=== PATIENT | female | born 1955 | race Caucasian/White ===

== ENCOUNTER 2024-11-01 09:03 | Inpatient (IN) | payer MEDICARE, MEDICAID, SELFPAY ==
[2024-11-01] VITALS (21 sets, daily range): BP systolic 133–179; BP diastolic 82–116; PULSE 144–155; RESP 18–25; TEMP 36.8–37.7; O2SAT 89–97; BMI 27.4
--- NOTE | 2024-11-01 10:01 | EKG_ITS ---
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[id number] Requested By: ED Temporary Provider Order Number: [id number] Reading MD: ED Temporary Provider Measurements Intervals [place] Rate: 144 P: VT: QRS: 38 QRSD: 86 T: 259 QT: 205 QTc: 317 Interpretive Statements ATRIAL FLUTTER/TACHYCARDIA WITH RAPID VENTRICULAR RESPONSE POSSIBLE RIGHT VENTRICULAR CONDUCTION DELAY [RSR (QR) IN V1/V2] ST DEVIATION AND MODERATE T-WAVE ABNORMALITY, CONSIDER INFERIOR ISCHEMIA [-0.1+ mV T-WAVE IN II/aVF] Compared to ECG 11/17/2023 23:34:28 T-wave abnormality now present Possible ischemia now present Myocardial infarct finding no longer present /store/S0/[id number]/ecg/[id number].pdf
--- NOTE | 2024-11-01 10:08 | EDNOTE_ITS ---
ED SOB =RME/HPI General Chief Complaint: Shortness of Breath/Dyspnea Stated Complaint: SOB, DIFF, BREATHING X2 WK Time Seen by Provider: 11/01/24 10:05 Arrival date/time: 11/01/24 09:03 RME / HPI RME / HPI Narrative: 69 year old female with history of CAD s/p CABG, COPD on 2L home oxygen PRN, hypertension, hyperlipidemia, active tobacco smoker presents to the ED for evaluation of shortness of breath and cough today. Accompanied by feeling feverish and chills. Patient states at baseline she is short of breath accompanied by a cough. In the last week states her shortness of breath is progressively worsening. At baseline can go 3-4 days without using her rescue inhaler or giving herself nebulizer treatments. However, in the last week is using her inhaler and nebulizer every day. Additionally states she has had to increase her oxygen from 2L to 4L via nasal cannula. Denies current use of steroids. No sick contacts. Per RN, on arrival to the ED the patient was saturating 78% on room air. Related Data Home Medications ?Medication ?Instructions ?Recorded ?Confirmed omeprazole 20 mg tablet,delayed 20 mg PO QDAY 05/31/21 11/01/24 release ropinirole 0.5 mg tablet 0.25 mg PO 11/14/23 Held on 11/01/24. Instructions: Order Change aspirin 81 mg tablet,delayed 81 mg PO QDAY 11/01/24 release (Adult Aspirin Regimen) atorvastatin 40 mg tablet mg 11/01/24 loratadine 10 mg tablet mg 11/01/24 Previous Rx's ?Medication ?Instructions ?Recorded apixaban 5 mg tablet (Eliquis) 5 mg PO BID #60 tabs digoxin 125 mcg (0.125 mg) tablet 0.125 mg PO QDAY #30 tabs 11/19/23 diltiazem HCl 360 mg 360 mg PO QAM #30 caps 11/19 capsule,extended release 24 hr magnesium oxide 400 mg (241.3 mg 400 mg PO QDAY #30 ta bs 11/19/23 magnesium) tablet albuterol sulfate 90 mcg/actuation 2 puff inhalation Q 6H PRN 11/20/23 aerosol inhaler shortness of breath or wheez ing #8.5 grams Allergies Allergy/AdvReac Type Severity Reaction Status Date / Time No Known Allergies Allergy Verified 11/01/24 09:08 Review of Systems Review of Systems Narrative Review of Systems: Gen: No fever, no chills, no weight loss EYES: No discharge, no visual changes, no pain HEENT: No ear pain, no congestion, no sore throat PULM: + shortness of breath, +productive cough CV: No chest pain, no dyspnea on exertion, no palpitations, no chest tightness GI: No nausea, no vomiting, no diarrhea, no pain, no constipation : No frequency, no urgency,? no dysuria Musc/skel: No joint pain, no back pain Skin: No rash, no ecchymosis, no lesions Neuro: No weakness, no headache Past Medical History Past Medical History CARDIAC: Positive Cardiac Disorders, Myocardial Infarction and Hypertension RESPIRATORY: Positive Respiratory Disorders, Chronic Obstructive Pulmonary Disease (COPD) and Asthma ENT: Positive Blind Family History FAMILY HISTORY: Positive Family Cardiac Disorders Surgical History SURGICAL: Positive Cardiac Surgery, Coronary Artery Bypass Graft (X3 1991) and Tonsillectomy Social History SMOKING STATUS: Current every day smoker SECOND HAND EXPOSURE: Yes ED Exam Narrative Physical exam: GENERAL APPEARANCE: AxOx4, COPD blue bloater HEENT: NC, AT. MMM. EOMI, clear conjunctiva, oropharynx clear. NECK: Supple without lymphadenopathy. No stiffness or restricted ROM. HEART: Normal rate and regular rhythm, normal S1/S1, no m/r/g LUNGS: Dahl expiratory wheezing, coarse rhonchi, COPD. ABDOMEN: Soft, nontender, nondistended with good bowel sounds heard. BACK: No midline C/T/L spine pain or deformity, No CVAT, no obvious deformity. EXTREMITIES: Without cyanosis, clubbing or edema. MUSCULOSKELETAL: FROM of all major joints, no chest tenderness NEUROLOGICAL: Grossly nonfocal. Alert and oriented, moving all 4 extremities. CN not formally tested but appear grossly intact. Skin: Warm and dry without any rash. Course Quality Measures none Orders Category Date Time Status Admit to Inpatient Status Routine Admission 11/01/24 17:43 Active Patient Condition Routine Admission 11/01/24 17:42 Ordered COVID-19 Screening Questionnaire NOW Care 11/01/24 17:32 Active Continuous Pulse Oximetry NOW Care 11/01/24 17:42 Active Decision to Admit X1 Care 11/01/24 17:32 Active EKG (ED ONLY) *Do not use* NOW Care 11/01/24 10:01 Completed Flu & Pneumonia Vaccine Screen ONCE Care 11/01/24 17:42 Active Notify provider NEEDED Care 11/01/24 17:42 Active Consult to Cardiology Stat Cons 11/01/24 17:49 Ordered CA echo doppler complete Routine Exams 11/01/24 17:46 Ordered EKG (ED Only) Stat Exams 11/01/24 10:01 Draft EKG (ED Only) Urgent Exams 11/01/24 10:01 Ordered CBC AM DRAW Lab 11/02/24 05:00 Ordered CBC AM DRAW Lab 11/03/24 05:00 Ordered CBC AM DRAW Lab 11/04/24 05:00 Ordered CBC Stat Lab 11/01/24 10:00 Completed CMP [Comprehensive Metabolic Panel] Stat Lab 11/01/24 10:00 Completed Lipid Panel AM DRAW Lab 11/02/24 05:00 Ordered Magnesium AM DRAW Lab 11/02/24 05:00 Ordered Magnesium AM DRAW Lab 11/03/24 05:00 Ordered Magnesium AM DRAW Lab 11/04/24 05:00 Ordered Magnesium Stat Lab 11/01/24 10:00 Completed PTT [Partial Thromboplastin Time] Stat Lab 11/01/24 10:00 Completed Prothrombin Time with INR AM DRAW Lab 11/02/24 05:00 Ordered Renal Function Panel AM DRAW Lab 11/02/24 05:00 Ordered Renal Function Panel AM DRAW Lab 11/03/24 05:00 Ordered Renal Function Panel AM DRAW Lab 11/04/24 05:00 Ordered Renal Function Panel AM DRAW Lab 11/05/24 05:00 Ordered Thyroid Stimulating Hormone AM DRAW Lab 11/02/24 05:00 Ordered ALBUTEROL RT 0.5ml [Proventil Rt 0.5ml] Med 11/01/24 10:06 Discontinued 10 mg INH X1 ONE ALBUTEROL RT 3ml [Proventil Rt 3ml] Med 11/01/24 11:41 Discontinued 2.5 mg INH X1 ONE Acetaminophen Tab [Tylenol Tab] Med 11/01/24 17:42 Active 1,000 mg PO Q6H PRN Adenosine 6mg Inj [Adenocard Inj] Med 11/01/24 17:05 Discontinued 12 mg IVP X1 ONE Apixaban [Eliquis] Med 11/01/24 21:00 Active 5 mg PO BID Dextrose 5%-Water [D5w] 100 ml Med 11/01/24 13:45 Active Diltiazem Inj [Cardizem Inj] 125 mg IV 10 mls/hr Diltiazem Inj [Cardizem Inj] Med 11/01/24 11:41 Discontinued 25 mg IV X1 ONE Ipratropium Loring Rt Nayla [Atrovent Rt Nayla] Med 11/01/24 17:49 Active 0.5 mg INH Q6HR PRN Ipratropium Loring Rt Nayla [Atrovent Rt Nayla] Med 11/01/24 10:06 Discontinued 1 mg INH X1 ONE Levalbuterol Rt [Xopenex Rt Nayla] Med 11/01/24 17:49 Active 0.63 mg INH Q6HR PRN Magnesium Sulfate 2 GM Ivpb [Magnesium Sulfate Ivpb] Med 11/01/24 17:49 Active 2 gm in 50 ml IV X1 Morphine Inj Med 11/01/24 17:42 Active 2 mg IVP Q2H PRN Ondansetron Inj [Zofran Inj] Med 11/01/24 17:42 Active 4 mg IV Q6H PRN Sodium Chloride 0.9% [Ns] 100 ml Med 11/01/24 13:45 Discontinued Diltiazem Inj [Cardizem Inj] 125 mg IV 10 mls/hr Sodium Chloride Rt Nayla 0.9% [NS Rt Nayla 0.9%] Med 11/01/24 10:06 Active 3 ml INH PRN PRN cefTRIAXone/D5w 1gm IV premix [Rocephin/D5w 1gm IV Med 11/01/24 17:26 Discontinued premix] 50 ml IV X1 predniSONE Med 11/01/24 10:06 Discontinued 60 mg PO X1 ONE rOPINIRole HCL [Requip] Med 11/01/24 14:00 Discontinued 0.25 mg PO X1 ONE Code Status Routine Oth 11/01/24 17:42 Ordered Oxygen Delivery DAILY RT 11/01/24 17:43 Active Reevaluation(s) Reevaluation #1: We reviewed all the results, analysis, and treatment plans. Patient is amenable to admission. Time: 15:45 Vital Signs Vital signs: Vital Signs Temperature 98.8 F 11/01/24 09:41 Pulse Rate 146 H 11/01/24 09:41 Respiratory Rate 19 11/01/24 09:41 Blood Pressure 163/110 H 11/01/24 09:41 Pulse Oximetry (%) 92 L 11/01/24 09:41 Oxygen Delivery Method Nasal Cannula 11/01/24 09:41 Oxygen Flow Rate 4 11/01/24 09:41 Pulse ox is 92% on 4L nasal cannula which is adequate for the patient. Shortness of Breath / Dyspnea MDM Narrative MDM Narrative:: Windy Sheth am scribing for and in the presence of Dr. Mckeon. Patient data External records reviewed:: [facility] previous records (I reviewed admission from 11/11/2023 through 11/19/2023) Clinical information provided by:: patient Social determinants that could affect healthcare access:: other (specify) (Active tobacco smoker ) Patient has the following chronic illnesses:: CAD s/p CABG, COPD on 2L home oxygen PRN, hypertension, hyperlipidemia, active tobacco smoker How is presenting disease/condition affected by chronic disease/condition?: exacerbated by Evaluation data The following diagnostics were reviewed and interpreted by me:: lab results, radiology exam(s) and EKG tracing(s) (Sinus tachycardia, rate 144, no STEMI. ) Lab and/or radiology exams considered but not ordered:: None Interpretation Summary: As noted above Medications / Prescriptions Medications or Prescriptions considered but not ordered:: None Medication administrations:: Medication Administration History Acetaminophen (Acetaminophen 325 Mg Tablet) 1,000 mg PO Q6H PRN PRN Reason: Fever >100 Stop: 12/01/24 17:41 Apixaban (Apixaban 2.5 Mg Tablet) 5 mg PO BID COUNTS INCLUDE 234 BEDS AT THE [facility] Stop: 12/01/24 20:59 Diltiazem HCl 125 mg/ Dextrose 125 mls @ 10 mls/hr IV .[id number] COUNTS INCLUDE 234 BEDS AT THE [facility] Stop: 12/01/24 13:44 Last Infusion: 11/01/24 17:27 Dose: 10 mls/hr Documented By: Infusion: 11/01/24 14:25 Dose: 0 mls/hr Documented By: Admin: 11/01/24 13:57 Dose: 10 mls/hr Documented By: NUNO Magnesium Sulfate (Magnesium Sulfate Ivpb) 2 gm in 50 mls @ 25 mls/hr IV X1 ONE Stop: 11/01/24 19:48 Ipratropium [place] (Ipratropium Rt 0.5 Mg/ 2.5 Ml Nebu) 0.5 mg INH Q6HR PRN PRN Reason: wheezing Stop: 12/01/24 17:48 Last Admin: 11/01/24 18:01 Dose: 0.5 mg Documented By: NICK Levalbuterol HCl (Levalbuterol Rt 0.63 Mg/3 Ml Nebu) 0.63 mg INH Q6HR PRN PRN Reason: wheezing Stop: 12/01/24 17:48 Last Admin: 11/01/24 18:01 Dose: 0.63 mg Documented By: NICK Morphine Sulfate (Morphine Sulf Inj 10 Mg/Ml Vial) 2 mg IVP Q2H PRN PRN Reason: Pain Scale 4-10 (Severe Stop: 11/06/24 17:41 Ondansetron HCl (Ondansetron Inj 2 Mg/Ml Inj 2 Ml) 4 mg IV Q6H PRN; Protocol PRN Reason: NAUSEA OR VOMITING Stop: 12/01/24 17:41 Sodium Chloride (Sodium Chloride Rt Nayla 0.9% 3 Ml Nebu) 3 ml INH PRN PRN PRN Reason: SOLN Stop: 12/01/24 10:05 Last Admin: 11/01/24 14:22 Dose: 3 ml Documented By: Admin: 11/01/24 14:20 Dose: 3 ml Documented By: MONIE Discontinued Medications Adenosine (Adenosine Inj 3 Mg/Ml Vial) 12 mg IVP X1 ONE Stop: 11/01/24 17:06 Last Admin: 11/01/24 17:23 Dose: 12 mg Documented By: NUNO Albuterol (Albuterol Rt 2.5 Mg/0.5 Ml Nebu) 10 mg INH X1 ONE Stop: 11/01/24 10:07 Last Admin: 11/01/24 10:39 Dose: 10 mg Documented By: MONIE Albuterol (Albuterol Rt 2.5 Mg/3 Ml Nebu) 2.5 mg INH X1 ONE Stop: 11/01/24 11:42 Last Admin: 11/01/24 14:19 Dose: 2.5 mg Documented By: MONIE Diltiazem HCl (Diltiazem Inj 5 Mg/Ml Vial 5 Ml) 25 mg IV X1 ONE Stop: 11/01/24 11:42 Last Admin: 11/01/24 13:20 Dose: 25 mg Documented By: NUNO Diltiazem HCl 125 mg/ Sodium (Chloride) 125 mls @ 10 mls/hr IV .[id number] ESPERANZA Stop: 12/01/24 13:29 Ceftriaxone Sodium/Dextrose (Rocephin/D5w 1gm Iv Premix) 50 mls @ 100 mls/hr IV X1 ONE Stop: 11/01/24 17:55 Ipratropium [place] (Ipratropium Rt 0.5 Mg/ 2.5 Ml Nebu) 1 mg INH X1 ONE Stop: 11/01/24 10:07 Last Admin: 11/01/24 10:39 Dose: 1 mg Documented By: MONIE Prednisone (Prednisone 20 Mg Tablet) 60 mg PO X1 ONE Stop: 11/01/24 10:07 Last Admin: 11/01/24 10:33 Dose: 60 mg Documented By: NUNO Ropinirole HCl (Ropinirole Hcl 0.25 Mg Tablet) 0.25 mg PO X1 ONE Stop: 11/01/24 14:01 Last Admin: 11/01/24 14:17 Dose: 0.25 mg Documented By: NUNO See above Consultations Consultation(s) initiated? (list below): Yes Consultation #1 (Physician, Specialty, Details): I spoke with hospitalist team regarding admission. Discussed patients PMHx, HPI, ED course, exam findings, labs, and radiology results. The hospitalist agree to accept the patient for admission. Diagnosis Shortness of Breath Differential Diagnosis: acute exacerbation of chronic obstructive airways disease, congestive heart failure, community acquired pneumonia and asthma with exacerbation Most likely diagnosis given after review of the tests above:: COPD exacerbation Bilateral pneumonia atrial flutter with RVR Admission Indicated Admission indicated?: indicated Admission Request Was there a request for admission?: Yes Admission Attestation Admission request attestation: Discussed case with [] from Hospitalist service regarding admission. Discussed patients ED course, exam findings, labs, and radiology results. The Hospitalist [agrees,declines] to accept the patient for admission. Disposition Plan Disposition Plan: Admit Critical Care Time Critical Care Time Critical Care Time: Yes Total Critical Care Time (min.): 45 Attestation: The high probability of sudden, clinically significant deterioration in the patient's condition required the highest level of my preparedness to intervene urgently. The services I provided to this patient were to treat and/or prevent clinically significant deterioration. Services included the following: chart data review, reviewing nursing notes and/or old charts, documentation time, business continuity consultant collaboration regarding findings and treatment options, medication orders and management, direct patient care, vital sign assessments and ordering, interpreting and reviewing diagnostic studies and lab tests. Aggregate critical care time includes only time during which I was engaged in work directly related to the patient's care, as described above, whether at bedside or elsewhere in the Emergency Department. It did not include time spent performing other reported procedures or the services of residents, students, nurses or physician assistants. Discharge Plan Plan Patient Disposition: Admit Acute Care w/in Hospital Prescriptions/Referrals Prescriptions/Med Rec: No Action omeprazole 20 mg Tablet,Delayed Release (Dr/Ec) 20 mg PO QDAY ropinirole 0.5 mg tablet 0.25 mg PO Patient Comments: TAKE ONE TABLET BY MOUTH 1-3 HOURS AT BEDTIME digoxin 125 mcg (0.125 mg) Tablet 0.125 mg PO QDAY Qty: 30 0RF diltiazem HCl 360 mg capsule,extended release 24hr 360 mg PO QAM Qty: 30 0RF magnesium oxide 400 mg (241.3 mg magnesium) Tablet 400 mg PO QDAY Qty: 30 0RF Eliquis 5 mg tablet 5 mg PO BID Qty: 60 0RF albuterol sulfate 90 mcg/actuation HFA aerosol inhaler 2 puff inhalation Q6H PRN (Reason: shortness of breath or wheezing) Qty: 8.5 0RF atorvastatin 40 mg tablet Patient Comments: TAKE ONE TABLET BY MOUTH EVERY EVENING FOR CHOLESTEROL loratadine 10 mg tablet Patient Comments: TAKE ONE TABLET BY MOUTH EVERY DAY NEEDED FOR ALLERGY aspirin [Adult Aspirin Regimen] 81 mg tablet,delayed release (DR/EC) 81 mg PO QDAY Referrals: Scout Morris PA-C [Primary Care Provider] - In 1 week Problem List Clinical Impression: COPD exacerbation, Atrial flutter with rapid ventricular response, Bilateral pneumonia Patient/Caregiver Discharge Instructions Print Language: Persian Stand Alone Forms: Ibeth Award Info., Patient Portal Info Letter
[2024-11-01] MEDS: predniSONE 20 MG TABLET 60 MG PO (10:33)
[2024-11-01] MEDS: ALBUTEROL RT 2.5 MG/0.5 ML NEBU 10 MG INH (10:39)
[2024-11-01] MEDS: IPRATROPIUM RT 0.5 MG/ 2.5 ML NEBU 1 MG INH (10:39)
[2024-11-01 11:56] LABS: Basophils # (Auto) 0.1 Thou/mm3 (0.0-0.2); Basophils % (Auto) 1 % (0-2.5); Eosinophils % (Auto) 0 % (0-10); Hematocrit 37.3 % (36.0-46.0); Hemoglobin 11.3 g/dL (12.0-16.0); Immature Granulocytes % (Auto) 2 % (0-0); Immature Granulocytes Auto 0.28 Thou/mm3 (0.00-0.00); Lymphocytes # (Auto) 1.2 Thou/mm3 (1.0-4.8); Lymphocytes % (Auto) 9 % (10-50); Mean Corpuscular HGB Conc 30.3 g/dl (31.0-37.0); Mean Corpuscular Hemoglobin 25.3 pg (25.0-35.0); Mean Corpuscular Volume 84 fL (80-100); Monocytes # (Auto) 0.7 Thou/mm3 (0.0-0.8); Monocytes % (Auto) 5 % (0-12); Neutrophils # (Auto) 11.1 Thou/mm3 (1.8-7.7); Neutrophils % (Auto) 84 % (37-80); Nucleated Red Blood Cell # 0.14 Thou/mm3 (0.00-0.00); Nucleated Red Blood Cell % 1 /100 WBC (0); Platelet Count 304 Thou/mm3 (140-440); RDW Standard Deviation 56.3 fL (36.4-46.3); Red Blood Count 4.46 Miln/mm3 (4.00-5.20); White Blood Count 13.3 Thou/mm3 (3.6-11.0)
[2024-11-01 12:05] LABS: Alanine Aminotransferase 24 U/L (10-49); Albumin/Globulin Ratio 1.3 (1.2-2.2); Alkaline Phosphatase 200 U/L (46-116); Anion Gap 6 (7-16); Aspartate Amino Transferase 65 U/L (0-34); BUN/Creatinine Ratio 15 Ratio (12-20); Bilirubin,Total 0.4 mg/dL (0.3-1.2); Blood Urea Nitrogen 12 mg/dL (9-23); Calcium 8.5 mg/dL (8.3-10.6); Calcium (Corrected) 8.5 mg/dL (8.5-10.1); Carbon Dioxide 31.8 mMol/L (20.0-31.0); Chloride 92 mMol/L (98-107); Creatinine (Component) 0.8 mg/dL (0.6-1.3); Estimated Creatinine Clearance 60.9 mL/min (>60); Globulin 3.1 gm/dL (2.3-3.5); Glucose 112 mg/dL (74-106); Magnesium 1.8 mg/dL (1.6-2.6); Osmolality,Calculated 261 (275-295); Potassium 4.5 mMol/L (3.4-5.1); Sodium 130 mMol/L (136-145); Total Protein 7.1 gm/dL (5.7-8.2); eGFR > 60 See Note
[2024-11-01] MEDS: DILTIAZEM INJ 5 MG/ML VIAL 5 ML 25 MG IV (13:20)
[2024-11-01] MEDS: DILTIAZEM INJ 125 MG in DEXTROSE 5%-WATER 100 ML 10 MG IV (13:57)
[2024-11-01] MEDS: rOPINIRole HCL 0.25 MG TABLET PO (14:17)
[2024-11-01] MEDS: ALBUTEROL RT 2.5 MG/3 ML NEBU INH (14:19)
[2024-11-01] MEDS: SODIUM CHLORIDE RT SOL 0.9% 3 ML NEBU INH ×2 (14:20→14:22)
[2024-11-01] MEDS: ADENOSINE INJ 3 MG/ML VIAL 12 MG IVP (17:23)
--- NOTE | 2024-11-01 17:46 | ECHO_ITS ---
Transthoracic Echo Report Ht (in): 62 Wt (lb): 150 Exam Location: Echo Lab Status: Emergency Almond Sorter: Елена Soriano Indications: Procedure Performed: BP: 132 / 92 HR: 98 Technical Quality: Technically difficult study MEASUREMENTS (Male / Female) Normal Values 2D ECHO LV Diastolic Diameter PLAX 5.0 cm 4.2 - 5.9 / 3.9 - 5.3 cm LV Systolic Diameter PLAX 3.5 cm IVS Diastolic Thickness 1.0 cm 0.6 - 1.0 / 0.6 - 0.9 cm LVPW Diastolic Thickness 1.0 cm 0.6 - 1.0 / 0.6 - 0.9 cm LV Relative Wall Thickness 0.4 LVOT Diameter 2.0 cm LV Ejection Fraction MOD BP 36.5 % >= 55 % LV Cardiac Index MOD BP 1685.5 cm?/min?m? LV Ejection Fraction MOD 4C 37.7 % LV Cardiac Index MOD 4C 1747.3 cm?/min?m? LV Ejection Fraction 4C AL 38.4 % LV Cardiac Index 4C AL 1847.7 cm?/min?m? LV Ejection Fraction MOD 2C 33.4 % LV Cardiac Index MOD 2C 1455.2 cm?/min?m? LV Ejection Fraction 2C AL 35.4 % LV Cardiac Index 2C AL 1600.7 cm?/min?m? LA Volume Index 34.0 cm?/m? 16 - 28 cm?/m? M-MODE Aortic Root Diameter MM 2.0 cm LA Systolic Diameter MM 4.6 cm LA Ao Ratio MM 2.3 AV Cusp Separation MM 1.9 cm DOPPLER AV Peak Velocity 155.0 cm/s AV Peak Gradient 9.6 mmHg AV Mean Gradient 5.0 mmHg AV Velocity Time Integral 27.0 cm LVOT Peak Velocity 107.0 cm/s LVOT Peak Gradient 4.6 mmHg LVOT Velocity Time Integral 18.9 cm LVOT Cardiac Index 3336.0 cm?/min?m? AV Area Cont Eq vti 2.2 cm? AV Area Cont Eq pk 2.2 cm? MV Area PHT 7.1 cm? Mitral E Point Velocity 77.6 cm/s TR Peak Velocity 291.0 cm/s TR Peak Gradient 33.9 mmHg PV Peak Velocity 102.0 cm/s PV Peak Gradient 4.2 mmHg FINDINGS Left Ventricle Normal left ventricular size, wall thickness, systolic function with no obvious regional wall motion abnormalities. Normal left ventricular diastolic filling pattern for age. The ejection fraction is visually estimated at 55-60%. Right Ventricle The right ventricle is normal in size.the right ventricular systolic function is moderately decreased. The estimated right ventricular systolic pressure, 55 mmHg. RAP 15. Left Atrium The left atrium is normal by two-dimensional, color flow and Doppler imaging with no structural abnormalities, no thrombus formation present. Right Atrium The right atrium is normal by two-dimensional imaging, color flow and Doppler imaging with no structural abnormalities, no thrombus formation present. Atrial Septum The interatrial septum appears normal with no evidence of a shunt. Aorta The aorta is normal by two-dimensional, color flow and Doppler interrogation. Mitral Valve The mitral valve is normal by two-dimensional, color flow and Doppler interrogation. There trace mitral valve regurgitation, stenosis or prolapse. Aortic Valve The aortic valve is trileaflet and normal by two-dimensional, color flow and Doppler interrogation. There is no significant aortic valve regurgitation. Tricuspid Valve The tricuspid valve is normal by two-dimensional, color flow and Doppler interrogation. There is moderate tricuspid valve regurgitation. Pulmonic Valve The pulmonic valve is not well visualized. There is no significant pulmonic valve regurgitation. Vessels Dilated inferior vena cava. Pericardium The pericardium is normal by two-dimensional imaging. There is no significant pericardial effusion. CONCLUSIONS Indication: Atrial Flutter Normal LV size and wall thickness .Low normal LV funvtion. Estimated EF 45-50 %. Diastoolic dysfunction present but cannot gartde due to Afib/flutter with RVR. RV is normal in size. RV systolic function is mildlly decreased. Estimated RVSP, 55 mmHg. RAP 15.At;east modertae PAH Trace to mild MR. Moderate TR. MIld biatrial dialation. Dilated IVC. Rex Gaines (Electronically Signed) Final Date: 04 November 2024 07:34
[2024-11-01 18:01] LABS: Partial Thromboplastin Time 32.9 Seconds (22.0-36.0)
[2024-11-01] MEDS: LEVALBUTEROL RT 0.63 MG/3 ML NEBU INH (18:01)
[2024-11-01] MEDS: IPRATROPIUM RT 0.5 MG/ 2.5 ML NEBU INH (18:01)
--- NOTE | 2024-11-01 18:03 | ESHP_ITS ---
<Statement entered by Gurdeep Price MD - 11/09/24 11:49> I reviewed above note and agree with findings and plans. I have also personally examined the patient with medicine team and went over assessment and plan with medical team including restaurant management internship and resident physician. Documentation for date of: 11/01/24 HPI History of Present Illness Chief complaint: SOB History of present illness: Patient is 69 years old female with past medical history of COPD not on oxygen, CAD s/p CABG more than 20 years ago, hypertension, hyperlipidemia, hepatocellular disease, restless legs syndrome, history of polysubstance abuse (alcohol, marijuana, tobacco use, methamphetamine use) presented to the ED complaining of worsening shortness of breath and cough. Patient stated she developed shortness of breath Friday which was worsening, yesterday her condition significantly worsen she started coughing and also experienced flushing which prompted her to come to the ED. She denies any fever, chills, chest pain or phlegm production. Patient was previously admitted for COPD exacerbation at [facility]. On admission blood pressure 164/103, pulse 150, respirations 21, temperature 99.9 ?F, oxygen saturation 97% on 4 L oxy mask. Labs showed mild leukocytosis, mild anemia, mild hypoosmolar hyponatremia. EKG showed atrial flutter. In the ED patient was given breathing treatment with ipratropium, albuterol, prednisone, adenosine, started on diltiazem drip. Patient was admitted for COPD treatment and heart rate management. PMH: COPD, CAD, hypertension, hyperlipidemia, hepatocellular disease, restless legs syndrome, history of polysubstance abuse. PSH: CABG. SH: alcohol quit 1 year ago, remote Hx of marijuana, tobacco use, methamphetamine use. FH: none. Allergies: NKA. Medications: albuterol, apixaban, aspirin, diltiazem, omeprazole. Review of Systems Review of Systems Narrative Review of Systems: General: Denies weight loss, fever and chills. HEENT: Denies changes in vision and hearing. Resp: + SOB, cough and wheezing. CVS: Denies palpitations and CP. GI: Denies abdominal pain, nausea, vomiting and diarrhea. : Denies dysuria and urinary frequency. MSK: Denies myalgia and joint pain. Denies rash and pruritus. Neuro: Denies headache and syncope. Psych: Denies recent changes in mood. Denies anxiety and depression. Exam Vital Signs Temp Pulse Resp BP Pulse Ox O2 Del Method O2 Flow Rate 99.9 F 150 H 21 H 164/103 H 97 Oxy Mask 6 11/01/24 17:16 11/01/24 17:23 11/01/24 17:16 11/01/24 17:23 11/01/24 17:16 11/01/24 17:16 11/01/24 17:16 Narrative Exam Gen: Well-developed and well-nourished on oxymask. HEENT: NCAT, PERRLA, EOMI, MMM, anicteric conjunctivae. CVS: normal S1 and S2. Regular tachycardia. No M/R/G. Resp: expiratory wheezing B/L. No rhonchi, rales, crackles. Abd: soft, non-tender, non-distended. BS+ in all 4 quadrants. MSK: Good ROM in BUE & BLE. No edema or rash. Neuro: CN II-XII grossly intact. Strength 5/5 in BUE & BLE. Alert and oriented x3. Psych: appropriate mood and affect. Results: Labs 11/01/24 10:00 11/01/24 10:00 Labs: Short CBC 11/01/24 Range/Units 10:00 WBC 13.3 H (3.6-11.0) Thou/mm3 Hgb 11.3 L (12.0-16.0) g/dL Hct 37.3 (36.0-46.0) % Plt Count 304 (140-440) Thou/mm3 BMP 11/01/24 10:00 Sodium 130 L Potassium 4.5 Chloride 92 L Carbon Dioxide 31.8 H BUN 12 Creatinine 0.8 Glucose 112 H Calcium 8.5 Liver Function 11/01/24 Range/Units 10:00 Total Bilirubin 0.4 (0.3-1.2) mg/dL AST 65 H (0-34) U/L ALT 24 (10-49) U/L Alkaline Phosphatase 200 H (46-116) U/L Albumin 4.0 (3.4-4.8) gm/dL Quality Measures Quality Measures VTE prophylaxis Advance care planning discussed with:: patient and child Medications Home Medications and Allergies Home Medications ?Medication ?Instructions ?Recorded ?Confirmed ?Type omeprazole 20 mg tablet,delayed 20 mg PO QDAY 05/31/21 11/01/24 History release ropinirole 0.5 mg tablet 0.25 mg PO 11/14/23 History Held on 11/01/24. Instructions: Order Change aspirin 81 mg tablet,delayed 81 mg PO QDAY 11/01/24 History release (Adult Aspirin Regimen) atorvastatin 40 mg tablet mg 11/01/24 History loratadine 10 mg tablet mg 11/01/24 History Allergies Allergy/AdvReac Type Severity Reaction Status Date / Time No Known Allergies Allergy Verified 11/01/24 09:08 Visit Medications Acetaminophen (Acetaminophen 325 Mg Tablet) 1,000 mg PO Q6H PRN PRN Reason: Fever >100 Stop: 12/01/24 17:41 Apixaban (Apixaban 2.5 Mg Tablet) 5 mg PO BID ESPERANZA Stop: 12/01/24 20:59 Diltiazem HCl 125 mg/ Dextrose 125 mls @ 10 mls/hr IV .[id number] ESPERANZA Stop: 12/01/24 13:44 Last Infusion: 11/01/24 17:27 Dose: 10 mls/hr Magnesium Sulfate (Magnesium Sulfate Ivpb) 2 gm in 50 mls @ 25 mls/hr IV X1 ONE Stop: 11/01/24 19:48 Ipratropium [place] (Ipratropium Rt 0.5 Mg/ 2.5 Ml Nebu) 0.5 mg INH Q6HR PRN PRN Reason: wheezing Stop: 12/01/24 17:48 Levalbuterol HCl (Levalbuterol Rt 0.63 Mg/3 Ml Nebu) 0.63 mg INH Q6HR PRN PRN Reason: wheezing Stop: 12/01/24 17:48 Morphine Sulfate (Morphine Sulf Inj 10 Mg/Ml Vial) 2 mg IVP Q2H PRN PRN Reason: Pain Scale 4-10 (Severe Stop: 11/06/24 17:41 Ondansetron HCl (Ondansetron Inj 2 Mg/Ml Inj 2 Ml) 4 mg IV Q6H PRN; Protocol PRN Reason: NAUSEA OR VOMITING Stop: 12/01/24 17:41 Sodium Chloride (Sodium Chloride Rt Nayla 0.9% 3 Ml Nebu) 3 ml INH PRN PRN PRN Reason: SOLN Stop: 12/01/24 10:05 Last Admin: 11/01/24 14:22 Dose: 3 ml Discontinued Medications Adenosine (Adenosine Inj 3 Mg/Ml Vial) 12 mg IVP X1 ONE Stop: 11/01/24 17:06 Last Admin: 11/01/24 17:23 Dose: 12 mg Albuterol (Albuterol Rt 2.5 Mg/0.5 Ml Nebu) 10 mg INH X1 ONE Stop: 11/01/24 10:07 Last Admin: 11/01/24 10:39 Dose: 10 mg Albuterol (Albuterol Rt 2.5 Mg/3 Ml Nebu) 2.5 mg INH X1 ONE Stop: 11/01/24 11:42 Last Admin: 11/01/24 14:19 Dose: 2.5 mg Diltiazem HCl (Diltiazem Inj 5 Mg/Ml Vial 5 Ml) 25 mg IV X1 ONE Stop: 11/01/24 11:42 Last Admin: 11/01/24 13:20 Dose: 25 mg Diltiazem HCl 125 mg/ Sodium (Chloride) 125 mls @ 10 mls/hr IV .[id number] ESPERANZA Stop: 12/01/24 13:29 Ceftriaxone Sodium/Dextrose (Rocephin/D5w 1gm Iv Premix) 50 mls @ 100 mls/hr IV X1 ONE Stop: 11/01/24 17:55 Ipratropium [place] (Ipratropium Rt 0.5 Mg/ 2.5 Ml Nebu) 1 mg INH X1 ONE Stop: 11/01/24 10:07 Last Admin: 11/01/24 10:39 Dose: 1 mg Prednisone (Prednisone 20 Mg Tablet) 60 mg PO X1 ONE Stop: 11/01/24 10:07 Last Admin: 11/01/24 10:33 Dose: 60 mg Ropinirole HCl (Ropinirole Hcl 0.25 Mg Tablet) 0.25 mg PO X1 ONE Stop: 11/01/24 14:01 Last Admin: 11/01/24 14:17 Dose: 0.25 mg Assessment & Plan Plan Patient is 69 years old female with past medical history of CAD s/p CABG more than 20 years ago, hypertension, hyperlipidemia, hepatocellular disease, restless legs syndrome, history of polysubstance abuse (alcohol, marijuana, tobacco use, methamphetamine use) presented to the ED complaining of worsening shortness of breath and cough and was admitted for COPD treatment and heart rate management. #Acute hypoxic respiratory failure secondary to #COPD exacerbation. #Bibasilar pneumonia. #Hx of COPD, not on home oxygen. Hx of COPD, prior admissions. Wheezing on physical exam. Was prescribed home O2 but does not use it. CXR showed bibasilar pneumonia. Plan: -CXR ordered. -started on levalbuterol and ipratropium. -started on dexamethasone. -started on azithromycin and ceftriaxone. -started on mucinex. -VBG ordered. #A-flutter. #Hx of A-fib. Likely 2/2 acute hypoxic respiratory failure and COPD exacerbation. Plan: -diltiazem drip. -eliquis resumed. -Monitor and replete magnesium and potassium. -cardiology consulted, recs appreciated. #Hx of CAD s/p CABG (more then 20 years ago). #Hx of hyperlipidemia. Plan: -echo ordered. -resume home aspirin and atrovastatin. #Hx of hypertension. BP 164/103 on admission. Plan: -takes only diltiazem at home, will hold in setting of diltiazem drip. #Hypoosmolar hyponatremia. -Na 130, osm 261, glucose 112. Plan: -monitor with daily labs. #Hx of restless legs syndrome. -resumed home ropinirole. #Hx of hepatocellular disease. -Follow-up outpatient. #Hx of polysubstance abuse. -remote hx of Marijuana, alcohol, methamphetamine, tobacco use. FEN: Cardiac diet. DVT prophylaxis: Eliquis. Dispo: Telemetry for acute hypoxic respiratory failure 2/2 COPD exacerbation. Code status: FULL CODE. Plan of care discussed with attending Dr. Price. Len Marks MD, PGY 2. Disclaimer: This note was dictated by speech recognition. Minor errors in ball mill operator may be present due to voice recognition software.
--- NOTE | 2024-11-01 18:17 | XR_ITS ---
Examination: AP chest single view TECHNIQUE: AP sitting portable chest single view Exam daytime: November 01, 2024 1821 hours Comparison November 19, 2023 INDICATIONS: Shortness of breath today. FINDINGS: Bibasilar pneumonia Mild prominence of left ventricle CABG Moderate vascular congestion Prominent osteopenia IMPRESSION: Bibasilar pneumonia
[2024-11-01 19:16] LABS: Base Excess, Venous 8 (-3-3); O2 Saturation, Venous 96 % (96-97); PCO2, Venous 54 mmHg (36-56); PO2, Venous 77 mmHg (15-58); pH, Venous 7.41 (7.33-7.66)
[2024-11-01] MEDS: cefTRIAXone/D5w 1gm IV premix 50 ML IV (19:21)
[2024-11-01] MEDS: DIGOXIN 0.125 MG TABLET PO (19:32)
[2024-11-01] MEDS: MORPHINE SULF INJ 10 MG/ML VIAL 2 MG IVP ×2 (19:33→23:02)
--- NOTE | 2024-11-01 19:42 | PC.NURSE ---
Assumed care of pt. Pt awake, alert, no signs of distress noted. Pt on 6L oxymask, tolerating well at this time. Pt c/o restless leg pain, PRN morphine provided. Called pharmacy to request mucinex as well as Cardizem (due to rate change). Bed locked in lowest position, call light within reach.
[2024-11-01] MEDS: Magnesium Sulfate 2 GM Ivpb 2 GM/50 ML BAG IV (19:51)
[2024-11-01] MEDS: DILTIAZEM INJ 125 MG in DEXTROSE 5%-WATER 100 ML 15 MG IV (19:57)
[2024-11-01] MEDS: AZITHROMYCIN INJ 500 MG in SODIUM CHLORIDE 0.9% 250 ML 250 ML 250 MG IV (19:59)
[2024-11-01] MEDS: guaiFENesin/P-EPHED TABLET 1 TAB PO (20:55)
[2024-11-01] MEDS: APIXABAN 2.5 MG TABLET 5 MG PO (20:55)
--- NOTE | 2024-11-01 23:45 | PD.IMCONS ---
HPI Data of Consult Patient: known to practice within the last 3 years Consult date: 11/01/24 Requesting Physician: Gurdeep Price MD Primary Care Provider: Scout Morris PA-C Consult Narrative Reason for consult: A-fib with RVR History of present illness: A 69-year-old female with a past medical of CAD s/p CABG more than 20 years ago with unknown grafts is operative report unavailable, paroxysmal atrial fibrillation/flutter anticoagulation, rate controlled, history of moderate to severe COPD, active smoker still more than half a pack a day, increased 30 pack years smoking history, essential hypertension, hyperlipidemia, morbid obesity, history of alcohol, marijuana and tobacco abuse along with history of methamphetamine abuse previously many years ago, questionable liver disease secondary to alcohol and drug abuse, nephrolithiasis presented to the emergency department for further evaluation of shortness of breath and cough. Patient well-known to me from previous admission in October 2023 as well as she follows up with me in the clinic. Patient was initially diagnosed with paroxysmal atrial flutter/fibrillation with RVR in 2023 when she had COPD exacerbation along with an active COVID infection. Patient was followed up as outpatient and was placed on diltiazem ER to 60 mg once daily as well as digoxin 125 mcg once daily and Eliquis for anticoagulation. Heart rate was well-controlled but continued to be in normal sinus rhythm at that point of time. Patient continues to be smoking and she has at least moderate to severe COPD based on her previous presentations. In the emergency department today the initial blood pressure was 164/90 mmHg heart rate was 150 bpm, respirations of 21/min temperature 99.8 F saturations of 97% on 4 L Ventimask. Labs showed WBC 13.3 with left shift, hemoglobin of 11.3, platelets of 304, BUN of 12 creatinine of 0.8 potassium 4.5, sodium of 130, bicarb of 32, chloride of 92, alk phos 200, AST 65 but rest of the LFT appears normal. Chest x-ray is bibasilar pneumonia with moderate vascular congestion along with prominent osteopenia. EKG showed possible atrial flutter with RVR with 2 is to 1 block and less likely SVT. In the emergency department patient received 25 mg of diltiazem IV along with the diltiazem drip. Cardiology was further consulted for further management of the possible atrial flutter/fibrillation with RVR Past medical history and past surgical history: As noted above Social history: Lives alone and able to do ADL but needs help with IADLs which the daughter helps also lives here in [place]. Patient has a history of alcohol abuse but quit 1 year ago. Remote history of marijuana and methamphetamine use. Active smoker with more than 30 mg smoking history and still smokes more than half pack a day up to 15 cigarettes. Allergies: NKDA Family history is: Significant for history of hypertension as well as heart disease the patient does not know exactly the heart disease Travel history: None recently cc:: cc: Gurdeep Price MD Review of Systems Review of Systems Systems Reviewed: All systems reviewed, normal except as documented Past Medical History Past Medical History CARDIAC: Positive Cardiac Disorders, Myocardial Infarction and Hypertension RESPIRATORY: Positive Respiratory Disorders, Chronic Obstructive Pulmonary Disease (COPD) and Asthma ENT: Positive Blind Family History FAMILY HISTORY: Positive Family Cardiac Disorders Surgical History SURGICAL: Positive Cardiac Surgery, Coronary Artery Bypass Graft (X3 1991) and Tonsillectomy Social History SMOKING STATUS: Current every day smoker SECOND HAND EXPOSURE: Yes Past Medical History Comments PMH COMMENT: As noted in HPI Meds Home Medications and Allergies Home Medications ?Medication ?Instructions ?Recorded ?Confirmed ?Type omeprazole 20 mg tablet,delayed 20 mg PO QDAY 05/31/21 11/01/24 History release ropinirole 0.5 mg tablet 0.25 mg PO 11/14/23 History Held on 11/01/24. Instructions: Order Change aspirin 81 mg tablet,delayed 81 mg PO QDAY 11/01/24 11/01/24 History release (Adult Aspirin Regimen) atorvastatin 40 mg tablet mg 11/01/24 History loratadine 10 mg tablet mg 11/01/24 History Allergies Allergy/AdvReac Type Severity Reaction Status Date / Time No Known Allergies Allergy Verified 11/01/24 09:08 Exam Vital Signs Temp Pulse Resp BP Pulse Ox O2 Del Method O2 Flow Rate 98.3 F 155 H 19 140/94 H 94 L Oxy Mask 6 11/01/24 22:50 11/01/24 22:50 11/01/24 22:50 11/01/24 22:50 11/01/24 22:50 11/01/24 22:50 11/01/24 22:50 Narrative Exam General: Alert and oriented x3. In minimal respiratory distress 4 L oxygen by nasal cannula Eyes: Pupils are equal and reactive to light bilaterally. HEENT: Atraumatic, normocephalic. No JVD noted. Mucosa moist. Cardiovascular: S1 and S2 present, tachycardic but appears regular, 2/ 6 systolic murmur heard in apex, trace peripheral pitting edema noted. Respiratory: Mild respiratory distress. Significant bilateral expiratory wheezing noted and occasional crackles and breath sounds decreased at the bases. Abdomen: Soft, nontender, nondistended. Skin: No rash. Warm to touch. Musculoskeletal: No gross injuries. Able to move all 4 extremities. Neuro: Alert and oriented x3. No focal neuro deficits. Psych: Normal affect and mood Results Labs 11/01/24 10:00 11/01/24 10:00 Labs: Short CBC 11/01/24 Range/Units 10:00 WBC 13.3 H (3.6-11.0) Thou/mm3 Hgb 11.3 L (12.0-16.0) g/dL Hct 37.3 (36.0-46.0) % Plt Count 304 (140-440) Thou/mm3 BMP 11/01/24 10:00 Sodium 130 L Potassium 4.5 Chloride 92 L Carbon Dioxide 31.8 H BUN 12 Creatinine 0.8 Glucose 112 H Calcium 8.5 Liver Function 11/01/24 Range/Units 10:00 Total Bilirubin 0.4 (0.3-1.2) mg/dL AST 65 H (0-34) U/L ALT 24 (10-49) U/L Alkaline Phosphatase 200 H (46-116) U/L Albumin 4.0 (3.4-4.8) gm/dL ABG Interpretation ABG results: 11/01/24 19:07 VBG pH 7.41 VBG pCO2 54 VBG pO2 77 H VBG Base Excess 8 H Assessment and Plan Additional Assessment & Plan Additional Plan: A 69-year-old female with a past medical of CAD s/p CABG more than 20 years ago with unknown grafts is operative report unavailable, paroxysmal atrial fibrillation/flutter anticoagulation, rate controlled, history of moderate to severe COPD, active smoker still more than half a pack a day, increased 30 pack years smoking history, essential hypertension, hyperlipidemia, morbid obesity, history of alcohol, marijuana and tobacco abuse along with history of methamphetamine abuse previously many years ago, questionable liver disease secondary to alcohol and drug abuse, nephrolithiasis presented to the emergency department for further evaluation of shortness of breath and cough. Patient well-known to me from previous admission in October 2023 as well as she follows up with me in the clinic. Patient was initially diagnosed with paroxysmal atrial flutter/fibrillation with RVR in 10/2023 when she had COPD exacerbation along with an active COVID infection. Patient was followed up as outpatient and was placed on diltiazem ER to 60 mg once daily as well as digoxin 125 mcg once daily and Eliquis for anticoagulation. Heart rate was well-controlled but continued to be in normal sinus rhythm at that point of time. Patient continues to be smoking and she has at least moderate to severe COPD based on her previous presentations. Cardiology was consulted today for further management of the possible atrial flutter/fibrillation with RVR 1. Paroxysmal atrial flutter with RVR with 2:1 block and less likely SVT 2. Acute on chronic severe COPD exacerbation with unclear trigger - possible pneumonia 3. CAD s/p CABG more than 20 years ago with unknown grafts as operative report is unavailable 4. Acute on chronic hypoxic respiratory failure and rule out pneumonia 5. HFpEF or diastolic CHF 6. Essential hypertension 7. Hyperlipidemia 8. Morbid obesity 9. History of remote alcohol, marijuana and methamphetamine 10. Active smoker with more than [id number] smoking history 11. Questionable liver disease with given her history of alcohol abuse 12. Mild anemia Patient presented with severe COPD exacerbation unclear trigger and could be possible pneumonia and patient started on IV antibiotics per the primary team which we recommend to continue and do further workup for the sepsis. Patient should also receive Solu-Medrol 125 mg IV x 1 and aggressive treatment of the COPD exacerbation with the nebulizations but avoid albuterol and give patient levalbuterol along with Atrovent nebulizations. Patient will need long-term steroid inhaler along with other COPD regimen. Primary team is following the patient. Regarding tachycardia patient appears to be in paroxysmal atrial flutter with RVR at least 1 block and less likely SVT. Patient apparently did receive adenosine 12 mg IV x 1 in the ED but did not convert also patient received Cardizem 25 mg IV x 1 and Cardizem drip at 10 mg/h. Unfortunately we are unable to obtain the ECG rhythm when the patient did receive diagnosing and it would help with the diagnosis. At home doses of medication was Cardizem CD 360 mg once daily and digoxin 125 mcg once daily with which her heart rate was well-controlled and also was not Eliquis for anticoagulation. -Patient in the atrial flutter with RVR mostly secondary to the COPD exacerbation but as noted above unclear etiology for the COPD exacerbation possible pneumonia. -Recommend to continue Eliquis for anticoagulation -Patient apparently takes her medications as prescribed daily including the digoxin as well as the diltiazem CD and the last dose was yesterday. -Increase Cardizem drip to 15 mg/h for now and if patient rate is controlled in the morning patient should be changed to oral diltiazem 360 mg daily -Repeat EKG along with an BNP -Potassium 4.5 and magnesium is 1.8. Recommend aggressive replacement of magnesium sulfate at least 4 g IV x 1 and recheck levels in the morning. Keep potassium between 4 and 5. -If patient does not convert to normal sinus rhythm tomorrow and if the heart rate still is around 150 bpm and we will plan for ZEE cardioversion and at times atrial flutter with RVR is difficult to control with medications. History of CAD s/p CABG with unknown grafts-please try to obtain the report from her previous hospitalization where the CABG was performed Continue aspirin and statin and no beta-maverick given the severe COPD exacerbation. Recommend aggressive control of CAD with aspirin, high intensity statin. No blockers for rate control because of the severe COPD. Patient does have diastolic dysfunction on the previous echo and chest x-ray shows moderate vascular congestion as per the report. Does not appear to be in overt heart failure but appears to be mildly fluid overloaded. She is not on any kind of Lasix previously at home. Recommend to check BMP tomorrow morning. Okay to give 1 dose of Lasix 40 mg IV x 1. Strict input output, daily weights and 2 g sodium diet. Management of rest of the medical conditions as per primary team and other consultants. Thank you for the consult and allowing me to participate in the care of the patient. Cardiology will continue to follow. There is a high probability of sudden, clinically significant or life threatening deterioration in the patient condition which required the highest level of physician preparedness to intervene urgently. I have personally spent 65 minutes of critical care time, exclusive of time spent on any procedures, in evaluation and management of this critically ill patient. Rex Gaines M.D. Interventional Cardiology
[2024-11-02] VITALS (14 sets, daily range): BP systolic 138–156; BP diastolic 73–106; PULSE 72–150; RESP 17–20; TEMP 36.1–36.2; O2SAT 90–97; BMI 31.2
[2024-11-02] MEDS: MORPHINE SULF INJ 10 MG/ML VIAL 2 MG IVP ×4 (03:48→23:41)
--- NOTE | 2024-11-02 05:00 | EKG_ITS ---
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
[2024-11-02] MEDS: DILTIAZEM INJ 125 MG in DEXTROSE 5%-WATER 100 ML 15 MG IV (05:10)
[2024-11-02 06:31] LABS: Basophils % (Auto) 0 % (0-2.5); Eosinophils % (Auto) 0 % (0-10); Hematocrit 37.8 % (36.0-46.0); Hemoglobin 11.3 g/dL (12.0-16.0); Immature Granulocytes % (Auto) 2 % (0-0); Lymphocytes # (Auto) 0.4 Thou/mm3 (1.0-4.8); Lymphocytes % (Auto) 3 % (10-50); Mean Corpuscular HGB Conc 29.9 g/dl (31.0-37.0); Mean Corpuscular Hemoglobin 25.5 pg (25.0-35.0); Mean Corpuscular Volume 85 fL (80-100); Monocytes # (Auto) 0.2 Thou/mm3 (0.0-0.8); Monocytes % (Auto) 2 % (0-12); Neutrophils # (Auto) 10.3 Thou/mm3 (1.8-7.7); Neutrophils % (Auto) 93 % (37-80); Nucleated Red Blood Cell # 0.12 Thou/mm3 (0.00-0.00); Nucleated Red Blood Cell % 1 /100 WBC (0); Platelet Count 273 Thou/mm3 (140-440); RDW Standard Deviation 56.9 fL (36.4-46.3); Red Blood Count 4.43 Miln/mm3 (4.00-5.20); White Blood Count 11.1 Thou/mm3 (3.6-11.0)
[2024-11-02 06:39] LABS: INR 1.2 (0.9-1.3)
[2024-11-02 07:06] LABS: Albumin, Serum 4.1 gm/dL (3.4-4.8); Anion Gap 5 (7-16); BUN/Creatinine Ratio 15 Ratio (12-20); Blood Urea Nitrogen 12 mg/dL (9-23); Calcium 8.7 mg/dL (8.3-10.6); Calcium (Corrected) 8.7 mg/dL (8.5-10.1); Carbon Dioxide 33.7 mMol/L (20.0-31.0); Chloride 90 mMol/L (98-107); Creatinine (Component) 0.8 mg/dL (0.6-1.3); Estimated Creatinine Clearance 64.9 mL/min (>60); Glucose 153 mg/dL (74-106); Magnesium 2.1 mg/dL (1.6-2.6); Osmolality,Calculated 261 (275-295); Phosphorous 2.7 mg/dL (2.4-5.1); Potassium 5.1 mMol/L (3.4-5.1); Sodium 129 mMol/L (136-145); Thyroid Stimulating Hormone 2.77 uIU/mL (0.55-4.78); eGFR > 60 See Note
[2024-11-02 07:22] LABS: Cardiac Risk Estimate 2.7 RATIO (3.7-5.6); Cholesterol 92 mg/dL (132-200); HDL Cholesterol 34 mg/dL (40-60); LDL Cholesterol,Calculated 39 mg/dL (0-130); Triglycerides 96 mg/dL (30-150)
[2024-11-02] MEDS: ATORVASTATIN CALCIUM 20 MG TABLET 40 MG PO (08:52)
[2024-11-02] MEDS: guaiFENesin/P-EPHED TABLET 1 TAB PO ×2 (08:52→21:06)
[2024-11-02] MEDS: APIXABAN 2.5 MG TABLET 5 MG PO ×2 (08:53→21:05)
[2024-11-02] MEDS: DIGOXIN 0.125 MG TABLET PO (08:53)
[2024-11-02] MEDS: rOPINIRole HCL 0.25 MG TABLET PO (08:54)
--- NOTE | 2024-11-02 09:38 | PC.SS ---
POLST form completed with patient. Patient confirmed Full Code status. POLST form copy placed in patient's chart. Dr. Blount facilitated discussion with the patient. INSERT MOLDING OPERATOR witnessed discussion.
--- NOTE | 2024-11-02 10:00 | ESPR_ITS ---
Documentation for date of: 11/02/24 Subjective Subjective Interval history: 11/02: no acute overnight events reported. Pt is seen in telemetry this morning. Pt is saturating 94% on 7L O2 via oxymask. Pt denies any diziness, palpations or chest pain. PT telemtry is reiewed, no arthymias noted however patient is showing to be in new a flutter for the last 12 hours. Max HR 77 and Min HR is 76 in the last 12 hours. Loading dose of diltiazem 360 Mg times ordered followed by 2 hours later diltiazem drip to be turned off. In the morning patient was in COPD exacerbation with extensive wheezing bilaterally but when patient was seen later in the afternoon patient had received a breathing treatment and the wheezing significantly improved. Patient continues to smoke 4 to 5 cigarettes daily. plan is for the patient to undergo cardioversion around 4 to 5 PM tomorrow. Maintain potassium above 4 and magnesium above 2 at all times . Patient has no other complaints. Exam Vital Signs Temp Pulse Resp BP Pulse Ox O2 Del Method O2 Flow Rate 97.0 F 75 18 145/78 H 93 L Oxy Mask 7 11/02/24 08:00 11/02/24 08:53 11/02/24 08:00 11/02/24 08:53 11/02/24 08:00 11/02/24 08:00 11/02/24 08:00 Narrative Exam GENERAL: A&Ox3 . Awake, Not in acute distress, saturating 94% on 7L of O2 via oxymask NEURO: no focal neurological deficits HEENT: Atraumatic, Normocephalic. mucous membranes moist. Eyes open, symmetrical, & clear HEART: Normal Heart Sounds LUNGS: Wheezing in upper lung ruiz bilaterally. ABDOMEN: soft, non-distended, non-tender, bowel sounds heard, no guarding or rebound tenderness SKIN: No Rash or ecchymoses EXTREMITIES: No edema, tenderness, able to move all 4 extremities, pedal pulses palpated Objective Labs 11/02/24 04:49 11/02/24 04:49 Labs: Laboratory Results - last 24 hr 11/01/24 11/01/24 11/02/24 10:00 19:07 04:49 WBC 13.3 H 11.1 H RBC 4.46 4.43 Hgb 11.3 L 11.3 L Hct 37.3 37.8 MCV 84 85 MCH 25.3 25.5 MCHC 30.3 L 29.9 L RDW Std Deviation 56.3 H 56.9 H Plt Count 304 273 D Neut % (Auto) 84 H 93 H Lymph % (Auto) 9 L 3 L [place] % (Auto) 5 2 Eos % (Auto) 0 0 Baso % (Auto) 1 0 Neut # (Auto) 11.1 H 10.3 H Lymph # (Auto) 1.2 0.4 L [place] # (Auto) 0.7 0.2 Eos # (Auto) 0.0 0.0 Baso # (Auto) 0.1 0.0 Immature Gran # (Auto) 0.28 H 0.20 H Absolute Nucleated RBC 0.14 H 0.12 H Immature Gran % 2 H 2 H Nucleated RBC % 1 H 1 H PT 13.0 H INR 1.2 APTT 32.9 VBG pH 7.41 VBG pCO2 54 VBG pO2 77 H VBG O2 Sat (Mike) 96 VBG Base Excess 8 H Sodium 130 L 129 L Potassium 4.5 5.1 D Chloride 92 L 90 L Carbon Dioxide 31.8 H 33.7 H Anion Gap 6 L 5 L BUN 12 12 Creatinine 0.8 0.8 Estim Creat Clear Calc 60.9 L 64.9 eGFR > 60 > 60 BUN/Creatinine Ratio 15 15 Glucose 112 H 153 H Calculated Osmolality 261 L 261 L Calcium 8.5 8.7 Corrected Calcium 8.5 8.7 Phosphorus 2.7 Magnesium 1.8 2.1 Total Bilirubin 0.4 AST 65 H ALT 24 Alkaline Phosphatase 200 H Total Protein 7.1 Albumin 4.0 4.1 Globulin 3.1 Albumin/Globulin Ratio 1.3 Triglycerides 96 Cholesterol 92 L LDL Cholesterol, Calc 39 HDL Cholesterol 34 L Cholesterol/HDL Ratio 2.7 L TSH 2.77 ABG Interpretation ABG results: 11/01/24 19:07 VBG pH 7.41 VBG pCO2 54 VBG pO2 77 H VBG Base Excess 8 H Quality Measures Quality Measures VTE prophylaxis Advance care planning discussed with:: patient Assessment & Plan Assessment Current Active Medications: Generic Name Dose Route Start Last Admin Trade Name Freq PRN Reason Stop Dose Admin Acetaminophen 1,000 mg 11/02/24 08:17 Acetaminophen 500 Mg Tablet PO 12/01/24 17:41 Q6H PRN Fever >100 Apixaban 5 mg 11/01/24 21:00 11/02/24 08:53 Apixaban 2.5 Mg Tablet PO 12/01/24 20:59 5 mg BID ESPERANZA Administration Atorvastatin Calcium 40 mg 11/02/24 09:00 11/02/24 08:52 Atorvastatin Calcium 20 Mg Tablet PO 12/02/24 08:59 40 mg QDAY ESPERANZA Administration Digoxin 0.125 mg 11/01/24 18:45 11/02/24 08:53 Digoxin 0.125 Mg Tablet PO 12/01/24 18:44 0.125 mg DAILY ESPERANZA Administration Guaifenesin 1 tab 11/01/24 21:00 11/02/24 08:52 Guaifenesin/P-Ephed Tablet PO 12/01/24 20:59 1 tab BID ESPERANZA Administration Azithromycin 500 mg/ Sodium 250 mls @ 250 mls/hr 11/02/24 21:00 Chloride IV 11/09/24 20:59 HS ESPERANZA Ceftriaxone Sodium/Dextrose 50 mls @ 100 mls/hr 11/02/24 14:00 Rocephin/D5w 1gm Iv Premix IV 11/09/24 13:59 QDAY@1400 ESPERANZA Diltiazem HCl 125 mg/ Dextrose 125 mls @ 15 mls/hr 11/02/24 08:50 /Sodium Chloride IV 12/02/24 08:49 .Q8H20M ESPERANZA Ipratropium [place] 0.5 mg 11/01/24 17:49 11/01/24 18:01 Ipratropium Rt 0.5 Mg/ 2.5 Ml Nebu INH 12/01/24 17:48 0.5 mg Q6HR PRN Administration wheezing Levalbuterol HCl 0.63 mg 11/01/24 17:49 11/01/24 18:01 Levalbuterol Rt 0.63 Mg/3 Ml Nebu INH 12/01/24 17:48 0.63 mg Q6HR PRN Administration wheezing Protocol Methylprednisolone Sodium Succinate 40 mg 11/02/24 00:00 11/02/24 05:10 Methylprednisolone Sod Succ 40 Mg Vial IVP 11/09/24 00:00 40 mg Q6HR ESPERANZA Administration Morphine Sulfate 2 mg 11/01/24 17:42 11/02/24 08:54 Morphine Sulf Inj 10 Mg/Ml Vial IVP 11/06/24 17:41 2 mg Q2H PRN Administration Pain Scale 4-10 (Severe Ondansetron HCl 4 mg 11/01/24 17:42 Ondansetron Inj 2 Mg/Ml Inj 2 Ml IV 12/01/24 17:41 Q6H PRN NAUSEA OR VOMITING Protocol Ropinirole HCl 0.25 mg 11/02/24 09:00 11/02/24 08:54 Ropinirole Hcl 0.25 Mg Tablet PO 12/02/24 08:59 0.25 mg QDAY ESPERANZA Administration Sodium Chloride 3 ml 11/01/24 10:06 11/01/24 14:22 Sodium Chloride Rt Nayla 0.9% 3 Ml Nebu INH 12/01/24 10:05 3 ml PRN PRN Administration SOLN Plan A 69-year-old female with a past medical of CAD s/p CABG more than 20 years ago with unknown grafts is operative report unavailable, paroxysmal atrial fibrillation/flutter anticoagulation, rate controlled, history of moderate to severe COPD, active smoker still more than half a pack a day, increased 30 pack years smoking history, essential hypertension, hyperlipidemia, morbid obesity, history of alcohol, marijuana and tobacco abuse along with history of methamphetamine abuse previously many years ago, questionable liver disease secondary to alcohol and drug abuse, nephrolithiasis presented to the emergency department for further evaluation of shortness of breath and cough. Patient well-known to me from previous admission in October 2023 as well as she follows up with me in the clinic. Patient was initially diagnosed with paroxysmal atrial flutter/fibrillation with RVR in 10/2023 when she had COPD exacerbation along with an active COVID infection. Patient was followed up as outpatient and was placed on diltiazem ER to 60 mg once daily as well as digoxin 125 mcg once daily and Eliquis for anticoagulation. Heart rate was well-controlled but continued to be in normal sinus rhythm at that point of time. Patient continues to be smoking and she has at least moderate to severe COPD based on her previous presentations. Cardiology was consulted today for further management of the possible atrial flutter/fibrillation with RVR 1. Paroxysmal atrial flutter with RVR with 2:1 block and less likely SVT 2. Acute on chronic severe COPD exacerbation with unclear trigger - possible pneumonia 3. CAD s/p CABG more than 20 years ago with unknown grafts as operative report is unavailable 4. Acute on chronic hypoxic respiratory failure and rule out pneumonia 5. HFpEF or diastolic CHF 6. Essential hypertension 7. Hyperlipidemia 8. Morbid obesity 9. History of remote alcohol, marijuana and methamphetamine 10. Active smoker with more than [id number] smoking history 11. Questionable liver disease with given her history of alcohol abuse 12. Mild anemia Patient presented with severe COPD exacerbation unclear trigger and could be possible pneumonia and patient started on IV antibiotics per the primary team which we recommend to continue and do further workup for the sepsis. Patient should also receive Solu-Medrol 125 mg IV x 1 and aggressive treatment of the COPD exacerbation with the nebulizations but avoid albuterol and give patient levalbuterol along with Atrovent nebulizations. Patient will need long-term steroid inhaler along with other COPD regimen. Primary team is following the patient. Regarding tachycardia patient appears to be in paroxysmal atrial flutter with RVR at least 1 block and less likely SVT. Patient apparently did receive adenosine 12 mg IV x 1 in the ED but did not convert also patient received Cardizem 25 mg IV x 1 and Cardizem drip at 10 mg/h. Unfortunately we are unable to obtain the ECG rhythm when the patient did receive diagnosing and it would help with the diagnosis. At home doses of medication was Cardizem CD 360 mg once daily and digoxin 125 mcg once daily with which her heart rate was well- controlled and also was not Eliquis for anticoagulation. -Patient in the atrial flutter with RVR mostly secondary to the COPD exacerbation but as noted above unclear etiology for the COPD exacerbation possible pneumonia. -Recommend to continue Eliquis for anticoagulation -Patient apparently takes her medications as prescribed daily including the digoxin as well as the diltiazem CD and the last dose was yesterday. -Increase Cardizem drip to 15 mg/h for now and if patient rate is controlled in the morning patient should be changed to oral diltiazem 360 mg daily -Repeat EKG along with an BNP -Potassium 4.5 and magnesium is 1.8. Recommend aggressive replacement of magnesium sulfate at least 4 g IV x 1 and recheck levels in the morning. Keep potassium between 4 and 5. -If patient does not convert to normal sinus rhythm tomorrow and if the heart rate still is around 150 bpm and we will plan for ZEE cardioversion and at times atrial flutter with RVR is difficult to control with medications. History of CAD s/p CABG with unknown grafts-please try to obtain the report from her previous hospitalization where the CABG was performed Continue aspirin and statin and no beta-maverick given the severe COPD exacerbation. Recommend aggressive control of CAD with aspirin, high intensity statin. No blockers for rate control because of the severe COPD. Patient does have diastolic dysfunction on the previous echo and chest x-ray shows moderate vascular congestion as per the report. Does not appear to be in overt heart failure but appears to be mildly fluid overloaded. She is not on any kind of Lasix previously at home. Recommend to check BMP tomorrow morning. Okay to give 1 dose of Lasix 40 mg IV x 1. Strict input output, daily weights and 2 g sodium diet. Management of rest of the medical conditions as per primary team and other consultants. Assessment and plan discussed with my attending physician Dr. Liana Collins (PGY-1)- Internal medicine resident Attending Provider Attestation/Addendum I have personally seen and examined the patient separately on the above date of service and discussed the plan of care with the resident. I reviewed the resident Dr. Torin Collins consultation progress note and agree with the resident findings and plan in the note above and have also edited the documentation to reflect my findings and plan. Patient still continues to be in atrial flutter but now is in 4:1 AV block of breath with a ventricular rate of 75 bpm. Patient is on diltiazem drip 15 mg/h at the present point of time recommend to transition to oral diltiazem CD3 60 mg once daily and stop the drip in 2 hours. Continue patient on digoxin 125 mcg once daily. Check digoxin levels in 7 days. Keep potassium greater than 4 and magnesium greater than 2.0 at all times. Continue Eliquis 5 mL twice daily for anticoagulation given her [id number] or is high Patient is being aggressively treated for COPD exacerbation primary team and at this point still continues to have some wheezing and still is on oxygen via Ventimask. Will hold off on any cardioversion at the present point of time until her respiratory status improves and her oxygen requirements are decreasing. Recommend to keep the patient n.p.o. after breakfast early lunch at 11 AM and a ZEE will be performed later tomorrow after 5 pm if patient respiratory status is stable. Echo is still pending. Rex Gaines M.D. Interventional Cardiology
[2024-11-02] MEDS: cefTRIAXone/D5w 1gm IV premix 50 ML IV (13:44)
[2024-11-02] MEDS: DILTIAZEM ER 90 MG ER CAPSULE 360 MG PO (13:47)
[2024-11-02] MEDS: PANTOPRAZOLE INJ 40 MG VIAL IV (13:57)
--- NOTE | 2024-11-02 14:26 | ESPR_ITS ---
<Statement entered by Gurdeep Price MD - 11/09/24 11:49> I reviewed above note and agree with findings and plans. I have also personally examined the patient with medicine team and went over assessment and plan with medical team including compensation intern and resident physician. Documentation for date of: 11/02/24 Subjective Subjective Interval history: Patient seen at bedside. No acute overnight events. She complains of a nonproductive cough, but overall improvements in shortness of breath. Examination findings-saturating 92% on 7 L of oxygen as well as some wheezing bilaterally. Methylprednisone dose increased to 60 mg every 6hrs. EKG done this morning shows a flutter with heart rate 75 beats per minutes. Patient is still on diltiazem drip, digoxin and Eliquis. Will follow-up on cardiology recommendations. CODE STATUS CHANGE: Had a conversation with patient about CODE STATUS. After assessing capacity, patient confirmed that she would like to be would like to be FULL CODE. New POLST form signed and saved in patient's chart. 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 Eyes open, symmetrical, & clear CARDIO: No chest pain on palpation. Heart RRR, no obvious murmurs PULM: Some non-productive coughing. Wheezing in upper lung ruiz bilaterally. Oxymask on, saturating 93% on 7L of O2. GI: Abdomen soft, nondistended, no pain on palpation. BSx4 URO/ADOPTION SPECIALIST:: No further abnormalities noted. SKIN/MSK/EXT: No wounds/rashes/edema/amputations, no pain on palpation. Pedal pulses present B/L Objective Labs 11/05/24 04:44 11/05/24 04:44 Labs: Laboratory Results - last 24 hr 11/01/24 11/01/24 11/02/24 10:00 19:07 04:49 WBC 11.1 H RBC 4.43 Hgb 11.3 L Hct 37.8 MCV 85 MCH 25.5 MCHC 29.9 L RDW Std Deviation 56.9 H Plt Count 273 D Neut % (Auto) 93 H Lymph % (Auto) 3 L [place] % (Auto) 2 Eos % (Auto) 0 Baso % (Auto) 0 Neut # (Auto) 10.3 H Lymph # (Auto) 0.4 L [place] # (Auto) 0.2 Eos # (Auto) 0.0 Baso # (Auto) 0.0 Immature Gran # (Auto) 0.20 H Absolute Nucleated RBC 0.12 H Immature Gran % 2 H Nucleated RBC % 1 H PT 13.0 H INR 1.2 APTT 32.9 VBG pH 7.41 VBG pCO2 54 VBG pO2 77 H VBG O2 Sat (Mike) 96 VBG Base Excess 8 H Sodium 129 L Potassium 5.1 D Chloride 90 L Carbon Dioxide 33.7 H Anion Gap 5 L BUN 12 Creatinine 0.8 Estim Creat Clear Calc 64.9 eGFR > 60 BUN/Creatinine Ratio 15 Glucose 153 H Calculated Osmolality 261 L Calcium 8.7 Corrected Calcium 8.7 Phosphorus 2.7 Magnesium 2.1 Albumin 4.1 Triglycerides 96 Cholesterol 92 L LDL Cholesterol, Calc 39 HDL Cholesterol 34 L Cholesterol/HDL Ratio 2.7 L TSH 2.77 ABG Interpretation ABG results: 11/01/24 19:07 VBG pH 7.41 VBG pCO2 54 VBG pO2 77 H VBG Base Excess 8 H Quality Measures Quality Measures VTE prophylaxis Advance care planning discussed with:: patient Assessment & Plan Assessment Current Active Medications: Generic Name Dose Route Start Last Admin Trade Name Freq PRN Reason Stop Dose Admin Acetaminophen 1,000 mg 11/02/24 08:17 Acetaminophen 500 Mg Tablet PO 12/01/24 17:41 Q6H PRN Fever >100 Apixaban 5 mg 11/01/24 21:00 11/02/24 08:53 Apixaban 2.5 Mg Tablet PO 12/01/24 20:59 5 mg BID ESPERANZA Administration Atorvastatin Calcium 40 mg 11/02/24 09:00 11/02/24 08:52 Atorvastatin Calcium 20 Mg Tablet PO 12/02/24 08:59 40 mg QDAY ESPERANZA Administration Digoxin 0.125 mg 11/01/24 18:45 11/02/24 08:53 Digoxin 0.125 Mg Tablet PO 12/01/24 18:44 0.125 mg DAILY ESPERANZA Administration Guaifenesin 1 tab 11/01/24 21:00 11/02/24 08:52 Guaifenesin/P-Ephed Tablet PO 12/01/24 20:59 1 tab BID ESPERANZA Administration Azithromycin 500 mg/ Sodium 250 mls @ 250 mls/hr 11/02/24 21:00 Chloride IV 11/09/24 20:59 HS ESPERANZA Ceftriaxone Sodium/Dextrose 50 mls @ 100 mls/hr 11/02/24 14:00 11/02/24 13:44 Rocephin/D5w 1gm Iv Premix IV 11/09/24 13:59 100 mls/hr QDAY@1400 ESPERANZA Administration Diltiazem HCl 125 mg/ Dextrose 125 mls @ 15 mls/hr 11/02/24 08:50 /Sodium Chloride IV 11/02/24 15:45 .Q8H20M ESPERANZA Ipratropium [place] 0.5 mg 11/01/24 17:49 11/01/24 18:01 Ipratropium Rt 0.5 Mg/ 2.5 Ml Nebu INH 12/01/24 17:48 0.5 mg Q6HR PRN Administration wheezing Levalbuterol HCl 0.63 mg 11/01/24 17:49 11/01/24 18:01 Levalbuterol Rt 0.63 Mg/3 Ml Nebu INH 12/01/24 17:48 0.63 mg Q6HR PRN Administration wheezing Protocol Methylprednisolone Sodium Succinate 60 mg 11/02/24 12:00 11/02/24 13:44 Methylprednisolone Sod Succ 40 Mg Vial IVP 11/09/24 11:59 60 mg Q6HR ESPERANZA Administration Morphine Sulfate 2 mg 11/01/24 17:42 11/02/24 08:54 Morphine Sulf Inj 10 Mg/Ml Vial IVP 11/06/24 17:41 2 mg Q2H PRN Administration Pain Scale 4-10 (Severe Nicotine 21 mg 11/02/24 14:00 Nicotine Patch 21 Mg/24 Hr Patch.Td24 TOP 12/02/24 13:59 QDAY ESPERANZA Ondansetron HCl 4 mg 11/01/24 17:42 Ondansetron Inj 2 Mg/Ml Inj 2 Ml IV 12/01/24 17:41 Q6H PRN NAUSEA OR VOMITING Protocol Pantoprazole Sodium 40 mg 11/02/24 13:45 11/02/24 13:57 Pantoprazole Inj 40 Mg Vial IV 12/02/24 13:44 40 mg QDAY ESPERANZA Administration Ropinirole HCl 0.25 mg 11/02/24 09:00 11/02/24 08:54 Ropinirole Hcl 0.25 Mg Tablet PO 12/02/24 08:59 0.25 mg QDAY ESPERANZA Administration Sodium Chloride 3 ml 11/01/24 10:06 11/01/24 14:22 Sodium Chloride Rt Nayla 0.9% 3 Ml Nebu INH 12/01/24 10:05 3 ml PRN PRN Administration SOLN Plan Summary: The patient is 69 years old female with past medical history of CAD s/p CABG more than 20 years ago, hypertension, hyperlipidemia, hepatocellular disease, restless legs syndrome, history of polysubstance abuse (alcohol, marijuana, tobacco use, methamphetamine use) presented to the ED complaining of worsening shortness of breath and cough and was admitted for COPD treatment and A-flutter management. #Acute hypoxic respiratory failure secondary to #COPD exacerbation. #Bibasilar pneumonia. #Hx of COPD, on 2L. The patient has a history of COPD and has prior admissions for the same. At home, she reports being on 2L of O2 which she only uses occasionally. She still smokes about a pack a year. Generalized wheezing on physical exam. CXR showed bibasilar pneumonia. Plan: -Continue levalbuterol and ipratropium -Continue methylprednisone at 60mg daily -Continue azithromycin and ceftriaxone. -Ensure O2 saturation goal of 88-92% #A-flutter. #Hx of A-fib. Likely 2/2 acute hypoxic respiratory failure and COPD exacerbation. At home, she is on diltiazem for 60 mg, digoxin 0.125 mg and Eliquis 5 mg twice daily. CHADVASC- 4 HASBLED- 1 On admission, she was in A-flutter with RVR, HR in the 140s to 150s. She was started on diltiazem drip yesterday as well as digoxin and Eliquis. EKG done this morning showed a flutter with a heart rate of 75 beats per minutes. Following up with cardiology for further recommendations/possible cardioversion. Plan: -Continue diltiazem drip, digoxin and eliquis -Monitor and replete magnesium and potassium. Keep between 2 and 5 accordingly. -Follow up cardioology recommendations. #Hx of CAD s/p CABG (more then 20 years ago). #Hx of hyperlipidemia. Plan: -Pending echocardiogram - On home aspirin and atorvastatin. #Hx of hypertension. BP 164/103 on admission. Plan: -takes only diltiazem at home, will hold in setting of diltiazem drip. Monitoring BP #Hypoosmolar hyponatremia. -Na 130, osm 261, glucose 112 on admission. Sodium today- 129. Will change Diltiazem in D5W to D5-NS and continue to monitor. Plan: -monitor with daily labs. #Hx of restless legs syndrome. -resumed home ropinirole. #Hx of hepatocellular disease. -Follow-up outpatient. #Hx of polysubstance abuse. -remote hx of Marijuana, alcohol, methamphetamine, tobacco use. FEN: Cardiac diet. DVT prophylaxis: Eliquis. Dispo: Telemetry for acute hypoxic respiratory failure 2/2 COPD exacerbation. Code status: FULL CODE. Case was discussed with Dr Espinoza PGY-2 and attending physician, Dr Albert Blount MD PGY-1 L Patient is 69 years old female with worsening shortness of breath and cough and was admitted for COPD excerbation and palpitations secondary to A-flutter. Patient has a history of A.Fib and CHADVASC is 4 and HASBLED score 1. She was previously seen by Cardiology Dr Gaines, who started her on diltiazem for 60 mg, digoxin 0.125 mg and Eliquis 5 mg twice daily. Patient endorses full compliance. She is also an active smoker, which is likely why she gets repeated exacerbations of her COPD. Cardiology is consulted for further evaluation, appreciate recommendations to start Dilt gtt Plan: Started on Duonebs, INH steroids, IV Methylprednisone and Mucinex for decongestion. Started on IV Azithro + Rocephin (2/3 - ) Continue Dilt gtt @ 15ml/h x 24 hours. Electrolytes repleted, will keep K >4 and Mg >2 Resumed home Digoxin 0.125mg qD. Repeat EKG ordered for 5am 2/4 Patient examined and case discussed with the team including attending physician. Note reviewed, I agree with the care plan as documented. - Issac Espinoza MD, PGY 2
[2024-11-02] MEDS: NICOTINE PATCH 21 MG/24 HR PATCH.TD24 TOP (14:29)
[2024-11-02 15:11] LABS: Glucose Estimated Average 126 mg/dL (80-131)
[2024-11-02] MEDS: AZITHROMYCIN INJ 500 MG in SODIUM CHLORIDE 0.9% 250 ML 250 ML 250 MG IV (21:06)
[2024-11-03] VITALS (15 sets, daily range): BP systolic 106–163; BP diastolic 73–95; PULSE 70–159; RESP 17–34; TEMP 35.8–36.3; O2SAT 90–100; BMI 31.2
[2024-11-03 06:15] LABS: Basophils % (Auto) 0 % (0-2.5); Eosinophils % (Auto) 0 % (0-10); Hematocrit 35.2 % (36.0-46.0); Hemoglobin 10.5 g/dL (12.0-16.0); Immature Granulocytes % (Auto) 1 % (0-0); Immature Granulocytes Auto 0.11 Thou/mm3 (0.00-0.00); Lymphocytes # (Auto) 0.3 Thou/mm3 (1.0-4.8); Lymphocytes % (Auto) 3 % (10-50); Mean Corpuscular HGB Conc 29.8 g/dl (31.0-37.0); Mean Corpuscular Hemoglobin 25.7 pg (25.0-35.0); Mean Corpuscular Volume 86 fL (80-100); Monocytes # (Auto) 0.1 Thou/mm3 (0.0-0.8); Monocytes % (Auto) 1 % (0-12); Neutrophils # (Auto) 11.1 Thou/mm3 (1.8-7.7); Neutrophils % (Auto) 95 % (37-80); Nucleated Red Blood Cell # 0.29 Thou/mm3 (0.00-0.00); Nucleated Red Blood Cell % 3 /100 WBC (0); Platelet Count 267 Thou/mm3 (140-440); Red Blood Count 4.08 Miln/mm3 (4.00-5.20); White Blood Count 11.6 Thou/mm3 (3.6-11.0)
--- NOTE | 2024-11-03 07:50 | EKG_ITS ---
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 : 1955 Requested By: Key Blount Order Number: [id number] Reading MD: Key Blount Measurements Intervals [place] Rate: 80 P: [place]: QRS: -1 QRSD: 82 T: 253 QT: 386 QTc: 448 Interpretive Statements ATRIAL FLUTTER/TACHYCARDIA LOW QRS VOLTAGE IN PRECORDIAL LEADS POSSIBLE RIGHT VENTRICULAR CONDUCTION DELAY SEPTAL MYOCARDIAL INFARCTION , PROBABLY OLD MODERATE T-WAVE ABNORMALITY, CONSIDER INFERIOR ISCHEMIA Compared to ECG 11/02/2024 05:00:21 Low QRS voltage now present Myocardial infarct finding now present Possible ischemia now present T-wave abnormality still present /store/S0/[id number]
[2024-11-03] MEDS: IPRATROPIUM RT 0.5 MG/ 2.5 ML NEBU INH (08:00)
[2024-11-03] MEDS: LEVALBUTEROL RT 0.63 MG/3 ML NEBU INH ×4 (08:00→19:26)
[2024-11-03] MEDS: MORPHINE SULF INJ 10 MG/ML VIAL 2 MG IVP (08:23)
[2024-11-03] MEDS: PANTOPRAZOLE INJ 40 MG VIAL IV (08:24)
[2024-11-03] MEDS: rOPINIRole HCL 0.25 MG TABLET PO (08:24)
[2024-11-03] MEDS: ATORVASTATIN CALCIUM 20 MG TABLET 40 MG PO (08:24)
[2024-11-03] MEDS: DIGOXIN 0.125 MG TABLET PO (08:24)
[2024-11-03] MEDS: ASPIRIN EC 81 MG TABEC PO (08:24)
[2024-11-03] MEDS: NICOTINE PATCH 21 MG/24 HR PATCH.TD24 TOP (08:25)
[2024-11-03] MEDS: DILTIAZEM CD 120 MG CAPCR 360 MG PO (08:36)
[2024-11-03] MEDS: APIXABAN 2.5 MG TABLET 5 MG PO ×2 (08:36→20:39)
[2024-11-03] MEDS: guaiFENesin/P-EPHED TABLET 1 TAB PO (08:36)
[2024-11-03 10:05] LABS: Albumin, Serum 4.1 gm/dL (3.4-4.8); Anion Gap 3 (7-16); BUN/Creatinine Ratio 26 Ratio (12-20); Blood Urea Nitrogen 26 mg/dL (9-23); Calcium 8.6 mg/dL (8.3-10.6); Calcium (Corrected) 8.6 mg/dL (8.5-10.1); Carbon Dioxide 32.3 mMol/L (20.0-31.0); Chloride 87 mMol/L (98-107); Estimated Creatinine Clearance 51.9 mL/min (>60); Glucose 205 mg/dL (74-106); Osmolality,Calculated 256 (275-295); Phosphorous 2.6 mg/dL (2.4-5.1); Sodium 122 mMol/L (136-145); eGFR > 60 See Note
[2024-11-03 10:10] LABS: Potassium 6.3 mMol/L (3.4-5.1)
--- NOTE | 2024-11-03 10:23 | PD.RESPRO ---
Documentation for date of: 11/03/24 Subjective Subjective Interval history: 11/03: no acute overnight events reported, pt remianed in a flutter and remained in COPD exacerbation with bilateral wheezing. Pt is saturating at 95% on 8L of O2 via oxymask. bedside nurse is informed to titrate O2 down to maintain saturation between 88-92%. Pt states she didn't sleep much last night because restless leg. She states although the breathing treatments alleviate some of her SOB and wheezing it works only temporarily. Pt is seen again in the afternoon adn HR was between 140-150 and pt continued to wheeze. Pt will not undergo cardioversion. Diltiazam IV 20mg x1 is given. Exam Vital Signs Temp Pulse Resp BP Pulse Ox O2 Del Method O2 Flow Rate 97.4 F 79 24 H 106/82 100 Oxy Mask 6 11/03/24 07:57 11/03/24 08:36 11/03/24 08:00 11/03/24 08:36 11/03/24 08:00 11/03/24 07:57 11/03/24 08:00 Narrative Exam GENERAL: A&Ox3 . Awake, Not in acute distress, saturating 94% on 7L of O2 via oxymask NEURO: no focal neurological deficits HEENT: Atraumatic, Normocephalic. mucous membranes moist. Eyes open, symmetrical, & clear HEART: Normal Heart Sounds LUNGS: Wheezing in upper lung ruiz bilaterally. ABDOMEN: soft, non-distended, non-tender, bowel sounds heard, no guarding or rebound tenderness SKIN: No Rash or ecchymoses EXTREMITIES: No edema, tenderness, able to move all 4 extremities, pedal pulses palpated Objective Labs 11/05/24 04:44 11/04/24 23:00 Labs: Laboratory Results - last 24 hr 11/02/24 11/03/24 11/03/24 04:49 04:45 08:30 WBC 11.6 H RBC 4.08 Hgb 10.5 L Hct 35.2 L MCV 86 MCH 25.7 MCHC 29.8 L RDW Std Deviation 58.0 H Plt Count 267 Neut % (Auto) 95 H Lymph % (Auto) 3 L M[place]ulloch % (Auto) 1 Eos % (Auto) 0 Baso % (Auto) 0 Neut # (Auto) 11.1 H Lymph # (Auto) 0.3 L [place]och # (Auto) 0.1 Eos # (Auto) 0.0 Baso # (Auto) 0.0 Immature Gran # (Auto) 0.11 H Absolute Nucleated RBC 0.29 H Immature Gran % 1 H Nucleated RBC % 3 H Sodium 122 L Potassium 6.3 H* D Chloride 87 L Carbon Dioxide 32.3 H Anion Gap 3 L BUN 26 H Creatinine 1.0 Estim Creat Clear Calc 51.9 L eGFR > 60 BUN/Creatinine Ratio 26 H Glucose [address] Glu mg/dL 126 Hemoglobin A1c 6.0 Calculated Osmolality 256 L Calcium 8.6 Corrected Calcium 8.6 Phosphorus 2.6 Magnesium 2.0 Albumin 4.1 ABG Interpretation ABG results: 11/01/24 19:07 VBG pH 7.41 VBG pCO2 54 VBG pO2 77 H VBG Base Excess 8 H Quality Measures Quality Measures VTE prophylaxis Advance care planning discussed with:: patient Assessment & Plan Assessment Current Active Medications: Generic Name Dose Route Start Last Admin Trade Name Freq PRN Reason Stop Dose Admin Acetaminophen 1,000 mg 11/02/24 08:17 Acetaminophen 500 Mg Tablet PO 12/01/24 17:41 Q6H PRN Fever >100 Apixaban 5 mg 11/01/24 21:00 11/03/24 08:36 Apixaban 2.5 Mg Tablet PO 12/01/24 20:59 5 mg BID ESPERANZA Administration Aspirin 81 mg 11/03/24 09:00 11/03/24 08:24 Aspirin Ec 81 Mg Tabec PO 12/03/24 08:59 81 mg QDAY ESPERANZA Administration Atorvastatin Calcium 40 mg 11/02/24 09:00 11/03/24 08:24 Atorvastatin Calcium 20 Mg Tablet PO 12/02/24 08:59 40 mg QDAY ESPERANZA Administration Digoxin 0.125 mg 11/01/24 18:45 11/03/24 08:24 Digoxin 0.125 Mg Tablet PO 12/01/24 18:44 0.125 mg DAILY ESPERANZA Administration Diltiazem HCl 360 mg 11/03/24 09:00 11/03/24 08:36 Diltiazem Cd 120 Mg Capcr PO 12/03/24 08:59 360 mg QDAY ESPERANZA Administration Folic Acid 1 mg 11/03/24 21:00 Folic Acid 1 Mg Tablet PO 11/08/24 20:59 BID ESPERANZA Guaifenesin 1 tab 11/01/24 21:00 11/03/24 08:36 Guaifenesin/P-Ephed Tablet PO 12/01/24 20:59 1 tab BID ESPERANZA Administration Azithromycin 500 mg/ Sodium 250 mls @ 250 mls/hr 11/02/24 21:00 11/02/24 21:06 Chloride IV 11/09/24 20:59 250 mls/hr HS ESPERANZA Administration Ceftriaxone Sodium/Dextrose 50 mls @ 100 mls/hr 11/02/24 14:00 11/02/24 14:15 Rocephin/D5w 1gm Iv Premix IV 11/09/24 13:59 Infused QDAY@1400 ESPERANZA Infusion Ipratropium [place] 0.5 mg 11/01/24 17:49 11/03/24 08:00 Ipratropium Rt 0.5 Mg/ 2.5 Ml Nebu INH 12/01/24 17:48 0.5 mg Q6HR PRN Administration wheezing Protocol Levalbuterol HCl 0.63 mg 11/03/24 09:49 Levalbuterol Rt 0.63 Mg/3 Ml Nebu INH 12/03/24 09:48 Q6HR PRN WHEEZING Levalbuterol HCl 0.63 mg 11/03/24 11:00 Levalbuterol Rt 0.63 Mg/3 Ml Nebu INH 12/03/24 10:59 Q4HRRT ESPERANZA Protocol Lorazepam 0.5 mg 11/03/24 09:56 Lorazepam 0.5 Mg Tablet PO 11/08/24 09:55 Q4HR PRN CIWA Score 2-6 Methylprednisolone Sodium Succinate 60 mg 11/02/24 12:00 11/03/24 06:23 Methylprednisolone Sod Succ 40 Mg Vial IVP 11/09/24 11:59 60 mg Q6HR ESPERANZA Administration Morphine Sulfate 2 mg 11/01/24 17:42 11/03/24 08:23 Morphine Sulf Inj 10 Mg/Ml Vial IVP 11/06/24 17:41 2 mg Q2H PRN Administration Pain Scale 4-10 (Severe Nicotine 21 mg 11/02/24 14:00 11/03/24 08:25 Nicotine Patch 21 Mg/24 Hr Patch.Td24 TOP 12/02/24 13:59 21 mg QDAY ESPERANZA Administration Ondansetron HCl 4 mg 11/01/24 17:42 Ondansetron Inj 2 Mg/Ml Inj 2 Ml IV 12/01/24 17:41 Q6H PRN NAUSEA OR VOMITING Protocol Pantoprazole Sodium 40 mg 11/02/24 13:45 11/03/24 08:24 Pantoprazole Inj 40 Mg Vial IV 12/02/24 13:44 40 mg QDAY ESPERANZA Administration Ropinirole HCl 0.25 mg 11/02/24 09:00 11/03/24 08:24 Ropinirole Hcl 0.25 Mg Tablet PO 12/02/24 08:59 0.25 mg QDAY ESPERANZA Administration Sodium Chloride 3 ml 11/01/24 10:06 11/01/24 14:22 Sodium Chloride Rt Nayla 0.9% 3 Ml Nebu INH 12/01/24 10:05 3 ml PRN PRN Administration SOLN Thiamine HCl 100 mg 11/03/24 10:00 Thiamine 100 Mg Tablet PO 11/08/24 09:59 BID ESPERANZA Plan Ms. Quinonez is a 69 years old female with past medical history of CAD s/p CABG more than 20 years ago, hypertension, hyperlipidemia, hepatocellular disease, restless legs syndrome, history of polysubstance abuse (alcohol, marijuana, tobacco use, methamphetamine use) presented to the ED complaining of worsening shortness of breath and cough and was admitted for COPD ecerbation as well insurance marketing rep is consulted for further management of A-flutter. #AHRF in the setting of #COPD exacerbation #Pneumonia -Patient has a history of COPD in the setting of chronic smoking history. Patient uses 2 L of oxygen at home which she states she is not always compliant with. Chest x-ray showed bibasilar pneumonia and patient has bilateral wheezing on auscultation. -Per primary hospitalist team patient is on scheduled breathing treatments as well as daily steroids. -IV antibiotics started with azithromycin and ceftriaxone # A flutter # History of A-fib -CHADVASC- 4 HASBLED- 1 -Since admission patient has been in a flutter with RVR initially was rate controlled patient was placed on diltiazem drip plus digoxin and transition to p.o. diltiazem 360 Mg daily however patient was unable to to be in rate control as today in the afternoon patient's heart rate was in the 140s to 150s again IV diltiazem 20 Mg x 1 was given once. For anticoagulation patient is on Eliquis -Keep potassium above 4 and magnesium above 2 at all times -Plans to cardiovert the patient was aborted again today as patient continues to be in COPD exacerbation, will continue to monitor for improvement # Hyperkalemia-today patient's potassium was 6.3 patient was started on IV insulin with D50, patient was also given Kayexalate plus Veltassa and repeat potassium was 4.7 # History of CAD status post CABG approximately 20 years ago as well as patient has history of hyperlipidemia patient is continued on aspirin as well as atorvastatin. # Primary hypertension-on admission patient blood pressure 163/110 however patient was placed on diltiazem drip therefore antihypertensive therapy was held. Today blood pressure is 141/95 We will continue to hold antihypertensive therapy as patient requires diltiazem. Will consider antihypertensive therapy when patient a flutter with RVR is under control # Patient has history of restless leg syndrome-patient complained of an inability to sleep due to the restless leg syndrome although home ropinirole is resumed by the primary team Assessment and plan discussed with my attending physician Dr. Liana Collins ([id number])- Internal medicine resident Attending Provider Attestation/Addendum I have personally seen and examined the patient separately on the above date of service and discussed the plan of care with the resident. I reviewed the resident Dr. Torin Collins consultation progress note and agree with the resident findings and plan in the note above and have also edited the documentation to reflect my findings and plan. Telemetry this morning showed patient was atrial flutter with 41 AV block at 75 bpm ventricular rate. Recommended to continue diltiazem at 60 mg once daily along with digoxin 125 mcg daily and Eliquis for anticoagulation. Patient also was noted to have sodium of 122 with potassium of 6.3 today with elevated BUN of 26 and creatinine of 1.0. Patient overall appeared to be in ISAMAR secondary to fluid depletion. Recommended IV fluids for the ISAMAR. Nephrology is also on board. Hyperkalemia treatment as per primary and the as well as nephrology was on board. Recommended to hold digoxin for now given the acute kidney injury as well as a hyperkalemia. In the afternoon patient did have an A-fib with RVR episodes and recommended to give 20 mg diltiazem's x 1 after which patient's heart rate was better controlled. Will continue to monitor the patient and if required will plan for amiodarone Rex Gaines M.D. Interventional Cardiology
[2024-11-03] MEDS: SODIUM CHLORIDE 0.9% 1000 ML 1,000 ML 50 ML IV (10:49)
[2024-11-03] MEDS: DEXTROSE 50%-WATER INJ 50 ML SYRINGE IV ×3 (10:49→14:53)
[2024-11-03] MEDS: SOD POLYSTYRENE SULFON SUSP 15 GM/60 ML BTL PO (10:54)
[2024-11-03] MEDS: LORazepam 0.5 MG TABLET PO ×3 (10:54→20:54)
[2024-11-03] MEDS: THIAMINE 100 MG TABLET PO ×2 (10:54→20:40)
[2024-11-03] MEDS: INSULIN HUM REGULAR 1 UNIT/0.01 ML (PER UNIT) 10 UNIT IV ×2 (10:54→14:47)
--- NOTE | 2024-11-03 11:30 | ESCONSULT_ITS ---
HPI Data of Consult Consult date: 11/03/24 Requesting Physician: Rodo Loya MD Admitting Provider: Gurdeep Price MD Attending Provider: Rodo Loya MD Primary Care Provider: Scout Morris PA-C Consult Narrative Reason for consult: Electrolyte imbalance History of present illness: Ms. Quinonez is a 69-year-old female with significant past medical history of COPD on home oxygen, CAD s/p CABG 20 years ago, tension, hyperlipidemia, hepatocellular disease, restless leg syndrome, history of polysubstance abuse including alcohol, marijuana, tobacco use and amphetamine use presented to ED with chief complaint of worsening of SOB. She denies any fever or chills, chest pain sore throat, phlegm production. She was admitted 1 year ago with similar symptoms and was found to have COPD exacerbation. During our evaluation, her vitals were significant for blood pressure 132/92, 130, RR 22, and saturating 90% on 3 L OxyMask. Labs are significant for white count 11.6, hemoglobin 10.5, with MCV 86. Chemistry panel was significant for sodium 122 worsening from 129 yesterday, potassium 6.3 worsened from 5.1 yesterday bicarb 32.3, creatinine 1.0 blood sugar 205. CXR revealing bibasilar pneumonia with EKG revealing atrial flutter. PMH: As mentioned above PSHx: CABG 20 years ago Social history: History of marijuana, tobacco and methamphetamine use, alcohol quitted 1 year ago Allergies: No known allergies Medications: Albuterol, apixaban, aspirin, diltiazem and omeprazole. Nephrology consultation was done for further management of moderate hyponatremia and severe hyperkalemia. cc:: cc: Rodo Loya MD Review of Systems Review of Systems Systems Reviewed: All systems reviewed, normal except as documented Past Medical History Past Medical History NEUROLOGIC: Negative Neurological Disorders CARDIAC: Positive Cardiac Disorders, Myocardial Infarction and Hypertension; Negative Congestive Heart Failure RESPIRATORY: Positive Respiratory Disorders, Chronic Obstructive Pulmonary Disease (COPD) and Asthma GASTROINTESTINAL: Negative Gastrointestinal Disorders GENITOURINARY: Negative Genitourinary Disorders or Renal Disease REPRODUCTIVE: Negative Endometriosis or Pelvic Inflammatory Disease MUSCULOSKELETAL: Negative Musculoskeletal Disorders ENT: Positive Blind ENDOCRINE: Negative Endocrine Disorders, Diabetes Mellitus Type 1 or Diabetes Mellitus Type 2 HEMATOLOGIC: Negative Blood Disorders or Sickle Cell Disease OTHER HISTORY: Negative Autoimmune Disease, Anesthesia Reactions, Organ Transplant, MRSA, Clostridium Difficile or Cancer Family History FAMILY HISTORY: Positive Family Cardiac Disorders; Negative Family Anesthesia Reaction Surgical History SURGICAL: Positive Cardiac Surgery, Coronary Artery Bypass Graft (X3 1991) and Tonsillectomy; Negative Endocrine Surgery, Ear Surgery, Abdominal Surgery, Nephrectomy, Neurologic Surgery, Mastectomy, Vasectomy or Organ Transplant Social History SMOKING STATUS: Current every day smoker SECOND HAND EXPOSURE: Yes Past Medical History Comments PMH COMMENT: As noted in HPI Exam Vital Signs Temp Pulse Resp BP Pulse Ox O2 Del Method O2 Flow Rate 97.4 F 115 H 22 H 106/82 99 Oxy Mask 4 11/03/24 07:57 11/03/24 11:00 11/03/24 11:00 11/03/24 08:36 11/03/24 11:00 11/03/24 07:57 11/03/24 11:00 Narrative Exam General: Elderly, mildly obese cooperative woman, no acute distress, Alert and Oriented x 3 HEENT: Mildly dry mucous membranes, oropharynx clear Neck: Supple, No masses, No JVD CVS: S1S2 Regular rate and rhythm, No murmurs, rubs or gallops Lungs: Severe wheezing throughout the lung ruiz, no crackles or rhonchi, on OxyMask Abd: Soft, NT/ND, +BS, no organomegaly Ext: No edema, warm and well perfused Skin: No rash Psych: Appropriate mood and affect Results Labs 11/04/24 05:00 11/04/24 19:30 Labs: Short CBC 11/03/24 Range/Units 04:45 WBC 11.6 H (3.6-11.0) Thou/mm3 Hgb 10.5 L (12.0-16.0) g/dL Hct 35.2 L (36.0-46.0) % Plt Count 267 (140-440) Thou/mm3 BMP 11/03/24 08:30 Sodium 122 L Potassium 6.3 H* D Chloride 87 L Carbon Dioxide 32.3 H BUN 26 H Creatinine 1.0 Glucose 205 H D Calcium 8.6 Liver Function 11/03/24 Range/Units 08:30 Albumin 4.1 (3.4-4.8) gm/dL ABG Interpretation ABG results: 11/01/24 19:07 VBG pH 7.41 VBG pCO2 54 VBG pO2 77 H VBG Base Excess 8 H Quality Measures Quality Measures VTE prophylaxis Advance care planning discussed with:: patient and child Medications Home Medications and Allergies Home Medications ?Medication ?Instructions ?Recorded ?Confirmed ?Type omeprazole 20 mg tablet,delayed 20 mg PO QDAY 05/31/21 11/01/24 History release ropinirole 0.5 mg tablet 0.25 mg PO 11/14/23 History Held on 11/01/24. Instructions: Order Change aspirin 81 mg tablet,delayed 81 mg PO QDAY 11/01/24 History release (Adult Aspirin Regimen) atorvastatin 40 mg tablet mg 11/01/24 History loratadine 10 mg tablet mg 11/01/24 History Allergies Allergy/AdvReac Type Severity Reaction Status Date / Time No Known Allergies Allergy Verified 11/01/24 09:08 Visit Medications Acetaminophen (Acetaminophen 500 Mg Tablet) 1,000 mg PO Q6H PRN PRN Reason: Fever >100 Stop: 12/01/24 17:41 Apixaban (Apixaban 2.5 Mg Tablet) 5 mg PO BID [facility] Stop: 12/01/24 20:59 Last Admin: 11/03/24 08:36 Dose: 5 mg Aspirin (Aspirin Ec 81 Mg Tabec) 81 mg PO QDAY [facility] Stop: 12/03/24 08:59 Last Admin: 11/03/24 08:24 Dose: 81 mg Atorvastatin Calcium (Atorvastatin Calcium 20 Mg Tablet) 40 mg PO QDAY [facility] Stop: 12/02/24 08:59 Last Admin: 11/03/24 08:24 Dose: 40 mg Digoxin (Digoxin 0.125 Mg Tablet) 0.125 mg PO DAILY [facility] Stop: 12/01/24 18:44 Last Admin: 11/03/24 08:24 Dose: 0.125 mg Diltiazem HCl (Diltiazem Cd 120 Mg Capcr) 360 mg PO QDAY [facility] Stop: 12/03/24 08:59 Last Admin: 11/03/24 08:36 Dose: 360 mg Folic Acid (Folic Acid 1 Mg Tablet) 1 mg PO BID [facility] Stop: 11/08/24 20:59 Guaifenesin (Guaifenesin/P-Ephed Tablet) 1 tab PO BID [facility] Stop: 12/01/24 20:59 Last Admin: 11/03/24 08:36 Dose: 1 tab Guaifenesin/Dextromethorphan (Guaifenesin/Dm Tablet) 1 each PO BID [facility] Stop: 12/03/24 10:44 Azithromycin 500 mg/ Sodium (Chloride) 250 mls @ 250 mls/hr IV HS ESPERANZA Stop: 11/09/24 20:59 Last Admin: 11/02/24 21:06 Dose: 250 mls/hr Ceftriaxone Sodium/Dextrose (Rocephin/D5w 1gm Iv Premix) 50 mls @ 100 mls/hr IV QDAY@1400 ESPERANZA Stop: 11/09/24 13:59 Last Infusion: 11/02/24 14:15 Dose: Infused Sodium Chloride (Ns) 1,000 mls @ 50 mls/hr IV .Q20H ONE Stop: 11/04/24 06:27 Last Admin: 11/03/24 10:49 Dose: 50 mls/hr Ipratropium Axson (Ipratropium Rt 0.5 Mg/ 2.5 Ml Nebu) 0.5 mg INH Q6HR PRN; Protocol PRN Reason: wheezing Stop: 12/01/24 17:48 Last Admin: 11/03/24 08:00 Dose: 0.5 mg Levalbuterol HCl (Levalbuterol Rt 0.63 Mg/3 Ml Nebu) 0.63 mg INH Q6HR PRN PRN Reason: WHEEZING Stop: 12/03/24 09:48 Levalbuterol HCl (Levalbuterol Rt 0.63 Mg/3 Ml Nebu) 0.63 mg INH Q4HRRT [facility]; Protocol Stop: 12/03/24 10:59 Last Admin: 11/03/24 11:01 Dose: 0.63 mg Lorazepam (Lorazepam 0.5 Mg Tablet) 0.5 mg PO Q4HR PRN PRN Reason: CIWA Score 2-6 Stop: 11/08/24 09:55 Last Admin: 11/03/24 10:54 Dose: 0.5 mg Methylprednisolone Sodium Succinate (Methylprednisolone Sod Succ 40 Mg Vial) 60 mg IVP Q6HR ESPERANZA Stop: 11/09/24 11:59 Last Admin: 11/03/24 06:23 Dose: 60 mg Morphine Sulfate (Morphine Sulf Inj 10 Mg/Ml Vial) 2 mg IVP Q2H PRN PRN Reason: Pain Scale 4-10 (Severe Stop: 11/06/24 17:41 Last Admin: 11/03/24 08:23 Dose: 2 mg Nicotine (Nicotine Patch 21 Mg/24 Hr Patch.Td24) 21 mg TOP QDAY [facility] Stop: 12/02/24 13:59 Last Admin: 11/03/24 08:25 Dose: 21 mg Ondansetron HCl (Ondansetron Inj 2 Mg/Ml Inj 2 Ml) 4 mg IV Q6H PRN; Protocol PRN Reason: NAUSEA OR VOMITING Stop: 12/01/24 17:41 Pantoprazole Sodium (Pantoprazole Inj 40 Mg Vial) 40 mg IV QDAY [facility] Stop: 12/02/24 13:44 Last Admin: 11/03/24 08:24 Dose: 40 mg Patiromer (Patiromer Calcium 8.4 Gm Packet (Non-Form)) 8.4 gm PO QDAY [facility] Stop: 12/03/24 11:29 Ropinirole HCl (Ropinirole Hcl 0.25 Mg Tablet) 0.25 mg PO QDAY [facility] Stop: 12/02/24 08:59 Last Admin: 11/03/24 08:24 Dose: 0.25 mg Sodium Chloride (Sodium Chloride Rt Nayla 0.9% 3 Ml Nebu) 3 ml INH PRN PRN PRN Reason: SOLN Stop: 12/01/24 10:05 Last Admin: 11/01/24 14:22 Dose: 3 ml Thiamine HCl (Thiamine 100 Mg Tablet) 100 mg PO BID [facility] Stop: 11/08/24 09:59 Last Admin: 11/03/24 10:54 Dose: 100 mg Discontinued Medications Acetaminophen (Acetaminophen 325 Mg Tablet) 1,000 mg PO Q6H PRN PRN Reason: Fever >100 Stop: 12/01/24 17:41 Adenosine (Adenosine Inj 3 Mg/Ml Vial) 12 mg IVP X1 ONE Stop: 11/01/24 17:06 Last Admin: 11/01/24 17:23 Dose: 12 mg Albuterol (Albuterol Rt 2.5 Mg/0.5 Ml Nebu) 10 mg INH X1 ONE Stop: 11/01/24 10:07 Last Admin: 11/01/24 10:39 Dose: 10 mg Albuterol (Albuterol Rt 2.5 Mg/3 Ml Nebu) 2.5 mg INH X1 ONE Stop: 11/01/24 11:42 Last Admin: 11/01/24 14:19 Dose: 2.5 mg Calcium Gluconate (Calcium Gluconate 10% Inj 1 Gm/10 Ml Vial) 1 gm IV X1 ONE Stop: 11/03/24 11:29 Dextrose (Dextrose 50%-Water Inj 50 Ml Syringe) 50 ml IV X1 ONE Stop: 11/03/24 10:25 Last Admin: 11/03/24 10:49 Dose: 50 ml Diltiazem HCl (Diltiazem Inj 5 Mg/Ml Vial 5 Ml) 25 mg IV X1 ONE Stop: 11/01/24 11:42 Last Admin: 11/01/24 13:20 Dose: 25 mg Diltiazem HCl (Diltiazem Er 90 Mg Er Capsule) 360 mg PO X1 ONE Stop: 11/02/24 11:50 Last Admin: 11/02/24 16:12 Dose: Not Given Diltiazem HCl (Diltiazem Er 90 Mg Er Capsule) 360 mg PO X1 ONE Stop: 11/02/24 12:31 Last Admin: 11/02/24 13:47 Dose: 360 mg Diltiazem HCl 125 mg/ Sodium (Chloride) 125 mls @ 10 mls/hr IV .[id number] [facility] Stop: 12/01/24 13:29 Diltiazem HCl 125 mg/ Dextrose 125 mls @ 10 mls/hr IV .[id number] [facility] Stop: 12/01/24 13:44 Last Infusion: 11/01/24 19:57 Dose: 0 mls/hr Ceftriaxone Sodium/Dextrose (Rocephin/D5w 1gm Iv Premix) 50 mls @ 100 mls/hr IV X1 ONE Stop: 11/01/24 17:55 Last Infusion: 11/01/24 19:52 Dose: Infused Magnesium Sulfate (Magnesium Sulfate Ivpb) 2 gm in 50 mls @ 25 mls/hr IV X1 ONE Stop: 11/01/24 19:48 Last Infusion: 11/01/24 21:52 Dose: Infused Azithromycin 500 mg/ Sodium (Chloride) 250 mls @ 250 mls/hr IV X1 ONE Stop: 11/01/24 19:29 Last Infusion: 11/01/24 20:55 Dose: Infused Diltiazem HCl 125 mg/ Dextrose 125 mls @ 15 mls/hr IV .[id number] [facility] Stop: 12/01/24 18:38 Last Admin: 11/02/24 05:10 Dose: 15 mls/hr Ceftriaxone Sodium/Dextrose (Rocephin/D5w 1gm Iv Premix) 50 mls @ 100 mls/hr IV QDAY@1400 [facility] Stop: 11/08/24 18:48 Last Admin: 11/01/24 19:20 Dose: Not Given Diltiazem HCl 125 mg/ Dextrose (/Sodium Chloride) 125 mls @ 15 mls/hr IV .Q8H20M [facility] Stop: 11/02/24 15:45 Last Admin: 11/02/24 16:13 Dose: Not Given Insulin Human Regular (Insulin Hum Regular 1 Unit/0.01 Ml (Per Unit)) 10 unit IV X1 ONE Stop: 11/03/24 10:25 Last Admin: 11/03/24 10:54 Dose: 10 unit Ipratropium Axson (Ipratropium Rt 0.5 Mg/ 2.5 Ml Nebu) 1 mg INH X1 ONE Stop: 11/01/24 10:07 Last Admin: 11/01/24 10:39 Dose: 1 mg Levalbuterol HCl (Levalbuterol Rt 0.63 Mg/3 Ml Nebu) 0.63 mg INH Q6HR PRN; Protocol PRN Reason: wheezing Stop: 12/01/24 17:48 Last Admin: 11/03/24 08:00 Dose: 0.63 mg Levalbuterol HCl (Levalbuterol Rt 0.63 Mg/3 Ml Nebu) 0.63 mg INH Q4HR ESPERANZA; Protocol Stop: 12/03/24 09:59 Methylprednisolone Sodium Succinate (Methylprednisolone Sod Succ 40 Mg Vial) 40 mg IVP Q6HR [facility] Stop: 11/09/24 00:00 Last Admin: 11/02/24 05:10 Dose: 40 mg Patiromer (Patiromer Calcium 8.4 Gm Packet (Non-Form)) 4.2 gm PO X1 ONE Stop: 11/03/24 10:31 Prednisone (Prednisone 20 Mg Tablet) 60 mg PO X1 ONE Stop: 11/01/24 10:07 Last Admin: 11/01/24 10:33 Dose: 60 mg Ropinirole HCl (Ropinirole Hcl 0.25 Mg Tablet) 0.25 mg PO X1 ONE Stop: 11/01/24 14:01 Last Admin: 11/01/24 14:17 Dose: 0.25 mg Sodium Polystyrene Sulfonate (Sod Polystyrene Sulfon Susp 15 Gm/60 Ml Btl) 15 gm PO X1 ONE Stop: 11/03/24 10:25 Last Admin: 11/03/24 10:54 Dose: 15 gm Assessment & Plan Plan The patient is a 69-year-old female with significant past medical history of COPD on home oxygen, CAD s/p CABG 20 years ago, tension, hyperlipidemia, hepatocellular disease, restless leg syndrome, history of polysubstance abuse including alcohol, marijuana, tobacco use and amphetamine use presented to ED with chief complaint of worsening of SOB. She denies any fever or chills, chest pain sore throat, phlegm production was found to be on AHRF 2/2 COPD exacerbation. Nephrology consultation was done for further management of moderate hyponatremia and severe hyperkalemia. #Hyperkalemia Etiology currently unknown Likely adrenal insufficiency: Upon further chart review, always has borderline hyperkalemia and borderline hyponatremia([place] low in the setting of hyperkalemia) DDx: Chronic kidney disease or chronic use of JANA inhibitors or ARB ruled out as the patient does not has CKD and has not been using JANA inhibitors/ARB Presented with potassium of 5.1 Increased up to 6.3 Kayexalate 15 g x 1, regular insulin 10 units IV x 1 given by primary team -Started on Veltassa 4.2 g daily -IV calcium gluconate 1 g x 1 -EKG did not reveal any peaked T waves -Repeat potassium level was 6.0 -Renal diet -Ordered morning 8 AM cortisol level, renin and aldosterone level -Monitor potassium level #Moderate hypoosmolar hypovolemic hyponatremia Etiology currently unknown -Monitor sodium Every 4 hourly -Agree with normal saline 70 cc/h, in the setting of severe volume depleted state -Correction to 6 to 8 units of sodium that will be sodium level of 130 in 24 hours. -Treat the underlying cause of COPD exacerbation #Hypertension -Continue with current medications as BP is currently stable -Monitor vitals #Acute hypoxic respiratory failure secondary to #COPD exacerbation. #Bibasilar pneumonia. #Hx of COPD, on 2L. #A-flutter. #Hx of A-fib. #Hx of CAD s/p CABG (more then 20 years ago). #Hx of hyperlipidemia. #Hx of restless legs syndrome. #Hx of hepatocellular disease. #Hx of polysubstance abuse. Thank you for your opportunity to participate nephrology team in this patient care. The patient's management plan was discussed with my attending physician MD Randal Camargo MD, PGY2 Attending Provider Attestation/Addendum Patient seen and examined with resident physician Dr. Ferrari. Note reviewed, agree with findings and recommendations. Hyperkalemia-unclear etiology. No medications which can cause hyperkalemia. Patient does admit to eating avocados but currently in hospital setting. Question partial adrenal insufficiency. Blood pressure seems to be acceptable. Agree with medical management for hyperkalemia. Hyponatremia-most likely hypovolemia. Continue with normal saline. Will monitor closely to avoid overcorrection. Thank you Rodo for allowing me to participate in the care of Ms. Quinonez
[2024-11-03 11:55] LABS: Chloride,Urine Random 21.4 mMol/L (55.0-125.0); Potassium,Urine Random 20 mMol/L (12-62); Sodium,Urine Random < 10.0 mMol/L (20.0-110.0)
--- NOTE | 2024-11-03 12:12 | PD.RESPRO ---
Documentation for date of: 11/03/24 Subjective Subjective Interval history: Patient seen at bedside. No acute overnight events. She is saturating 95% on 4 L of oxygen via oxy mask. On examination, she still has wheezing bilaterally although has no cough. Telemetry reviewed, patient still in a flutter, rate controlled at 75 beats per minutes. Currently on diltiazem 360 mg, digoxin and Eliquis. Per cardiology, will continue to monitor patient's respiratory status and if stable enough, will plan for ZEE and subsequent cardioversion. Labs reviewed-sodium 122 and potassium 6.3. Will crepitation with hyperkalemic protocol-10 units of IV regular insulin with dextrose and Kayexalate plus Veltassa. Also ordered urine lites and consulted nephrology for persistent hyponatremia. 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 Eyes open, symmetrical, & clear CARDIO: No chest pain on palpation. Heart RRR, no obvious murmurs PULM:Wheezing bilaterally, more prominent in upper lung field, Oxy mask on 4L GI: Abdomen soft, nondistended, no pain on palpation. BSx4 URO/CRITICAL CARE PHYSICIAN ASSISTANT:: No further abnormalities noted. SKIN/MSK/EXT: No wounds/rashes/edema/amputations, no pain on palpation. Pedal pulses present B/L Objective Labs 11/04/24 05:00 11/04/24 11:46 Labs: Laboratory Results - last 24 hr 11/02/24 11/03/24 11/03/24 04:49 04:45 08:30 WBC 11.6 H RBC 4.08 Hgb 10.5 L Hct 35.2 L MCV 86 MCH 25.7 MCHC 29.8 L RDW Std Deviation 58.0 H Plt Count 267 Neut % (Auto) 95 H Lymph % (Auto) [address] [place] % (Auto) 1 Eos % (Auto) 0 Baso % (Auto) 0 Neut # (Auto) 11.1 H Lymph # (Auto) 0.[address] [place] # (Auto) 0.1 Eos # (Auto) 0.0 Baso # (Auto) 0.0 Immature Gran # (Auto) 0.11 H Absolute Nucleated RBC 0.29 H Immature Gran % 1 H Nucleated RBC % 3 H Sodium 122 L Potassium 6.3 H* D Chloride 87 L Carbon Dioxide 32.3 H Anion Gap 3 L BUN 26 H Creatinine 1.0 Estim Creat Clear Calc 51.9 L eGFR > 60 BUN/Creatinine Ratio 26 H Glucose [address] Glu mg/dL 126 Hemoglobin A1c 6.0 Calculated Osmolality 256 L Calcium 8.6 Corrected Calcium 8.6 Phosphorus 2.6 Magnesium 2.0 Albumin 4.1 Ur Random Sodium Ur Random Potassium Ur Random Chloride 11/03/24 11:25 WBC RBC Hgb Hct MCV MCH MCHC RDW Std Deviation Plt Count Neut % (Auto) Lymph % (Auto) [place] % (Auto) Eos % (Auto) Baso % (Auto) Neut # (Auto) Lymph # (Auto) [place] # (Auto) Eos # (Auto) Baso # (Auto) Immature Gran # (Auto) Absolute Nucleated RBC Immature Gran % Nucleated RBC % Sodium Potassium Chloride Carbon Dioxide Anion Gap BUN Creatinine Estim Creat Clear Calc eGFR BUN/Creatinine Ratio Glucose Estimated Ave Glu mg/dL Hemoglobin A1c Calculated Osmolality Calcium Corrected Calcium Phosphorus Magnesium Albumin Ur Random Sodium < 10.0 L Ur Random Potassium 20 Ur Random Chloride 21.4 L ABG Interpretation ABG results: 11/01/24 19:07 VBG pH 7.41 VBG pCO2 54 VBG pO2 77 H VBG Base Excess 8 H Quality Measures Quality Measures VTE prophylaxis Advance care planning discussed with:: patient Assessment & Plan Assessment Current Active Medications: Generic Name Dose Route Start Last Admin Trade Name Freq PRN Reason Stop Dose Admin Acetaminophen 1,000 mg 11/02/24 08:17 Acetaminophen 500 Mg Tablet PO 12/01/24 17:41 Q6H PRN Fever >100 Apixaban 5 mg 11/01/24 21:00 11/03/24 08:36 Apixaban 2.5 Mg Tablet PO 12/01/24 20:59 5 mg BID ESPERANZA Administration Aspirin 81 mg 11/03/24 09:00 11/03/24 08:24 Aspirin Ec 81 Mg Tabec PO 12/03/24 08:59 81 mg QDAY ESPERANZA Administration Atorvastatin Calcium 40 mg 11/02/24 09:00 11/03/24 08:24 Atorvastatin Calcium 20 Mg Tablet PO 12/02/24 08:59 40 mg QDAY ESPERANZA Administration Digoxin 0.125 mg 11/01/24 18:45 11/03/24 08:24 Digoxin 0.125 Mg Tablet PO 12/01/24 18:44 0.125 mg DAILY ESPERANZA Administration Diltiazem HCl 360 mg 11/03/24 09:00 11/03/24 08:36 Diltiazem Cd 120 Mg Capcr PO 12/03/24 08:59 360 mg QDAY ESPERANZA Administration Folic Acid 1 mg 11/03/24 21:00 Folic Acid 1 Mg Tablet PO 11/08/24 20:59 BID ESPERANZA Guaifenesin 1 tab 11/01/24 21:00 11/03/24 08:36 Guaifenesin/P-Ephed Tablet PO 12/01/24 20:59 1 tab BID ESPERANZA Administration Guaifenesin/Dextromethorphan 1 each 11/03/24 10:45 Guaifenesin/Dm Tablet PO 12/03/24 10:44 BID ESPERANZA Azithromycin 500 mg/ Sodium 250 mls @ 250 mls/hr 11/02/24 21:00 11/02/24 21:06 Chloride IV 11/09/24 20:59 250 mls/hr HS ESPERANZA Administration Ceftriaxone Sodium/Dextrose 50 mls @ 100 mls/hr 11/02/24 14:00 11/02/24 14:15 Rocephin/D5w 1gm Iv Premix IV 11/09/24 13:59 Infused QDAY@1400 ESPERANZA Infusion Sodium Chloride 1,000 mls @ 50 mls/hr 11/03/24 10:28 11/03/24 10:49 Ns IV 11/04/24 06:27 50 mls/hr .Q20H ONE Administration Ipratropium [place] 0.5 mg 11/01/24 17:49 11/03/24 08:00 Ipratropium Rt 0.5 Mg/ 2.5 Ml Nebu INH 12/01/24 17:48 0.5 mg Q6HR PRN Administration wheezing Protocol Levalbuterol HCl 0.63 mg 11/03/24 09:49 Levalbuterol Rt 0.63 Mg/3 Ml Nebu INH 12/03/24 09:48 Q6HR PRN WHEEZING Levalbuterol HCl 0.63 mg 11/03/24 11:00 11/03/24 11:01 Levalbuterol Rt 0.63 Mg/3 Ml Nebu INH 12/03/24 10:59 0.63 mg Q4HRRT ESPERANZA Administration Protocol Lorazepam 0.5 mg 11/03/24 09:56 11/03/24 10:54 Lorazepam 0.5 Mg Tablet PO 11/08/24 09:55 0.5 mg Q4HR PRN Administration CIWA Score 2-6 Methylprednisolone Sodium Succinate 60 mg 11/02/24 12:00 11/03/24 06:23 Methylprednisolone Sod Succ 40 Mg Vial IVP 11/09/24 11:59 60 mg Q6HR ESPERANZA Administration Morphine Sulfate 2 mg 11/01/24 17:42 11/03/24 08:23 Morphine Sulf Inj 10 Mg/Ml Vial IVP 11/06/24 17:41 2 mg Q2H PRN Administration Pain Scale 4-10 (Severe Nicotine 21 mg 11/02/24 14:00 11/03/24 08:25 Nicotine Patch 21 Mg/24 Hr Patch.Td24 TOP 12/02/24 13:59 21 mg QDAY ESPERANZA Administration Ondansetron HCl 4 mg 11/01/24 17:42 Ondansetron Inj 2 Mg/Ml Inj 2 Ml IV 12/01/24 17:41 Q6H PRN NAUSEA OR VOMITING Protocol Pantoprazole Sodium 40 mg 11/02/24 13:45 11/03/24 08:24 Pantoprazole Inj 40 Mg Vial IV 12/02/24 13:44 40 mg QDAY ESPERANZA Administration Patiromer 8.4 gm 11/03/24 11:30 Patiromer Calcium 8.4 Gm Packet (Non-Form) PO 12/03/24 11:29 QDAY ESPERANZA Ropinirole HCl 0.25 mg 11/02/24 09:00 11/03/24 08:24 Ropinirole Hcl 0.25 Mg Tablet PO 12/02/24 08:59 0.25 mg QDAY ESPERANZA Administration Sodium Chloride 3 ml 11/01/24 10:06 11/01/24 14:22 Sodium Chloride Rt Nayla 0.9% 3 Ml Nebu INH 12/01/24 10:05 3 ml PRN PRN Administration SOLN Thiamine HCl 100 mg 11/03/24 10:00 11/03/24 10:54 Thiamine 100 Mg Tablet PO 11/08/24 09:59 100 mg BID ESPERANZA Administration Plan Summary: The patient is 69 years old female with past medical history of CAD s/p CABG more than 20 years ago, hypertension, hyperlipidemia, hepatocellular disease, restless legs syndrome, history of polysubstance abuse (alcohol, marijuana, tobacco use, methamphetamine use) presented to the ED complaining of worsening shortness of breath and cough and was admitted for COPD treatment and A-flutter management. #Acute hypoxic respiratory failure secondary to #COPD exacerbation. #Bibasilar pneumonia. #Hx of COPD, on 2L. The patient has a history of COPD and has prior admissions for the same. At home, she reports being on 2L of O2 which she only uses occasionally. She still smokes about a pack a year. Generalized wheezing on physical exam. CXR showed bibasilar pneumonia. 11/03/2024- Patient still on oxymask at 4L, on examination has some wheezing. Currently has IV Solumedrol and PRN breathing treatments, will schedule some more breathing treatments. Plan: -Continue levalbuterol and ipratropium -Continue methylprednisone at 60mg daily -Continue azithromycin and ceftriaxone. -Ensure O2 saturation goal of 88-92% #A-flutter. #Hx of A-fib. Likely 2/2 acute hypoxic respiratory failure and COPD exacerbation. At home, she is on diltiazem for 60 mg, digoxin 0.125 mg and Eliquis 5 mg twice daily. CHADVASC- 4 HASBLED- 1 On admission, she was in A-flutter with RVR, HR in the 140s to 150s. She was started on diltiazem drip yesterday as well as digoxin and Eliquis. EKG done this morning showed a flutter with a heart rate of 75 beats per minutes. Following up with cardiology for further recommendations/possible cardioversion. 11/03/2024- Patient still in A-flutter, HR initially in the 70s on EKG, but patient went into RVR. Per cardio recommendations, she received IV Dilt 20mg and will hold off on cardioversion for now. Plan: -Continue diltiazem CD 360mg, digoxin and eliquis -Monitor and replete magnesium and potassium. Keep between 2 and 5 accordingly. -Follow up cardioology recommendations. #Hyperkalemia Potassium today- 6.3 Plan: -IV insulin plus 50ml dextrose -Kayexalate plus veltassa #Hx of CAD s/p CABG (more then 20 years ago). #Hx of hyperlipidemia. Plan: -Pending echocardiogram - On home aspirin and atorvastatin. #Hx of hypertension. BP 164/103 on admission. Plan: -takes only diltiazem at home, will hold in setting of diltiazem drip. Monitoring BP #Hypoosmolar hyponatremia. -Na 130, osm 261, glucose 112 on admission. Sodium today- 122. Will give NS at 50cc/hr, order urine lytes and consult nephrology Plan: -Urine electrolytes -IV NS at 50cc/hr -Nephrology consulted, appreciate recommendations #Hx of restless legs syndrome. -resumed home ropinirole. #Hx of hepatocellular disease. -Follow-up outpatient. #Hx of polysubstance abuse. -remote hx of Marijuana, alcohol, methamphetamine, tobacco use. FEN: Cardiac diet. DVT prophylaxis: Eliquis. Dispo: Telemetry for acute hypoxic respiratory failure 2/2 COPD exacerbation. Code status: FULL CODE. Case was discussed with Dr Espinoza PGY-2 and attending physician, Dr Vincenzo Blount MD PGY-1 Patient is 69 years old female with worsening shortness of breath and cough and was admitted for COPD excerbation and palpitations secondary to A-flutter. Patient has a history of A.Fib and CHADVASC is 4 and HASBLED score 1. She was previously seen by Cardiology Dr Gaines, who started her on diltiazem for 60 mg, digoxin 0.125 mg and Eliquis 5 mg twice daily. She is also an active smoker, which is likely why she gets repeated exacerbations of her COPD. Cardiology is consulted for further evaluation, appreciate recommendations. Patient is on PRN Duonebs, INH steroids, IV Methylprednisone and Mucinex for decongestion. Started on IV Azithro + Rocephin (2/3 - ). 2/5 : Hyperkalemia 6.3 on labs today, corrected with kayexalate and Veltassa to 4.7 now. Nephrology consulted for hyponatremia Na 122, corrected to 127 with NS and half NS. Per cardio recs, patient is being transitioned from Dilt gtt to P.O. Diltiazem. Will keep K 4-5 and Mg >2. Patient examined and case discussed with the team including attending physician. Note reviewed, I agree with the care plan as documented. - Issac Espinoza MD, PGY 2 Attending Provider Attestation/Addendum I reviewed labs, imaging, EKG, home medications and prior available records. Face to face evaluation was performed by me. I have personally examined the patient and discussed assessment and plan with the IM team. I reviewed the resident note and agree with the plan with exceptions as below. Acute hypoxic respiratory failure: She is on nasal cannula. In the setting of COPD exacerbation and bilateral pneumonia. Management of the underlying conditions as below Bilateral pneumonia: Continue ceftriaxone/azithromycin. COPD exacerbation: Continue DuoNebs and corticosteroids. Atrial fibrillation with RVR: Started p.o. diltiazem. Started digoxin. Continue Eliquis. Discussed with cardiology: Will plan for cardioversion once respiratory status improves CAD status post CABG: Continue aspirin and atorvastatin Hyperkalemia: New complication. Received insulin and dextrose. Potassium only improved to 6.0. Consulted nephrology. Gave Veltassa. Monitor BMP Hyponatremia: New complication. Possibly due to dehydration. Started IV fluids. Consulted neurology. Monitor BMP
[2024-11-03] MEDS: DILTIAZEM INJ 5 MG/ML VIAL 5 ML 20 MG IV ×2 (12:54→19:27)
[2024-11-03] MEDS: CALCIUM GLUCONATE 10% INJ 1 GM/10 ML VIAL IV (12:55)
[2024-11-03] MEDS: guaiFENesin/DM TABLET 1 EACH PO ×2 (12:55→20:40)
[2024-11-03] MEDS: PATIROMER CALCIUM 8.4 GM PACKET (NON-FORM) 4.2 GM PO (12:56)
[2024-11-03] MEDS: cefTRIAXone/D5w 1gm IV premix 50 ML IV (13:25)
--- NOTE | 2024-11-03 13:29 | PD.RESPRO ---
Documentation for date of: 11/03/24 Exam Vital Signs Temp Pulse Resp BP Pulse Ox O2 Del Method O2 Flow Rate 97.2 F 130 H 22 H 132/92 H 90 L Oxy Mask 3 11/03/24 12:00 11/03/24 12:54 11/03/24 12:00 11/03/24 12:54 11/03/24 12:00 11/03/24 12:00 11/03/24 12:00 Objective Labs 11/03/24 04:45 11/03/24 08:30 Labs: Laboratory Results - last 24 hr 11/02/24 11/03/24 11/03/24 04:49 04:45 08:30 WBC 11.6 H RBC 4.08 Hgb 10.5 L Hct 35.2 L MCV 86 MCH 25.7 MCHC 29.8 L RDW Std Deviation 58.0 H Plt Count 267 Neut % (Auto) 95 H Lymph % (Auto) 3 L [place] % (Auto) 1 Eos % (Auto) 0 Baso % (Auto) 0 Neut # (Auto) 11.1 H Lymph # (Auto) 0.3 L [place] # (Auto) 0.1 Eos # (Auto) 0.0 Baso # (Auto) 0.0 Immature Gran # (Auto) 0.11 H Absolute Nucleated RBC 0.29 H Immature Gran % 1 H Nucleated RBC % 3 H Sodium 122 L Potassium 6.3 H* D Chloride 87 L Carbon Dioxide 32.3 H Anion Gap 3 L BUN 26 H Creatinine 1.0 Estim Creat Clear Calc 51.9 L eGFR > 60 BUN/Creatinine Ratio 26 H Glucose [address] Glu mg/dL 126 Hemoglobin A1c 6.0 Calculated Osmolality 256 L Calcium 8.6 Corrected Calcium 8.6 Phosphorus 2.6 Magnesium 2.0 Albumin 4.1 Ur Random Sodium Ur Random Potassium Ur Random Chloride 11/03/24 11:25 WBC RBC Hgb Hct MCV MCH MCHC RDW Std Deviation Plt Count Neut % (Auto) Lymph % (Auto) [place] % (Auto) Eos % (Auto) Baso % (Auto) Neut # (Auto) Lymph # (Auto) [place] # (Auto) Eos # (Auto) Baso # (Auto) Immature Gran # (Auto) Absolute Nucleated RBC Immature Gran % Nucleated RBC % Sodium Potassium Chloride Carbon Dioxide Anion Gap BUN Creatinine Estim Creat Clear Calc eGFR BUN/Creatinine Ratio Glucose Estimated Ave Glu mg/dL Hemoglobin A1c Calculated Osmolality Calcium Corrected Calcium Phosphorus Magnesium Albumin Ur Random Sodium < 10.0 L Ur Random Potassium 20 Ur Random Chloride 21.4 L ABG Interpretation ABG results: 11/01/24 19:07 VBG pH 7.41 VBG pCO2 54 VBG pO2 77 H VBG Base Excess 8 H Quality Measures Quality Measures VTE prophylaxis Assessment & Plan Assessment Current Active Medications: Generic Name Dose Route Start Last Admin Trade Name Freq PRN Reason Stop Dose Admin Acetaminophen 1,000 mg 11/02/24 08:17 Acetaminophen 500 Mg Tablet PO 12/01/24 17:41 Q6H PRN Fever >100 Apixaban 5 mg 11/01/24 21:00 11/03/24 08:36 Apixaban 2.5 Mg Tablet PO 12/01/24 20:59 5 mg BID ESPERANZA Administration Aspirin 81 mg 11/03/24 09:00 11/03/24 08:24 Aspirin Ec 81 Mg Tabec PO 12/03/24 08:59 81 mg QDAY ESPERANZA Administration Atorvastatin Calcium 40 mg 11/02/24 09:00 11/03/24 08:24 Atorvastatin Calcium 20 Mg Tablet PO 12/02/24 08:59 40 mg QDAY ESPERANZA Administration Digoxin 0.125 mg 11/01/24 18:45 11/03/24 08:24 Digoxin 0.125 Mg Tablet PO 12/01/24 18:44 0.125 mg DAILY ESPERANZA Administration Diltiazem HCl 360 mg 11/03/24 09:00 11/03/24 08:36 Diltiazem Cd 120 Mg Capcr PO 12/03/24 08:59 360 mg QDAY ESPERANZA Administration Folic Acid 1 mg 11/03/24 21:00 Folic Acid 1 Mg Tablet PO 11/08/24 20:59 BID ESPERANZA Guaifenesin 1 tab 11/01/24 21:00 11/03/24 08:36 Guaifenesin/P-Ephed Tablet PO 12/01/24 20:59 1 tab BID ESPERANZA Administration Guaifenesin/Dextromethorphan 1 each 11/03/24 10:45 11/03/24 12:55 Guaifenesin/Dm Tablet PO 12/03/24 10:44 1 each BID ESPERANZA Administration Azithromycin 500 mg/ Sodium 250 mls @ 250 mls/hr 11/02/24 21:00 11/02/24 21:06 Chloride IV 11/09/24 20:59 250 mls/hr HS ESPERANZA Administration Ceftriaxone Sodium/Dextrose 50 mls @ 100 mls/hr 11/02/24 14:00 11/03/24 13:25 Rocephin/D5w 1gm Iv Premix IV 11/09/24 13:59 100 mls/hr QDAY@1400 ESPERANZA Administration Sodium Chloride 1,000 mls @ 50 mls/hr 11/03/24 10:28 11/03/24 10:49 Ns IV 11/04/24 06:27 50 mls/hr .Q20H ONE Administration Calcium Gluconate/Sodium Chloride 1,000 mg in 50 mls @ 50 mls/hr 11/03/24 13:00 11/03/24 13:16 Calcium Gluc/Ns 1000mg Ivpb IV 11/03/24 13:59 Not Given NOW ONE Protocol Ipratropium [place] 0.5 mg 11/01/24 17:49 11/03/24 08:00 Ipratropium Rt 0.5 Mg/ 2.5 Ml Nebu INH 12/01/24 17:48 0.5 mg Q6HR PRN Administration wheezing Protocol Levalbuterol HCl 0.63 mg 11/03/24 09:49 Levalbuterol Rt 0.63 Mg/3 Ml Nebu INH 12/03/24 09:48 Q6HR PRN WHEEZING Levalbuterol HCl 0.63 mg 11/03/24 11:00 11/03/24 11:01 Levalbuterol Rt 0.63 Mg/3 Ml Nebu INH 12/03/24 10:59 0.63 mg Q4HRRT ESPERANZA Administration Protocol Lorazepam 0.5 mg 11/03/24 09:56 11/03/24 10:54 Lorazepam 0.5 Mg Tablet PO 11/08/24 09:55 0.5 mg Q4HR PRN Administration CIWA Score 2-6 Methylprednisolone Sodium Succinate 60 mg 11/02/24 12:00 11/03/24 12:55 Methylprednisolone Sod Succ 40 Mg Vial IVP 11/09/24 11:59 60 mg Q6HR ESPERANZA Administration Morphine Sulfate 2 mg 11/01/24 17:42 11/03/24 08:23 Morphine Sulf Inj 10 Mg/Ml Vial IVP 11/06/24 17:41 2 mg Q2H PRN Administration Pain Scale 4-10 (Severe Nicotine 21 mg 11/02/24 14:00 11/03/24 08:25 Nicotine Patch 21 Mg/24 Hr Patch.Td24 TOP 12/02/24 13:59 21 mg QDAY ESPERANZA Administration Ondansetron HCl 4 mg 11/01/24 17:42 Ondansetron Inj 2 Mg/Ml Inj 2 Ml IV 12/01/24 17:41 Q6H PRN NAUSEA OR VOMITING Protocol Pantoprazole Sodium 40 mg 11/02/24 13:45 11/03/24 08:24 Pantoprazole Inj 40 Mg Vial IV 12/02/24 13:44 40 mg QDAY ESPERANZA Administration Patiromer 8.4 gm 11/03/24 11:30 11/03/24 13:15 Patiromer Calcium 8.4 Gm Packet (Non-Form) PO 12/03/24 11:29 Not Given QDAY ESPERANZA Ropinirole HCl 0.25 mg 11/02/24 09:00 11/03/24 08:24 Ropinirole Hcl 0.25 Mg Tablet PO 12/02/24 08:59 0.25 mg QDAY EPSERANZA Administration Sodium Chloride 3 ml 11/01/24 10:06 11/01/24 14:22 Sodium Chloride Rt Nayla 0.9% 3 Ml Nebu INH 12/01/24 10:05 3 ml PRN PRN Administration SOLN Thiamine HCl 100 mg 11/03/24 10:00 11/03/24 10:54 Thiamine 100 Mg Tablet PO 11/08/24 09:59 100 mg BID ESPERANZA Administration
[2024-11-03 13:39] LABS: Albumin, Serum 4.2 gm/dL (3.4-4.8); Anion Gap 4 (7-16); BUN/Creatinine Ratio 25 Ratio (12-20); Blood Urea Nitrogen 25 mg/dL (9-23); Calcium 8.9 mg/dL (8.3-10.6); Calcium (Corrected) 8.9 mg/dL (8.5-10.1); Carbon Dioxide 33.8 mMol/L (20.0-31.0); Chloride 89 mMol/L (98-107); Estimated Creatinine Clearance 51.9 mL/min (>60); Glucose 95 mg/dL (74-106); Osmolality,Calculated 259 (275-295); Phosphorous 2.6 mg/dL (2.4-5.1); Sodium 127 mMol/L (136-145); eGFR > 60 See Note
[2024-11-03] MEDS: SODIUM CHLORIDE 0.9% 500 ML 500 ML 999 ML IV ×2 (14:40→19:28)
[2024-11-03] MEDS: SOD POLYSTYRENE SULFON SUSP 15 GM/60 ML BTL 30 GM PO (14:41)
[2024-11-03] MEDS: LEVOFLOXACIN/D5W 750MG IVPB 750 MG/150 ML BAG 100 MG IV (14:44)
[2024-11-03 16:11] LABS: Albumin, Serum 3.9 gm/dL (3.4-4.8); Anion Gap 6 (7-16); BUN/Creatinine Ratio 24 Ratio (12-20); Blood Urea Nitrogen 24 mg/dL (9-23); Calcium 8.7 mg/dL (8.3-10.6); Calcium (Corrected) 8.8 mg/dL (8.5-10.1); Carbon Dioxide 31.6 mMol/L (20.0-31.0); Chloride 90 mMol/L (98-107); Estimated Creatinine Clearance 51.9 mL/min (>60); Glucose 160 mg/dL (74-106); Osmolality,Calculated 264 (275-295); Phosphorous 2.3 mg/dL (2.4-5.1); Potassium 4.7 mMol/L (3.4-5.1); Sodium 128 mMol/L (136-145); eGFR > 60 See Note
[2024-11-03] MEDS: SODIUM CHLORIDE 0.45 % 1,000 ML 80 ML IV (18:00)
[2024-11-03] MEDS: BUDESONIDE RT 0.5 MG/2 ML NEBU INH (19:26)
[2024-11-03] MEDS: FOLIC ACID 1 MG TABLET PO (20:40)
[2024-11-03] MEDS: NYSTATIN SUSP 5 ML UDC PO (20:40)
[2024-11-03 21:27] LABS: Albumin, Serum 4.1 gm/dL (3.4-4.8); Anion Gap 5 (7-16); BUN/Creatinine Ratio 24 Ratio (12-20); Blood Urea Nitrogen 24 mg/dL (9-23); Calcium 8.6 mg/dL (8.3-10.6); Calcium (Corrected) 8.6 mg/dL (8.5-10.1); Carbon Dioxide 33.3 mMol/L (20.0-31.0); Chloride 93 mMol/L (98-107); Estimated Creatinine Clearance 51.9 mL/min (>60); Glucose 141 mg/dL (74-106); Osmolality,Calculated 268 (275-295); Phosphorous 2.1 mg/dL (2.4-5.1); Potassium 4.4 mMol/L (3.4-5.1); Sodium 131 mMol/L (136-145); eGFR > 60 See Note
[2024-11-03] MEDS: LORazepam 0.5 MG TABLET 1 MG PO (22:41)
[2024-11-03] MEDS: LORazepam 0.5 MG TABLET 2 MG PO (23:57)
[2024-11-04] VITALS (21 sets, daily range): BP systolic 125–156; BP diastolic 69–126; PULSE 113–155; RESP 17–30; TEMP 35.8–36.3; O2SAT 88–96; BMI 31.6
[2024-11-04] MEDS: LORazepam 2 MG/ML VIAL 4 MG IVP (00:46)
[2024-11-04] MEDS: chlordiazePOXIDE HCl 25 MG CAPSULE PO (00:46)
[2024-11-04 02:27] LABS: Glucose 163 mg/dL (74-106); Sodium 127 mMol/L (136-145)
[2024-11-04] MEDS: LEVALBUTEROL RT 0.63 MG/3 ML NEBU INH ×5 (03:00→19:53)
[2024-11-04 06:08] LABS: Basophils % (Auto) 0 % (0-2.5); Eosinophils % (Auto) 0 % (0-10); Hematocrit 36.2 % (36.0-46.0); Hemoglobin 10.5 g/dL (12.0-16.0); Immature Granulocytes % (Auto) 3 % (0-0); Immature Granulocytes Auto 0.35 Thou/mm3 (0.00-0.00); Lymphocytes # (Auto) 0.2 Thou/mm3 (1.0-4.8); Lymphocytes % (Auto) 1 % (10-50); Mean Corpuscular Hemoglobin 25.3 pg (25.0-35.0); Mean Corpuscular Volume 87 fL (80-100); Monocytes # (Auto) 0.2 Thou/mm3 (0.0-0.8); Monocytes % (Auto) 2 % (0-12); Neutrophils # (Auto) 11.7 Thou/mm3 (1.8-7.7); Neutrophils % (Auto) 94 % (37-80); Nucleated Red Blood Cell % 2 /100 WBC (0); Platelet Count 236 Thou/mm3 (140-440); RDW Standard Deviation 58.9 fL (36.4-46.3); Red Blood Count 4.15 Miln/mm3 (4.00-5.20); White Blood Count 12.4 Thou/mm3 (3.6-11.0)
[2024-11-04] MEDS: BUDESONIDE RT 0.5 MG/2 ML NEBU INH ×2 (06:26→19:54)
[2024-11-04 06:44] LABS: Alanine Aminotransferase 29 U/L (10-49); Albumin, Serum 4.2 gm/dL (3.4-4.8); Albumin/Globulin Ratio 1.6 (1.2-2.2); Alkaline Phosphatase 169 U/L (46-116); Anion Gap 4 (7-16); Aspartate Amino Transferase 59 U/L (0-34); BUN/Creatinine Ratio 29 Ratio (12-20); Bilirubin,Total 0.3 mg/dL (0.3-1.2); Blood Urea Nitrogen 26 mg/dL (9-23); Calcium 8.7 mg/dL (8.3-10.6); Calcium (Corrected) 8.7 mg/dL (8.5-10.1); Carbon Dioxide 34.9 mMol/L (20.0-31.0); Chloride 89 mMol/L (98-107); Creatinine (Component) 0.9 mg/dL (0.6-1.3); Digoxin 1.6 ng/mL (0.8-2.0); Globulin 2.7 gm/dL (2.3-3.5); Glucose 147 mg/dL (74-106); Osmolality,Calculated 264 (275-295); Potassium 4.2 mMol/L (3.4-5.1); Sodium 128 mMol/L (136-145); Total Protein 6.9 gm/dL (5.7-8.2); eGFR > 60 See Note
[2024-11-04] MEDS: SODIUM CHLORIDE 0.9% 1000 ML 1,000 ML 70 ML IV (08:02)
--- NOTE | 2024-11-04 08:32 | EKG_ITS ---
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: BETTYE : 1955 Requested By: Key Blount Order Number: [id number] Reading MD: Key Blount Measurements Intervals [place] Rate: 151 P: 238 [place]: 136 QRS: 15 QRSD: 78 T: 0 QT: 206 QTc: 327 Interpretive Statements ECTOPIC ATRIAL TACHYCARDIA, POSSIBLE ATRIAL FLUTTER POSSIBLE RIGHT VENTRICULAR CONDUCTION DELAY ANTEROSEPTAL MYOCARDIAL INFARCTION , OF INDETERMINATE AGE ST DEPRESSION, CONSIDER SUBENDOCARDIAL INJURY Compared to ECG 11/03/2024 08:41:34 ST (T wave) deviation now present T-wave abnormality no longer present Possible ischemia no longer present Myocardial infarct finding still present /store/S0/[id number]
--- NOTE | 2024-11-04 09:38 | ESPR_ITS ---
Documentation for date of: 11/04/24 Subjective Subjective Interval history: The patient is a 69-year-old female with significant past medical history of COPD on home oxygen, CAD s/p CABG 20 years ago, tension, hyperlipidemia, hepatocellular disease, restless leg syndrome, history of polysubstance abuse including alcohol, marijuana, tobacco use and amphetamine use presented to ED with chief complaint of worsening of SOB. She denies any fever or chills, chest pain sore throat, phlegm production. She was admitted 1 year ago with similar symptoms and was found to have COPD exacerbation. During our evaluation, her vitals were significant for blood pressure 132/92, 130, RR 22, and saturating 90% on 3 L OxyMask. Labs are significant for white count 11.6, hemoglobin 10.5, with MCV 86. Chemistry panel was significant for sodium 122 worsening from 129 yesterday, potassium 6.3 worsened from 5.1 yesterday bicarb 32.3, creatinine 1.0 blood sugar 205. CXR revealing bibasilar pneumonia with EKG revealing atrial flutter. PMH: As mentioned above PSHx: CABG 20 years ago Social history: History of marijuana, tobacco and methamphetamine use, alcohol quitted 1 year ago Allergies: No known allergies Medications: Albuterol, apixaban, aspirin, diltiazem and omeprazole. Nephrology consultation was done for further management of moderate hyponatremia and severe hyperkalemia. 11/04/2024: Overnight patient was agitated and received IV lorazepam. This morning patient was sleeping comfortably, saturating 94% on 6 L OxiMask. She was comfortably resting on her bed. Her wheezing has improved months. Still tachycardic with irregularly irregular rhythm. White count 12.4, sodium 128, chloride 89, potassium trended down to 4.2, bicarb 34, BUN 26 and creatinine 0.9. Renin activity, aldosterone and total cortisol pending. We changed IV maintenance fluid to normal saline 70 cc/h, and we will continue with monitoring renal panel every 4 hourly. Exam Vital Signs Temp Pulse Resp BP Pulse Ox O2 Del Method O2 Flow Rate 96.5 F L 145 H 20 138/99 H 94 L Oxy Mask 6 11/04/24 04:00 11/04/24 06:27 11/04/24 06:27 11/04/24 04:00 11/04/24 06:27 11/04/24 04:00 11/04/24 06:27 Narrative Exam General: No acute distress, comfortably resting on her bed HEENT: Mildly dry mucous membranes, oropharynx clear Neck: Supple, No masses, No JVD CVS: S1S2 Regular rate and rhythm, No murmurs, rubs or gallops Lungs: Mild wheezing throughout the lung field, no crackles or rhonchi appreciated Abd: Soft, NT/ND, +BS, no organomegaly Ext: No edema, warm and well perfused Skin: No rash Psych: Somnolent Objective Labs 11/04/24 05:00 11/04/24 19:30 Labs: Laboratory Results - last 24 hr 11/03/24 11/03/24 11/03/24 08:30 11:25 13:00 WBC RBC Hgb Hct MCV MCH MCHC RDW Std Deviation Plt Count Neut % (Auto) Lymph % (Auto) [place] % (Auto) Eos % (Auto) Baso % (Auto) Neut # (Auto) Lymph # (Auto) [place] # (Auto) Eos # (Auto) Baso # (Auto) Immature Gran # (Auto) Absolute Nucleated RBC Immature Gran % Nucleated RBC % Sodium 122 L 127 L Potassium 6.3 H* D 6.0 H Chloride 87 L 89 L Carbon Dioxide 32.3 H 33.8 H Anion Gap 3 L 4 L BUN 26 H 25 H Creatinine 1.0 1.0 Estim Creat Clear Calc 51.9 L 51.9 L eGFR > 60 > 60 BUN/Creatinine Ratio 26 H 25 H Glucose 205 H D 95 D Calculated Osmolality 256 L 259 L Calcium 8.6 8.9 Corrected Calcium 8.6 8.9 Phosphorus 2.6 2.6 Magnesium 2.0 Total Bilirubin AST ALT Alkaline Phosphatase Total Protein Albumin 4.1 4.2 Globulin Albumin/Globulin Ratio Ur Random Sodium < 10.0 L Ur Random Potassium 20 Ur Random Chloride 21.4 L Digoxin 11/03/24 11/03/24 11/04/24 15:35 20:45 02:00 WBC RBC Hgb Hct MCV MCH MCHC RDW Std Deviation Plt Count Neut % (Auto) Lymph % (Auto) [place] % (Auto) Eos % (Auto) Baso % (Auto) Neut # (Auto) Lymph # (Auto) [place] # (Auto) Eos # (Auto) Baso # (Auto) Immature Gran # (Auto) Absolute Nucleated RBC Immature Gran % Nucleated RBC % Sodium 128 L 131 L 127 L Potassium 4.7 D 4.4 Chloride 90 L 93 L Carbon Dioxide 31.6 H 33.3 H Anion Gap 6 L 5 L BUN 24 H 24 H Creatinine 1.0 1.0 Estim Creat Clear Calc 51.9 L 51.9 L eGFR > 60 > 60 BUN/Creatinine Ratio 24 H 24 H Glucose 160 H D 141 H 163 H Calculated Osmolality 264 L 268 L Calcium 8.7 8.6 Corrected Calcium 8.8 8.6 Phosphorus 2.3 L 2.1 L Magnesium Total Bilirubin AST ALT Alkaline Phosphatase Total Protein Albumin 3.9 4.1 Globulin Albumin/Globulin Ratio Ur Random Sodium Ur Random Potassium Ur Random Chloride Digoxin 11/04/24 11/04/24 05:00 05:25 WBC 12.4 H RBC 4.15 Hgb 10.5 L Hct 36.2 MCV 87 MCH 25.3 MCHC 29.0 L RDW Std Deviation 58.9 H Plt Count 236 D Neut % (Auto) 94 H Lymph % (Auto) 1 L [place] % (Auto) 2 Eos % (Auto) 0 Baso % (Auto) 0 Neut # (Auto) 11.7 H Lymph # (Auto) 0.2 L [place] # (Auto) 0.2 Eos # (Auto) 0.0 Baso # (Auto) 0.0 Immature Gran # (Auto) 0.35 H Absolute Nucleated RBC 0.30 H Immature Gran % 3 H Nucleated RBC % 2 H Sodium 128 L Potassium 4.2 Chloride 89 L Carbon Dioxide 34.9 H Anion Gap 4 L BUN 26 H Creatinine 0.9 Estim Creat Clear Calc 58.0 L eGFR > 60 BUN/Creatinine Ratio 29 H Glucose 147 H Calculated Osmolality 264 L Calcium 8.7 Corrected Calcium 8.7 Phosphorus 4.0 Magnesium 2.0 Total Bilirubin 0.3 AST 59 H ALT 29 Alkaline Phosphatase 169 H D Total Protein 6.9 Albumin 4.2 Globulin 2.7 Albumin/Globulin Ratio 1.6 Ur Random Sodium Ur Random Potassium Ur Random Chloride Digoxin 1.6 ABG Interpretation ABG results: 11/01/24 19:07 VBG pH 7.41 VBG pCO2 54 VBG pO2 77 H VBG Base Excess 8 H Quality Measures Quality Measures VTE prophylaxis Advance care planning discussed with:: child Assessment & Plan Assessment Current Active Medications: Generic Name Dose Route Start Last Admin Trade Name Freq PRN Reason Stop Dose Admin Acetaminophen 1,000 mg 11/02/24 08:17 Acetaminophen 500 Mg Tablet PO 12/01/24 17:41 Q6H PRN Fever >100 Apixaban 5 mg 11/01/24 21:00 11/03/24 20:39 Apixaban 2.5 Mg Tablet PO 12/01/24 20:59 5 mg BID ESPERANZA Administration Aspirin 81 mg 11/03/24 09:00 11/03/24 08:24 Aspirin Ec 81 Mg Tabec PO 12/03/24 08:59 81 mg QDAY ESPERANZA Administration Atorvastatin Calcium 40 mg 11/02/24 09:00 11/03/24 08:24 Atorvastatin Calcium 20 Mg Tablet PO 12/02/24 08:59 40 mg QDAY ESPERNAZA Administration Budesonide 0.5 mg 11/03/24 19:00 11/04/24 06:26 Budesonide Rt 0.5 Mg/2 Ml Nebu INH 12/03/24 18:59 0.5 mg BIDRT ESPERANZA Administration Dextrose 25 ml 11/03/24 16:28 Dextrose 50%-Water Inj 50 Ml Syringe IV 12/03/24 16:27 Q15MIN PRN BG 50-70 responsive npo pt Diltiazem HCl 360 mg 11/03/24 09:00 11/03/24 08:36 Diltiazem Cd 120 Mg Capcr PO 12/03/24 08:59 360 mg QDAY ESPERANZA Administration Folic Acid 1 mg 11/03/24 21:00 11/03/24 20:40 Folic Acid 1 Mg Tablet PO 11/08/24 20:59 1 mg BID ESPERANZA Administration Glucagon 1 mg 11/03/24 16:28 Glucagon Inj 1 Mg Vial IM Q15MIN PRN BG <70, and no IV access Guaifenesin/Dextromethorphan 1 each 11/03/24 10:45 11/03/24 20:40 Guaifenesin/Dm Tablet PO 12/03/24 10:44 1 each BID ESPERANZA Administration Levofloxacin/Dextrose 750 mg in 150 mls @ 100 mls/hr 11/03/24 14:30 11/03/24 14:44 Levaquin Ivpb IV 11/10/24 14:29 100 mls/hr QDAY ESPERANZA Administration Sodium Chloride 1,000 mls @ 70 mls/hr 11/04/24 07:36 02/06/25 08:02 Ns IV 11/04/24 21:53 70 mls/hr .[id number] ONE Administration Insulin Human Lispro 0 unit 11/03/24 17:00 11/03/24 17:50 Insulin Lispro (Admelog) 1 Unit/0.01 Ml Unit SC 12/03/24 16:59 Not Given AC ESPERANZA Protocol Ipratropium Timewell 0.5 mg 11/01/24 17:49 11/03/24 08:00 Ipratropium Rt 0.5 Mg/ 2.5 Ml Nebu INH 12/01/24 17:48 0.5 mg Q6HR PRN Administration wheezing Protocol Levalbuterol HCl 0.63 mg 11/03/24 09:49 Levalbuterol Rt 0.63 Mg/3 Ml Nebu INH 12/03/24 09:48 Q6HR PRN WHEEZING Levalbuterol HCl 0.63 mg 11/03/24 11:00 11/04/24 06:26 Levalbuterol Rt 0.63 Mg/3 Ml Nebu INH 12/03/24 10:59 0.63 mg Q4HRRT ESPERANZA Administration Protocol Lorazepam 0.5 mg 11/04/24 00:38 Lorazepam 2 Mg/Ml Vial IV 11/09/24 00:37 Q2HR PRN CIWA SCORE 8-13 Lorazepam 1 mg 11/04/24 00:38 Lorazepam 2 Mg/Ml Vial IV 11/09/24 00:37 Q2HR PRN CIWA SCORE 14-19 Lorazepam 2 mg 11/04/24 00:38 Lorazepam 2 Mg/Ml Vial IV 11/09/24 00:37 Q2HR PRN CIWA SCORE 20-25 Lorazepam 2 mg 11/04/24 00:38 Lorazepam 2 Mg/Ml Vial IVP X1 PRN Breakthrough Agitation Methylprednisolone Sodium Succinate 40 mg 11/04/24 21:00 Methylprednisolone Sod Succ 40 Mg Vial IVP 11/11/24 20:59 Q12HR ESPERANZA Morphine Sulfate 2 mg 11/01/24 17:42 11/03/24 08:23 Morphine Sulf Inj 10 Mg/Ml Vial IVP 11/06/24 17:41 2 mg Q2H PRN Administration Pain Scale 4-10 (Severe Nicotine 21 mg 11/02/24 14:00 11/03/24 08:25 Nicotine Patch 21 Mg/24 Hr Patch.Td24 TOP 12/02/24 13:59 21 mg QDAY ESPERANZA Administration Nystatin 5 ml 11/03/24 17:00 11/04/24 05:28 Nystatin Susp 5 Ml Udc PO 11/10/24 16:59 Not Given QID ESPERANZA Ondansetron HCl 4 mg 11/01/24 17:42 Ondansetron Inj 2 Mg/Ml Inj 2 Ml IV 12/01/24 17:41 Q6H PRN NAUSEA OR VOMITING Protocol Pantoprazole Sodium 40 mg 11/02/24 13:45 11/03/24 08:24 Pantoprazole Inj 40 Mg Vial IV 12/02/24 13:44 40 mg QDAY ESPERANZA Administration Ropinirole HCl 0.25 mg 11/02/24 09:00 11/03/24 08:24 Ropinirole Hcl 0.25 Mg Tablet PO 12/02/24 08:59 0.25 mg QDAY ESPERANZA Administration Sodium Chloride 3 ml 11/01/24 10:06 11/01/24 14:22 Sodium Chloride Rt Nayla 0.9% 3 Ml Nebu INH 12/01/24 10:05 3 ml PRN PRN Administration SOLN Thiamine HCl 100 mg 11/03/24 10:00 11/03/24 20:40 Thiamine 100 Mg Tablet PO 11/08/24 09:59 100 mg BID ESPERANZA Administration Plan The patient is a 69-year-old female with significant past medical history of COPD on home oxygen, CAD s/p CABG 20 years ago, tension, hyperlipidemia, hepatocellular disease, restless leg syndrome, history of polysubstance abuse including alcohol, marijuana, tobacco use and amphetamine use presented to ED with chief complaint of worsening of SOB. She denies any fever or chills, chest pain sore throat, phlegm production was found to be on AHRF 2/2 COPD exacerbation. Nephrology consultation was done for further management of moderate hyponatremia and severe hyperkalemia. #Hyperkalemia, resolved Etiology currently unknown ?? partial adrenal insufficiency: Upon further chart review, always has borderline hyperkalemia and borderline hyponatremia DDx: Chronic kidney disease or chronic use of JANA inhibitors or ARB ruled out as the patient does not has CKD and has not been using JANA inhibitors/ARB Presented with potassium of 5.1 Increased up to 6.3 Kayexalate 15 g x 1, regular insulin 10 units IV x 1 given by primary team -Started on Veltassa 4.2 g daily -IV calcium gluconate 1 g x 1 -EKG did not reveal any peaked T waves -Repeat potassium level was 6.0 -Renal diet -Cortisol level, renin and aldosterone level pending -Monitor potassium level -We will continue to monitor daily potassium level and continue with Veltassa 4.2 g daily. #Moderate hyponatremia Etiology currently unknown -Monitor sodium Every 4 hourly -Agree with normal saline 70 cc/h, in the setting of severe volume depleted state -Correction to 6 to 8 units of sodium that will be sodium level of 130 in 24 hours. -Treat the underlying cause of COPD exacerbation 11/04/2024: Sodium level 128, started the patient on normal saline maintenance IV fluid 70 cc/h, will monitor renal panel every 4 hourly, and goal level of sodium will be less than 134 in next 24-hour. #Hypertension -Continue with current medications as BP is currently stable -Monitor vitals #Acute hypoxic respiratory failure secondary to #COPD exacerbation. #Bibasilar pneumonia. #Hx of COPD, on 2L. #A-flutter. #Hx of A-fib. #Hx of CAD s/p CABG (more then 20 years ago). #Hx of hyperlipidemia. #Hx of restless legs syndrome. #Hx of hepatocellular disease. #Hx of polysubstance abuse. Thank you for your opportunity to participate nephrology team in this patient care. The patient's management plan was discussed with my attending physician MD Randal Camargo MD, PGY2 Attending Provider Attestation/Addendum Patient seen and examined with resident physician Dr. Ferrari. Note reviewed, agree with findings and recommendations. Hyperkalemia-unclear etiology. No medications which can cause hyperkalemia. Patient does admit to eating avocados but currently in hospital setting. Question partial adrenal insufficiency. Blood pressure seems to be acceptable. Agree with medical management for hyperkalemia. Potassium better Hyponatremia-most likely hypovolemia. Continue with normal saline. Will monitor closely to avoid overcorrection. Sodium seems to be acceptable. Patient in a flutter-on Cardizem. Cardiology on the case. Thank you Rodo for allowing me to participate in the care of Ms. Quinonez
[2024-11-04] MEDS: LEVOFLOXACIN/D5W 750MG IVPB 750 MG/150 ML BAG 100 MG IV (09:46)
[2024-11-04] MEDS: PANTOPRAZOLE INJ 40 MG VIAL IV (09:47)
[2024-11-04] MEDS: rOPINIRole HCL 0.25 MG TABLET PO (09:49)
[2024-11-04] MEDS: FOLIC ACID 1 MG TABLET PO (09:50)
[2024-11-04] MEDS: ASPIRIN EC 81 MG TABEC PO (09:50)
[2024-11-04] MEDS: ATORVASTATIN CALCIUM 20 MG TABLET 40 MG PO (09:51)
[2024-11-04] MEDS: APIXABAN 2.5 MG TABLET 5 MG PO (09:51)
[2024-11-04] MEDS: NICOTINE PATCH 21 MG/24 HR PATCH.TD24 TOP (09:53)
[2024-11-04] MEDS: THIAMINE 100 MG TABLET PO (10:03)
[2024-11-04] MEDS: guaiFENesin/DM TABLET 1 EACH PO (10:03)
[2024-11-04] MEDS: DILTIAZEM CD 120 MG CAPCR 360 MG PO (10:07)
[2024-11-04] MEDS: LORazepam 2 MG/ML VIAL 0.5 MG IV (10:20)
--- NOTE | 2024-11-04 10:47 | PC.SS ---
Patient is alert/oriented. At the time of intial assessment patient was unarousable. Lethargic. Daughter, Gabby, was at bedside. Gabby provided a brief history of patient. Patient resides alone. Independent with ADL's. She was using 02/CPAP/nebulizer ([facility]). Patient has IHSS hours. Daughter states she is the alt medical decision maker. Patient was admitted for COPD. Patient uses [facility]. Her PCP: Scout Rosas @ [facility]. Patient will return home upon discharge if she is still ambulatory and independent. Family provides transportation assistance. Patient has consult for Nephrology.
[2024-11-04] MEDS: AMIODARONE 150 MG IVPB 150 MG/100 ML BAG 600 MG IV (11:12)
[2024-11-04] MEDS: AMIODARONE 360 MG IVPB 360 MG/200 ML BAG 33.333 MG IV (11:29)
[2024-11-04] MEDS: INSULIN LISPRO (AdmeLOG) 1 UNIT/0.01 ML UNIT SC ×2 (11:46→17:09)
[2024-11-04 12:02] LABS: Cocci Serology, IgM Negative (Negative)
[2024-11-04] MEDS: MORPHINE SULF INJ 10 MG/ML VIAL 2 MG IVP ×2 (12:16→21:16)
[2024-11-04 12:36] LABS: Albumin, Serum 3.9 gm/dL (3.4-4.8); Anion Gap 6 (7-16); BUN/Creatinine Ratio 26 Ratio (12-20); Blood Urea Nitrogen 21 mg/dL (9-23); Calcium 8.4 mg/dL (8.3-10.6); Calcium (Corrected) 8.5 mg/dL (8.5-10.1); Carbon Dioxide 31.5 mMol/L (20.0-31.0); Chloride 91 mMol/L (98-107); Creatinine (Component) 0.8 mg/dL (0.6-1.3); Estimated Creatinine Clearance 65.3 mL/min (>60); Glucose 155 mg/dL (74-106); Osmolality,Calculated 263 (275-295); Phosphorous 3.2 mg/dL (2.4-5.1); Potassium 4.3 mMol/L (3.4-5.1); Sodium 128 mMol/L (136-145); eGFR > 60 See Note
--- NOTE | 2024-11-04 13:21 | PD.IMPROG ---
Documentation for date of: 11/04/2023 Subjective Subjective Interval history: Patient seen and examined at the bedside. Overnight events noted and patient was apparently agitated and was given Ativan and Librium. Patient was hypoxic later with significant wheezing and oxygen requirements increased the patient is on Ventimask up to 10 L/min. Patient again had another episode of atrial flutter with RVR and another dose of diltiazem 20 mg IV was given overnight. This morning during my examination patient is drowsy secondary to the Ativan and Librium that she has received overnight. Still continues to have high oxygen requirements and on examination she still continues to have significant wheezing. Patient blood pressure is on the softer side at the present moment and will hold off on the diltiazem oral for now plan to give it later in the afternoon if her blood pressure is better. Recommend to start amiodarone drip along with amiodarone IV bolus for now given the uncontrolled A-fib with RVR. Also recommend to stop the digoxin given the acute kidney injury and hyperkalemia yesterday and also to keep the patient only on 2 AV pamela blockers amiodarone and diltiazem going forward. Recommend to treat the acute kidney injury and also keep the potassium between 4 and 5 and magnesium greater than 2.0 at all times. Echocardiogram finally completed on 11/04/2024 with showed normal LV size, low normal LV function LVEF 45 to 50%. Diastolic dysfunction present but could not grade due to atrial flutter with RVR. RV systolic function mildly decreased. Estimated RVSP 55 mmHg with at least moderate PAH. Trace to mild MR. Moderate TR. Mild biatrial dilatation along with dilated IVC noted. Patient will need aggressive treatment of the COPD exacerbation. Nephrology also following for the recent acute kidney injury. Exam Vital Signs Temp Pulse Resp BP Pulse Ox O2 Del Method O2 Flow Rate 96.8 F 118 H 23 H 133/69 H 90 L Oxy Mask 2 11/04/24 12:00 11/04/24 12:11/04/24 12:11/04/24 12:11/04/24 12:11/04/24 12:11/04/24 10:14 Narrative Exam GENERAL: A&Ox3 . Awake, Not in acute distress, saturating 94% on 10L of O2 via oxymask NEURO: no focal neurological deficits HEENT: Atraumatic, Normocephalic. mucous membranes moist. Eyes open, symmetrical, & clear HEART: Normal Heart Sounds LUNGS: Wheezing in upper lung ruiz bilaterally. ABDOMEN: soft, non-distended, non-tender, bowel sounds heard, no guarding or rebound tenderness SKIN: No Rash or ecchymoses EXTREMITIES: No edema, tenderness, able to move all 4 extremities, pedal pulses palpated Objective Labs 11/05/24 04:44 11/05/24 04:44 Labs: Laboratory Results - last 24 hr 11/03/24 11/03/24 11/03/24 13:00 15:35 20:45 WBC RBC Hgb Hct MCV MCH MCHC RDW Std Deviation Plt Count Neut % (Auto) Lymph % (Auto) Villalba % (Auto) Eos % (Auto) Baso % (Auto) Neut # (Auto) Lymph # (Auto) Villalba # (Auto) Eos # (Auto) Baso # (Auto) Immature Gran # (Auto) Absolute Nucleated RBC Immature Gran % Nucleated RBC % Sodium 127 L 128 L 131 L Potassium 6.0 H 4.7 D 4.4 Chloride 89 L 90 L 93 L Carbon Dioxide 33.8 H 31.6 H 33.3 H Anion Gap 4 L 6 L 5 L BUN 25 H 24 H 24 H Creatinine 1.0 1.0 1.0 Estim Creat Clear Calc 51.9 L 51.9 L 51.9 L eGFR > 60 > 60 > 60 BUN/Creatinine Ratio 25 H 24 H 24 H Glucose 95 D 160 H D 141 H Calculated Osmolality 259 L 264 L 268 L Calcium 8.9 8.7 8.6 Corrected Calcium 8.9 8.8 8.6 Phosphorus 2.6 2.3 L 2.1 L Magnesium Total Bilirubin AST ALT Alkaline Phosphatase Total Protein Albumin 4.2 3.9 4.1 Globulin Albumin/Globulin Ratio Digoxin Coccidioides IgM Ab Negative 11/04/24 11/04/24 11/04/24 02:00 05:00 05:25 WBC 12.4 H RBC 4.15 Hgb 10.5 L Hct 36.2 MCV 87 MCH 25.3 MCHC 29.0 L RDW Std Deviation 58.9 H Plt Count 236 D Neut % (Auto) 94 H Lymph % (Auto) 1 L Villalba % (Auto) 2 Eos % (Auto) 0 Baso % (Auto) 0 Neut # (Auto) 11.7 H Lymph # (Auto) 0.2 L Villalba # (Auto) 0.2 Eos # (Auto) 0.0 Baso # (Auto) 0.0 Immature Gran # (Auto) 0.35 H Absolute Nucleated RBC 0.30 H Immature Gran % 3 H Nucleated RBC % 2 H Sodium 127 L 128 L Potassium 4.2 Chloride 89 L Carbon Dioxide 34.9 H Anion Gap 4 L BUN 26 H Creatinine 0.9 Estim Creat Clear Calc 58.0 L eGFR > 60 BUN/Creatinine Ratio 29 H Glucose 163 H 147 H Calculated Osmolality 264 L Calcium 8.7 Corrected Calcium 8.7 Phosphorus 4.0 Magnesium 2.0 Total Bilirubin 0.3 AST 59 H ALT 29 Alkaline Phosphatase 169 H D Total Protein 6.9 Albumin 4.2 Globulin 2.7 Albumin/Globulin Ratio 1.6 Digoxin 1.6 Coccidioides IgM Ab 11/04/24 11:46 WBC RBC Hgb Hct MCV MCH MCHC RDW Std Deviation Plt Count Neut % (Auto) Lymph % (Auto) Villalba % (Auto) Eos % (Auto) Baso % (Auto) Neut # (Auto) Lymph # (Auto) Villalba # (Auto) Eos # (Auto) Baso # (Auto) Immature Gran # (Auto) Absolute Nucleated RBC Immature Gran % Nucleated RBC % Sodium 128 L Potassium 4.3 Chloride 91 L Carbon Dioxide 31.5 H Anion Gap 6 L BUN 21 Creatinine 0.8 Estim Creat Clear Calc 65.3 eGFR > 60 BUN/Creatinine Ratio 26 H Glucose 155 H Calculated Osmolality 263 L Calcium 8.4 Corrected Calcium 8.5 Phosphorus 3.2 Magnesium Total Bilirubin AST ALT Alkaline Phosphatase Total Protein Albumin 3.9 Globulin Albumin/Globulin Ratio Digoxin Coccidioides IgM Ab ABG Interpretation ABG results: 11/01/24 19:07 VBG pH 7.41 VBG pCO2 54 VBG pO2 77 H VBG Base Excess 8 H Assessment & Plan A&P Narrative A 69-year-old female with a past medical of CAD s/p CABG more than 20 years ago with unknown grafts is operative report unavailable, paroxysmal atrial fibrillation/flutter anticoagulation, rate controlled, history of moderate to severe COPD, active smoker still more than half a pack a day, increased 30 pack years smoking history, essential hypertension, hyperlipidemia, morbid obesity, history of alcohol, marijuana and tobacco abuse along with history of methamphetamine abuse previously many years ago, questionable liver disease secondary to alcohol and drug abuse, nephrolithiasis presented to the emergency department for further evaluation of shortness of breath and cough. Patient well-known to me from previous admission in October 2023 as well as she follows up with me in the clinic. Patient was initially diagnosed with paroxysmal atrial flutter/fibrillation with RVR in 10/2023 when she had COPD exacerbation along with an active COVID infection. Patient was followed up as outpatient and was placed on diltiazem ER to 60 mg once daily as well as digoxin 125 mcg once daily and Eliquis for anticoagulation. Heart rate was well-controlled but continued to be in normal sinus rhythm at that point of time. Patient continues to be smoking and she has at least moderate to severe COPD based on her previous presentations. Cardiology was consulted today for further management of the possible atrial flutter/fibrillation with RVR 1. Paroxysmal atrial flutter with RVR with 2:1 block and less likely SVT 2. Acute on chronic severe COPD exacerbation with unclear trigger - possible pneumonia 3. CAD s/p CABG more than 20 years ago with unknown grafts as operative report is unavailable 4. Acute on chronic hypoxic respiratory failure and rule out pneumonia 5. HFpEF or diastolic CHF 6. Essential hypertension 7. Hyperlipidemia 8. Morbid obesity 9. History of remote alcohol, marijuana and methamphetamine 10. Active smoker with more than [id number] smoking history 11. Questionable liver disease with given her history of alcohol abuse 12. Mild anemia Patient presented with severe COPD exacerbation unclear trigger and could be possible pneumonia and patient started on IV antibiotics per the primary team which we recommend to continue and do further workup for the sepsis. Patient should also receive Solu-Medrol 125 mg IV x 1 and aggressive treatment of the COPD exacerbation with the nebulizations but avoid albuterol and give patient levalbuterol along with Atrovent nebulizations. Patient will need long-term steroid inhaler along with other COPD regimen. Primary team is following the patient. Regarding tachycardia patient appears to be in paroxysmal atrial flutter with RVR at least 1 block and less likely SVT. Patient apparently did receive adenosine 12 mg IV x 1 in the ED but did not convert also patient received Cardizem 25 mg IV x 1 and Cardizem drip at 10 mg/h. Unfortunately we are unable to obtain the ECG rhythm when the patient did receive diagnosing and it would help with the diagnosis. At home doses of medication was Cardizem CD 360 mg once daily and digoxin 125 mcg once daily with which her heart rate was well-controlled and also was not Eliquis for anticoagulation. -Patient in the atrial flutter with RVR mostly secondary to the COPD exacerbation but as noted above unclear etiology for the COPD exacerbation possible pneumonia. -Recommend to continue Eliquis for anticoagulation -Patient apparently takes her medications as prescribed daily including the digoxin as well as the diltiazem CD and the last dose was yesterday. -Please started on Cardizem drip at 15 mg/h and was changed to Cardizem 360 mg once daily along with digoxin 125 mcg daily and patient's nuclear rate for better control of 75 bpm with atrial flutter and 40s to 1 block. -She did receive some additional doses of diltiazem 20 mg IV on 11/03/2023 for brief episodes of atrial flutter with RVR. -Patient could not receive a ZEE with cardioversion as patient respiratory status continued to decline and still had significant wheezing and increasing oxygen requirements from her significant COPD exacerbation with possible underlying pneumonia. 11/04/2023 Overnight events noted and patient was apparently agitated and was given Ativan and Librium. Patient was hypoxic later with significant wheezing and oxygen requirements increased the patient is on Ventimask up to 10 L/min. Patient again had another episode of atrial flutter with RVR and another dose of diltiazem 20 mg IV was given overnight. This morning during my examination patient is drowsy secondary to the Ativan and Librium that she has received overnight. Still continues to have high oxygen requirements and on examination she still continues to have significant wheezing. Patient blood pressure is on the softer side at the present moment and will hold off on the diltiazem oral for now plan to give it later in the afternoon if her blood pressure is better. Recommend to start amiodarone drip along with amiodarone IV bolus for now given the uncontrolled A-fib with RVR. Also recommend to stop the digoxin given the acute kidney injury and hyperkalemia yesterday and also to keep the patient only on 2 AV pamela blockers amiodarone and diltiazem going forward. Recommend to treat the acute kidney injury and also keep the potassium between 4 and 5 and magnesium greater than 2.0 at all times. Echocardiogram finally completed on 11/04/2024 with showed normal LV size, low normal LV function LVEF 45 to 50%. Diastolic dysfunction present but could not grade due to atrial flutter with RVR. RV systolic function mildly decreased. Estimated RVSP 55 mmHg with at least moderate PAH. Trace to mild MR. Moderate TR. Mild biatrial dilatation along with dilated IVC noted. Patient will need aggressive treatment of the COPD exacerbation. Nephrology also following for the recent acute kidney injury. History of CAD s/p CABG with unknown grafts-please try to obtain the report from her previous hospitalization where the CABG was performed Continue aspirin and statin and no beta-maverick given the severe COPD exacerbation. Recommend aggressive control of CAD with aspirin, high intensity statin. No blockers for rate control because of the severe COPD. Patient does have diastolic dysfunction on the previous echo and chest x-ray shows moderate vascular congestion as per the report. Does not appear to be in overt heart failure but appears to be mildly fluid overloaded. She is not on any kind of Lasix previously at home. Recommend to check BMP tomorrow morning. Okay to give 1 dose of Lasix 40 mg IV x 1. Strict input output, daily weights and 2 g sodium diet. Management of rest of the medical conditions as per primary team and other consultants. Thank you for the consult and allowing me to participate in the care of the patient. Cardiology will continue to follow. There is a high probability of sudden, clinically significant or life threatening deterioration in the patient condition which required the highest level of physician preparedness to intervene urgently. I have personally spent 65 minutes of critical care time, exclusive of time spent on any procedures, in evaluation and management of this critically ill patient. Rex Gaines M.D. Interventional Cardiology Time Spent With Patient Time: Total time spent is greater than 50% in coordination of care (as documented) at patient's floor/unit and/or counseling patient:
--- NOTE | 2024-11-04 13:48 | ESPR_ITS ---
Documentation for date of: 11/04/24 Subjective Subjective Interval history: Patient seen at bedside. Overnight was agitated with CIWA of 25. She received 5mg of Ativan as well as Librium. This morning, CIWA is 1 and patient is sitting upright in bed after having breakfast. She is saturating 93% on 6L of oxyger. Still has some wheezing, although not as significant and is tachycardic with HR of 144bpm. EKG and telemetry review shows patient in A-flutter with RVR. Cardiology updated, recommends to start amiodarone infusion protocol and continue oral Diltiazem. Will re-evaluate later today for possible ZEE and subsequent cardioversion. 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 Eyes open, symmetrical, & clear CARDIO: No chest pain on palpation. Tachycardic, regular rhythm PULM: Minimal wheezing bilaterally, saturating 93% on 6L via oxymask GI: Abdomen soft, nondistended, no pain on palpation. BSx4 URO/EXCHANGE OPERATOR:: No further abnormalities noted. SKIN/MSK/EXT: No wounds/rashes/edema/amputations, no pain on palpation. Pedal pulses present B/L Objective Labs 11/05/24 04:44 11/05/24 04:44 Labs: Laboratory Results - last 24 hr 11/03/24 11/03/24 11/03/24 13:00 15:35 20:45 WBC RBC Hgb Hct MCV MCH MCHC RDW Std Deviation Plt Count Neut % (Auto) Lymph % (Auto) [place] % (Auto) Eos % (Auto) Baso % (Auto) Neut # (Auto) Lymph # (Auto) [place] # (Auto) Eos # (Auto) Baso # (Auto) Immature Gran # (Auto) Absolute Nucleated RBC Immature Gran % Nucleated RBC % Sodium 127 L 128 L 131 L Potassium 6.0 H 4.7 D 4.4 Chloride 89 L 90 L 93 L Carbon Dioxide 33.8 H 31.6 H 33.3 H Anion Gap 4 L 6 L 5 L BUN 25 H 24 H 24 H Creatinine 1.0 1.0 1.0 Estim Creat Clear Calc 51.9 L 51.9 L 51.9 L eGFR > 60 > 60 > 60 BUN/Creatinine Ratio 25 H 24 H 24 H Glucose 95 D 160 H D 141 H Calculated Osmolality 259 L 264 L 268 L Calcium 8.9 8.7 8.6 Corrected Calcium 8.9 8.8 8.6 Phosphorus 2.6 2.3 L 2.1 L Magnesium Total Bilirubin AST ALT Alkaline Phosphatase Total Protein Albumin 4.2 3.9 4.1 Globulin Albumin/Globulin Ratio Digoxin Coccidioides IgM Ab Negative 11/04/24 11/04/24 11/04/24 02:00 05:00 05:25 WBC 12.4 H RBC 4.15 Hgb 10.5 L Hct 36.2 MCV 87 MCH 25.3 MCHC 29.0 L RDW Std Deviation 58.9 H Plt Count 236 D Neut % (Auto) 94 H Lymph % (Auto) 1 L [place] % (Auto) 2 Eos % (Auto) 0 Baso % (Auto) 0 Neut # (Auto) 11.7 H Lymph # (Auto) 0.2 L [place] # (Auto) 0.2 Eos # (Auto) 0.0 Baso # (Auto) 0.0 Immature Gran # (Auto) 0.35 H Absolute Nucleated RBC 0.30 H Immature Gran % 3 H Nucleated RBC % 2 H Sodium 127 L 128 L Potassium 4.2 Chloride 89 L Carbon Dioxide 34.9 H Anion Gap 4 L BUN 26 H Creatinine 0.9 Estim Creat Clear Calc 58.0 L eGFR > 60 BUN/Creatinine Ratio 29 H Glucose 163 H 147 H Calculated Osmolality 264 L Calcium 8.7 Corrected Calcium 8.7 Phosphorus 4.0 Magnesium 2.0 Total Bilirubin 0.3 AST 59 H ALT 29 Alkaline Phosphatase 169 H D Total Protein 6.9 Albumin 4.2 Globulin 2.7 Albumin/Globulin Ratio 1.6 Digoxin 1.6 Coccidioides IgM Ab 11/04/24 11:46 WBC RBC Hgb Hct MCV MCH MCHC RDW Std Deviation Plt Count Neut % (Auto) Lymph % (Auto) [place] % (Auto) Eos % (Auto) Baso % (Auto) Neut # (Auto) Lymph # (Auto) [place] # (Auto) Eos # (Auto) Baso # (Auto) Immature Gran # (Auto) Absolute Nucleated RBC Immature Gran % Nucleated RBC % Sodium 128 L Potassium 4.3 Chloride 91 L Carbon Dioxide 31.5 H Anion Gap 6 L BUN 21 Creatinine 0.8 Estim Creat Clear Calc 65.3 eGFR > 60 BUN/Creatinine Ratio 26 H Glucose 155 H Calculated Osmolality 263 L Calcium 8.4 Corrected Calcium 8.5 Phosphorus 3.2 Magnesium Total Bilirubin AST ALT Alkaline Phosphatase Total Protein Albumin 3.9 Globulin Albumin/Globulin Ratio Digoxin Coccidioides IgM Ab ABG Interpretation ABG results: 11/01/24 19:07 VBG pH 7.41 VBG pCO2 54 VBG pO2 77 H VBG Base Excess 8 H Quality Measures Quality Measures VTE prophylaxis Advance care planning discussed with:: patient Assessment & Plan Assessment Current Active Medications: Generic Name Dose Route Start Last Admin Trade Name Freq PRN Reason Stop Dose Admin Acetaminophen 1,000 mg 11/02/24 08:17 Acetaminophen 500 Mg Tablet PO 12/01/24 17:41 Q6H PRN Fever >100 Apixaban 5 mg 11/01/24 21:00 11/04/24 09:51 Apixaban 2.5 Mg Tablet PO 12/01/24 20:59 5 mg BID ESPERANZA Administration Aspirin 81 mg 11/03/24 09:00 11/04/24 09:50 Aspirin Ec 81 Mg Tabec PO 12/03/24 08:59 81 mg QDAY ESPERANZA Administration Atorvastatin Calcium 40 mg 11/02/24 09:00 11/04/24 09:51 Atorvastatin Calcium 20 Mg Tablet PO 12/02/24 08:59 40 mg QDAY ESPERANZA Administration Budesonide 0.5 mg 11/03/24 19:00 11/04/24 06:26 Budesonide Rt 0.5 Mg/2 Ml Nebu INH 12/03/24 18:59 0.5 mg BIDRT ESPERANZA Administration Dextrose 25 ml 11/03/24 16:28 Dextrose 50%-Water Inj 50 Ml Syringe IV 12/03/24 16:27 Q15MIN PRN BG 50-70 responsive npo pt Diltiazem HCl 360 mg 11/03/24 09:00 11/04/24 10:07 Diltiazem Cd 120 Mg Capcr PO 12/03/24 08:59 360 mg QDAY ESPERANZA Administration Folic Acid 1 mg 11/03/24 21:00 11/04/24 09:50 Folic Acid 1 Mg Tablet PO 11/08/24 20:59 1 mg BID ESPERANZA Administration Glucagon 1 mg 11/03/24 16:28 Glucagon Inj 1 Mg Vial IM Q15MIN PRN BG <70, and no IV access Guaifenesin/Dextromethorphan 1 each 11/03/24 10:45 11/04/24 10:03 Guaifenesin/Dm Tablet PO 12/03/24 10:44 1 each BID ESPERANZA Administration Levofloxacin/Dextrose 750 mg in 150 mls @ 100 mls/hr 11/03/24 14:30 11/04/24 09:46 Levaquin Ivpb IV 11/10/24 14:29 100 mls/hr QDAY ESPERANZA Administration Sodium Chloride 1,000 mls @ 70 mls/hr 11/04/24 07:36 11/04/24 08:02 Ns IV 11/04/24 21:53 70 mls/hr .[id number] ONE Administration Amiodarone HCl/Dextrose 360 mg in 200 mls @ 33.333 mls/hr 11/04/24 10:25 11/04/24 11:29 Nexterone Ivpb IV 11/04/24 16:24 33.333 mls/hr .Q6H ONE Administration Amiodarone HCl/Dextrose 360 mg in 200 mls @ 16.667 mls/hr 11/04/24 16:25 Nexterone Ivpb IV 11/05/24 16:24 .Q12H ESPERANZA Insulin Human Lispro 0 unit 11/03/24 17:00 11/04/24 11:46 Insulin Lispro (Admelog) 1 Unit/0.01 Ml Unit SC 12/03/24 16:59 1 unit AC ESPERANZA Administration Protocol Ipratropium Supai 0.5 mg 11/01/24 17:49 11/03/24 08:00 Ipratropium Rt 0.5 Mg/ 2.5 Ml Nebu INH 12/01/24 17:48 0.5 mg Q6HR PRN Administration wheezing Protocol Levalbuterol HCl 0.63 mg 11/03/24 09:49 Levalbuterol Rt 0.63 Mg/3 Ml Nebu INH 12/03/24 09:48 Q6HR PRN WHEEZING Levalbuterol HCl 0.63 mg 11/03/24 11:00 11/04/24 10:13 Levalbuterol Rt 0.63 Mg/3 Ml Nebu INH 12/03/24 10:59 0.63 mg Q4HRRT ESPERANZA Administration Protocol Lorazepam 0.5 mg 11/04/24 00:38 11/04/24 10:20 Lorazepam 2 Mg/Ml Vial IV 11/09/24 00:37 0.5 mg Q2HR PRN Administration CIWA SCORE 8-13 Lorazepam 1 mg 11/04/24 00:38 Lorazepam 2 Mg/Ml Vial IV 11/09/24 00:37 Q2HR PRN CIWA SCORE 14-19 Lorazepam 2 mg 11/04/24 00:38 Lorazepam 2 Mg/Ml Vial IV 11/09/24 00:37 Q2HR PRN CIWA SCORE 20-25 Lorazepam 2 mg 11/04/24 00:38 Lorazepam 2 Mg/Ml Vial IVP X1 PRN Breakthrough Agitation Methylprednisolone Sodium Succinate 40 mg 11/04/24 21:00 Methylprednisolone Sod Succ 40 Mg Vial IVP 11/11/24 20:59 Q12HR ESPERANZA Morphine Sulfate 2 mg 11/01/24 17:42 11/04/24 12:16 Morphine Sulf Inj 10 Mg/Ml Vial IVP 11/06/24 17:41 2 mg Q2H PRN Administration Pain Scale 4-10 (Severe Nicotine 21 mg 11/02/24 14:00 11/04/24 09:53 Nicotine Patch 21 Mg/24 Hr Patch.Td24 TOP 12/02/24 13:59 21 mg QDAY ESPERANZA Administration Nystatin 5 ml 11/03/24 17:00 11/04/24 12:12 Nystatin Susp 5 Ml Udc PO 11/10/24 16:59 Not Given QID ESPERANZA Ondansetron HCl 4 mg 11/01/24 17:42 Ondansetron Inj 2 Mg/Ml Inj 2 Ml IV 12/01/24 17:41 Q6H PRN NAUSEA OR VOMITING Protocol Pantoprazole Sodium 40 mg 11/02/24 13:45 11/04/24 09:47 Pantoprazole Inj 40 Mg Vial IV 12/02/24 13:44 40 mg QDAY ESPERANZA Administration Ropinirole HCl 0.25 mg 11/02/24 09:00 02/06/25 09:49 Ropinirole Hcl 0.25 Mg Tablet PO 12/02/24 08:59 0.25 mg QDAY ESPERANZA Administration Sodium Chloride 3 ml 11/01/24 10:06 11/01/24 14:22 Sodium Chloride Rt Nayla 0.9% 3 Ml Nebu INH 12/01/24 10:05 3 ml PRN PRN Administration SOLN Thiamine HCl 100 mg 11/03/24 10:00 11/04/24 10:03 Thiamine 100 Mg Tablet PO 11/08/24 09:59 100 mg BID ESPERANZA Administration Plan Summary: The patient is 69 years old female with past medical history of CAD s/p CABG more than 20 years ago, hypertension, hyperlipidemia, hepatocellular disease, restless legs syndrome, history of polysubstance abuse (alcohol, marijuana, tobacco use, methamphetamine use) presented to the ED complaining of worsening shortness of breath and cough and was admitted for COPD treatment and A-flutter management. #Acute hypoxic respiratory failure secondary to #COPD exacerbation. #Bibasilar pneumonia. #Hx of COPD, on 2L. The patient has a history of COPD and has prior admissions for the same. At home, she reports being on 2L of O2 which she only uses occasionally. She still smokes about a pack a year. Generalized wheezing on physical exam. CXR showed bibasilar pneumonia. 11/04/2024- Patient still has some wheezing and is on 6L via oxymask. Optimizing breathing reatments Plan: -Continue levalbuterol and ipratropium -Solumedrol reduced to 40mg daily -Continue Levofloxacin -Ensure O2 saturation goal of 88-92% #A-flutter. #Hx of A-fib. Likely 2/2 acute hypoxic respiratory failure and COPD exacerbation. At home, she is on diltiazem for 60 mg, digoxin 0.125 mg and Eliquis 5 mg twice daily. CHADVASC- 4 HASBLED- 1 On admission, she was in A-flutter with RVR, HR in the 140s to 150s. She was started on diltiazem drip yesterday as well as digoxin and Eliquis. EKG done this morning showed a flutter with a heart rate of 75 beats per minutes. Following up with cardiology for further recommendations/possible cardioversion. 11/03/2024- Patient still in A-flutter, HR in the 140s. Cardiology recommends to stop digoxin, commence amiodarone infusion protocol and will re-evaluate for ZEE and cardioversion. Plan: -Amiodarone infusion protocol -DC digoxin -Continue diltiazem CD 360mg and eliquis -Monitor and replete magnesium and potassium. Keep between 2 and 5 accordingly. -Follow up cardioology recommendations. #Hyperkalemia- resolved Potassium today- 4.2 Plan: -Continue to monitor electrolytes #Hx of CAD s/p CABG (more then 20 years ago). #Hx of hyperlipidemia. -Echocardiogram showed EF 45-50% with diastolic dysfunction present but not able to grade due to A-flutter Plan: - On home aspirin and atorvastatin. #Hx of hypertension. BP 164/103 on admission. Plan: -takes only diltiazem at home, will hold in setting of diltiazem drip. Monitoring BP #Hypoosmolar hyponatremia. -Na 130, osm 261, glucose 112 on admission. Sodium today- 122. Will give NS at 50cc/hr, order urine lytes and consult nephrology Plan: -Urine electrolytes -IV NS at 50cc/hr -Nephrology consulted, appreciate recommendations #Hx of restless legs syndrome. -resumed home ropinirole. #Hx of hepatocellular disease. -Follow-up outpatient. #Hx of polysubstance abuse. -remote hx of Marijuana, alcohol, methamphetamine, tobacco use. FEN: Cardiac diet. DVT prophylaxis: Eliquis. Dispo: Telemetry for acute hypoxic respiratory failure 2/2 COPD exacerbation. Code status: FULL CODE. Case was discussed with Dr Marks PGY-2 and attending physician, Dr Vincenzo Blount MD PGY-1 Attending Provider Attestation/Addendum I reviewed labs, imaging, EKG, home medications and prior available records. Face to face evaluation was performed by me. I have personally examined the patient and discussed assessment and plan with the IM team. I reviewed the resident note and agree with the plan with exceptions as below. Acute hypoxic respiratory failure: She is on nasal cannula. In the setting of COPD exacerbation and bilateral pneumonia. Management of the underlying conditions as below Bilateral pneumonia: Continue ceftriaxone/azithromycin. Sent cocci IgM COPD exacerbation: Continue DuoNebs and corticosteroids. Atrial fibrillation with RVR: Started p.o. diltiazem. Started IV amiodarone as the rate became uncontrolled. Continue Eliquis. Discussed with cardiology: Will plan for cardioversion once respiratory status improves CAD status post CABG: Continue aspirin and atorvastatin Hyperkalemia: Improved. Received insulin and dextrose. Received Veltassa. Nephrology is following. Monitor BMP. Hyponatremia: Improved with IV normal saline. Consulted neurology. Monitor BMP Alcohol withdrawal: New complication. Started CIWA protocol
[2024-11-04 16:03] LABS: Anion Gap 3 (7-16); BUN/Creatinine Ratio 28 Ratio (12-20); Blood Urea Nitrogen 22 mg/dL (9-23); Calcium 8.4 mg/dL (8.3-10.6); Calcium (Corrected) 8.4 mg/dL (8.5-10.1); Carbon Dioxide 34.8 mMol/L (20.0-31.0); Chloride 90 mMol/L (98-107); Creatinine (Component) 0.8 mg/dL (0.6-1.3); Estimated Creatinine Clearance 65.3 mL/min (>60); Glucose 147 mg/dL (74-106); Osmolality,Calculated 263 (275-295); Phosphorous 4.2 mg/dL (2.4-5.1); Potassium 4.3 mMol/L (3.4-5.1); Sodium 128 mMol/L (136-145); eGFR > 60 See Note
[2024-11-04] MEDS: AMIODARONE 360 MG IVPB 360 MG/200 ML BAG 16.667 MG IV (17:08)
[2024-11-04 19:58] LABS: Sodium 129 mMol/L (136-145)
[2024-11-04] MEDS: LORazepam 2 MG/ML VIAL 1 MG IV ×2 (20:04→22:01)
--- NOTE | 2024-11-04 22:43 | XR_ITS ---
Examination: AP chest single view Technique one AP portable semiupright chest single view Exam date and time: November 04, 2024 1052 hrs. Indications: Onset hypoxia shortness of breath today. Findings: Mild heart failure Mild to moderate enlargement cardiac contour CABG Prominent vascular congestion Edema and/or pneumonia at the lung bases Prominent osteopenia Impression: Mild heart failure Edema and/or pneumonia at the lung bases
--- NOTE | 2024-11-04 23:03 | PD.RESEVENT ---
Documentation for date of: 11/04/24 Event Note Event Note: Rapid response called for the patient about 10:45 PM, patient sPO2 down in 70s on nasal cannula oxygen, was at about 7 L, oxygen increased up to 15, patient spO2 improved. Per chart review patient is not a CO2 retainer, does have history of COPD, plan to transition the patient to high flow nasal cannula to maintain oxygen saturation 88-92, ordered chest x-ray, ABG, repeat CBC CMP. On Physical exam b/l crackles appreciated no wheezing. Patient got a Breathing Treatment about 30 mins ago per RT. Chest x-ray reviewed at patient's bedside suspicion of fluid at lung bases, patient will be given a dose of Lasix 40 x 1 IV. Patient received a dose of Ativan at about 2200, will try to avoid ativan for now. 00:00-ABG resulted as pH 7.17, pCO2 98, bicarb 36 pO2 92 Patient started on BiPAP, will repeat ABG in 2 hours, one-to-one observation and strict aspiration precautions ordered Case discussed with Attending Dr. Ren. Dainelle Farooq PGY1 Disclaimer: This note was dictated by speech recognition. Minor errors in car stereo installer may be present due to voice recognition software.
[2024-11-04 23:17] LABS: Base Excess 5 (-3-3); HCO3 36 mEq/L (20-26); Inspired Oxygen, FIO2 21 %; O2 Saturation 97 % (91-98); PCO2 98 mmHg (32.0-48.0); PO2 92 mmHg (83-108)
[2024-11-04 23:23] LABS: Allen Test Performed/OK; Puncture Site Site Not Noted
[2024-11-04 23:24] LABS: pH, Arterial 7.17 (7.35-7.45)
[2024-11-04 23:41] LABS: Basophils # (Auto) 0.1 Thou/mm3 (0.0-0.2); Basophils % (Auto) 1 % (0-2.5); Eosinophils % (Auto) 0 % (0-10); Hematocrit 36.3 % (36.0-46.0); Hemoglobin 10.1 g/dL (12.0-16.0); Immature Granulocytes % (Auto) 5 % (0-0); Immature Granulocytes Auto 0.88 Thou/mm3 (0.00-0.00); Lymphocytes # (Auto) 0.2 Thou/mm3 (1.0-4.8); Lymphocytes % (Auto) 1 % (10-50); Mean Corpuscular HGB Conc 27.8 g/dl (31.0-37.0); Mean Corpuscular Hemoglobin 25.4 pg (25.0-35.0); Mean Corpuscular Volume 91 fL (80-100); Monocytes # (Auto) 0.9 Thou/mm3 (0.0-0.8); Monocytes % (Auto) 5 % (0-12); Neutrophils # (Auto) 14.7 Thou/mm3 (1.8-7.7); Neutrophils % (Auto) 88 % (37-80); Nucleated Red Blood Cell # 0.65 Thou/mm3 (0.00-0.00); Nucleated Red Blood Cell % 4 /100 WBC (0); Platelet Count 264 Thou/mm3 (140-440); RDW Standard Deviation 62.7 fL (36.4-46.3); Red Blood Count 3.98 Miln/mm3 (4.00-5.20); White Blood Count 16.8 Thou/mm3 (3.6-11.0)
[2024-11-04 23:56] LABS: Alanine Aminotransferase 40 U/L (10-49); Albumin, Serum 4.2 gm/dL (3.4-4.8); Albumin/Globulin Ratio 1.6 (1.2-2.2); Alkaline Phosphatase 150 U/L (46-116); Anion Gap 3 (7-16); Aspartate Amino Transferase 80 U/L (0-34); BUN/Creatinine Ratio 22 Ratio (12-20); Bilirubin,Total 0.4 mg/dL (0.3-1.2); Blood Urea Nitrogen 24 mg/dL (9-23); Carbon Dioxide 34.4 mMol/L (20.0-31.0); Chloride 95 mMol/L (98-107); Creatinine (Component) 1.1 mg/dL (0.6-1.3); Estimated Creatinine Clearance 47.5 mL/min (>60); Globulin 2.7 gm/dL (2.3-3.5); Glucose 150 mg/dL (74-106); Osmolality,Calculated 271 (275-295); Potassium 4.7 mMol/L (3.4-5.1); Sodium 132 mMol/L (136-145); Total Protein 6.9 gm/dL (5.7-8.2); eGFR 55 See Note
[2024-11-04] MEDS: FUROSEMIDE INJ 10 MG/ML 4ML VIAL 40 MG IVP (23:59)
[2024-11-05] VITALS (15 sets, daily range): BP systolic 120–169; BP diastolic 79–112; PULSE 113–165; RESP 20–32; TEMP 36–36.9; O2SAT 88–96; BMI 32.2
[2024-11-05 00:01] LABS: Lactate (Lactic Acid) 0.8 mMol/L (0.4-2.0)
--- NOTE | 2024-11-05 02:45 | PC.NURSE ---
ELECTRIC RANGE SERVICER called on pt due to requiring an increase in oxygen; oxy mask increased from 7L to 15L and spo2 fluctuating from 81-86%.
[2024-11-05 03:17] LABS: Base Excess 12 (-3-3); HCO3 40 mEq/L (20-26); Inspired Oxygen, FIO2 50 %; O2 Saturation 90 % (91-98); PCO2 77 mmHg (32.0-48.0); pH, Arterial 7.33 (7.35-7.45)
[2024-11-05 03:21] LABS: Allen Test Performed/OK; Puncture Site Right Radial
[2024-11-05 03:23] LABS: PO2 58 mmHg (83-108)
[2024-11-05 05:35] LABS: Basophils # (Auto) 0.1 Thou/mm3 (0.0-0.2); Basophils % (Auto) 1 % (0-2.5); Eosinophils % (Auto) 0 % (0-10); Hematocrit 35.3 % (36.0-46.0); Immature Granulocytes % (Auto) 3 % (0-0); Immature Granulocytes Auto 0.49 Thou/mm3 (0.00-0.00); Lymphocytes # (Auto) 0.2 Thou/mm3 (1.0-4.8); Lymphocytes % (Auto) 1 % (10-50); Mean Corpuscular HGB Conc 28.3 g/dl (31.0-37.0); Mean Corpuscular Volume 88 fL (80-100); Monocytes % (Auto) 7 % (0-12); Neutrophils # (Auto) 13.4 Thou/mm3 (1.8-7.7); Neutrophils % (Auto) 88 % (37-80); Nucleated Red Blood Cell # 0.33 Thou/mm3 (0.00-0.00); Nucleated Red Blood Cell % 2 /100 WBC (0); Platelet Count 221 Thou/mm3 (140-440); RDW Standard Deviation 61.1 fL (36.4-46.3); White Blood Count 15.2 Thou/mm3 (3.6-11.0)
[2024-11-05 06:09] LABS: Albumin, Serum 4.1 gm/dL (3.4-4.8); Anion Gap 7 (7-16); BUN/Creatinine Ratio 26 Ratio (12-20); Blood Urea Nitrogen 26 mg/dL (9-23); Calcium 8.8 mg/dL (8.3-10.6); Calcium (Corrected) 8.8 mg/dL (8.5-10.1); Carbon Dioxide 38.9 mMol/L (20.0-31.0); Chloride 86 mMol/L (98-107); Estimated Creatinine Clearance 52.5 mL/min (>60); Glucose 118 mg/dL (74-106); Magnesium 1.7 mg/dL (1.6-2.6); Osmolality,Calculated 270 (275-295); Phosphorous 2.9 mg/dL (2.4-5.1); Sodium 132 mMol/L (136-145); eGFR > 60 See Note
[2024-11-05] MEDS: BUDESONIDE RT 0.5 MG/2 ML NEBU INH ×2 (07:01→18:38)
[2024-11-05] MEDS: AMIODARONE 360 MG IVPB 360 MG/200 ML BAG 16.667 MG IV (07:05)
--- NOTE | 2024-11-05 07:43 | XR_ITS ---
Examination: CTA chest with intravenous contrast 2-D reconstructions 3-D reconstructions, vascular Date and time of exam: November 05, 2024 0944 hours INDICATIONS: Onset shortness of breath chest pain this week CTDI: vol (mGy) 78.7 DLP: (mGycm) 713 Technique: Multiple axial sections of the thorax have been obtained. 3 mm slice thickness, from below the hemidiaphragms to above the apices of the lungs. Mediastinal and lung density settings have been obtained. 2-D sagittal and coronal reconstructions. 3-D angiographic renderings, 3-D volume renderings, 3D post processing, vascular maximum intensity projections obtained. Contrast administered is 100 cc Isovue-370 intravenous. Low dose protocols were performed. One or more of the following dose reduction techniques were used; automated exposure control, adjustment of the mA and/or KV according to patient size, use of iterative reconstruction technique. Findings: No thoracic aortic aneurysm dilatation or dissection No pulmonary artery emboli Mild enlargement cardiac contour, significant calcification left anterior descending coronary artery Bilateral hilar lymphadenopathy Bibasilar pneumonia with small pleural effusions Significant vascular congestion Liver is irregular in contour with fatty infiltration Kidneys partially visualized, bilateral renal calculi subcentimeter No pancreatic mass IMPRESSION: Negative for pulmonary artery emboli Bibasilar pneumonia with small bilateral pleural effusions Mild heart failure Cirrhosis versus primary hepatocellular disease
--- NOTE | 2024-11-05 07:43 | EKG_ITS ---
[facility] Test Date: 2024-11-05 Pat Name: MIC GRANDE [facility] Architect Internship: MELITON : 1955 Requested By: Key Blount Order Number: [id number] Reading MD: Key Blount Measurements Intervals [place] Rate: 160 P: IA: QRS: 203 QRSD: 81 T: -36 QT: 251 QTc: 410 Interpretive Statements SUPRAVENTRICULAR TACHYCARDIA POSSIBLE RIGHT VENTRICULAR CONDUCTION DELAY LATERAL MYOCARDIAL INFARCTION , OF INDETERMINATE AGE MODERATE T-WAVE ABNORMALITY, CONSIDER INFERIOR ISCHEMIA Compared to ECG 11/04/2024 08:51:08 T-wave abnormality now present Possible ischemia now present ST (T wave) deviation no longer present Myocardial infarct finding still present /store/S0/[id number]
[2024-11-05] MEDS: Magnesium Sulfate 4 GM Ivpb 4 GM/50 ML BAG IV (07:45)
--- NOTE | 2024-11-05 08:35 | PC.RT ---
RT spoke with md regarding sputum sample, pt not oriented, unable to comply with directives and cannot produce a sample at this time.
[2024-11-05] MEDS: MORPHINE SULF INJ 10 MG/ML VIAL 2 MG IVP ×2 (08:59→14:19)
--- NOTE | 2024-11-05 09:20 | PD.RESPRO ---
Documentation for date of: 11/05/24 Subjective Subjective Interval history: The patient is a 69-year-old female with significant past medical history of COPD on home oxygen, CAD s/p CABG 20 years ago, tension, hyperlipidemia, hepatocellular disease, restless leg syndrome, history of polysubstance abuse including alcohol, marijuana, tobacco use and amphetamine use presented to ED with chief complaint of worsening of SOB. She denies any fever or chills, chest pain sore throat, phlegm production. She was admitted 1 year ago with similar symptoms and was found to have COPD exacerbation. During our evaluation, her vitals were significant for blood pressure 132/92, 130, RR 22, and saturating 90% on 3 L OxyMask. Labs are significant for white count 11.6, hemoglobin 10.5, with MCV 86. Chemistry panel was significant for sodium 122 worsening from 129 yesterday, potassium 6.3 worsened from 5.1 yesterday bicarb 32.3, creatinine 1.0 blood sugar 205. CXR revealing bibasilar pneumonia with EKG revealing atrial flutter. PMH: As mentioned above PSHx: CABG 20 years ago Social history: History of marijuana, tobacco and methamphetamine use, alcohol quitted 1 year ago Allergies: No known allergies Medications: Albuterol, apixaban, aspirin, diltiazem and omeprazole. Nephrology consultation was done for further management of moderate hyponatremia and severe hyperkalemia. 11/04/2024: Overnight patient was agitated and received IV lorazepam. This morning patient was sleeping comfortably, saturating 94% on 6 L OxiMask. She was comfortably resting on her bed. Her wheezing has improved months. Still tachycardic with irregularly irregular rhythm. White count 12.4, sodium 128, chloride 89, potassium trended down to 4.2, bicarb 34, BUN 26 and creatinine 0.9. Renin activity, aldosterone and total cortisol pending. We changed IV maintenance fluid to normal saline 70 cc/h, and we will continue with monitoring renal panel every 4 hourly. Exam Vital Signs Temp Pulse Resp BP Pulse Ox O2 Del Method O2 Flow Rate 96.8 F 129 H 29 H 142/104 H 94 L BiPAP 40 11/05/24 04:00 11/05/24 07:10 11/05/24 07:10 11/05/24 07:05 11/05/24 07:10 11/05/24 04:00 11/04/24 23:12 FiO2 50 11/05/24 07:10 Narrative Exam General: No acute distress, comfortably resting on her bed, on BiPAP HEENT: Mildly dry mucous membranes, oropharynx clear Neck: Supple, No masses, No JVD CVS: S1S2 Regular rate and rhythm, No murmurs, rubs or gallops Lungs: Mild wheezing throughout the lung field, no crackles or rhonchi appreciated Abd: Soft, NT/ND, +BS, no organomegaly Ext: No edema, warm and well perfused Skin: No rash Psych: Somnolent Objective Labs 11/07/24 04:44 11/07/24 04:44 Labs: Laboratory Results - last 24 hr 11/03/24 11/04/24 11/04/24 20:45 11:46 15:00 WBC RBC Hgb Hct MCV MCH MCHC RDW Std Deviation Plt Count Neut % (Auto) Lymph % (Auto) Titus % (Auto) Eos % (Auto) Baso % (Auto) Neut # (Auto) Lymph # (Auto) Titus # (Auto) Eos # (Auto) Baso # (Auto) Immature Gran # (Auto) Absolute Nucleated RBC Immature Gran % Nucleated RBC % Puncture Site ABG pH ABG pCO2 ABG pO2 ABG HCO3 ABG O2 Saturation ABG Base Excess FiO2 Sodium 128 L 128 L Potassium 4.3 4.3 Chloride 91 L 90 L Carbon Dioxide 31.5 H 34.8 H Anion Gap 6 L 3 L BUN 21 22 Creatinine 0.8 0.8 Estim Creat Clear Calc 65.3 65.3 eGFR > 60 > 60 BUN/Creatinine Ratio 26 H 28 H Glucose 155 H 147 H Calculated Osmolality 263 L 263 L Lactic Acid Calcium 8.4 8.4 Corrected Calcium 8.5 8.4 L Phosphorus 3.2 4.2 Magnesium Total Bilirubin AST ALT Alkaline Phosphatase Total Protein Albumin 3.9 4.0 Globulin Albumin/Globulin Ratio Coccidioides IgM Ab Negative 11/04/24 11/04/24 11/04/24 19:30 23:00 23:05 WBC 16.8 H RBC 3.98 L Hgb 10.1 L Hct 36.3 MCV 91 MCH 25.4 MCHC 27.8 L RDW Std Deviation 62.7 H Plt Count 264 Neut % (Auto) 88 H Lymph % (Auto) 1 L Titus % (Auto) 5 Eos % (Auto) 0 Baso % (Auto) 1 Neut # (Auto) 14.7 H Lymph # (Auto) 0.2 L Titus # (Auto) 0.9 H Eos # (Auto) 0.0 Baso # (Auto) 0.1 Immature Gran # (Auto) 0.88 H Absolute Nucleated RBC 0.65 H Immature Gran % 5 H Nucleated RBC % 4 H Puncture Site Site Not Noted ABG pH 7.17 L* ABG pCO2 98 H* ABG pO2 92 ABG HCO3 36 H ABG O2 Saturation 97 ABG Base Excess 5 H FiO2 21 Sodium 129 L 132 L Potassium 4.7 Chloride 95 L Carbon Dioxide 34.4 H Anion Gap 3 L BUN 24 H Creatinine 1.1 Estim Creat Clear Calc 47.5 L eGFR 55 L BUN/Creatinine Ratio 22 H Glucose 150 H Calculated Osmolality 271 L Lactic Acid Calcium 9.0 Corrected Calcium 9.0 Phosphorus Magnesium Total Bilirubin 0.4 AST 80 H ALT 40 Alkaline Phosphatase 150 H Total Protein 6.9 Albumin 4.2 Globulin 2.7 Albumin/Globulin Ratio 1.6 Coccidioides IgM Ab 11/04/24 11/05/24 11/05/24 23:09 03:10 04:44 WBC 15.2 H RBC 4.00 Hgb 10.0 L Hct 35.3 L MCV 88 MCH 25.0 MCHC 28.3 L RDW Std Deviation 61.1 H Plt Count 221 D Neut % (Auto) 88 H Lymph % (Auto) 1 L Titus % (Auto) 7 Eos % (Auto) 0 Baso % (Auto) 1 Neut # (Auto) 13.4 H Lymph # (Auto) 0.2 L Titus # (Auto) 1.0 H Eos # (Auto) 0.0 Baso # (Auto) 0.1 Immature Gran # (Auto) 0.49 H Absolute Nucleated RBC 0.33 H Immature Gran % 3 H Nucleated RBC % 2 H Puncture Site Right Radial ABG pH 7.33 L D ABG pCO2 77 H* D ABG pO2 58 L* D ABG HCO3 40 H ABG O2 Saturation 90 L ABG Base Excess 12 H FiO2 50 Sodium 132 L Potassium 4.0 D Chloride 86 L Carbon Dioxide 38.9 H Anion Gap 7 BUN 26 H Creatinine 1.0 Estim Creat Clear Calc 52.5 L eGFR > 60 BUN/Creatinine Ratio 26 H Glucose 118 H Calculated Osmolality 270 L Lactic Acid 0.8 Calcium 8.8 Corrected Calcium 8.8 Phosphorus 2.9 Magnesium 1.7 Total Bilirubin AST ALT Alkaline Phosphatase Total Protein Albumin 4.1 Globulin Albumin/Globulin Ratio Coccidioides IgM Ab ABG Interpretation ABG results: 11/01/24 11/04/24 11/05/24 19:07 23:05 03:10 ABG pH 7.17 L* 7.33 L D ABG pCO2 98 H* 77 H* D ABG pO2 92 58 L* D ABG HCO3 36 H 40 H ABG O2 Saturation 97 90 L ABG Base Excess 5 H 12 H VBG pH 7.41 VBG pCO2 54 VBG pO2 77 H VBG Base Excess 8 H Quality Measures Quality Measures VTE prophylaxis Advance care planning discussed with:: other Assessment & Plan Assessment Current Active Medications: Generic Name Dose Route Start Last Admin Trade Name Freq PRN Reason Stop Dose Admin Acetaminophen 1,000 mg 11/02/24 08:17 Acetaminophen 500 Mg Tablet PO 12/01/24 17:41 Q6H PRN Fever >100 Apixaban 5 mg 11/01/24 21:00 11/04/24 22:13 Apixaban 2.5 Mg Tablet PO 12/01/24 20:59 Not Given BID ESPERANZA Aspirin 81 mg 11/03/24 09:00 11/04/24 09:50 Aspirin Ec 81 Mg Tabec PO 12/03/24 08:59 81 mg QDAY ESPERANZA Administration Atorvastatin Calcium 40 mg 11/02/24 09:00 11/04/24 09:51 Atorvastatin Calcium 20 Mg Tablet PO 12/02/24 08:59 40 mg QDAY ESPERANZA Administration Budesonide 0.5 mg 11/03/24 19:00 11/05/24 07:01 Budesonide Rt 0.5 Mg/2 Ml Nebu INH 12/03/24 18:59 0.5 mg BIDRT ESPERANZA Administration Dextrose 25 ml 11/03/24 16:28 Dextrose 50%-Water Inj 50 Ml Syringe IV 12/03/24 16:27 Q15MIN PRN BG 50-70 responsive npo pt Diltiazem HCl 360 mg 11/03/24 09:00 11/04/24 10:07 Diltiazem Cd 120 Mg Capcr PO 12/03/24 08:59 360 mg QDAY ESPERANZA Administration Folic Acid 1 mg 11/03/24 21:00 11/04/24 22:15 Folic Acid 1 Mg Tablet PO 11/08/24 20:59 Not Given BID ESPERANZA Glucagon 1 mg 11/03/24 16:28 Glucagon Inj 1 Mg Vial IM Q15MIN PRN BG <70, and no IV access Guaifenesin/Dextromethorphan 1 each 11/03/24 10:45 11/04/24 22:14 Guaifenesin/Dm Tablet PO 12/03/24 10:44 Not Given BID ESPERANZA Levofloxacin/Dextrose 750 mg in 150 mls @ 100 mls/hr 11/03/24 14:30 11/04/24 09:46 Levaquin Ivpb IV 11/10/24 14:29 100 mls/hr QDAY ESPERANZA Administration Amiodarone HCl/Dextrose 360 mg in 200 mls @ 16.667 mls/hr 11/04/24 16:25 11/05/24 07:05 Nexterone Ivpb IV 11/05/24 16:24 16.667 mls/hr .Q12H ESPERANZA Administration Magnesium Sulfate 4 gm in 50 mls @ 12.5 mls/hr 11/05/24 06:32 11/05/24 07:45 Magnesium Sulfate Ivpb IV 11/05/24 10:31 12.5 mls/hr X1 ONE Administration Insulin Human Lispro 0 unit 11/03/24 17:00 11/05/24 07:55 Insulin Lispro (Admelog) 1 Unit/0.01 Ml Unit SC 12/03/24 16:59 Not Given AC ESPERANZA Protocol Ipratropium [place] 0.5 mg 11/01/24 17:49 11/03/24 08:00 Ipratropium Rt 0.5 Mg/ 2.5 Ml Nebu INH 12/01/24 17:48 0.5 mg Q6HR PRN Administration wheezing Protocol Levalbuterol HCl 0.63 mg 11/03/24 09:49 Levalbuterol Rt 0.63 Mg/3 Ml Nebu INH 12/03/24 09:48 Q6HR PRN WHEEZING Levalbuterol HCl 0.63 mg 11/03/24 11:00 11/05/24 07:02 Levalbuterol Rt 0.63 Mg/3 Ml Nebu INH 12/03/24 10:59 Not Given Q4HRRT ESPERANZA Protocol Lorazepam 0.5 mg 11/04/24 00:38 11/04/24 10:20 Lorazepam 2 Mg/Ml Vial IV 11/09/24 00:37 0.5 mg Q2HR PRN Administration CIWA SCORE 8-13 Lorazepam 1 mg 11/04/24 00:38 11/04/24 22:01 Lorazepam 2 Mg/Ml Vial IV 11/09/24 00:37 1 mg Q2HR PRN Administration CIWA SCORE 14-19 Lorazepam 2 mg 11/04/24 00:38 Lorazepam 2 Mg/Ml Vial IV 11/09/24 00:37 Q2HR PRN CIWA SCORE 20-25 Lorazepam 2 mg 11/04/24 00:38 Lorazepam 2 Mg/Ml Vial IVP X1 PRN Breakthrough Agitation Methylprednisolone Sodium Succinate 40 mg 11/04/24 21:00 11/04/24 22:06 Methylprednisolone Sod Succ 40 Mg Vial IVP 11/11/24 20:59 40 mg Q12HR ESPERANZA Administration Morphine Sulfate 2 mg 11/01/24 17:42 11/05/24 08:59 Morphine Sulf Inj 10 Mg/Ml Vial IVP 11/06/24 17:41 2 mg Q2H PRN Administration Pain Scale 4-10 (Severe Nicotine 21 mg 11/02/24 14:00 11/04/24 09:53 Nicotine Patch 21 Mg/24 Hr Patch.Td24 TOP 12/02/24 13:59 21 mg QDAY ESPERANZA Administration Ondansetron HCl 4 mg 11/01/24 17:42 Ondansetron Inj 2 Mg/Ml Inj 2 Ml IV 12/01/24 17:41 Q6H PRN NAUSEA OR VOMITING Protocol Pantoprazole Sodium 40 mg 11/02/24 13:45 11/04/24 09:47 Pantoprazole Inj 40 Mg Vial IV 12/02/24 13:44 40 mg QDAY ESPERANZA Administration Ropinirole HCl 0.25 mg 11/02/24 09:00 11/04/24 09:49 Ropinirole Hcl 0.25 Mg Tablet PO 12/02/24 08:59 0.25 mg QDAY ESPERANZA Administration Sodium Chloride 3 ml 11/01/24 10:06 11/01/24 14:22 Sodium Chloride Rt Nayla 0.9% 3 Ml Nebu INH 12/01/24 10:05 3 ml PRN PRN Administration SOLN Thiamine HCl 100 mg 11/03/24 10:00 11/04/24 22:14 Thiamine 100 Mg Tablet PO 11/08/24 09:59 Not Given BID ESPERANZA Plan The patient is a 69-year-old female with significant past medical history of COPD on home oxygen, CAD s/p CABG 20 years ago, tension, hyperlipidemia, hepatocellular disease, restless leg syndrome, history of polysubstance abuse including alcohol, marijuana, tobacco use and amphetamine use presented to ED with chief complaint of worsening of SOB. She denies any fever or chills, chest pain sore throat, phlegm production was found to be on AHRF 2/2 COPD exacerbation. Nephrology consultation was done for further management of moderate hyponatremia and severe hyperkalemia. #Hyperkalemia, resolved Etiology currently unknown ?? partial adrenal insufficiency: Upon further chart review, always has borderline hyperkalemia and borderline hyponatremia DDx: Chronic kidney disease or chronic use of JANA inhibitors or ARB ruled out as the patient does not has CKD and has not been using JANA inhibitors/ARB Presented with potassium of 5.1 Increased up to 6.3 -Cortisol level, renin and aldosterone level pending -Monitor potassium level -We will continue to monitor daily potassium level and discontinued with Veltassa 4.2 g daily. #Mild hyponatremia Etiology currently unknown Stable at 132 -Treat the underlying cause of COPD exacerbation 11/04/2024: Sodium level 128, started the patient on normal saline maintenance IV fluid 70 cc/h, will monitor renal panel every 4 hourly, and goal level of sodium will be less than 134 in next 24-hour. 11/05/24: Na 132. Discontinued IV NS 70cc/hr, continue to monitor daily Na level. #Hypertension -Continue with current medications as BP is currently stable -Monitor vitals #Acute hypoxic respiratory failure secondary to #COPD exacerbation. #Bibasilar pneumonia. #Hx of COPD, on 2L. #A-flutter. #Hx of A-fib. #Hx of CAD s/p CABG (more then 20 years ago). #Hx of hyperlipidemia. #Hx of restless legs syndrome. #Hx of hepatocellular disease. #Hx of polysubstance abuse. Thank you for your opportunity to participate nephrology team in this patient care. The patient's management plan was discussed with my attending physician Dr. MD Randal Cowart MD, PGY2 Attending Provider Attestation/Addendum Patient seen and examined with resident physician Dr. Ferrari. Note reviewed, agree with findings and recommendations. Hyperkalemia-unclear etiology. No medications which can cause hyperkalemia. Patient does admit to eating avocados but currently in hospital setting. Question partial adrenal insufficiency. Blood pressure seems to be acceptable. Agree with medical management for hyperkalemia. Potassium better. Discontinue Veltassa. Hyponatremia-most likely hypovolemia. Continue with normal saline. Sodium seems to be acceptable. Patient in a flutter-on Cardizem. Cardiology on the case.
--- NOTE | 2024-11-05 10:14 | PD.RESPRO ---
Documentation for date of: 11/05/24 Subjective Subjective Interval history: 11/05: Overnight patient had a rapid response for her saturation in the 70s if patient was switched from OxyMask to BiPAP. Patient is seen and examined at bedside this morning. Patient appears to be a bit altered and somnolent and due to BiPAP patient is unable to answer majority of questions. Patient continues to be in A-fib/flutter with RVR patient continues to be on amnio drip. Although patient is not wheezing she appears to be in distress. Primary team did order a chest CTA which was negative for pulmonary embolism. ICU team is consulted for possible need for intubation. Patient may need to be cardioverted if she is successfully intubated. Exam Vital Signs Temp Pulse Resp BP Pulse Ox O2 Del Method O2 Flow Rate 98.5 F 131 H 23 H 142/104 H 90 L BiPAP 40 11/05/24 08:00 11/05/24 08:00 11/05/24 08:00 11/05/24 08:00 11/05/24 08:00 11/05/24 08:00 11/04/24 23:12 FiO2 50 11/05/24 07:10 Narrative Exam GENERAL: A&Ox1 . somnolent, saturating on BiPaP NEURO: no focal neurological deficits HEENT: Atraumatic, Normocephalic. mucous membranes moist. Eyes open, symmetrical, & clear HEART: Normal Heart Sounds LUNGS: faint Wheezing in upper lung ruiz bilaterally. ABDOMEN: soft, non-distended, non-tender, bowel sounds heard, no guarding or rebound tenderness SKIN: No Rash or ecchymoses EXTREMITIES: No edema, tenderness, able to move all 4 extremities, pedal pulses palpated Objective Labs 11/06/24 07:44 11/06/24 07:44 Labs: Laboratory Results - last 24 hr 11/03/24 11/04/24 11/04/24 20:45 11:46 15:00 WBC RBC Hgb Hct MCV MCH MCHC RDW Std Deviation Plt Count Neut % (Auto) Lymph % (Auto) [place] % (Auto) Eos % (Auto) Baso % (Auto) Neut # (Auto) Lymph # (Auto) [place] # (Auto) Eos # (Auto) Baso # (Auto) Immature Gran # (Auto) Absolute Nucleated RBC Immature Gran % Nucleated RBC % Puncture Site ABG pH ABG pCO2 ABG pO2 ABG HCO3 ABG O2 Saturation ABG Base Excess FiO2 Sodium 128 L 128 L Potassium 4.3 4.3 Chloride 91 L 90 L Carbon Dioxide 31.5 H 34.8 H Anion Gap 6 L 3 L BUN 21 22 Creatinine 0.8 0.8 Estim Creat Clear Calc 65.3 65.3 eGFR > 60 > 60 BUN/Creatinine Ratio 26 H 28 H Glucose 155 H 147 H Calculated Osmolality 263 L 263 L Lactic Acid Calcium 8.4 8.4 Corrected Calcium 8.5 8.4 L Phosphorus 3.2 4.2 Magnesium Total Bilirubin AST ALT Alkaline Phosphatase Total Protein Albumin 3.9 4.0 Globulin Albumin/Globulin Ratio Coccidioides IgM Ab Negative 11/04/24 11/04/24 11/04/24 19:30 23:00 23:05 WBC 16.8 H RBC 3.98 L Hgb 10.1 L Hct 36.3 MCV 91 MCH 25.4 MCHC 27.8 L RDW Std Deviation 62.7 H Plt Count 264 Neut % (Auto) 88 H Lymph % (Auto) 1 L [place] % (Auto) 5 Eos % (Auto) 0 Baso % (Auto) 1 Neut # (Auto) 14.7 H Lymph # (Auto) 0.2 L [place] # (Auto) 0.9 H Eos # (Auto) 0.0 Baso # (Auto) 0.1 Immature Gran # (Auto) 0.88 H Absolute Nucleated RBC 0.65 H Immature Gran % 5 H Nucleated RBC % 4 H Puncture Site Site Not Noted ABG pH 7.17 L* ABG pCO2 98 H* ABG pO2 92 ABG HCO3 36 H ABG O2 Saturation 97 ABG Base Excess 5 H FiO2 21 Sodium 129 L 132 L Potassium 4.7 Chloride 95 L Carbon Dioxide 34.4 H Anion Gap 3 L BUN 24 H Creatinine 1.1 Estim Creat Clear Calc 47.5 L eGFR 55 L BUN/Creatinine Ratio 22 H Glucose 150 H Calculated Osmolality 271 L Lactic Acid Calcium 9.0 Corrected Calcium 9.0 Phosphorus Magnesium Total Bilirubin 0.4 AST 80 H ALT 40 Alkaline Phosphatase 150 H Total Protein 6.9 Albumin 4.2 Globulin 2.7 Albumin/Globulin Ratio 1.6 Coccidioides IgM Ab 11/04/24 11/05/24 11/05/24 23:09 03:10 04:44 WBC 15.2 H RBC 4.00 Hgb 10.0 L Hct 35.3 L MCV 88 MCH 25.0 MCHC 28.3 L RDW Std Deviation 61.1 H Plt Count 221 D Neut % (Auto) 88 H Lymph % (Auto) 1 L [place] % (Auto) 7 Eos % (Auto) 0 Baso % (Auto) 1 Neut # (Auto) 13.4 H Lymph # (Auto) 0.2 L [place] # (Auto) 1.0 H Eos # (Auto) 0.0 Baso # (Auto) 0.1 Immature Gran # (Auto) 0.49 H Absolute Nucleated RBC 0.33 H Immature Gran % 3 H Nucleated RBC % 2 H Puncture Site Right Radial ABG pH 7.33 L D ABG pCO2 77 H* D ABG pO2 58 L* D ABG HCO3 40 H ABG O2 Saturation 90 L ABG Base Excess 12 H FiO2 50 Sodium 132 L Potassium 4.0 D Chloride 86 L Carbon Dioxide 38.9 H Anion Gap 7 BUN 26 H Creatinine 1.0 Estim Creat Clear Calc 52.5 L eGFR > 60 BUN/Creatinine Ratio 26 H Glucose 118 H Calculated Osmolality 270 L Lactic Acid 0.8 Calcium 8.8 Corrected Calcium 8.8 Phosphorus 2.9 Magnesium 1.7 Total Bilirubin AST ALT Alkaline Phosphatase Total Protein Albumin 4.1 Globulin Albumin/Globulin Ratio Coccidioides IgM Ab ABG Interpretation ABG results: 11/01/24 11/04/24 11/05/24 19:07 23:05 03:10 ABG pH 7.17 L* 7.33 L D ABG pCO2 98 H* 77 H* D ABG pO2 92 58 L* D ABG HCO3 36 H 40 H ABG O2 Saturation 97 90 L ABG Base Excess 5 H 12 H VBG pH 7.41 VBG pCO2 54 VBG pO2 77 H VBG Base Excess 8 H Quality Measures Quality Measures VTE prophylaxis Advance care planning discussed with:: patient and child Assessment & Plan Assessment Current Active Medications: Generic Name Dose Route Start Last Admin Trade Name Freq PRN Reason Stop Dose Admin Acetaminophen 1,000 mg 11/02/24 08:17 Acetaminophen 500 Mg Tablet PO 12/01/24 17:41 Q6H PRN Fever >100 Apixaban 5 mg 11/01/24 21:00 11/04/24 22:13 Apixaban 2.5 Mg Tablet PO 12/01/24 20:59 Not Given BID ESPERANZA Aspirin 81 mg 11/03/24 09:00 11/04/24 09:50 Aspirin Ec 81 Mg Tabec PO 12/03/24 08:59 81 mg QDAY ESPERANZA Administration Atorvastatin Calcium 40 mg 11/02/24 09:00 11/04/24 09:51 Atorvastatin Calcium 20 Mg Tablet PO 12/02/24 08:59 40 mg QDAY ESPERANZA Administration Budesonide 0.5 mg 11/03/24 19:00 11/05/24 07:01 Budesonide Rt 0.5 Mg/2 Ml Nebu INH 12/03/24 18:59 0.5 mg BIDRT ESPERANZA Administration Dextrose 25 ml 11/03/24 16:28 Dextrose 50%-Water Inj 50 Ml Syringe IV 12/03/24 16:27 Q15MIN PRN BG 50-70 responsive npo pt Diltiazem HCl 360 mg 11/03/24 09:00 11/04/24 10:07 Diltiazem Cd 120 Mg Capcr PO 12/03/24 08:59 360 mg QDAY ESPERANZA Administration Folic Acid 1 mg 11/03/24 21:00 11/04/24 22:15 Folic Acid 1 Mg Tablet PO 11/08/24 20:59 Not Given BID ESPERANZA Glucagon 1 mg 11/03/24 16:28 Glucagon Inj 1 Mg Vial IM Q15MIN PRN BG <70, and no IV access Guaifenesin/Dextromethorphan 1 each 11/03/24 10:45 11/04/24 22:14 Guaifenesin/Dm Tablet PO 12/03/24 10:44 Not Given BID ESPERANZA Levofloxacin/Dextrose 750 mg in 150 mls @ 100 mls/hr 11/03/24 14:30 11/04/24 09:46 Levaquin Ivpb IV 11/10/24 14:29 100 mls/hr QDAY ESPERANZA Administration Amiodarone HCl/Dextrose 360 mg in 200 mls @ 16.667 mls/hr 11/04/24 16:25 11/05/24 07:05 Nexterone Ivpb IV 11/05/24 16:24 16.667 mls/hr .Q12H ESPERANZA Administration Magnesium Sulfate 4 gm in 50 mls @ 12.5 mls/hr 11/05/24 06:32 11/05/24 07:45 Magnesium Sulfate Ivpb IV 11/05/24 10:31 12.5 mls/hr X1 ONE Administration Insulin Human Lispro 0 unit 11/03/24 17:00 11/05/24 07:55 Insulin Lispro (Admelog) 1 Unit/0.01 Ml Unit SC 12/03/24 16:59 Not Given AC [facility] Protocol Ipratropium [place] 0.5 mg 11/01/24 17:49 11/03/24 08:00 Ipratropium Rt 0.5 Mg/ 2.5 Ml Nebu INH 12/01/24 17:48 0.5 mg Q6HR PRN Administration wheezing Protocol Levalbuterol HCl 0.63 mg 11/03/24 09:49 Levalbuterol Rt 0.63 Mg/3 Ml Nebu INH 12/03/24 09:48 Q6HR PRN WHEEZING Levalbuterol HCl 0.63 mg 11/03/24 11:00 11/05/24 07:02 Levalbuterol Rt 0.63 Mg/3 Ml Nebu INH 12/03/24 10:59 Not Given Q4HRRT [facility] Protocol Lorazepam 0.5 mg 11/04/24 00:38 11/04/24 10:20 Lorazepam 2 Mg/Ml Vial IV 11/09/24 00:37 0.5 mg Q2HR PRN Administration CIWA SCORE 8-13 Lorazepam 1 mg 11/04/24 00:38 11/04/24 22:01 Lorazepam 2 Mg/Ml Vial IV 11/09/24 00:37 1 mg Q2HR PRN Administration CIWA SCORE 14-19 Lorazepam 2 mg 11/04/24 00:38 Lorazepam 2 Mg/Ml Vial IV 11/09/24 00:37 Q2HR PRN CIWA SCORE 20-25 Lorazepam 2 mg 11/04/24 00:38 Lorazepam 2 Mg/Ml Vial IVP X1 PRN Breakthrough Agitation Methylprednisolone Sodium Succinate 40 mg 11/04/24 21:00 11/04/24 22:06 Methylprednisolone Sod Succ 40 Mg Vial IVP 11/11/24 20:59 40 mg Q12HR ESPERANZA Administration Morphine Sulfate 2 mg 11/01/24 17:42 11/05/24 08:59 Morphine Sulf Inj 10 Mg/Ml Vial IVP 11/06/24 17:41 2 mg Q2H PRN Administration Pain Scale 4-10 (Severe Nicotine 21 mg 11/02/24 14:00 11/04/24 09:53 Nicotine Patch 21 Mg/24 Hr Patch.Td24 TOP 12/02/24 13:59 21 mg QDAY ESPERANZA Administration Ondansetron HCl 4 mg 11/01/24 17:42 Ondansetron Inj 2 Mg/Ml Inj 2 Ml IV 12/01/24 17:41 Q6H PRN NAUSEA OR VOMITING Protocol Pantoprazole Sodium 40 mg 11/02/24 13:45 11/04/24 09:47 Pantoprazole Inj 40 Mg Vial IV 12/02/24 13:44 40 mg QDAY ESPERANZA Administration Ropinirole HCl 0.25 mg 11/02/24 09:00 11/04/24 09:49 Ropinirole Hcl 0.25 Mg Tablet PO 12/02/24 08:59 0.25 mg QDAY ESPERANZA Administration Sodium Chloride 3 ml 11/01/24 10:06 11/01/24 14:22 Sodium Chloride Rt Nayla 0.9% 3 Ml Nebu INH 12/01/24 10:05 3 ml PRN PRN Administration SOLN Thiamine HCl 100 mg 11/03/24 10:00 11/04/24 22:14 Thiamine 100 Mg Tablet PO 11/08/24 09:59 Not Given BID ESPERANZA Plan Ms. Quinonez is a 69 years old female with past medical history of CAD s/p CABG more than 20 years ago, hypertension, hyperlipidemia, hepatocellular disease, restless legs syndrome, history of polysubstance abuse (alcohol, marijuana, tobacco use, methamphetamine use) presented to the ED complaining of worsening shortness of breath and cough and was admitted for COPD ecerbation as well compensation coordinator is consulted for further management of A-flutter. #AHRF in the setting of #COPD exacerbation #Pneumonia -Patient has a history of COPD in the setting of chronic smoking history. Patient uses 2 L of oxygen at home which she states she is not always compliant with. Chest x-ray showed bibasilar pneumonia and patient has bilateral wheezing on auscultation. -Per primary hospitalist team patient is on scheduled breathing treatments as well as daily steroids. -IV antibiotics started with azithromycin and ceftriaxone - ICU team is consulted, as pt may require intubation. Pt's daughter is at bedside and agrees with the plans. # A flutter/A-fib with RVR -CHADVASC- 4 HASBLED- 1 -Since admission patient has been in a flutter with RVR initially was rate controlled patient was placed on diltiazem drip plus digoxin and transition to p.o. diltiazem 360 Mg daily however patient was unable to to be in rate control as today in the afternoon patient's heart rate was in the 140s to 150s again IV diltiazem 20 Mg x 1 was given once. For anticoagulation patient is on Eliquis -Pt remained in afib/flutter st. was started on amio drip -Keep potassium above 4 and magnesium above 2 at all times -Plans to cardiovert the patient when she is not in respiratory distress and able to tolerate intubation, will continue to monitor for improvement -Echocardiogram finally completed on 11/04/2024 with showed normal LV size, low normal LV function LVEF 45 to 50%. Diastolic dysfunction present but could not grade due to atrial flutter with RVR. RV systolic function mildly decreased. Estimated RVSP 55 mmHg with at least moderate PAH. Trace to mild MR. Moderate TR. Mild biatrial dilatation along with dilated IVC noted. -No blockers for rate control because of the severe COPD. # - Hyperkalemia- resolved -today patient's potassium was 6.3 patient was started on IV insulin with D50, patient was also given Kayexalate plus Veltassa and repeat potassium was 4.7 # History of CAD status post CABG approximately 20 years ago as well as patient has history of hyperlipidemia patient is continued on aspirin as well as atorvastatin. # Primary hypertension-on admission patient blood pressure 163/110 however patient was placed on diltiazem drip therefore antihypertensive therapy was held. Today blood pressure is 141/95 We will continue to hold antihypertensive therapy as patient requires diltiazem. Will consider antihypertensive therapy when patient a flutter with RVR is under control # Patient has history of restless leg syndrome-patient complained of an inability to sleep due to the restless leg syndrome although home ropinirole is resumed by the primary team Assessment and plan discussed with my attending physician Dr. Liana Collins ([id number])- Internal medicine resident Attending Provider Attestation/Addendum A 69-year-old female with a past medical of CAD s/p CABG more than 20 years ago with unknown grafts is operative report unavailable, paroxysmal atrial fibrillation/flutter anticoagulation, rate controlled, history of moderate to severe COPD, active smoker still more than half a pack a day, increased 30 pack years smoking history, essential hypertension, hyperlipidemia, morbid obesity, history of alcohol, marijuana and tobacco abuse along with history of methamphetamine abuse previously many years ago, questionable liver disease secondary to alcohol and drug abuse, nephrolithiasis presented to the emergency department for further evaluation of shortness of breath and cough. Patient well-known to me from previous admission in October 2023 as well as she follows up with me in the clinic. Patient was initially diagnosed with paroxysmal atrial flutter/fibrillation with RVR in 10/2023 when she had COPD exacerbation along with an active COVID infection. Patient was followed up as outpatient and was placed on diltiazem ER to 60 mg once daily as well as digoxin 125 mcg once daily and Eliquis for anticoagulation. Heart rate was well-controlled but continued to be in normal sinus rhythm at that point of time. Patient continues to be smoking and she has at least moderate to severe COPD based on her previous presentations. Cardiology was consulted today for further management of the possible atrial flutter/fibrillation with RVR 1. Paroxysmal atrial flutter with RVR with 2:1 block and less likely SVT 2. Acute on chronic severe COPD exacerbation with unclear trigger - possible pneumonia 3. CAD s/p CABG more than 20 years ago with unknown grafts as operative report is unavailable 4. Acute on chronic hypoxic respiratory failure and rule out pneumonia 5. HFpEF or diastolic CHF 6. Essential hypertension 7. Hyperlipidemia 8. Morbid obesity 9. History of remote alcohol, marijuana and methamphetamine 10. Active smoker with more than [id number] smoking history 11. Questionable liver disease with given her history of alcohol abuse 12. Mild anemia Patient presented with severe COPD exacerbation unclear trigger and could be possible pneumonia and patient started on IV antibiotics per the primary team which we recommend to continue and do further workup for the sepsis. Patient should also receive Solu-Medrol 125 mg IV x 1 and aggressive treatment of the COPD exacerbation with the nebulizations but avoid albuterol and give patient levalbuterol along with Atrovent nebulizations. Patient will need long-term steroid inhaler along with other COPD regimen. Primary team is following the patient. History of CAD s/p CABG with unknown grafts-please try to obtain the report from her previous hospitalization where the CABG was performed Continue aspirin and statin and no beta-maverick given the severe COPD exacerbation. Recommend aggressive control of CAD with aspirin, high intensity statin. No blockers for rate control because of the severe COPD. Regarding tachycardia patient appears to be in paroxysmal atrial flutter with RVR at least 1 block and less likely SVT. Patient apparently did receive adenosine 12 mg IV x 1 in the ED but did not convert also patient received Cardizem 25 mg IV x 1 and Cardizem drip at 10 mg/h. Unfortunately we are unable to obtain the ECG rhythm when the patient did receive diagnosing and it would help with the diagnosis. At home doses of medication was Cardizem CD 360 mg once daily and digoxin 125 mcg once daily with which her heart rate was well-controlled and also was not Eliquis for anticoagulation. -Patient in the atrial flutter with RVR mostly secondary to the COPD exacerbation but as noted above unclear etiology for the COPD exacerbation possible pneumonia. -Recommend to continue Eliquis for anticoagulation -Patient apparently takes her medications as prescribed daily including the digoxin as well as the diltiazem CD and the last dose was yesterday. -Please started on Cardizem drip at 15 mg/h and was changed to Cardizem 360 mg once daily along with digoxin 125 mcg daily and patient's nuclear rate for better control of 75 bpm with atrial flutter and 40s to 1 block. -She did receive some additional doses of diltiazem 20 mg IV on 11/03/2023 for brief episodes of atrial flutter with RVR. -Patient could not receive a ZEE with cardioversion as patient respiratory status continued to decline and still had significant wheezing and increasing oxygen requirements from her significant COPD exacerbation with possible underlying pneumonia. 11/04/2023 Overnight events noted and patient was apparently agitated and was given Ativan and Librium. Patient was hypoxic later with significant wheezing and oxygen requirements increased the patient is on Ventimask up to 10 L/min. Patient again had another episode of atrial flutter with RVR and another dose of diltiazem 20 mg IV was given overnight. This morning during my examination patient is drowsy secondary to the Ativan and Librium that she has received overnight. Still continues to have high oxygen requirements and on examination she still continues to have significant wheezing. Patient blood pressure is on the softer side at the present moment and will hold off on the diltiazem oral for now plan to give it later in the afternoon if her blood pressure is better. Recommend to start amiodarone drip along with amiodarone IV bolus for now given the uncontrolled A-fib with RVR. Also recommend to stop the digoxin given the acute kidney injury and hyperkalemia yesterday and also to keep the patient only on 2 AV pamela blockers amiodarone and diltiazem going forward. Echocardiogram finally completed on 11/04/2024 with showed normal LV size, low normal LV function LVEF 45 to 50%. Diastolic dysfunction present but could not grade due to atrial flutter with RVR. RV systolic function mildly decreased. Estimated RVSP 55 mmHg with at least moderate PAH. Trace to mild MR. Moderate TR. Mild biatrial dilatation along with dilated IVC noted. 11/05/2023: Patient still continues to be BiPAP but during my examination appeared to be drowsy with altered mental status. Telemetry reviewed and patient continues to be in atrial flutter with RVR at 150 bpm. Patient is on amiodarone drip as well as the diltiazem drip at this rate is still not well-controlled. Recommended a stat ABG with the patient which showed a pH of 7.31 and pCO2 of 94. Patient has increased work of breathing with use of accessory muscles and altered mental status and recommended ICU consult for elective intubation. And discussed this with ICU team as well as primary team for the patient. Patient did have some vascular congestion on the x-ray and IV Lasix 40 mg x 1 was given. Recommend to continue to monitor the kidney function closely Keep potassium greater than 4 magnesium greater than 2.0. Recommend to aggressively treat the patient COPD exacerbation Management of rest of the medical conditions as per primary team and other consultants. Thank you for the consult and allowing me to participate in the care of the patient. Cardiology will continue to follow. There is a high probability of sudden, clinically significant or life threatening deterioration in the patient condition which required the highest level of physician preparedness to intervene urgently. I have personally spent 35 minutes of critical care time, exclusive of time spent on any procedures, in evaluation and management of this critically ill patient. Rex Gaines M.D. Interventional Cardiology
[2024-11-05] MEDS: PANTOPRAZOLE INJ 40 MG VIAL IV (11:03)
[2024-11-05] MEDS: LEVALBUTEROL RT 0.63 MG/3 ML NEBU INH ×4 (12:25→22:43)
[2024-11-05] MEDS: NICOTINE PATCH 21 MG/24 HR PATCH.TD24 TOP (12:32)
[2024-11-05] MEDS: LEVOFLOXACIN/D5W 750MG IVPB 750 MG/150 ML BAG 100 MG IV (12:32)
[2024-11-05] MEDS: FUROSEMIDE INJ 10 MG/ML 4ML VIAL 40 MG IVP (12:32)
[2024-11-05 13:21] LABS: Cocci Serology, IgG Negative (Negative)
--- NOTE | 2024-11-05 15:01 | PD.RESPRO ---
Documentation for date of: 11/05/24 Subjective Subjective Interval history: Patient seen at bedside. Overnight rapid response was called as patient was hypoxic and saturating in the 70s. At that time, she was on oxygen mask at 7 L which was increased to 15 and eventually BiPAP after which her oxygenation improved. ABG was also done at the time which returned with pCO2 of 98 and pH of 7.17. Chest x-ray was also done which showed some vascular congestion. The patient was given IV Lasix x 1 and placed on BiPAP. Today, the patient is still on BiPAP, saturating 94%, tachycardic in the 140s. She is still on amiodarone protocol per cardiology. CIWA this morning-11 Chest CTA was done to rule out pulmonary embolism, returned negative. Will continue to monitor patient's oxygenation and follow-up with cardiology recommendations. 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 Eyes open, symmetrical, & clear CARDIO: No chest pain on palpation. Tachycardic, irregular rhythm PULM:Tachypneic, BIPAP on, no wheezing, mild bilateral crackles GI: Abdomen soft, nondistended, no pain on palpation. 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 SKIN/MSK/EXT: No wounds/rashes/edema/amputations, no pain on palpation. Pedal pulses present B/L Objective Labs 11/05/24 04:44 11/06/24 07:44 Labs: Laboratory Results - last 24 hr 11/03/24 11/04/24 11/04/24 20:45 15:00 19:30 WBC RBC Hgb Hct MCV MCH MCHC RDW Std Deviation Plt Count Neut % (Auto) Lymph % (Auto) Calloway % (Auto) Eos % (Auto) Baso % (Auto) Neut # (Auto) Lymph # (Auto) [place] # (Auto) Eos # (Auto) Baso # (Auto) Immature Gran # (Auto) Absolute Nucleated RBC Immature Gran % Nucleated RBC % Puncture Site ABG pH ABG pCO2 ABG pO2 ABG HCO3 ABG O2 Saturation ABG Base Excess FiO2 Sodium 128 L 129 L Potassium 4.3 Chloride 90 L Carbon Dioxide 34.8 H Anion Gap 3 L BUN 22 Creatinine 0.8 Estim Creat Clear Calc 65.3 eGFR > 60 BUN/Creatinine Ratio 28 H Glucose 147 H Calculated Osmolality 263 L Lactic Acid Calcium 8.4 Corrected Calcium 8.4 L Phosphorus 4.2 Magnesium Total Bilirubin AST ALT Alkaline Phosphatase Total Protein Albumin 4.0 Globulin Albumin/Globulin Ratio Coccidioides IgG Ab Negative 11/04/24 11/04/24 11/04/24 23:00 23:05 23:09 WBC 16.8 H RBC 3.98 L Hgb 10.1 L Hct 36.3 MCV 91 MCH 25.4 MCHC 27.8 L RDW Std Deviation 62.7 H Plt Count 264 Neut % (Auto) 88 H Lymph % (Auto) 1 L Calloway % (Auto) 5 Eos % (Auto) 0 Baso % (Auto) 1 Neut # (Auto) 14.7 H Lymph # (Auto) 0.2 L Calloway # (Auto) 0.9 H Eos # (Auto) 0.0 Baso # (Auto) 0.1 Immature Gran # (Auto) 0.88 H Absolute Nucleated RBC 0.65 H Immature Gran % 5 H Nucleated RBC % 4 H Puncture Site Site Not Noted ABG pH 7.17 L* ABG pCO2 98 H* ABG pO2 92 ABG HCO3 36 H ABG O2 Saturation 97 ABG Base Excess 5 H FiO2 21 Sodium 132 L Potassium 4.7 Chloride 95 L Carbon Dioxide 34.4 H Anion Gap 3 L BUN 24 H Creatinine 1.1 Estim Creat Clear Calc 47.5 L eGFR 55 L BUN/Creatinine Ratio 22 H Glucose 150 H Calculated Osmolality 271 L Lactic Acid 0.8 Calcium 9.0 Corrected Calcium 9.0 Phosphorus Magnesium Total Bilirubin 0.4 AST 80 H ALT 40 Alkaline Phosphatase 150 H Total Protein 6.9 Albumin 4.2 Globulin 2.7 Albumin/Globulin Ratio 1.6 Coccidioides IgG Ab 11/05/24 11/05/24 03:10 04:44 WBC 15.2 H RBC 4.00 Hgb 10.0 L Hct 35.3 L MCV 88 MCH 25.0 MCHC 28.3 L RDW Std Deviation 61.1 H Plt Count 221 D Neut % (Auto) 88 H Lymph % (Auto) 1 L Calloway % (Auto) 7 Eos % (Auto) 0 Baso % (Auto) 1 Neut # (Auto) 13.4 H Lymph # (Auto) 0.2 L Calloway # (Auto) 1.0 H Eos # (Auto) 0.0 Baso # (Auto) 0.1 Immature Gran # (Auto) 0.49 H Absolute Nucleated RBC 0.33 H Immature Gran % 3 H Nucleated RBC % 2 H Puncture Site Right Radial ABG pH 7.33 L D ABG pCO2 77 H* D ABG pO2 58 L* D ABG HCO3 40 H ABG O2 Saturation 90 L ABG Base Excess 12 H FiO2 50 Sodium 132 L Potassium 4.0 D Chloride 86 L Carbon Dioxide 38.9 H Anion Gap 7 BUN 26 H Creatinine 1.0 Estim Creat Clear Calc 52.5 L eGFR > 60 BUN/Creatinine Ratio 26 H Glucose 118 H Calculated Osmolality 270 L Lactic Acid Calcium 8.8 Corrected Calcium 8.8 Phosphorus 2.9 Magnesium 1.7 Total Bilirubin AST ALT Alkaline Phosphatase Total Protein Albumin 4.1 Globulin Albumin/Globulin Ratio Coccidioides IgG Ab ABG Interpretation ABG results: 11/01/24 11/04/24 11/05/24 19:07 23:05 03:10 ABG pH 7.17 L* 7.33 L D ABG pCO2 98 H* 77 H* D ABG pO2 92 58 L* D ABG HCO3 36 H 40 H ABG O2 Saturation 97 90 L ABG Base Excess 5 H 12 H VBG pH 7.41 VBG pCO2 54 VBG pO2 77 H VBG Base Excess 8 H Quality Measures Quality Measures VTE prophylaxis Advance care planning discussed with:: patient and child Assessment & Plan Assessment Current Active Medications: Generic Name Dose Route Start Last Admin Trade Name Freq PRN Reason Stop Dose Admin Acetaminophen 1,000 mg 11/02/24 08:17 Acetaminophen 500 Mg Tablet PO 12/01/24 17:41 Q6H PRN Fever >100 Apixaban 5 mg 11/01/24 21:00 11/05/24 12:33 Apixaban 2.5 Mg Tablet PO 12/01/24 20:59 Not Given BID [facility] Aspirin 81 mg 11/03/24 09:00 11/05/24 12:37 Aspirin Ec 81 Mg Tabec PO 12/03/24 08:59 Not Given QDAY ESPERANZA Atorvastatin Calcium 40 mg 11/02/24 09:00 11/05/24 12:37 Atorvastatin Calcium 20 Mg Tablet PO 12/02/24 08:59 Not Given QDAY ESPERANZA Budesonide 0.5 mg 11/03/24 19:00 11/05/24 07:01 Budesonide Rt 0.5 Mg/2 Ml Nebu INH 12/03/24 18:59 0.5 mg BIDRT ESPERANZA Administration Dextrose 25 ml 11/03/24 16:28 Dextrose 50%-Water Inj 50 Ml Syringe IV 12/03/24 16:27 Q15MIN PRN BG 50-70 responsive npo pt Diltiazem HCl 360 mg 11/03/24 09:00 11/05/24 12:37 Diltiazem Cd 120 Mg Capcr PO 12/03/24 08:59 Not Given QDAY ESPERANZA Folic Acid 1 mg 11/03/24 21:00 11/05/24 12:37 Folic Acid 1 Mg Tablet PO 11/08/24 20:59 Not Given BID ESPERANZA Furosemide 40 mg 11/05/24 12:15 11/05/24 12:32 Furosemide Inj 10 Mg/Ml 4ml Vial IVP 12/05/24 12:14 40 mg QDAY ESPERANZA Administration Glucagon 1 mg 11/03/24 16:28 Glucagon Inj 1 Mg Vial IM Q15MIN PRN BG <70, and no IV access Guaifenesin/Dextromethorphan 1 each 11/03/24 10:45 11/05/24 12:38 Guaifenesin/Dm Tablet PO 12/03/24 10:44 Not Given BID ESPERANZA Levofloxacin/Dextrose 750 mg in 150 mls @ 100 mls/hr 11/03/24 14:30 11/05/24 12:32 Levaquin Ivpb IV 11/10/24 14:29 100 mls/hr QDAY ESPERANZA Administration Amiodarone HCl/Dextrose 360 mg in 200 mls @ 16.667 mls/hr 11/04/24 16:25 11/05/24 07:05 Nexterone Ivpb IV 11/05/24 16:24 16.667 mls/hr .Q12H ESPERANZA Administration Insulin Human Lispro 0 unit 11/03/24 17:00 11/05/24 14:07 Insulin Lispro (Admelog) 1 Unit/0.01 Ml Unit SC 12/03/24 16:59 Not Given AC ESPERANZA Protocol Ipratropium [place] 0.5 mg 11/01/24 17:49 11/03/24 08:00 Ipratropium Rt 0.5 Mg/ 2.5 Ml Nebu INH 12/01/24 17:48 0.5 mg Q6HR PRN Administration wheezing Protocol Levalbuterol HCl 0.63 mg 11/03/24 09:49 Levalbuterol Rt 0.63 Mg/3 Ml Nebu INH 12/03/24 09:48 Q6HR PRN WHEEZING Levalbuterol HCl 0.63 mg 11/03/24 11:00 11/05/24 14:43 Levalbuterol Rt 0.63 Mg/3 Ml Nebu INH 12/03/24 10:59 0.63 mg Q4HRRT ESPERANZA Administration Protocol Lorazepam 0.5 mg 11/04/24 00:38 11/04/24 10:20 Lorazepam 2 Mg/Ml Vial IV 11/09/24 00:37 0.5 mg Q2HR PRN Administration CIWA SCORE 8-13 Lorazepam 1 mg 11/04/24 00:38 11/04/24 22:01 Lorazepam 2 Mg/Ml Vial IV 11/09/24 00:37 1 mg Q2HR PRN Administration CIWA SCORE 14-19 Lorazepam 2 mg 11/04/24 00:38 Lorazepam 2 Mg/Ml Vial IV 11/09/24 00:37 Q2HR PRN CIWA SCORE 20-25 Lorazepam 2 mg 11/04/24 00:38 Lorazepam 2 Mg/Ml Vial IVP X1 PRN Breakthrough Agitation Methylprednisolone Sodium Succinate 40 mg 11/04/24 21:00 11/05/24 11:05 Methylprednisolone Sod Succ 40 Mg Vial IVP 11/11/24 20:59 40 mg Q12HR ESPERANZA Administration Morphine Sulfate 2 mg 11/01/24 17:42 11/05/24 14:19 Morphine Sulf Inj 10 Mg/Ml Vial IVP 11/06/24 17:41 2 mg Q2H PRN Administration Pain Scale 4-10 (Severe Nicotine 21 mg 11/02/24 14:00 11/05/24 12:32 Nicotine Patch 21 Mg/24 Hr Patch.Td24 TOP 12/02/24 13:59 21 mg QDAY ESPERANZA Administration Ondansetron HCl 4 mg 11/01/24 17:42 Ondansetron Inj 2 Mg/Ml Inj 2 Ml IV 12/01/24 17:41 Q6H PRN NAUSEA OR VOMITING Protocol Pantoprazole Sodium 40 mg 11/02/24 13:45 11/05/24 11:03 Pantoprazole Inj 40 Mg Vial IV 12/02/24 13:44 40 mg QDAY ESPERANZA Administration Ropinirole HCl 0.25 mg 11/02/24 09:00 11/05/24 12:38 Ropinirole Hcl 0.25 Mg Tablet PO 12/02/24 08:59 Not Given QDAY ESPERANZA Sodium Chloride 3 ml 11/01/24 10:06 11/01/24 14:22 Sodium Chloride Rt Nayla 0.9% 3 Ml Nebu INH 12/01/24 10:05 3 ml PRN PRN Administration SOLN Thiamine HCl 100 mg 11/03/24 10:00 11/05/24 12:38 Thiamine 100 Mg Tablet PO 11/08/24 09:59 Not Given BID ESPERANZA Plan Summary: The patient is 69 years old female with past medical history of CAD s/p CABG more than 20 years ago, hypertension, hyperlipidemia, hepatocellular disease, restless legs syndrome, history of polysubstance abuse (alcohol, marijuana, tobacco use, methamphetamine use) presented to the ED complaining of worsening shortness of breath and cough and was admitted for COPD treatment and A-flutter management. #Acute hypoxic respiratory failure secondary to #COPD exacerbation. #Bibasilar pneumonia. #Hx of COPD, on 2L. #Pulmonary embolism ruled out The patient has a history of COPD and has prior admissions for the same. At home, she reports being on 2L of O2 which she only uses occasionally. She still smokes about a pack a year. Generalized wheezing on physical exam. CXR showed bibasilar pneumonia. 11/05/2024- Patient had a rapid response overnight due to hypoxia and was placed on BiPAP. ABG prior to BiPAP showed a CO2 of 98 with pH of 7.17. 2 hours later, repeat ABG showed CO2 of 77 with pH of 7.33. Today, patient is doing slightly better placed on BiPAP. Although she has no wheezing, she does have some crackles bilaterally consistent with fluid overload, will continue on IV Lasix 40 daily. Patient is still on levofloxacin for treatment of bibasilar pneumonia. Ordered a chest CTA to rule out pulmonary embolism, chest CT returned negative. Plan: -Continue levalbuterol and ipratropium -Continue 40mg twice daily -Continue Levofloxacin -Ensure O2 saturation goal of 88-92% #A-flutter. #Hx of A-fib. Likely 2/2 acute hypoxic respiratory failure and COPD exacerbation. At home, she is on diltiazem for 60 mg, digoxin 0.125 mg and Eliquis 5 mg twice daily. CHADVASC- 4 HASBLED- 1 On admission, she was in A-flutter with RVR, HR in the 140s to 150s. She was started on diltiazem drip yesterday as well as digoxin and Eliquis. EKG done this morning showed a flutter with a heart rate of 75 beats per minutes. Following up with cardiology for further recommendations/possible cardioversion. 11/05/2024- Patient still in A-flutter, HR in the 140s. Cardiology recommends to complete amiodarone infusion protocol and will re-evaluate for EZE and cardioversion. Plan: -Complete Amiodarone infusion protocol -Continue diltiazem CD 360mg and eliquis -Monitor and replete magnesium and potassium. Keep between 2 and 5 accordingly. -Follow up cardiology recommendations. #Alcohol withdrawal #Hx of polysubstance abuse. -remote hx of Marijuana, alcohol, methamphetamine, tobacco use. Plan: -CIWA protocol #Hyperkalemia- resolved Potassium today- 4.0 Plan: -Continue to monitor electrolytes #Hx of CAD s/p CABG (more then 20 years ago). #Hx of hyperlipidemia. -Echocardiogram showed EF 45-50% with diastolic dysfunction present but not able to grade due to A-flutter Plan: - On home aspirin and atorvastatin. -IV Lasix 40mg BID #Hx of hypertension. BP 164/103 on admission. Plan: -takes only diltiazem at home, will hold in setting of diltiazem drip. Monitoring BP #Hypoosmolar hyponatremia. -Na 130, osm 261, glucose 112 on admission. Sodium today- 122. Will give NS at 50cc/hr, order urine lytes and consult nephrology Plan: -Urine electrolytes -IV NS at 50cc/hr -Nephrology consulted, appreciate recommendations #Hx of restless legs syndrome. -resumed home ropinirole. #Hx of hepatocellular disease. -Follow-up outpatient. FEN: Cardiac diet. DVT prophylaxis: Eliquis. Dispo: Telemetry for acute hypoxic respiratory failure 2/2 COPD exacerbation. Code status: FULL CODE. Case was discussed with Dr Espinoza PGY-2 and attending physician, Dr Vincenzo Blount MD PGY-1 Disclaimer: This note was dictated by speech recognition. Minor errors in chaser tar may be present due to voice recognition software. Attending Provider Attestation/Addendum I reviewed labs, imaging, EKG, home medications and prior available records. Face to face evaluation was performed by me. I have personally examined the patient and discussed assessment and plan with the IM team. I reviewed the resident note and agree with the plan with exceptions as below. Acute hypoxic respiratory failure: Rapid response was called for worsening hypoxia and worsening mental status. Ordered ABG that showed respiratory acidosis with hypoxemia. Ordered chest x-ray that showed pulmonary vascular congestion. Ordered IV Lasix. Started the patient on BiPAP. Continue treatment of COPD. Ordered CTA of the chest that showed no acute PE. Bilateral pneumonia: Continue ceftriaxone/azithromycin. Sent cocci IgM: Negative COPD exacerbation: Continue DuoNebs and corticosteroids. Atrial fibrillation with RVR: Started p.o. diltiazem. Started IV amiodarone as the rate became uncontrolled. Continue Eliquis. Discussed with cardiology: Will plan for cardioversion once respiratory status improves CAD status post CABG: Continue aspirin and atorvastatin Hyperkalemia: Improved. Received insulin and dextrose. Received Veltassa. Nephrology is following. Monitor BMP. Hyponatremia: Improved with IV normal saline. Consulted neurology. Monitor BMP Alcohol withdrawal: New complication. Started CIWA protocol
[2024-11-05] MEDS: Magnesium Sulfate 2 GM Ivpb 2 GM/50 ML BAG IV (16:50)
[2024-11-05 17:09] LABS: Base Excess 17 (-3-3); HCO3 47 mEq/L (20-26); Inspired Oxygen, FIO2 50 %; O2 Saturation 91 % (91-98); PCO2 94 mmHg (32.0-48.0); PO2 66 mmHg (83-108); pH, Arterial 7.31 (7.35-7.45)
[2024-11-05 17:20] LABS: Allen Test Not Performed; Puncture Site Right Brachial
[2024-11-05] MEDS: LORazepam 2 MG/ML VIAL 1 MG IV ×2 (18:14→22:23)
[2024-11-05] MEDS: IPRATROPIUM RT 0.5 MG/ 2.5 ML NEBU INH (18:38)
--- NOTE | 2024-11-05 19:22 | PC.NURSE ---
called Jose Alejandro Brandt Gorodniuk several time during the shift regarding HR 130- 160's.B/P stable.pt. on bipap. was here to see pt.,aware of HR,Rhythm.[employer] was consulted.daughter has been at bedside.
--- NOTE | 2024-11-05 20:45 | PC.NURSE ---
Notified Dr Sahni of patients hr sustaing 160's aflutter. new order to start cardizem drip at 10mg an hour. at bedside assessing paitnet
--- NOTE | 2024-11-05 20:51 | EKG_ITS ---
[facility] Test Date: 2024-11-05 Pat Name: MIC GRANDE [facility] Manager [place]: [place] : 1955 Requested By: Donn Monge Order Number: [id number] Reading MD: Donn Monge Measurements Intervals [place] Rate: 165 P: [place]: QRS: 18 QRSD: 167 T: 269 QT: 278 QTc: 462 Interpretive Statements ATRIAL FLUTTER/TACHYCARDIA WITH RAPID VENTRICULAR RESPONSE RIGHT BUNDLE BRANCH BLOCK Compared to ECG 11/05/2024 08:22:26 Right bundle-branch block now present Supraventricular tachycardia no longer present Myocardial infarct finding no longer present T-wave abnormality no longer present Possible ischemia no longer present /store/S0/[id number]/ecg/[id number].pdf
[2024-11-05] MEDS: DILTIAZEM INJ 125 MG in DEXTROSE 5%-WATER 100 ML 10 MG IV (21:26)
[2024-11-06] VITALS (20 sets, daily range): BP systolic 113–152; BP diastolic 58–96; PULSE 70–167; RESP 16–27; TEMP 35.9–36.3; O2SAT 89–99; BMI 32.3
--- NOTE | 2024-11-06 | PC.NURSE ---
Notified Dr. Sahni that patients heart rate sustains in 160's. will discuss and get back to me.
[2024-11-06] MEDS: LORazepam 2 MG/ML VIAL 1 MG IV ×4 (00:25→13:10)
[2024-11-06 01:20] LABS: Base Excess 18 (-3-3); HCO3 47 mEq/L (20-26); Inspired Oxygen, FIO2 21 %; O2 Saturation 95 % (91-98); PCO2 81 mmHg (32.0-48.0); PO2 75 mmHg (83-108); Puncture Site Right Radial; pH, Arterial 7.37 (7.35-7.45)
[2024-11-06 01:21] LABS: Allen Test Performed/OK
[2024-11-06] MEDS: MORPHINE SULF INJ 10 MG/ML VIAL 2 MG IVP ×2 (01:58→10:23)
[2024-11-06] MEDS: AMIODARONE 360 MG IVPB 360 MG/200 ML BAG 33.333 MG IV (02:11)
[2024-11-06] MEDS: LEVALBUTEROL RT 0.63 MG/3 ML NEBU INH ×6 (02:55→23:44)
--- NOTE | 2024-11-06 03:07 | PD.RESEVENT ---
Documentation for date of: 11/06/24 Event Note Event Note: Alerted by RN, heart rate in the 160s, patient is currently on BiPAP, somnolent but arousable, ordered EKG which showed A-fib/flutter with rapid ventricular response, narrow complex tachycardia heart rate in 160s, chart review showed patient potassium was normal and magnesium was already repleted. #A flutter/A-fib with RVR Of note patient had prior episode of a flutter/RVR and was started on Dilt drip transition to p.o. diltiazem, but did not receive p.o. diltiazem due to mental status, also completed amiodarone drip. Discussed the case with my attending Dr. Ren, held p.o. Cardizem, started the patient on Dilt drip 10 Mg per hour, but no response, patient also became irritable, received IV Ativan, vital signs remained stable, but tachycardia persisted. Restarted amiodarone drip without the loading dose, as she had received loading dose prior, noted delay in starting amiodarone due to IV access issues, heart rate continued to stay in the 150s, increase diltiazem drip to 15 Mg per hour, plan to continue to monitor and down titrate diltiazem drip if possible. ?DC cardioversion considered, patient is already anticoagulated with Eliquis, will continue to monitor vitals, if unstable vitals we will proceed with DC cardioversion, ICU is aware. ?Continue diltiazem drip and amiodarone infusion for now. #Acute hypercapnic respiratory failure Currently on BiPAP, somnolent but arousable, patient was agitated overnight, complaining of poorly fitting mask being uncomfortable, ordered repeat ABG, alerted respiratory to readjust or change mask for patient comfort and compliance. Repeat ABG showed Mildly improved but persistent hypercapnia. O2 sat decreasing down to 70% when patient's mask is removed for sips of water. ?Continue with BiPAP, patient may require intubation due to persistent hypercapnia, ICU aware. Plan of care discussed with my attending Dr. Ren Quresh PGY2
[2024-11-06] MEDS: BUDESONIDE RT 0.5 MG/2 ML NEBU INH ×2 (06:56→18:47)
[2024-11-06] MEDS: AMIODARONE 360 MG IVPB 360 MG/200 ML BAG 16.667 MG IV ×2 (07:40→18:07)
--- NOTE | 2024-11-06 08:09 | PC.RT ---
unable to collect abg aware
--- NOTE | 2024-11-06 08:12 | PC.RT ---
unable to comply with cpt aware
[2024-11-06] MEDS: LEVOFLOXACIN/D5W 750MG IVPB 750 MG/150 ML BAG 100 MG IV (08:26)
[2024-11-06] MEDS: NICOTINE PATCH 21 MG/24 HR PATCH.TD24 TOP (08:27)
[2024-11-06] MEDS: DILTIAZEM INJ 125 MG in DEXTROSE 5%-WATER 100 ML 15 MG IV ×2 (08:28→15:47)
[2024-11-06 08:29] LABS: Basophils % (Auto) 0 % (0-2.5); Eosinophils % (Auto) 0 % (0-10); Hematocrit 35.7 % (36.0-46.0); Hemoglobin 10.6 g/dL (12.0-16.0); Immature Granulocytes % (Auto) 1 % (0-0); Lymphocytes # (Auto) 0.2 Thou/mm3 (1.0-4.8); Lymphocytes % (Auto) 2 % (10-50); Mean Corpuscular HGB Conc 29.7 g/dl (31.0-37.0); Mean Corpuscular Hemoglobin 25.5 pg (25.0-35.0); Mean Corpuscular Volume 86 fL (80-100); Monocytes # (Auto) 0.6 Thou/mm3 (0.0-0.8); Monocytes % (Auto) 6 % (0-12); Neutrophils # (Auto) 9.3 Thou/mm3 (1.8-7.7); Neutrophils % (Auto) 91 % (37-80); Nucleated Red Blood Cell # 0.13 Thou/mm3 (0.00-0.00); Nucleated Red Blood Cell % 1 /100 WBC (0); Platelet Count 243 Thou/mm3 (140-440); RDW Standard Deviation 58.2 fL (36.4-46.3); Red Blood Count 4.15 Miln/mm3 (4.00-5.20); White Blood Count 10.3 Thou/mm3 (3.6-11.0)
[2024-11-06] MEDS: FUROSEMIDE INJ 10 MG/ML 4ML VIAL 40 MG IVP (08:29)
[2024-11-06] MEDS: PANTOPRAZOLE INJ 40 MG VIAL IV (08:30)
[2024-11-06] MEDS: FOLIC ACID 1 MG TABLET PO ×2 (08:30→20:49)
[2024-11-06 08:33] LABS: Albumin, Serum 4.1 gm/dL (3.4-4.8); Anion Gap 9 (7-16); BUN/Creatinine Ratio 26 Ratio (12-20); Blood Urea Nitrogen 26 mg/dL (9-23); Carbon Dioxide > 40.0 mMol/L (20.0-31.0); Chloride 84 mMol/L (98-107); Estimated Creatinine Clearance 51.5 mL/min (>60); Glucose 133 mg/dL (74-106); Magnesium 2.2 mg/dL (1.6-2.6); Osmolality,Calculated 273 (275-295); Phosphorous 2.6 mg/dL (2.4-5.1); Potassium 3.6 mMol/L (3.4-5.1); Sodium 133 mMol/L (136-145); eGFR > 60 See Note
[2024-11-06 08:49] LABS: Allen Test Performed/OK; Base Excess 19 (-3-3); HCO3 47 mEq/L (20-26); Inspired Oxygen, FIO2 60 %; O2 Saturation 94 % (91-98); PCO2 73 mmHg (32.0-48.0); PO2 69 mmHg (83-108); Puncture Site Right Radial; pH, Arterial 7.42 (7.35-7.45)
[2024-11-06] MEDS: SODIUM CHLORIDE 0.45 % 1,000 ML 70 ML IV (10:46)
[2024-11-06] MEDS: POTASSIUM CHL 10 mEq IVPB 10 MEQ/100 ML BAG 50 MEQ IV ×2 (10:48→12:26)
--- NOTE | 2024-11-06 11:05 | PD.RESPRO ---
Documentation for date of: 11/06/24 Subjective Subjective Interval history: The patient is a 69-year-old female with significant past medical history of COPD on home oxygen, CAD s/p CABG 20 years ago, tension, hyperlipidemia, hepatocellular disease, restless leg syndrome, history of polysubstance abuse including alcohol, marijuana, tobacco use and amphetamine use presented to ED with chief complaint of worsening of SOB. She denies any fever or chills, chest pain sore throat, phlegm production. She was admitted 1 year ago with similar symptoms and was found to have COPD exacerbation. During our evaluation, her vitals were significant for blood pressure 132/92, 130, RR 22, and saturating 90% on 3 L OxyMask. Labs are significant for white count 11.6, hemoglobin 10.5, with MCV 86. Chemistry panel was significant for sodium 122 worsening from 129 yesterday, potassium 6.3 worsened from 5.1 yesterday bicarb 32.3, creatinine 1.0 blood sugar 205. CXR revealing bibasilar pneumonia with EKG revealing atrial flutter. PMH: As mentioned above PSHx: CABG 20 years ago Social history: History of marijuana, tobacco and methamphetamine use, alcohol quitted 1 year ago Allergies: No known allergies Medications: Albuterol, apixaban, aspirin, diltiazem and omeprazole. Nephrology consultation was done for further management of moderate hyponatremia and severe hyperkalemia. 11/04/2024: Overnight patient was agitated and received IV lorazepam. This morning patient was sleeping comfortably, saturating 94% on 6 L OxiMask. She was comfortably resting on her bed. Her wheezing has improved months. Still tachycardic with irregularly irregular rhythm. White count 12.4, sodium 128, chloride 89, potassium trended down to 4.2, bicarb 34, BUN 26 and creatinine 0.9. Renin activity, aldosterone and total cortisol pending. We changed IV maintenance fluid to normal saline 70 cc/h, and we will continue with monitoring renal panel every 4 hourly. 11/06/2024: The patient was interviewed and examined at the bedside this morning. She was on BiPAP, saturating 93% on FiO2 60% and O2 flow 40 L/min. Her pulse has been in the range of 150s to 160s. Exam was significant for mildly dry mucous membranes, no crackles but mild wheezing over the lung ruiz. Peripheral pitting edema. CBC revealed hemoglobin 10.6, ABG done this morning revealed pH 7.42, pCO2 73, bicarb 47 consistent with respiratory acidosis compensated with metabolic alkalosis. Sodium was 133, potassium 3.6, chloride 84, bicarb greater than 40 and magnesium 2.6. Potassium was repleted with 20 mEq IV KCl. She was also started on half-normal saline maintenance fluids 70 cc/h as she appeared severely dry. Exam Vital Signs Temp Pulse Resp BP Pulse Ox O2 Del Method O2 Flow Rate 96.6 F L 163 H 20 125/94 H 93 L BiPAP 40 11/06/24 08:00 11/06/24 10:54 11/06/24 10:54 11/06/24 08:29 11/06/24 10:54 11/06/24 08:00 11/04/24 23:12 FiO2 60 11/06/24 10:54 Narrative Exam General: No acute distress, comfortably resting on her bed, on BiPAP HEENT: Mildly dry mucous membranes, oropharynx clear Neck: Supple, No masses, No JVD CVS: S1S2 Regular rate and rhythm, No murmurs, rubs or gallops Lungs: Mild wheezing throughout the lung field, no crackles or rhonchi appreciated, saturating 93% on BiPAP Abd: Soft, NT/ND, +BS, no organomegaly Ext: No edema, warm and well perfused Skin: No rash Psych: Anxious Objective Labs 11/07/24 04:44 11/07/24 04:44 Labs: Laboratory Results - last 24 hr 11/03/24 11/05/24 11/06/24 20:45 17:00 01:10 WBC RBC Hgb Hct MCV MCH MCHC RDW Std Deviation Plt Count Neut % (Auto) Lymph % (Auto) [place] % (Auto) Eos % (Auto) Baso % (Auto) Neut # (Auto) Lymph # (Auto) [place] # (Auto) Eos # (Auto) Baso # (Auto) Immature Gran # (Auto) Absolute Nucleated RBC Immature Gran % Nucleated RBC % Puncture Site Right Brachial Right Radial ABG pH 7.31 L 7.37 ABG pCO2 94 H* D 81 H* D ABG pO2 66 L 75 L ABG HCO3 47 H 47 H ABG O2 Saturation 91 95 ABG Base Excess 17 H 18 H FiO2 50 21 Sodium Potassium Chloride Carbon Dioxide Anion Gap BUN Creatinine Estim Creat Clear Calc eGFR BUN/Creatinine Ratio Glucose Calculated Osmolality Calcium Corrected Calcium Phosphorus Magnesium Albumin Coccidioides IgG Ab Negative 11/06/24 11/06/24 07:44 08:45 WBC 10.3 RBC 4.15 Hgb 10.6 L Hct 35.7 L MCV 86 MCH 25.5 MCHC 29.7 L RDW Std Deviation 58.2 H Plt Count 243 Neut % (Auto) 91 H Lymph % (Auto) 2 L Livingston % (Auto) 6 Eos % (Auto) 0 Baso % (Auto) 0 Neut # (Auto) 9.3 H Lymph # (Auto) 0.2 L Livingston # (Auto) 0.6 Eos # (Auto) 0.0 Baso # (Auto) 0.0 Immature Gran # (Auto) 0.10 H Absolute Nucleated RBC 0.13 H Immature Gran % 1 H Nucleated RBC % 1 H Puncture Site Right Radial ABG pH 7.42 ABG pCO2 73 H* ABG pO2 69 L ABG HCO3 47 H ABG O2 Saturation 94 ABG Base Excess 19 H FiO2 60 Sodium 133 L Potassium 3.6 Chloride 84 L Carbon Dioxide > 40.0 H Anion Gap 9 BUN 26 H Creatinine 1.0 Estim Creat Clear Calc 51.5 L eGFR > 60 BUN/Creatinine Ratio 26 H Glucose 133 H Calculated Osmolality 273 L Calcium 9.0 Corrected Calcium 9.0 Phosphorus 2.6 Magnesium 2.2 Albumin 4.1 Coccidioides IgG Ab ABG Interpretation ABG results: 11/01/24 11/04/24 11/05/24 19:07 23:05 03:10 ABG pH 7.17 L* 7.33 L D ABG pCO2 98 H* 77 H* D ABG pO2 92 58 L* D ABG HCO3 36 H 40 H ABG O2 Saturation 97 90 L ABG Base Excess 5 H 12 H VBG pH 7.41 VBG pCO2 54 VBG pO2 77 H VBG Base Excess 8 H 11/05/24 11/06/24 11/06/24 17:00 01:10 08:45 ABG pH 7.31 L 7.37 7.42 ABG pCO2 94 H* D 81 H* D 73 H* ABG pO2 66 L 75 L 69 L ABG HCO3 47 H 47 H 47 H ABG O2 Saturation 91 95 94 ABG Base Excess 17 H 18 H 19 H VBG pH VBG pCO2 VBG pO2 VBG Base Excess Quality Measures Quality Measures VTE prophylaxis Advance care planning discussed with:: child Assessment & Plan Assessment Current Active Medications: Generic Name Dose Route Start Last Admin Trade Name Frebethany PRN Reason Stop Dose Admin Acetaminophen 1,000 mg 11/02/24 08:17 Acetaminophen 500 Mg Tablet PO 12/01/24 17:41 Q6H PRN Fever >100 Apixaban 5 mg 11/01/24 21:00 11/05/24 23:51 Apixaban 2.5 Mg Tablet PO 12/01/24 20:59 Not Given BID ESPERANZA Aspirin 81 mg 11/03/24 09:00 11/06/24 08:30 Aspirin Ec 81 Mg Tabec PO 12/03/24 08:59 81 mg QDAY ESPERANZA Administration Atorvastatin Calcium 40 mg 11/02/24 09:00 11/06/24 08:29 Atorvastatin Calcium 20 Mg Tablet PO 12/02/24 08:59 40 mg QDAY ESPERANZA Administration Budesonide 0.5 mg 11/03/24 19:00 11/06/24 06:56 Budesonide Rt 0.5 Mg/2 Ml Nebu INH 12/03/24 18:59 0.5 mg BIDRT ESPERANZA Administration Dextrose 25 ml 11/03/24 16:28 Dextrose 50%-Water Inj 50 Ml Syringe IV 12/03/24 16:27 Q15MIN PRN BG 50-70 responsive npo pt Diltiazem HCl 360 mg 11/03/24 09:00 11/05/24 12:37 Diltiazem Cd 120 Mg Capcr PO 12/03/24 08:59 Not Given QDAY ESPERANZA Folic Acid 1 mg 11/03/24 21:00 11/06/24 08:30 Folic Acid 1 Mg Tablet PO 11/08/24 20:59 1 mg BID ESPERANZA Administration Furosemide 40 mg 11/05/24 12:15 11/06/24 08:29 Furosemide Inj 10 Mg/Ml 4ml Vial IVP 12/05/24 12:14 40 mg QDAY ESPERANZA Administration Glucagon 1 mg 11/03/24 16:28 Glucagon Inj 1 Mg Vial IM Q15MIN PRN BG <70, and no IV access Guaifenesin/Dextromethorphan 1 each 11/03/24 10:45 11/06/24 10:44 Guaifenesin/Dm Tablet PO 12/03/24 10:44 Not Given BID ESPERANZA Levofloxacin/Dextrose 750 mg in 150 mls @ 100 mls/hr 11/03/24 14:30 11/06/24 08:26 Levaquin Ivpb IV 11/10/24 14:29 100 mls/hr QDAY ESPERANZA Administration Amiodarone HCl/Dextrose 360 mg in 200 mls @ 16.667 mls/hr 11/06/24 06:39 11/06/24 07:40 Nexterone Ivpb IV 11/07/24 06:38 16.667 mls/hr .Q12H ESPERANZA Administration Diltiazem HCl 125 mg/ Dextrose 125 mls @ 15 mls/hr 11/06/24 08:00 11/06/24 08:28 IV 12/06/24 07:59 15 mg/hr .Q8H20M ESPERANZA 15 mls/hr Administration 15 MG/HR Sodium Chloride 1,000 mls @ 70 mls/hr 11/06/24 09:14 11/06/24 10:46 Ns 0.45% IV 11/06/24 23:31 70 mls/hr .[id number] ONE Administration Potassium Chloride 10 meq in 100 mls @ 100 mls/hr 11/06/24 10:20 11/06/24 10:48 Kcl Ivpb IV 11/06/24 12:19 50 mls/hr Q1H ESPERANZA Administration Insulin Human Lispro 0 unit 11/03/24 17:00 11/06/24 07:30 Insulin Lispro (Admelog) 1 Unit/0.01 Ml Unit SC 12/03/24 16:59 Not Given AC ESPERANZA Protocol Ipratropium Bybee 0.5 mg 11/01/24 17:49 11/05/24 18:38 Ipratropium Rt 0.5 Mg/ 2.5 Ml Nebu INH 12/01/24 17:48 0.5 mg Q6HR PRN Administration wheezing Protocol Levalbuterol HCl 0.63 mg 11/03/24 09:49 Levalbuterol Rt 0.63 Mg/3 Ml Nebu INH 12/03/24 09:48 Q6HR PRN WHEEZING Levalbuterol HCl 0.63 mg 11/03/24 11:00 11/06/24 10:53 Levalbuterol Rt 0.63 Mg/3 Ml Nebu INH 12/03/24 10:59 0.63 mg Q4HRRT ESPERANZA Administration Protocol Lorazepam 0.5 mg 11/04/24 00:38 11/04/24 10:20 Lorazepam 2 Mg/Ml Vial IV 11/09/24 00:37 0.5 mg Q2HR PRN Administration CIWA SCORE 8-13 Lorazepam 1 mg 11/04/24 00:38 11/06/24 07:24 Lorazepam 2 Mg/Ml Vial IV 11/09/24 00:37 1 mg Q2HR PRN Administration CIWA SCORE 14-19 Lorazepam 2 mg 11/04/24 00:38 Lorazepam 2 Mg/Ml Vial IV 11/09/24 00:37 Q2HR PRN CIWA SCORE 20-25 Lorazepam 2 mg 11/04/24 00:38 Lorazepam 2 Mg/Ml Vial IVP X1 PRN Breakthrough Agitation Methylprednisolone Sodium Succinate 40 mg 11/04/24 21:00 11/06/24 08:30 Methylprednisolone Sod Succ 40 Mg Vial IVP 11/11/24 20:59 40 mg Q12HR ESPERANZA Administration Morphine Sulfate 2 mg 11/01/24 17:42 11/06/24 10:23 Morphine Sulf Inj 10 Mg/Ml Vial IVP 11/06/24 17:41 2 mg Q2H PRN Administration Pain Scale 4-10 (Severe Nicotine 21 mg 11/02/24 14:00 11/06/24 08:27 Nicotine Patch 21 Mg/24 Hr Patch.Td24 TOP 12/02/24 13:59 21 mg QDAY ESPERANZA Administration Ondansetron HCl 4 mg 11/01/24 17:42 Ondansetron Inj 2 Mg/Ml Inj 2 Ml IV 12/01/24 17:41 Q6H PRN NAUSEA OR VOMITING Protocol Pantoprazole Sodium 40 mg 11/02/24 13:45 11/06/24 08:30 Pantoprazole Inj 40 Mg Vial IV 12/02/24 13:44 40 mg QDAY ESPERANZA Administration Ropinirole HCl 0.25 mg 11/02/24 09:00 11/06/24 08:30 Ropinirole Hcl 0.25 Mg Tablet PO 12/02/24 08:59 0.25 mg QDAY ESPERANZA Administration Sodium Chloride 3 ml 11/01/24 10:06 11/01/24 14:22 Sodium Chloride Rt Nayla 0.9% 3 Ml Nebu INH 12/01/24 10:05 3 ml PRN PRN Administration SOLN Thiamine HCl 100 mg 11/03/24 10:00 11/06/24 08:29 Thiamine 100 Mg Tablet PO 11/08/24 09:59 100 mg BID ESPERANZA Administration Plan The patient is a 69-year-old female with significant past medical history of COPD on home oxygen, CAD s/p CABG 20 years ago, tension, hyperlipidemia, hepatocellular disease, restless leg syndrome, history of polysubstance abuse including alcohol, marijuana, tobacco use and amphetamine use presented to ED with chief complaint of worsening of SOB. She denies any fever or chills, chest pain sore throat, phlegm production was found to be on AHRF 2/2 COPD exacerbation. Nephrology consultation was done for further management of moderate hyponatremia and severe hyperkalemia. #Hyperkalemia, resolved Etiology currently unknown ?? partial adrenal insufficiency: Upon further chart review, always has borderline hyperkalemia and borderline hyponatremia DDx: Chronic kidney disease or chronic use of JANA inhibitors or ARB ruled out as the patient does not has CKD and has not been using JANA inhibitors/ARB Presented with potassium of 5.1 Increased up to 6.3 11/06/2024: Potassium level was 3.6, likely in the setting of DuoNeb use with intracellular potassium shift. Was given 20 mEq of IV KCl, as the patient's has cardiac rhythm disorder atrial flutter. -Cortisol level, renin and aldosterone level pending -Monitor potassium level -We will continue to monitor daily potassium level #Mild hypoosmolar hypovolemic hyponatremia Etiology currently unknown Stable at 133 -Treat the underlying cause of COPD exacerbation 11/04/2024: Sodium level 128, started the patient on normal saline maintenance IV fluid 70 cc/h, will monitor renal panel every 4 hourly, and goal level of sodium will be less than 134 in next 24-hour. 11/05/24: Na 132. Discontinued IV NS 70cc/hr, continue to monitor daily Na level. 11/06/2024: Sodium 133, started the patient on half NS in the setting of severe dehydration. #Primary respiratory acidosis fully compensated by metabolic alkalosis ABG done this morning revealed pH 7.42, pCO2 73, bicarb 47 consistent with respiratory acidosis compensated with metabolic alkalosis -Continue to treat underlying COPD exacerbation #Hypertension -Continue with current medications as BP is currently stable -Monitor vitals #Acute hypoxic respiratory failure secondary to #COPD exacerbation. #Bibasilar pneumonia. ICU was consulted. #Hx of COPD, on 2L. #A-flutter. #Hx of A-fib. #Hx of CAD s/p CABG (more then 20 years ago). #Hx of hyperlipidemia. #Hx of restless legs syndrome. #Hx of hepatocellular disease. #Hx of polysubstance abuse. Thank you for your opportunity to participate nephrology team in this patient care. The patient's management plan was discussed with my attending physician MD Randal Camargo MD, PGY2 Attending Provider Attestation/Addendum Patient seen and examined with resident physician Dr. Ferrari. Note reviewed, agree with findings and recommendations. Hyperkalemia-unclear etiology. No medications which can cause hyperkalemia. Patient does admit to eating avocados but currently in hospital setting. Question partial adrenal insufficiency. Renin, aldosterone, cortisol levels are pending. Blood pressure seems to be acceptable. With medical management potassium seems to be better. Discontinued Veltassa. Hyponatremia-most likely hypovolemia now. Continue with normal saline. Sodium 133. Patient in aflutter with RVR-on Cardizem, amiodarone. Cardiology on the case. Severe COPD exacerbation-on BiPAP.
--- NOTE | 2024-11-06 12:18 | PD.RESCONSUL ---
HPI Data of Consult Requesting Physician: Rodo Loya MD Admitting Provider: Gurdeep Price MD Attending Provider: Rodo Loya MD Primary Care Provider: Scout Morris PA-C Consult Narrative Reason for consult: acute hypoxia and hypercapnia History of present illness: Ms. Quinonez is a 69-year-old female with past medical history significant for A-fib on Eliquis since last year, CAD status post CABG, COPD exacerbation on 2 L nasal cannula, heavy EtOH use presented to ED on 11/01/2024 for worsening shortness of breath and admitted for AHRF 2/2 COPD Exacerbation and bilateral pneumonia. Throughout hospital stay, patient's oxygen requirements have been increasing. Patient also has been having elevated heart rate, and EKG rhythm which continues to show A-fib with RVR. Patient was initially on IV ceftriaxone azithromycin, and switched to levofloxacin. ICU was consulted for further worsening acute hypoxic and hypercapnic respiratory failure. PMH: As mentioned above Social history: History of marijuana, patient smokes 15 cigarettes a day for the last 50 years and drinks 1 pint vodka daily. Allergies: No known allergies Medications: Albuterol, apixaban, aspirin, diltiazem and omeprazole. cc:: cc: Rodo Loya MD Review of Systems Review of Systems Systems Reviewed: All systems reviewed, normal except as documented Exam Vital Signs Temp Pulse Resp BP Pulse Ox O2 Del Method O2 Flow Rate 96.6 F L 163 H 20 125/94 H 93 L BiPAP 40 11/06/24 08:00 11/06/24 10:54 11/06/24 10:54 11/06/24 08:29 11/06/24 10:54 11/06/24 08:00 11/04/24 23:12 FiO2 60 11/06/24 10:54 Narrative Exam General Appearance: Pt in moderate acute distress with BiPAP, well-nourished and well-developed. Awake and alert. HEENT: NC/AT, no scleral icterus, no conjunctival pallor, dry MM, pupils equal and reactive to left and right pupil blown due to blindness Lungs: Expiratory wheezing noted in bilateral bases, not as much air movement in upper bases CVS: Irregularly, irregular, tachycardic, no murmurs or rubs appreciated ABD: Soft, obese non-tender, non-distended, hypoactive bowel sounds EXT: no deformity/edema/lesions/cyanosis/clubbing, radial pulses 2+ BL, DP pulses 2 + BL SKIN: Skin exam normal without any rashes except for multiple bruising noted on right upper extremity Neuro: A&O x 1. No gross neurological deficits. Motor and sensory grossly intact in B/L UL and LL. Psych: Appropriate mood and affect Results Labs 11/07/24 04:44 11/07/24 04:44 Labs: Short CBC 11/06/24 Range/Units 07:44 WBC 10.3 (3.6-11.0) Thou/mm3 Hgb 10.6 L (12.0-16.0) g/dL Hct 35.7 L (36.0-46.0) % Plt Count 243 (140-440) Thou/mm3 BMP 11/06/24 07:44 Sodium 133 L Potassium 3.6 Chloride 84 L Carbon Dioxide > 40.0 H BUN 26 H Creatinine 1.0 Glucose 133 H Calcium 9.0 Liver Function 11/06/24 Range/Units 07:44 Albumin 4.1 (3.4-4.8) gm/dL ABG Interpretation ABG results: 11/01/24 11/04/24 11/05/24 19:07 23:05 03:10 ABG pH 7.17 L* 7.33 L D ABG pCO2 98 H* 77 H* D ABG pO2 92 58 L* D ABG HCO3 36 H 40 H ABG O2 Saturation 97 90 L ABG Base Excess 5 H 12 H VBG pH 7.41 VBG pCO2 54 VBG pO2 77 H VBG Base Excess 8 H 11/05/24 11/06/24 11/06/24 17:00 01:10 08:45 ABG pH 7.31 L 7.37 7.42 ABG pCO2 94 H* D 81 H* D 73 H* ABG pO2 66 L 75 L 69 L ABG HCO3 47 H 47 H 47 H ABG O2 Saturation 91 95 94 ABG Base Excess 17 H 18 H 19 H VBG pH VBG pCO2 VBG pO2 VBG Base Excess Quality Measures Quality Measures VTE prophylaxis Advance care planning discussed with:: patient Medications Home Medications and Allergies Home Medications ?Medication ?Instructions ?Recorded ?Confirmed ?Type omeprazole 20 mg tablet,delayed 20 mg PO QDAY 05/31/21 11/01/24 History release ropinirole 0.5 mg tablet 0.25 mg PO HS 11/14/23 11/05/24 History Held on 11/01/24. Instructions: Order Change aspirin 81 mg tablet,delayed 81 mg PO QDAY 11/01/24 11/01/24 History release (Adult Aspirin Regimen) atorvastatin 40 mg tablet 40 mg PO HS 11/01/24 11/05/24 History loratadine 10 mg tablet 10 mg PO .dailty 11/01/24 11/05/24 History Allergies Allergy/AdvReac Type Severity Reaction Status Date / Time No Known Allergies Allergy Verified 11/01/24 09:08 Visit Medications Acetaminophen (Acetaminophen 500 Mg Tablet) 1,000 mg PO Q6H PRN PRN Reason: Fever >100 Stop: 12/01/24 17:41 Apixaban (Apixaban 2.5 Mg Tablet) 5 mg PO BID [facility] Stop: 12/01/24 20:59 Last Admin: 11/06/24 11:05 Dose: Not Given Aspirin (Aspirin Ec 81 Mg Tabec) 81 mg PO QDAY [facility] Stop: 12/03/24 08:59 Last Admin: 11/06/24 11:06 Dose: Not Given Atorvastatin Calcium (Atorvastatin Calcium 20 Mg Tablet) 40 mg PO QDAY [facility] Stop: 12/02/24 08:59 Last Admin: 11/06/24 11:07 Dose: Not Given Budesonide (Budesonide Rt 0.5 Mg/2 Ml Nebu) 0.5 mg INH BIDRT [facility] Stop: 12/03/24 18:59 Last Admin: 11/06/24 06:56 Dose: 0.5 mg Dextrose (Dextrose 50%-Water Inj 50 Ml Syringe) 25 ml IV Q15MIN PRN PRN Reason: BG 50-70 responsive npo pt Stop: 12/03/24 16:27 Diltiazem HCl (Diltiazem Cd 120 Mg Capcr) 360 mg PO QDAY [facility] Stop: 12/03/24 08:59 Last Admin: 11/05/24 12:37 Dose: Not Given Folic Acid (Folic Acid 1 Mg Tablet) 1 mg PO BID [facility] Stop: 11/08/24 20:59 Last Admin: 11/06/24 08:30 Dose: 1 mg Furosemide (Furosemide Inj 10 Mg/Ml 4ml Vial) 40 mg IVP QDAY [facility] Stop: 12/05/24 12:14 Last Admin: 11/06/24 08:29 Dose: 40 mg Glucagon (Glucagon Inj 1 Mg Vial) 1 mg IM Q15MIN PRN PRN Reason: BG <70, and no IV access Guaifenesin/Dextromethorphan (Guaifenesin/Dm Tablet) 1 each PO BID [facility] Stop: 12/03/24 10:44 Last Admin: 11/06/24 10:44 Dose: Not Given Levofloxacin/Dextrose (Levaquin Ivpb) 750 mg in 150 mls @ 100 mls/hr IV QDAY [facility] Stop: 11/10/24 14:29 Last Admin: 11/06/24 08:26 Dose: 100 mls/hr Amiodarone HCl/Dextrose (Nexterone Ivpb) 360 mg in 200 mls @ 16.667 mls/hr IV .Q12H [facility] Stop: 11/07/24 06:38 Last Admin: 11/06/24 07:40 Dose: 16.667 mls/hr Diltiazem HCl 125 mg/ Dextrose 125 mls @ 15 mls/hr IV .Q8H20M [facility] Stop: 12/06/24 07:59 Last Admin: 11/06/24 08:28 Dose: 15 mg/hr, 15 mls/hr Sodium Chloride (Ns 0.45%) 1,000 mls @ 70 mls/hr IV .[id number] ONE Stop: 11/06/24 23:31 Last Admin: 11/06/24 10:46 Dose: 70 mls/hr Potassium Chloride (Kcl Ivpb) 10 meq in 100 mls @ 100 mls/hr IV Q1H [facility] Stop: 11/06/24 12:19 Last Admin: 11/06/24 10:48 Dose: 50 mls/hr Insulin Human Lispro (Insulin Lispro (Admelog) 1 Unit/0.01 Ml Unit) 0 unit SC AC [facility]; Protocol Stop: 12/03/24 16:59 Last Admin: 11/06/24 11:28 Dose: Not Given Ipratropium [place] (Ipratropium Rt 0.5 Mg/ 2.5 Ml Nebu) 0.5 mg INH Q6HR PRN; Protocol PRN Reason: wheezing Stop: 12/01/24 17:48 Last Admin: 11/05/24 18:38 Dose: 0.5 mg Levalbuterol HCl (Levalbuterol Rt 0.63 Mg/3 Ml Nebu) 0.63 mg INH Q6HR PRN PRN Reason: WHEEZING Stop: 12/03/24 09:48 Levalbuterol HCl (Levalbuterol Rt 0.63 Mg/3 Ml Nebu) 0.63 mg INH Q4HRRT [facility]; Protocol Stop: 12/03/24 10:59 Last Admin: 11/06/24 10:53 Dose: 0.63 mg Lorazepam (Lorazepam 2 Mg/Ml Vial) 0.5 mg IV Q2HR PRN PRN Reason: CIWA SCORE 8-13 Stop: 11/09/24 00:37 Last Admin: 11/04/24 10:20 Dose: 0.5 mg Lorazepam (Lorazepam 2 Mg/Ml Vial) 1 mg IV Q2HR PRN PRN Reason: CIWA SCORE 14-19 Stop: 11/09/24 00:37 Last Admin: 11/06/24 07:24 Dose: 1 mg Lorazepam (Lorazepam 2 Mg/Ml Vial) 2 mg IV Q2HR PRN PRN Reason: CIWA SCORE 20-25 Stop: 11/09/24 00:37 Lorazepam (Lorazepam 2 Mg/Ml Vial) 2 mg IVP X1 PRN PRN Reason: Breakthrough Agitation Methylprednisolone Sodium Succinate (Methylprednisolone Sod Succ 40 Mg Vial) 40 mg IVP Q12HR [facility] Stop: 11/11/24 20:59 Last Admin: 11/06/24 08:30 Dose: 40 mg Morphine Sulfate (Morphine Sulf Inj 10 Mg/Ml Vial) 2 mg IVP Q2H PRN PRN Reason: Pain Scale 4-10 (Severe Stop: 11/06/24 17:41 Last Admin: 11/06/24 10:23 Dose: 2 mg Nicotine (Nicotine Patch 21 Mg/24 Hr Patch.Td24) 21 mg TOP QDAY [facility] Stop: 12/02/24 13:59 Last Admin: 11/06/24 08:27 Dose: 21 mg Ondansetron HCl (Ondansetron Inj 2 Mg/Ml Inj 2 Ml) 4 mg IV Q6H PRN; Protocol PRN Reason: NAUSEA OR VOMITING Stop: 12/01/24 17:41 Pantoprazole Sodium (Pantoprazole Inj 40 Mg Vial) 40 mg IV QDAY [facility] Stop: 12/02/24 13:44 Last Admin: 11/06/24 08:30 Dose: 40 mg Ropinirole HCl (Ropinirole Hcl 0.25 Mg Tablet) 0.25 mg PO QDAY [facility] Stop: 12/02/24 08:59 Last Admin: 11/06/24 11:07 Dose: Not Given Sodium Chloride (Sodium Chloride Rt Nayla 0.9% 3 Ml Nebu) 3 ml INH PRN PRN PRN Reason: SOLN Stop: 12/01/24 10:05 Last Admin: 11/01/24 14:22 Dose: 3 ml Thiamine HCl (Thiamine 100 Mg Tablet) 100 mg PO BID [facility] Stop: 11/08/24 09:59 Last Admin: 11/06/24 11:06 Dose: Not Given Discontinued Medications Acetaminophen (Acetaminophen 325 Mg Tablet) 1,000 mg PO Q6H PRN PRN Reason: Fever >100 Stop: 12/01/24 17:41 Adenosine (Adenosine Inj 3 Mg/Ml Vial) 12 mg IVP X1 ONE Stop: 11/01/24 17:06 Last Admin: 11/01/24 17:23 Dose: 12 mg Albuterol (Albuterol Rt 2.5 Mg/0.5 Ml Nebu) 10 mg INH X1 ONE Stop: 11/01/24 10:07 Last Admin: 11/01/24 10:39 Dose: 10 mg Albuterol (Albuterol Rt 2.5 Mg/3 Ml Nebu) 2.5 mg INH X1 ONE Stop: 11/01/24 11:42 Last Admin: 11/01/24 14:19 Dose: 2.5 mg Calcium Gluconate (Calcium Gluconate 10% Inj 1 Gm/10 Ml Vial) 1 gm IV X1 ONE Stop: 11/03/24 11:29 Last Admin: 11/03/24 12:55 Dose: 1 gm Chlordiazepoxide HCl (Chlordiazepoxide Hcl 25 Mg Capsule) 25 mg PO X1 ONE Stop: 11/04/24 00:32 Last Admin: 11/04/24 00:46 Dose: 25 mg Dextrose (Dextrose 50%-Water Inj 50 Ml Syringe) 50 ml IV X1 ONE Stop: 11/03/24 10:25 Last Admin: 11/03/24 10:49 Dose: 50 ml Dextrose (Dextrose 50%-Water Inj 50 Ml Syringe) 50 ml IV X1 ONE Stop: 11/03/24 13:58 Last Admin: 11/03/24 14:43 Dose: 50 ml Dextrose (Dextrose 50%-Water Inj 50 Ml Syringe) 50 ml IV X1 ONE Stop: 11/03/24 15:01 Last Admin: 11/03/24 14:53 Dose: 50 ml Digoxin (Digoxin 0.125 Mg Tablet) 0.125 mg PO DAILY [facility] Stop: 12/01/24 18:44 Last Admin: 11/03/24 08:24 Dose: 0.125 mg Diltiazem HCl (Diltiazem Inj 5 Mg/Ml Vial 5 Ml) 25 mg IV X1 ONE Stop: 11/01/24 11:42 Last Admin: 11/01/24 13:20 Dose: 25 mg Diltiazem HCl (Diltiazem Er 90 Mg Er Capsule) 360 mg PO X1 ONE Stop: 11/02/24 11:50 Last Admin: 11/02/24 16:12 Dose: Not Given Diltiazem HCl (Diltiazem Er 90 Mg Er Capsule) 360 mg PO X1 ONE Stop: 11/02/24 12:31 Last Admin: 11/02/24 13:47 Dose: 360 mg Diltiazem HCl (Diltiazem Inj 5 Mg/Ml Vial 5 Ml) 20 mg IV X1 ONE Stop: 11/03/24 12:16 Last Admin: 11/03/24 12:54 Dose: 20 mg Diltiazem HCl (Diltiazem Inj 5 Mg/Ml Vial 5 Ml) 20 mg IV X1 ONE Stop: 11/03/24 19:11 Last Admin: 11/03/24 19:27 Dose: 20 mg Furosemide (Furosemide Inj 10 Mg/Ml 4ml Vial) 40 mg IVP X1 ONE Stop: 11/04/24 22:56 Last Admin: 11/04/24 23:59 Dose: 40 mg Guaifenesin (Guaifenesin/P-Ephed Tablet) 1 tab PO BID [facility] Stop: 12/01/24 20:59 Last Admin: 11/03/24 08:36 Dose: 1 tab Diltiazem HCl 125 mg/ Sodium (Chloride) 125 mls @ 10 mls/hr IV .[id number] [facility] Stop: 12/01/24 13:29 Diltiazem HCl 125 mg/ Dextrose 125 mls @ 10 mls/hr IV .[id number] [facility] Stop: 12/01/24 13:44 Last Infusion: 11/01/24 19:57 Dose: 0 mls/hr Ceftriaxone Sodium/Dextrose (Rocephin/D5w 1gm Iv Premix) 50 mls @ 100 mls/hr IV X1 ONE Stop: 11/01/24 17:55 Last Infusion: 11/01/24 19:52 Dose: Infused Magnesium Sulfate (Magnesium Sulfate Ivpb) 2 gm in 50 mls @ 25 mls/hr IV X1 ONE Stop: 11/01/24 19:48 Last Infusion: 11/01/24 21:52 Dose: Infused Azithromycin 500 mg/ Sodium (Chloride) 250 mls @ 250 mls/hr IV HS [facility] Stop: 11/09/24 20:59 Last Admin: 11/02/24 21:06 Dose: 250 mls/hr Azithromycin 500 mg/ Sodium (Chloride) 250 mls @ 250 mls/hr IV X1 ONE Stop: 11/01/24 19:29 Last Infusion: 11/01/24 20:55 Dose: Infused Diltiazem HCl 125 mg/ Dextrose 125 mls @ 15 mls/hr IV .Q8H20M [facility] Stop: 12/01/24 18:38 Last Admin: 11/02/24 05:10 Dose: 15 mls/hr Ceftriaxone Sodium/Dextrose (Rocephin/D5w 1gm Iv Premix) 50 mls @ 100 mls/hr IV QDAY@1400 [facility] Stop: 11/08/24 18:48 Last Admin: 11/01/24 19:20 Dose: Not Given Ceftriaxone Sodium/Dextrose (Rocephin/D5w 1gm Iv Premix) 50 mls @ 100 mls/hr IV QDAY@1400 [facility] Stop: 11/09/24 13:59 Last Admin: 11/03/24 13:25 Dose: 100 mls/hr Diltiazem HCl 125 mg/ Dextrose (/Sodium Chloride) 125 mls @ 15 mls/hr IV .Q8H20M [facility] Stop: 11/02/24 15:45 Last Admin: 11/02/24 16:13 Dose: Not Given Sodium Chloride (Ns) 1,000 mls @ 50 mls/hr IV .Q20H ONE Stop: 11/04/24 06:27 Last Admin: 11/03/24 10:49 Dose: 50 mls/hr Calcium Gluconate/Sodium Chloride (Calcium Gluc/Ns 1000mg Ivpb) 1,000 mg in 50 mls @ 50 mls/hr IV NOW ONE; Protocol Stop: 11/03/24 13:59 Last Admin: 11/03/24 13:16 Dose: Not Given Sodium Chloride (Ns) 1,000 mls @ 70 mls/hr IV .[id number] ONE Stop: 11/04/24 00:45 Last Admin: 11/03/24 14:00 Dose: Not Given Sodium Chloride (Ns) 500 mls @ 999 mls/hr IV .Q31M ONE Stop: 11/03/24 14:25 Last Admin: 11/03/24 14:40 Dose: 999 mls/hr Sodium Chloride (Ns 0.45%) 1,000 mls @ 80 mls/hr IV .[id number] ONE Stop: 11/04/24 04:31 Last Admin: 11/03/24 18:00 Dose: 80 mls/hr Sodium Chloride (Ns) 500 mls @ 999 mls/hr IV .Q31M ONE Stop: 11/03/24 19:41 Last Admin: 11/03/24 19:28 Dose: 999 mls/hr Sodium Chloride (Ns) 1,000 mls @ 70 mls/hr IV .[id number] ONE Stop: 11/04/24 21:53 Last Infusion: 11/05/24 19:22 Dose: Infused Amiodarone HCl/Dextrose (Nexterone Ivpb) 150 mg in 100 mls @ 600 mls/hr IV .Q10M ONE Stop: 11/04/24 10:35 Last Admin: 11/04/24 11:12 Dose: 600 mls/hr Amiodarone HCl/Dextrose (Nexterone Ivpb) 360 mg in 200 mls @ 33.333 mls/hr IV .Q6H ONE Stop: 11/04/24 16:24 Last Admin: 11/04/24 11:29 Dose: 33.333 mls/hr Amiodarone HCl/Dextrose (Nexterone Ivpb) 360 mg in 200 mls @ 16.667 mls/hr IV .Q12H [facility] Stop: 11/05/24 16:24 Last Infusion: 11/05/24 19:21 Dose: Infused Magnesium Sulfate (Magnesium Sulfate Ivpb) 4 gm in 50 mls @ 12.5 mls/hr IV X1 ONE Stop: 11/05/24 10:31 Last Infusion: 11/05/24 19:22 Dose: Infused Magnesium Sulfate (Magnesium Sulfate Ivpb) 2 gm in 50 mls @ 25 mls/hr IV X1 ONE Stop: 11/05/24 17:06 Last Infusion: 11/05/24 19:21 Dose: Infused Diltiazem HCl 125 mg/ Dextrose 125 mls @ 10 mls/hr IV .[id number] [facility] Stop: 12/05/24 20:59 Last Infusion: 11/06/24 03:41 Dose: 15 mg/hr, 15 mls/hr Amiodarone HCl/Dextrose (Nexterone Ivpb) 360 mg in 200 mls @ 33.333 mls/hr IV .Q6H ONE Stop: 11/06/24 06:38 Last Admin: 11/06/24 02:11 Dose: 33.333 mls/hr Diltiazem HCl (Diltiazem In D5w 125 Mg) 125 mg in 125 mls @ 15 mls/hr IV .Q8H20M [facility] Stop: 12/06/24 03:14 Last Admin: 11/06/24 03:42 Dose: Not Given Insulin Human Regular (Insulin Hum Regular 1 Unit/0.01 Ml (Per Unit)) 10 unit IV X1 ONE Stop: 11/03/24 10:25 Last Admin: 11/03/24 10:54 Dose: 10 unit Insulin Human Regular (Insulin Hum Regular 1 Unit/0.01 Ml (Per Unit)) 10 unit IV X1 ONE Stop: 11/03/24 14:39 Last Admin: 11/03/24 14:47 Dose: 10 unit Ipratropium [place] (Ipratropium Rt 0.5 Mg/ 2.5 Ml Nebu) 1 mg INH X1 ONE Stop: 11/01/24 10:07 Last Admin: 11/01/24 10:39 Dose: 1 mg Levalbuterol HCl (Levalbuterol Rt 0.63 Mg/3 Ml Nebu) 0.63 mg INH Q6HR PRN; Protocol PRN Reason: wheezing Stop: 12/01/24 17:48 Last Admin: 11/03/24 08:00 Dose: 0.63 mg Levalbuterol HCl (Levalbuterol Rt 0.63 Mg/3 Ml Nebu) 0.63 mg INH Q4HR [facility]; Protocol Stop: 12/03/24 09:59 Lorazepam (Lorazepam 0.5 Mg Tablet) 0.5 mg PO Q4HR PRN PRN Reason: CIWA Score 2-6 Stop: 11/08/24 09:55 Last Admin: 11/03/24 20:54 Dose: 0.5 mg Lorazepam (Lorazepam 0.5 Mg Tablet) 1 mg PO Q4HR PRN PRN Reason: CIWA SCORE 7-11 Stop: 11/08/24 22:08 Lorazepam (Lorazepam 0.5 Mg Tablet) 2 mg PO Q4HR PRN PRN Reason: CIWA SCORE 12-15 Stop: 11/08/24 22:08 Last Admin: 11/03/24 23:57 Dose: 2 mg Lorazepam (Lorazepam 0.5 Mg Tablet) 1 mg PO X1 ONE Stop: 11/03/24 22:21 Last Admin: 11/03/24 22:41 Dose: 1 mg Lorazepam (Lorazepam 2 Mg/Ml Vial) 1 mg IV X1 PRN PRN Reason: Breakthrough Agitation Lorazepam (Lorazepam 2 Mg/Ml Vial) 4 mg IVP X1 ONE Stop: 11/04/24 00:43 Last Admin: 11/04/24 00:46 Dose: 4 mg Methylprednisolone Sodium Succinate (Methylprednisolone Sod Succ 40 Mg Vial) 40 mg IVP Q6HR [facility] Stop: 11/09/24 00:00 Last Admin: 11/02/24 05:10 Dose: 40 mg Methylprednisolone Sodium Succinate (Methylprednisolone Sod Succ 40 Mg Vial) 60 mg IVP Q6HR [facility] Stop: 11/09/24 11:59 Last Admin: 11/04/24 05:29 Dose: 60 mg Nystatin (Nystatin Susp 5 Ml Udc) 5 ml PO QID [facility] Stop: 11/10/24 16:59 Last Admin: 11/05/24 07:04 Dose: Not Given Patiromer (Patiromer Calcium 8.4 Gm Packet (Non-Form)) 4.2 gm PO X1 ONE Stop: 11/03/24 10:31 Last Admin: 11/03/24 12:56 Dose: 4.2 gm Patiromer (Patiromer Calcium 8.4 Gm Packet (Non-Form)) 8.4 gm PO QDAY [facility] Stop: 12/03/24 11:29 Last Admin: 11/03/24 13:15 Dose: Not Given Prednisone (Prednisone 20 Mg Tablet) 60 mg PO X1 ONE Stop: 11/01/24 10:07 Last Admin: 11/01/24 10:33 Dose: 60 mg Ropinirole HCl (Ropinirole Hcl 0.25 Mg Tablet) 0.25 mg PO X1 ONE Stop: 11/01/24 14:01 Last Admin: 11/01/24 14:17 Dose: 0.25 mg Sodium Chloride (Sodium Chloride Rt 10% 15 Ml Nebu) 5 ml INH X1 ONE Stop: 11/05/24 07:48 Sodium Polystyrene Sulfonate (Sod Polystyrene Sulfon Susp 15 Gm/60 Ml Btl) 15 gm PO X1 ONE Stop: 11/03/24 10:25 Last Admin: 11/03/24 10:54 Dose: 15 gm Sodium Polystyrene Sulfonate (Sod Polystyrene Sulfon Susp 15 Gm/60 Ml Btl) 30 gm PO X1 ONE Stop: 11/03/24 13:56 Last Admin: 11/03/24 14:41 Dose: 30 gm Assessment & Plan Plan Ms. Quinonez is a 69-year-old female with past medical history significant for A-fib on Eliquis since last year, CAD status post CABG, COPD exacerbation on 2 L nasal cannula, heavy EtOH use presented to ED on 11/01/2024 for worsening shortness of breath and admitted for AHRF 2/2 COPD Exacerbation and bilateral pneumonia. ICU was consulted for further worsening acute hypoxic and hypercapnic respiratory failure. NEURO #Acute encephalopathy Differential diagnosis: In the setting of hypoxia and hypercapnia versus medication management Patient's baseline is alert and oriented x 3 -Patient is currently alert and oriented x 1, somnolent -Recommend to continue wearing BiPAP at all times with current settings -Recommend to repeat ABG in the evening and adjust accordingly CARDIO #A-fib/flutter Patient has been on Eliquis for anticoagulation for newly diagnosed A-fib within the last year. Lázaro Vascor is 4, has bled score is 1. -Patient has been on and off her IV diltiazem and IV amiodarone, however heart rate has been uncontrolled with heart rates in the 160s -Given x 1 metoprolol 5 mg IV x 1 which significantly improved patient's heart rate into the 100s to 120s -Given patient's underlying acute on chronic COPD, may worsen patient COPD if patient continues to receive metoprolol, however patient is more responsive to beta-maverick -Patient would benefit from DC cardioversion after respiratory status improves PULM #Acute hypercapnic hypoxic respiratory failure #Acute on chronic respiratory acidosis with metabolic alkalosis Patient is on bilevel setting of BiPAP. Initially, patient was on AVAPS, however could not tolerate. Last ABG this morning shows improvement in CO2 retention and less acidotic -Repeat ABG in the evening, and adjust vent settings accordingly #Bilateral pneumonia?resolved Patient was on IV antibiotics, and finished 7-day antibiotic course GI/FEN Stable RENAL #Electrolyte imbalance #Hyponatremia Differential diagnosis: most likely in the setting of SIADH from COPD versus poor p.o. intake -Encourage p.o. intake as tolerated, but limited due to patient's hypercapnia, requiring BiPAP HEME/ONC #Normocytic anemia Patient's last MCV was 86. Patient's hemoglobin is at baseline between 10-11. -Recommend to continue to monitor H&H and any signs of active bleeding ENDO Stable ID #Bilateral pneumonia-resolved CXR showed bibasilar pneumonia. -Recommend patient to finish 7-day course of antibiotics MSK Stable PSYCH Stable Patient's plan and care discussed with my attending, Dr. Jayro Bajwa MD PGY-2 Attending Provider Attestation/Addendum pt seen and examined, agree with above. In brief this is a 69yo F who the ICU was consulted on for hypoxia and bipap recommendations. She is here for COPDE and afib c RVR. Yesterday evening I was called around 5.30p for recommendations regarding bipap titration. Her ABG at that time showed some CO2 retention. We switched from Bipap to AVAPS however there was a decrease in Ve despite targeting a Vt of 550 therefore it was switched back to bipap. Today she is resting comfortably in bed with bipap in place and an improving ABG with a normal pH. She is noted to be on xopenex but not ipratropriom . Would add on ipratropriom and make nebs q4hr. will fu with ABG later this afternoon. She does not appear to have increased WOB at time of my visit and there is no use of accessory muscles. d/w daughter at bedside case d/w ICU d/w cardiology who called later in the afternoon labs, imaging, records reviewed ~45ccmin required for eval, multiple exams, review, intervention, discussion and formulation of POC for this pt with acute hypoxic resp failure at high risk for further and ongoing decompensation. please dont hesitate to call with any change in her status or questions.
--- NOTE | 2024-11-06 12:26 | PD.RESPRO ---
Documentation for date of: 11/06/24 Subjective Subjective Interval history: Patient seen at bedside. Overnight, heart rate continued to be in the 160s while patient was on BiPAP. Clinically, she was somnolent but arousable. EKG 30 time showed A-fib/flutter with RVR. The patient was started on Dilt at 15 mg/h as well as amiodarone drip. An ABG was done at 1 AM which showed a pH of 7.37 and pCO2 of 81. The patient continued to be on BiPAP and was continually monitored. This morning at bedside, patient is restless and wants to take off her BiPAP as it is uncomfortable, she is also thirsty as she is quite dehydrated. Otherwise, she is able to answer simple questions and converse with her daughter who is at bedside. Patient is still tachycardic in the 160s and continues to be on BiPAP. Repeat ABG was done showed a pH of 7.42 and pCO2 of 73 which is an improvement from the previous 1. Nephrology evaluated the patient and agrees with patient being dehydrated and she was started on half NS at 70 cc/h. Will continue amiodarone and Dilt drip and follow-up with cardiology for further recommendations. Exam Vital Signs Temp Pulse Resp BP Pulse Ox O2 Del Method O2 Flow Rate 96.6 F L 163 H 20 125/94 H 93 L BiPAP 40 11/06/24 08:00 11/06/24 10:54 11/06/24 10:54 11/06/24 08:29 11/06/24 10:54 11/06/24 08:00 11/04/24 23:12 FiO2 60 11/06/24 10:54 Narrative Exam GENERAL: Restless, uncomfortable. Able to answer questions and follow simple commands NEURO: MASTER COASTWISE YACHT grossly intact, moves extremities x4 HEENT: Dry mucosa. Eyes open, symmetrical, & clear CARDIO: No chest pain on palpation. Irregular, tachycardic PULM: No noted coughing, tachypneic. No wheezing, BiPAP, with FiO2 60%. Saturations at 93% GI: Abdomen soft, nondistended, no pain on palpation. BSx4 URO/PATIENT EXPERIENCE COORDINATOR:: No further abnormalities noted. SKIN/MSK/EXT: No wounds/rashes/edema/amputations, no pain on palpation. Pedal pulses present B/L Objective Labs 11/07/24 04:44 11/07/24 04:44 Labs: Laboratory Results - last 24 hr 11/03/24 11/05/24 11/06/24 20:45 17:00 01:10 WBC RBC Hgb Hct MCV MCH MCHC RDW Std Deviation Plt Count Neut % (Auto) Lymph % (Auto) [place] % (Auto) Eos % (Auto) Baso % (Auto) Neut # (Auto) Lymph # (Auto) [place] # (Auto) Eos # (Auto) Baso # (Auto) Immature Gran # (Auto) Absolute Nucleated RBC Immature Gran % Nucleated RBC % Puncture Site Right Brachial Right Radial ABG pH 7.31 L 7.37 ABG pCO2 94 H* D 81 H* D ABG pO2 66 L 75 L ABG HCO3 47 H 47 H ABG O2 Saturation 91 95 ABG Base Excess 17 H 18 H FiO2 50 21 Sodium Potassium Chloride Carbon Dioxide Anion Gap BUN Creatinine Estim Creat Clear Calc eGFR BUN/Creatinine Ratio Glucose Calculated Osmolality Calcium Corrected Calcium Phosphorus Magnesium Albumin Coccidioides IgG Ab Negative 11/06/24 11/06/24 07:44 08:45 WBC 10.3 RBC 4.15 Hgb 10.6 L Hct 35.7 L MCV 86 MCH 25.5 MCHC 29.7 L RDW Std Deviation 58.2 H Plt Count 243 Neut % (Auto) 91 H Lymph % (Auto) 2 L [place] % (Auto) 6 Eos % (Auto) 0 Baso % (Auto) 0 Neut # (Auto) 9.3 H Lymph # (Auto) 0.2 L [place] # (Auto) 0.6 Eos # (Auto) 0.0 Baso # (Auto) 0.0 Immature Gran # (Auto) 0.10 H Absolute Nucleated RBC 0.13 H Immature Gran % 1 H Nucleated RBC % 1 H Puncture Site Right Radial ABG pH 7.42 ABG pCO2 73 H* ABG pO2 69 L ABG HCO3 47 H ABG O2 Saturation 94 ABG Base Excess 19 H FiO2 60 Sodium 133 L Potassium 3.6 Chloride 84 L Carbon Dioxide > 40.0 H Anion Gap 9 BUN 26 H Creatinine 1.0 Estim Creat Clear Calc 51.5 L eGFR > 60 BUN/Creatinine Ratio 26 H Glucose 133 H Calculated Osmolality 273 L Calcium 9.0 Corrected Calcium 9.0 Phosphorus 2.6 Magnesium 2.2 Albumin 4.1 Coccidioides IgG Ab ABG Interpretation ABG results: 11/01/24 11/04/24 11/05/24 19:07 23:05 03:10 ABG pH 7.17 L* 7.33 L D ABG pCO2 98 H* 77 H* D ABG pO2 92 58 L* D ABG HCO3 36 H 40 H ABG O2 Saturation 97 90 L ABG Base Excess 5 H 12 H VBG pH 7.41 VBG pCO2 54 VBG pO2 77 H VBG Base Excess 8 H 11/05/24 11/06/24 11/06/24 17:00 01:10 08:45 ABG pH 7.31 L 7.37 7.42 ABG pCO2 94 H* D 81 H* D 73 H* ABG pO2 66 L 75 L 69 L ABG HCO3 47 H 47 H 47 H ABG O2 Saturation 91 95 94 ABG Base Excess 17 H 18 H 19 H VBG pH VBG pCO2 VBG pO2 VBG Base Excess Quality Measures Quality Measures VTE prophylaxis Advance care planning discussed with:: child Assessment & Plan Assessment Current Active Medications: Generic Name Dose Route Start Last Admin Trade Name Freq PRN Reason Stop Dose Admin Acetaminophen 1,000 mg 11/02/24 08:17 Acetaminophen 500 Mg Tablet PO 12/01/24 17:41 Q6H PRN Fever >100 Apixaban 5 mg 11/01/24 21:00 11/06/24 11:05 Apixaban 2.5 Mg Tablet PO 12/01/24 20:59 Not Given BID ESPERANZA Aspirin 81 mg 11/03/24 09:00 11/06/24 11:06 Aspirin Ec 81 Mg Tabec PO 12/03/24 08:59 Not Given QDAY ESPERANZA Atorvastatin Calcium 40 mg 11/02/24 09:00 11/06/24 11:07 Atorvastatin Calcium 20 Mg Tablet PO 12/02/24 08:59 Not Given QDAY ESPERANZA Budesonide 0.5 mg 11/03/24 19:00 11/06/24 06:56 Budesonide Rt 0.5 Mg/2 Ml Nebu INH 12/03/24 18:59 0.5 mg BIDRT ESPERANZA Administration Dextrose 25 ml 11/03/24 16:28 Dextrose 50%-Water Inj 50 Ml Syringe IV 12/03/24 16:27 Q15MIN PRN BG 50-70 responsive npo pt Diltiazem HCl 360 mg 11/03/24 09:00 11/05/24 12:37 Diltiazem Cd 120 Mg Capcr PO 12/03/24 08:59 Not Given QDAY ESPERANZA Folic Acid 1 mg 11/03/24 21:00 11/06/24 08:30 Folic Acid 1 Mg Tablet PO 11/08/24 20:59 1 mg BID ESPERANZA Administration Furosemide 40 mg 11/05/24 12:15 11/06/24 08:29 Furosemide Inj 10 Mg/Ml 4ml Vial IVP 12/05/24 12:14 40 mg QDAY ESPERANZA Administration Glucagon 1 mg 11/03/24 16:28 Glucagon Inj 1 Mg Vial IM Q15MIN PRN BG <70, and no IV access Guaifenesin/Dextromethorphan 1 each 11/03/24 10:45 11/06/24 10:44 Guaifenesin/Dm Tablet PO 12/03/24 10:44 Not Given BID ESPERANZA Heparin Sodium (Porcine) 5,000 unit 11/06/24 21:00 Heparin Sod Inj 5000 Unit/Ml Vial SC 11/20/24 20:59 Q12HR ESPERANZA Levofloxacin/Dextrose 750 mg in 150 mls @ 100 mls/hr 11/03/24 14:30 11/06/24 08:26 Levaquin Ivpb IV 11/10/24 14:29 100 mls/hr QDAY ESPERANZA Administration Amiodarone HCl/Dextrose 360 mg in 200 mls @ 16.667 mls/hr 11/06/24 06:39 11/06/24 07:40 Nexterone Ivpb IV 11/07/24 06:38 16.667 mls/hr .Q12H ESPERANZA Administration Diltiazem HCl 125 mg/ Dextrose 125 mls @ 15 mls/hr 11/06/24 08:00 11/06/24 08:28 IV 12/06/24 07:59 15 mg/hr .Q8H20M ESPERANZA 15 mls/hr Administration 15 MG/HR Sodium Chloride 1,000 mls @ 70 mls/hr 11/06/24 09:14 11/06/24 10:46 Ns 0.45% IV 11/06/24 23:31 70 mls/hr .[id number] ONE Administration Insulin Human Lispro 0 unit 11/03/24 17:00 11/06/24 11:28 Insulin Lispro (Admelog) 1 Unit/0.01 Ml Unit SC 12/03/24 16:59 Not Given AC ESPERANZA Protocol Ipratropium [place] 0.5 mg 11/01/24 17:49 11/05/24 18:38 Ipratropium Rt 0.5 Mg/ 2.5 Ml Nebu INH 12/01/24 17:48 0.5 mg Q6HR PRN Administration wheezing Protocol Levalbuterol HCl 0.63 mg 11/03/24 09:49 Levalbuterol Rt 0.63 Mg/3 Ml Nebu INH 12/03/24 09:48 Q6HR PRN WHEEZING Levalbuterol HCl 0.63 mg 11/03/24 11:00 11/06/24 10:53 Levalbuterol Rt 0.63 Mg/3 Ml Nebu INH 12/03/24 10:59 0.63 mg Q4HRRT ESPERANZA Administration Protocol Lorazepam 0.5 mg 11/04/24 00:38 11/04/24 10:20 Lorazepam 2 Mg/Ml Vial IV 11/09/24 00:37 0.5 mg Q2HR PRN Administration CIWA SCORE 8-13 Lorazepam 1 mg 11/04/24 00:38 11/06/24 07:24 Lorazepam 2 Mg/Ml Vial IV 11/09/24 00:37 1 mg Q2HR PRN Administration CIWA SCORE 14-19 Lorazepam 2 mg 11/04/24 00:38 Lorazepam 2 Mg/Ml Vial IV 11/09/24 00:37 Q2HR PRN CIWA SCORE 20-25 Lorazepam 2 mg 11/04/24 00:38 Lorazepam 2 Mg/Ml Vial IVP X1 PRN Breakthrough Agitation Methylprednisolone Sodium Succinate 40 mg 11/04/24 21:00 11/06/24 08:30 Methylprednisolone Sod Succ 40 Mg Vial IVP 11/11/24 20:59 40 mg Q12HR ESPERANZA Administration Morphine Sulfate 2 mg 11/01/24 17:42 11/06/24 10:23 Morphine Sulf Inj 10 Mg/Ml Vial IVP 11/06/24 17:41 2 mg Q2H PRN Administration Pain Scale 4-10 (Severe Nicotine 21 mg 11/02/24 14:00 11/06/24 08:27 Nicotine Patch 21 Mg/24 Hr Patch.Td24 TOP 12/02/24 13:59 21 mg QDAY ESPERANZA Administration Ondansetron HCl 4 mg 11/01/24 17:42 Ondansetron Inj 2 Mg/Ml Inj 2 Ml IV 12/01/24 17:41 Q6H PRN NAUSEA OR VOMITING Protocol Pantoprazole Sodium 40 mg 11/02/24 13:45 11/06/24 08:30 Pantoprazole Inj 40 Mg Vial IV 12/02/24 13:44 40 mg QDAY ESPERANZA Administration Ropinirole HCl 0.25 mg 11/02/24 09:00 11/06/24 11:07 Ropinirole Hcl 0.25 Mg Tablet PO 12/02/24 08:59 Not Given QDAY ESPERANZA Sodium Chloride 3 ml 11/01/24 10:06 11/01/24 14:22 Sodium Chloride Rt Nayla 0.9% 3 Ml Nebu INH 12/01/24 10:05 3 ml PRN PRN Administration SOLN Thiamine HCl 100 mg 11/03/24 10:00 11/06/24 11:06 Thiamine 100 Mg Tablet PO 11/08/24 09:59 Not Given BID ESPERANZA Plan Summary: The patient is 69 years old female with past medical history of CAD s/p CABG more than 20 years ago, hypertension, hyperlipidemia, hepatocellular disease, restless legs syndrome, history of polysubstance abuse (alcohol, marijuana, tobacco use, methamphetamine use) presented to the ED complaining of worsening shortness of breath and cough and was admitted for COPD treatment and A-flutter management. #Acute hypoxic respiratory failure secondary to #COPD exacerbation. #Bibasilar pneumonia. #Hx of COPD, on 2L. #Pulmonary embolism ruled out The patient has a history of COPD and has prior admissions for the same. At home, she reports being on 2L of O2 which she only uses occasionally. She still smokes about a pack a year. Generalized wheezing on physical exam. CXR showed bibasilar pneumonia. 11/06/2024- Patient was on BIPAP overnight, service center technician consulted and recommended to change BIPAP settings. An ABG was done at 1 AM which showed a pH of 7.37 and pCO2 of 81. The patient continued to be on BiPAP and was continually monitored. This morning at bedside, patient is restless and wants to take off her BiPAP as it is uncomfortable, she is also thirsty as she is quite dehydrated. Otherwise, she is able to answer simple questions and converse with her daughter who is at bedside. Patient is still tachycardic in the 160s and continues to be on BiPAP. Repeat ABG was done showed a pH of 7.42 and pCO2 of 73 which is an improvement from the previous 1. Plan: -Continue BiPAP. [employer] Structure Assembler to reevaluate the patient -Continue levalbuterol and ipratropium -Continue Levofloxacin -Ensure O2 saturation goal of 88-92% #A-flutter. #Hx of A-fib. Likely 2/2 acute hypoxic respiratory failure and COPD exacerbation. At home, she is on diltiazem for 60 mg, digoxin 0.125 mg and Eliquis 5 mg twice daily. CHADVASC- 4 HASBLED- 1 On admission, she was in A-flutter with RVR, HR in the 140s to 150s. She was started on diltiazem drip yesterday as well as digoxin and Eliquis. EKG done this morning showed a flutter with a heart rate of 75 beats per minutes. Following up with cardiology for further recommendations/possible cardioversion. 11/06/2024- Overnight, heart rate continued to be in the 160s while patient was on BiPAP. Clinically, she was somnolent but arousable. EKG at this time showed A-fib/flutter with RVR. The patient was started on Dilt at 15 mg/h as well as amiodarone drip.Patient is still tachycardic in the 160s and continues to be on BiPAP. Repeat ABG was done showed a pH of 7.42 and pCO2 of 73 which is an improvement from the previous one. Plan: -Complete Amiodarone infusion protocol and Diltiazem at 15mg/hr -Monitor and replete magnesium and potassium. Keep between 2 and 5 accordingly. -Follow up cardiology recommendations. #Alcohol withdrawal #Hx of polysubstance abuse. -remote hx of Marijuana, alcohol, methamphetamine, tobacco use. Plan: -CIWA protocol #Hyperkalemia- resolved Potassium today- 4.0 Plan: -Continue to monitor electrolytes #Hx of CAD s/p CABG (more then 20 years ago). #Hx of hyperlipidemia. -Echocardiogram showed EF 45-50% with diastolic dysfunction present but not able to grade due to A-flutter Plan: - On home aspirin and atorvastatin. -Holding Lasix as patient is not overloaded #Hx of hypertension. BP 164/103 on admission. Plan: -takes only diltiazem at home, will hold in setting of diltiazem drip. Monitoring BP #Hypoosmolar hyponatremia. -Na 130, osm 261, glucose 112 on admission. Sodium today- 133. Urine sodium <10, Urine CL 21.4 Patient is dehydrated today, nephrology started on 09/30 NS Plan: -Urine electrolytes -IV NS at 50cc/hr -Nephrology consulted, appreciate recommendations #Hx of restless legs syndrome. -resumed home ropinirole. #Hx of hepatocellular disease. -Follow-up outpatient. FEN: Cardiac diet. DVT prophylaxis: Eliquis (not taking), SC Heparin Dispo: Telemetry for acute hypoxic respiratory failure 2/ COPD exacerbation. Code status: FULL CODE. Case was discussed with Dr Marks PGY-2 and attending physician, Dr Vincenzo Blount MD PGY-1 Disclaimer: This note was dictated by speech recognition. Minor errors in senior strategy analyst may be present due to voice recognition software. Attending Provider Attestation/Addendum I reviewed labs, imaging, EKG, home medications and prior available records. Face to face evaluation was performed by me. I have personally examined the patient and discussed assessment and plan with the IM team. I reviewed the resident note and agree with the plan with exceptions as below. Acute hypoxic respiratory failure: Rapid response was called for worsening hypoxia and worsening mental status. Ordered ABG that showed respiratory acidosis with hypoxemia. Ordered chest x-ray that showed pulmonary vascular congestion. Ordered IV Lasix. Started the patient on BiPAP. Continue treatment of COPD. Ordered CTA of the chest that showed no acute PE. Discussed with nephrology: Hold further Lasix and give gentle IV hydration given the contraction alkalosis. Bilateral pneumonia: Continue ceftriaxone/azithromycin. Sent cocci IgM: Negative COPD exacerbation: Continue DuoNebs and corticosteroids. Atrial fibrillation with RVR: Started IV diltiazem. Started IV amiodarone as the rate became uncontrolled. Continue Eliquis. Discussed with cardiology: May need to intubate for the cardioversion. Will discuss ICD upgrade with the ICU team CAD status post CABG: Continue aspirin and atorvastatin Hyperkalemia: Improved. Received insulin and dextrose. Received Veltassa. Nephrology is following. Monitor BMP. Hyponatremia: Improved with IV normal saline. Consulted neurology. Monitor BMP Alcohol withdrawal: New complication. Started CIWA protocol
--- NOTE | 2024-11-06 12:40 | PD.RESPRO ---
Documentation for date of: 11/06/24 Subjective Subjective Interval history: 09/05: no acute overnight events. Pt is seen and examined at bedside this morning, daughter is at bedside. ICU team was consulted last evening for possible intubation. ICU team recommended against intubation as pt did not need, she didnt have increased work of breath and BiPAP fiO2 was 50%. Th morning Pt remains on BiPAP, she does not have increaed work of breathing. daughter states she gets thirsty and asks for ice chips. Pt is not altered. Pt's HR remained in the 160's she is still on BiPAP. Pt was started on amiodarone and diltiazam drips. ICU team is also following and helping in manament of the Pt. Pt is seen again in the evening. she is being switched from Bipap to high flow nasal cannula, she is now in sinus rhythm. will inform the hospitalist team to transition Pt to PO amio 200 BID and increase diltiazam to 360mg and Pt will require BiPAP at night upon discharge home. continue the drips for 2 hours after oral amio and diltiazam are given. Exam Vital Signs Temp Pulse Resp BP Pulse Ox O2 Del Method O2 Flow Rate 96.6 F L 163 H 20 125/94 H 93 L BiPAP 40 11/06/24 08:00 11/06/24 10:54 11/06/24 10:54 11/06/24 08:29 11/06/24 10:54 11/06/24 08:00 11/04/24 23:12 FiO2 60 11/06/24 10:54 Narrative Exam GENERAL: A&Ox1 . somnolent, saturating on BiPaP NEURO: no focal neurological deficits HEENT: Atraumatic, Normocephalic. mucous membranes moist. Eyes open, symmetrical, & clear HEART: Normal Heart Sounds LUNGS: faint expiratory Wheezing in upper lung ruiz bilaterally. ABDOMEN: soft, non-distended, non-tender, bowel sounds heard, no guarding or rebound tenderness SKIN: No Rash or ecchymoses EXTREMITIES: No edema, tenderness, able to move all 4 extremities, pedal pulses palpated Objective Labs 11/06/24 07:44 11/06/24 07:44 Labs: Laboratory Results - last 24 hr 02/05/25 02/07/25 02/08/25 20:45 17:00 01:10 WBC RBC Hgb Hct MCV MCH MCHC RDW Std Deviation Plt Count Neut % (Auto) Lymph % (Auto) [place] % (Auto) Eos % (Auto) Baso % (Auto) Neut # (Auto) Lymph # (Auto) [place] # (Auto) Eos # (Auto) Baso # (Auto) Immature Gran # (Auto) Absolute Nucleated RBC Immature Gran % Nucleated RBC % Puncture Site Right Brachial Right Radial ABG pH 7.31 L 7.37 ABG pCO2 94 H* D 81 H* D ABG pO2 66 L 75 L ABG HCO3 47 H 47 H ABG O2 Saturation 91 95 ABG Base Excess 17 H 18 H FiO2 50 21 Sodium Potassium Chloride Carbon Dioxide Anion Gap BUN Creatinine Estim Creat Clear Calc eGFR BUN/Creatinine Ratio Glucose Calculated Osmolality Calcium Corrected Calcium Phosphorus Magnesium Albumin Coccidioides IgG Ab Negative 11/06/24 11/06/24 07:44 08:45 WBC 10.3 RBC 4.15 Hgb 10.6 L Hct 35.7 L MCV 86 MCH 25.5 MCHC 29.7 L RDW Std Deviation 58.2 H Plt Count 243 Neut % (Auto) 91 H Lymph % (Auto) 2 L [place] % (Auto) 6 Eos % (Auto) 0 Baso % (Auto) 0 Neut # (Auto) 9.3 H Lymph # (Auto) 0.2 L [place] # (Auto) 0.6 Eos # (Auto) 0.0 Baso # (Auto) 0.0 Immature Gran # (Auto) 0.10 H Absolute Nucleated RBC 0.13 H Immature Gran % 1 H Nucleated RBC % 1 H Puncture Site Right Radial ABG pH 7.42 ABG pCO2 73 H* ABG pO2 69 L ABG HCO3 47 H ABG O2 Saturation 94 ABG Base Excess 19 H FiO2 60 Sodium 133 L Potassium 3.6 Chloride 84 L Carbon Dioxide > 40.0 H Anion Gap 9 BUN 26 H Creatinine 1.0 Estim Creat Clear Calc 51.5 L eGFR > 60 BUN/Creatinine Ratio 26 H Glucose 133 H Calculated Osmolality 273 L Calcium 9.0 Corrected Calcium 9.0 Phosphorus 2.6 Magnesium 2.2 Albumin 4.1 Coccidioides IgG Ab ABG Interpretation ABG results: 11/01/24 11/04/24 11/05/24 19:07 23:05 03:10 ABG pH 7.17 L* 7.33 L D ABG pCO2 98 H* 77 H* D ABG pO2 92 58 L* D ABG HCO3 36 H 40 H ABG O2 Saturation 97 90 L ABG Base Excess 5 H 12 H VBG pH 7.41 VBG pCO2 54 VBG pO2 77 H VBG Base Excess 8 H 11/05/24 11/06/24 11/06/24 17:00 01:10 08:45 ABG pH 7.31 L 7.37 7.42 ABG pCO2 94 H* D 81 H* D 73 H* ABG pO2 66 L 75 L 69 L ABG HCO3 47 H 47 H 47 H ABG O2 Saturation 91 95 94 ABG Base Excess 17 H 18 H 19 H VBG pH VBG pCO2 VBG pO2 VBG Base Excess Quality Measures Quality Measures VTE prophylaxis Advance care planning discussed with:: child Assessment & Plan Assessment Current Active Medications: Generic Name Dose Route Start Last Admin Trade Name Freq PRN Reason Stop Dose Admin Acetaminophen 1,000 mg 11/02/24 08:17 Acetaminophen 500 Mg Tablet PO 12/01/24 17:41 Q6H PRN Fever >100 Apixaban 5 mg 11/01/24 21:00 11/06/24 11:05 Apixaban 2.5 Mg Tablet PO 12/01/24 20:59 Not Given BID ESPERANZA Aspirin 81 mg 11/03/24 09:00 11/06/24 11:06 Aspirin Ec 81 Mg Tabec PO 12/03/24 08:59 Not Given QDAY [facility] Atorvastatin Calcium 40 mg 11/02/24 09:00 11/06/24 11:07 Atorvastatin Calcium 20 Mg Tablet PO 12/02/24 08:59 Not Given QDAY [facility] Budesonide 0.5 mg 11/03/24 19:00 11/06/24 06:56 Budesonide Rt 0.5 Mg/2 Ml Nebu INH 12/03/24 18:59 0.5 mg BIDRT ESPERANZA Administration Dextrose 25 ml 11/03/24 16:28 Dextrose 50%-Water Inj 50 Ml Syringe IV 12/03/24 16:27 Q15MIN PRN BG 50-70 responsive npo pt Diltiazem HCl 360 mg 11/03/24 09:00 11/05/24 12:37 Diltiazem Cd 120 Mg Capcr PO 12/03/24 08:59 Not Given QDAY [facility] Folic Acid 1 mg 11/03/24 21:00 11/06/24 08:30 Folic Acid 1 Mg Tablet PO 11/08/24 20:59 1 mg BID ESPERANZA Administration Furosemide 40 mg 11/05/24 12:15 11/06/24 08:29 Furosemide Inj 10 Mg/Ml 4ml Vial IVP 12/05/24 12:14 40 mg QDAY ESPERANZA Administration Glucagon 1 mg 11/03/24 16:28 Glucagon Inj 1 Mg Vial IM Q15MIN PRN BG <70, and no IV access Guaifenesin/Dextromethorphan 1 each 11/03/24 10:45 11/06/24 10:44 Guaifenesin/Dm Tablet PO 12/03/24 10:44 Not Given BID ESPERANZA Heparin Sodium (Porcine) 5,000 unit 11/06/24 21:00 Heparin Sod Inj 5000 Unit/Ml Vial SC 11/20/24 20:59 Q12HR ESPERANZA Levofloxacin/Dextrose 750 mg in 150 mls @ 100 mls/hr 11/03/24 14:30 11/06/24 08:26 Levaquin Ivpb IV 11/10/24 14:29 100 mls/hr QDAY ESPERANZA Administration Amiodarone HCl/Dextrose 360 mg in 200 mls @ 16.667 mls/hr 11/06/24 06:39 11/06/24 07:40 Nexterone Ivpb IV 11/07/24 06:38 16.667 mls/hr .Q12H ESPERANZA Administration Diltiazem HCl 125 mg/ Dextrose 125 mls @ 15 mls/hr 11/06/24 08:00 11/06/24 08:28 IV 12/06/24 07:59 15 mg/hr .Q8H20M ESPERANZA 15 mls/hr Administration 15 MG/HR Sodium Chloride 1,000 mls @ 70 mls/hr 11/06/24 09:14 11/06/24 10:46 Ns 0.45% IV 11/06/24 23:31 70 mls/hr .[id number] ONE Administration Insulin Human Lispro 0 unit 11/03/24 17:00 11/06/24 11:28 Insulin Lispro (Admelog) 1 Unit/0.01 Ml Unit SC 12/03/24 16:59 Not Given [facility] Protocol Ipratropium Howell 0.5 mg 11/06/24 15:00 Ipratropium Rt 0.5 Mg/ 2.5 Ml Nebu INH 12/06/24 14:59 Q4HRRT ESPERANZA Protocol Levalbuterol HCl 0.63 mg 11/03/24 09:49 Levalbuterol Rt 0.63 Mg/3 Ml Nebu INH 12/03/24 09:48 Q6HR PRN WHEEZING Levalbuterol HCl 0.63 mg 11/03/24 11:00 11/06/24 10:53 Levalbuterol Rt 0.63 Mg/3 Ml Nebu INH 12/03/24 10:59 0.63 mg Q4HRRT ESPERANZA Administration Protocol Lorazepam 0.5 mg 11/04/24 00:38 11/04/24 10:20 Lorazepam 2 Mg/Ml Vial IV 11/09/24 00:37 0.5 mg Q2HR PRN Administration CIWA SCORE 8-13 Lorazepam 1 mg 11/04/24 00:38 11/06/24 07:24 Lorazepam 2 Mg/Ml Vial IV 11/09/24 00:37 1 mg Q2HR PRN Administration CIWA SCORE 14-19 Lorazepam 2 mg 11/04/24 00:38 Lorazepam 2 Mg/Ml Vial IV 11/09/24 00:37 Q2HR PRN CIWA SCORE 20-25 Lorazepam 2 mg 11/04/24 00:38 Lorazepam 2 Mg/Ml Vial IVP X1 PRN Breakthrough Agitation Methylprednisolone Sodium Succinate 40 mg 11/04/24 21:00 11/06/24 08:30 Methylprednisolone Sod Succ 40 Mg Vial IVP 11/11/24 20:59 40 mg Q12HR ESPERANZA Administration Metoprolol Tartrate 5 mg 11/06/24 12:35 Metoprolol Tartrate Inj 1 Mg/Ml Amp 5 Ml IVP 11/06/24 12:36 X1 ONE Morphine Sulfate 2 mg 11/01/24 17:42 11/06/24 10:23 Morphine Sulf Inj 10 Mg/Ml Vial IVP 11/06/24 17:41 2 mg Q2H PRN Administration Pain Scale 4-10 (Severe Nicotine 21 mg 11/02/24 14:00 11/06/24 08:27 Nicotine Patch 21 Mg/24 Hr Patch.Td24 TOP 12/02/24 13:59 21 mg QDAY ESPERANZA Administration Ondansetron HCl 4 mg 11/01/24 17:42 Ondansetron Inj 2 Mg/Ml Inj 2 Ml IV 12/01/24 17:41 Q6H PRN NAUSEA OR VOMITING Protocol Pantoprazole Sodium 40 mg 11/02/24 13:45 11/06/24 08:30 Pantoprazole Inj 40 Mg Vial IV 12/02/24 13:44 40 mg QDAY ESPERANZA Administration Ropinirole HCl 0.25 mg 11/02/24 09:00 11/06/24 11:07 Ropinirole Hcl 0.25 Mg Tablet PO 12/02/24 08:59 Not Given QDAY ESPERANZA Sodium Chloride 3 ml 11/01/24 10:06 11/01/24 14:22 Sodium Chloride Rt Nayla 0.9% 3 Ml Nebu INH 12/01/24 10:05 3 ml PRN PRN Administration SOLN Thiamine HCl 100 mg 11/03/24 10:00 11/06/24 11:06 Thiamine 100 Mg Tablet PO 11/08/24 09:59 Not Given BID ESPERANZA Plan Ms. 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 #AHRF in the setting of #COPD exacerbation #Pneumonia -Patient has a history of COPD in the setting of chronic smoking history. Patient uses 2 L of oxygen at home which she states she is not always compliant with. Chest x-ray showed bibasilar pneumonia and patient has bilateral wheezing on auscultation. -Per primary hospitalist team patient is on scheduled breathing treatments as well as daily steroids. -IV antibiotics started with azithromycin and ceftriaxone - ICU team is consulted, as pt may require intubation. Pt's daughter is at bedside and agrees with the plans. # A flutter/A-fib with RVR -CHADVASC- 4 HASBLED- 1 -Since admission patient has been in a flutter with RVR initially was rate controlled patient was placed on diltiazem drip plus digoxin and transition to p.o. diltiazem 360 Mg daily however patient was unable to to be in rate control as today in the afternoon patient's heart rate was in the 140s to 150s again IV diltiazem 20 Mg x 1 was given once. For anticoagulation patient is on Eliquis -Pt remained in afib/flutter st. was started on amio drip -Keep potassium above 4 and magnesium above 2 at all times -Plans to cardiovert the patient when she is not in respiratory distress and able to tolerate intubation, will continue to monitor for improvement -Echocardiogram fcompleted on 11/04/2024 with showed normal LV size, low normal LV function LVEF 45 to 50%. Diastolic dysfunction present but could not grade due to atrial flutter with RVR. RV systolic function mildly decreased. Estimated RVSP 55 mmHg with at least moderate PAH. Trace to mild MR. Moderate TR. Mild biatrial dilatation along with dilated IVC noted. -No blockers for rate control because of the severe COPD. -she is now in sinus rhythm.recommend the hospitalist team to transition Pt to PO amio 200 BID and increase diltiazam to 360mg and Pt will require BiPAP at night upon discharge home. continue the drips for 2 hours after oral amio and diltiazam are given. #Hyperkalemia- resolved -today patient's potassium was 6.3 patient was started on IV insulin with D50, patient was also given Kayexalate plus Veltassa and repeat potassium was 4.7 # History of CAD status post CABG approximately 20 years ago as well as patient has history of hyperlipidemia patient is continued on aspirin as well as atorvastatin. # Primary hypertension-on admission patient blood pressure 163/110 however patient was placed on diltiazem drip therefore antihypertensive therapy was held. Today blood pressure is 141/95 We will continue to hold antihypertensive therapy as patient requires diltiazem. Will consider antihypertensive therapy when patient a flutter with RVR is under control # Patient has history of restless leg syndrome-patient complained of an inability to sleep due to the restless leg syndrome although home ropinirole is resumed by the primary team Assessment and plan discussed with my attending physician Dr. Liana Collins (PGY-1)- Internal medicine resident Attending Provider Attestation/Addendum A 69-year-old female with a past medical of CAD s/p CABG more than 20 years ago with unknown grafts is operative report unavailable, paroxysmal atrial fibrillation/flutter anticoagulation, rate controlled, history of moderate to severe COPD, active smoker still more than half a pack a day, increased 30 pack years smoking history, essential hypertension, hyperlipidemia, morbid obesity, history of alcohol, marijuana and tobacco abuse along with history of methamphetamine abuse previously many years ago, questionable liver disease secondary to alcohol and drug abuse, nephrolithiasis presented to the emergency department for further evaluation of shortness of breath and cough. Patient well-known to me from previous admission in October 2023 as well as she follows up with me in the clinic. Patient was initially diagnosed with paroxysmal atrial flutter/fibrillation with RVR in 10/2023 when she had COPD exacerbation along with an active COVID infection. Patient was followed up as outpatient and was placed on diltiazem ER to 60 mg once daily as well as digoxin 125 mcg once daily and Eliquis for anticoagulation. Heart rate was well-controlled but continued to be in normal sinus rhythm at that point of time. Patient continues to be smoking and she has at least moderate to severe COPD based on her previous presentations. Cardiology was consulted today for further management of the possible atrial flutter/fibrillation with RVR 1. Paroxysmal atrial flutter with RVR with 2:1 block and less likely SVT 2. Acute on chronic severe COPD exacerbation with unclear trigger - possible pneumonia 3. CAD s/p CABG more than 20 years ago with unknown grafts as operative report is unavailable 4. Acute on chronic hypoxic respiratory failure and rule out pneumonia 5. HFpEF or diastolic CHF 6. Essential hypertension 7. Hyperlipidemia 8. Morbid obesity 9. History of remote alcohol, marijuana and methamphetamine 10. Active smoker with more than [id number] smoking history 11. Questionable liver disease with given her history of alcohol abuse 12. Mild anemia Patient presented with severe COPD exacerbation unclear trigger and could be possible pneumonia and patient started on IV antibiotics per the primary team which we recommend to continue and do further workup for the sepsis. Patient should also receive Solu-Medrol 125 mg IV x 1 and aggressive treatment of the COPD exacerbation with the nebulizations but avoid albuterol and give patient levalbuterol along with Atrovent nebulizations. Patient will need long-term steroid inhaler along with other COPD regimen. Primary team is following the patient. History of CAD s/p CABG with unknown grafts-please try to obtain the report from her previous hospitalization where the CABG was performed Continue aspirin and statin and no beta-maverick given the severe COPD exacerbation. Recommend aggressive control of CAD with aspirin, high intensity statin. No blockers for rate control because of the severe COPD. Regarding tachycardia patient appears to be in paroxysmal atrial flutter with RVR at least 1 block and less likely SVT. Patient apparently did receive adenosine 12 mg IV x 1 in the ED but did not convert also patient received Cardizem 25 mg IV x 1 and Cardizem drip at 10 mg/h. Unfortunately we are unable to obtain the ECG rhythm when the patient did receive diagnosing and it would help with the diagnosis. At home doses of medication was Cardizem CD 360 mg once daily and digoxin 125 mcg once daily with which her heart rate was well-controlled and also was not Eliquis for anticoagulation. -Patient in the atrial flutter with RVR mostly secondary to the COPD exacerbation but as noted above unclear etiology for the COPD exacerbation possible pneumonia. -Recommend to continue Eliquis for anticoagulation -Patient apparently takes her medications as prescribed daily including the digoxin as well as the diltiazem CD and the last dose was yesterday. -Please started on Cardizem drip at 15 mg/h and was changed to Cardizem 360 mg once daily along with digoxin 125 mcg daily and patient's nuclear rate for better control of 75 bpm with atrial flutter and 40s to 1 block. -She did receive some additional doses of diltiazem 20 mg IV on 11/03/2023 for brief episodes of atrial flutter with RVR. -Patient could not receive a ZEE with cardioversion as patient respiratory status continued to decline and still had significant wheezing and increasing oxygen requirements from her significant COPD exacerbation with possible underlying pneumonia. 11/04/2023 Overnight events noted and patient was apparently agitated and was given Ativan and Librium. Patient was hypoxic later with significant wheezing and oxygen requirements increased the patient is on Ventimask up to 10 L/min. Patient again had another episode of atrial flutter with RVR and another dose of diltiazem 20 mg IV was given overnight. This morning during my examination patient is drowsy secondary to the Ativan and Librium that she has received overnight. Still continues to have high oxygen requirements and on examination she still continues to have significant wheezing. Patient blood pressure is on the softer side at the present moment and will hold off on the diltiazem oral for now plan to give it later in the afternoon if her blood pressure is better. Recommend to start amiodarone drip along with amiodarone IV bolus for now given the uncontrolled A-fib with RVR. Also recommend to stop the digoxin given the acute kidney injury and hyperkalemia yesterday and also to keep the patient only on 2 AV pamela blockers amiodarone and diltiazem going forward. Echocardiogram finally completed on 11/04/2024 with showed normal LV size, low normal LV function LVEF 45 to 50%. Diastolic dysfunction present but could not grade due to atrial flutter with RVR. RV systolic function mildly decreased. Estimated RVSP 55 mmHg with at least moderate PAH. Trace to mild MR. Moderate TR. Mild biatrial dilatation along with dilated IVC noted. 11/05/2023: Patient still continues to be BiPAP but during my examination appeared to be drowsy with altered mental status. Telemetry reviewed and patient continues to be in atrial flutter with RVR at 150 bpm. Patient is on amiodarone drip as well as the diltiazem drip at this rate is still not well-controlled. Recommended a stat ABG with the patient which showed a pH of 7.31 and pCO2 of 94. Patient has increased work of breathing with use of accessory muscles and altered mental status and recommended ICU consult for elective intubation. And discussed this with ICU team as well as primary team for the patient. Patient did have some vascular congestion on the x-ray and IV Lasix 40 mg x 1 was given. 11/06/2023: Patient doing much better today and no evidence of any labored breathing and appears stable Telemetry reviewed and she has converted to normal sinus rhythm with intermittent A-fib heart rate around 70s. Recommend to continue at 0.5 mg/min and Cardizem 15 mg/min until patient able to take more oral. Once patient able to take oral medications patient should be transferred to amiodarone 200 mg twice daily along with diltiazem 360 mg once daily. Keep potassium greater than 4 and magnesium greater than 2.0. Continue with IV Lasix 40 mg once daily for now ABG was performed today and ICU consulted and plan to transition from BiPAP to high flow oxygen. pH is 7.52 and pCO2 improved to 71 from 94 with the BiPAP. Patient should be on BiPAP every night from 9 PM to 6 AM given his severe COPD even at the time of discharge. Recommend to continue to monitor the kidney function closely Recommend to aggressively treat the COPD exacerbation. Management of rest of the medical conditions as per primary team and other consultants. Thank you for the consult and allowing me to participate in the care of the patient. Cardiology will continue to follow. Rex Gaines M.D. Interventional Cardiology
[2024-11-06] MEDS: METOPROLOL TARTRATE INJ 1 MG/ML AMP 5 ML 5 MG IVP (13:08)
[2024-11-06] MEDS: IPRATROPIUM RT 0.5 MG/ 2.5 ML NEBU INH ×3 (14:08→23:44)
[2024-11-06 16:21] LABS: Base Excess 23 (-3-3); HCO3 49 mEq/L (20-26); Inspired Oxygen, FIO2 92 %; O2 Saturation 99 % (91-98); PCO2 61 mmHg (32.0-48.0); PO2 189 mmHg (83-108); pH, Arterial 7.52 (7.35-7.45)
[2024-11-06 16:25] LABS: Allen Test Not Performed; Puncture Site Right Radial
[2024-11-06] MEDS: Magnesium Sulfate 2 GM Ivpb 2 GM/50 ML BAG IV (20:49)
[2024-11-06] MEDS: HEPARIN SOD INJ 5000 UNIT/ML VIAL SC (20:51)
[2024-11-06] MEDS: THIAMINE 100 MG TABLET PO (20:51)
[2024-11-06] MEDS: guaiFENesin/DM TABLET 1 EACH PO (20:52)
[2024-11-06] MEDS: LORazepam 2 MG/ML VIAL 0.5 MG IV (21:14)
[2024-11-06] MEDS: POTASSIUM CHL 10 mEq IVPB 10 MEQ/100 ML BAG 100 MEQ IV (22:45)
[2024-11-07] VITALS (20 sets, daily range): BP systolic 126–153; BP diastolic 61–96; PULSE 70–114; RESP 16–24; TEMP 36.1–36.4; O2SAT 88–99; BMI 32.2
[2024-11-07] MEDS: DILTIAZEM INJ 125 MG in DEXTROSE 5%-WATER 100 ML 15 MG IV ×2 (00:56→10:01)
[2024-11-07] MEDS: LEVALBUTEROL RT 0.63 MG/3 ML NEBU INH ×6 (02:31→22:20)
[2024-11-07] MEDS: IPRATROPIUM RT 0.5 MG/ 2.5 ML NEBU INH ×6 (02:31→22:20)
[2024-11-07] MEDS: LORazepam 2 MG/ML VIAL 1 MG IV (05:42)
[2024-11-07 05:45] LABS: Basophils % (Auto) 0 % (0-2.5); Eosinophils % (Auto) 0 % (0-10); Hematocrit 32.1 % (36.0-46.0); Immature Granulocytes % (Auto) 1 % (0-0); Immature Granulocytes Auto 0.07 Thou/mm3 (0.00-0.00); Lymphocytes # (Auto) 0.2 Thou/mm3 (1.0-4.8); Lymphocytes % (Auto) 2 % (10-50); Mean Corpuscular HGB Conc 31.2 g/dl (31.0-37.0); Mean Corpuscular Hemoglobin 25.5 pg (25.0-35.0); Mean Corpuscular Volume 82 fL (80-100); Monocytes # (Auto) 0.4 Thou/mm3 (0.0-0.8); Monocytes % (Auto) 4 % (0-12); Neutrophils # (Auto) 8.4 Thou/mm3 (1.8-7.7); Neutrophils % (Auto) 93 % (37-80); Nucleated Red Blood Cell # 0.08 Thou/mm3 (0.00-0.00); Nucleated Red Blood Cell % 1 /100 WBC (0); Platelet Count 164 Thou/mm3 (140-440); RDW Standard Deviation 53.1 fL (36.4-46.3); Red Blood Count 3.92 Miln/mm3 (4.00-5.20)
[2024-11-07 06:28] LABS: Albumin, Serum 3.7 gm/dL (3.4-4.8); Anion Gap 6 (7-16); BUN/Creatinine Ratio 23 Ratio (12-20); Blood Urea Nitrogen 21 mg/dL (9-23); Calcium 8.8 mg/dL (8.3-10.6); Carbon Dioxide > 40.0 mMol/L (20.0-31.0); Chloride 82 mMol/L (98-107); Creatinine (Component) 0.9 mg/dL (0.6-1.3); Estimated Creatinine Clearance 57.1 mL/min (>60); Glucose 157 mg/dL (74-106); Magnesium 2.2 mg/dL (1.6-2.6); Osmolality,Calculated 263 (275-295); Phosphorous 2.5 mg/dL (2.4-5.1); Potassium 4.3 mMol/L (3.4-5.1); Sodium 128 mMol/L (136-145); eGFR > 60 See Note
[2024-11-07] MEDS: BUDESONIDE RT 0.5 MG/2 ML NEBU INH ×2 (06:30→18:10)
--- NOTE | 2024-11-07 07:39 | EKG_ITS ---
[facility] Test Date: 2024-11-07 Pat Name: MIC GRANDE [facility] Enterprise Business [employer]: MELITON : 1955 Requested By: Key Blount Order Number: [id number] Reading MD: Key Blount Measurements Intervals [place] Rate: 80 P: 41 TX: 147 QRS: 42 QRSD: 90 T: 36 QT: 323 QTc: 372 Interpretive Statements SINUS RHYTHM WITH FREQUENT SUPRAVENTRICULAR PREMATURE COMPLEXES POSSIBLE RIGHT VENTRICULAR CONDUCTION DELAY SEPTAL MYOCARDIAL INFARCTION , OF INDETERMINATE AGE Compared to ECG 11/05/2024 20:51:30 Myocardial infarct finding now present Atrial flutter no longer present Right bundle-branch block no longer present /[id number]/S0/[id number]
[2024-11-07] MEDS: INSULIN LISPRO (AdmeLOG) 1 UNIT/0.01 ML UNIT SC ×3 (07:54→17:04)
[2024-11-07] MEDS: AMIODARONE 360 MG IVPB 360 MG/200 ML BAG 33.333 MG IV (08:13)
--- NOTE | 2024-11-07 09:22 | PD.RESPRO ---
Documentation for date of: 11/07/24 Subjective Subjective Interval history: Patient seen at bedside. No acute overnight events. She was given Lopressor 5mg x one yesterday by head of research & insights team. Repeat ABG done by 4pm yesterday had a pH of 7.52 and pCO2 of 61. The patient was subsequently transitioned from BIPAP to high flow nasal cannula, 100% at 40L. Additionally, heart rate was in the 80s at the time. Today at bedside, patient is AAOx3, still restless and wants to get out of bed as she is uncomfortable. She also has a very productive cough that makes her gag intemittently. Otherwise, she is saturating at 96% on 100% FIO2 and 40L. EKG this morning showed a sinus rhythm with some PACs and a heart rate of 80. Per cardiology recommendations, the patient will be transitioned to PO amiodarone and diltiazem and the drips will be stopped 2hrs after. Will ensure oxygen titration not greater than 92%, and encourage moving patient to chair. Pending PT evaluation. Exam Vital Signs Temp Pulse Resp BP Pulse Ox O2 Del Method O2 Flow Rate 97.1 F 70 20 129/80 96 High Flow Nasal Cannula 40 11/07/24 08:00 11/07/24 08:13 11/07/24 08:00 11/07/24 08:13 11/07/24 08:00 11/07/24 08:00 11/07/24 08:00 FiO2 80 11/07/24 08:00 Narrative Exam GENERAL: AAOX3 NEURO: SCRUB TECHNICIAN grossly intact, moves extremities x4 HEENT: Moist mucosa. Eyes open, symmetrical, & clear CARDIO: No chest pain on palpation. Heart RRR, no obvious murmurs PULM: Coughing with whitish sputum. Minimal wheezing bilaterally GI: Abdomen soft, nondistended, no pain on palpation. BSx4 URO/MOLD REPAIR TECHNICIAN:: No further abnormalities noted. SKIN/MSK/EXT: No wounds/rashes/edema/amputations, no pain on palpation. Pedal pulses present B/L Objective Labs 11/08/24 04:45 11/08/24 04:45 Labs: Laboratory Results - last 24 hr 11/06/24 11/07/24 16:00 04:44 WBC 9.0 RBC 3.92 L Hgb 10.0 L Hct 32.1 L MCV 82 MCH 25.5 MCHC 31.2 RDW Std Deviation 53.1 H Plt Count 164 D Neut % (Auto) 93 H Lymph % (Auto) [address] [place] % (Auto) 4 Eos % (Auto) 0 Baso % (Auto) 0 Neut # (Auto) 8.4 H Lymph # (Auto) 0.[address] [place] # (Auto) 0.4 Eos # (Auto) 0.0 Baso # (Auto) 0.0 Immature Gran # (Auto) 0.07 H Absolute Nucleated RBC 0.08 H Immature Gran % 1 H Nucleated RBC % 1 H Puncture Site Right Radial ABG pH 7.52 H D ABG pCO2 61 H D ABG pO2 189 H D ABG HCO3 49 H ABG O2 Saturation 99 H ABG Base Excess 23 H FiO2 92 Sodium 128 L Potassium 4.3 D Chloride 82 L Carbon Dioxide > 40.0 H Anion Gap 6 L BUN 21 Creatinine 0.9 Estim Creat Clear Calc 57.1 L eGFR > 60 BUN/Creatinine Ratio 23 H Glucose 157 H Calculated Osmolality 263 L Calcium 8.8 Corrected Calcium 9.0 Phosphorus 2.5 Magnesium 2.2 Albumin 3.7 ABG Interpretation ABG results: 11/01/24 11/04/24 11/05/24 19:07 23:05 03:10 ABG pH 7.17 L* 7.33 L D ABG pCO2 98 H* 77 H* D ABG pO2 92 58 L* D ABG HCO3 36 H 40 H ABG O2 Saturation 97 90 L ABG Base Excess 5 H 12 H VBG pH 7.41 VBG pCO2 54 VBG pO2 77 H VBG Base Excess 8 H 11/05/24 11/06/24 11/06/24 17:00 01:10 08:45 ABG pH 7.31 L 7.37 7.42 ABG pCO2 94 H* D 81 H* D 73 H* ABG pO2 66 L 75 L 69 L ABG HCO3 47 H 47 H 47 H ABG O2 Saturation 91 95 94 ABG Base Excess 17 H 18 H 19 H VBG pH VBG pCO2 VBG pO2 VBG Base Excess 11/06/24 16:00 ABG pH 7.52 H D ABG pCO2 61 H D ABG pO2 189 H D ABG HCO3 49 H ABG O2 Saturation 99 H ABG Base Excess 23 H VBG pH VBG pCO2 VBG pO2 VBG Base Excess Quality Measures Quality Measures VTE prophylaxis Advance care planning discussed with:: patient and spouse Assessment & Plan Assessment Current Active Medications: Generic Name Dose Route Start Last Admin Trade Name Natacha PRN Reason Stop Dose Admin Acetaminophen 1,000 mg 11/02/24 08:17 Acetaminophen 500 Mg Tablet PO 12/01/24 17:41 Q6H PRN Fever >100 Amiodarone HCl 200 mg 11/07/24 09:00 Amiodarone Hcl 200 Mg Tablet PO 12/07/24 08:59 BID ESPERANZA Apixaban 5 mg 11/01/24 21:00 11/06/24 11:05 Apixaban 2.5 Mg Tablet PO 12/01/24 20:59 Not Given BID ESPERANZA Aspirin 81 mg 11/03/24 09:00 11/06/24 11:06 Aspirin Ec 81 Mg Tabec PO 12/03/24 08:59 Not Given QDAY ESPERANZA Atorvastatin Calcium 40 mg 11/02/24 09:00 11/06/24 11:07 Atorvastatin Calcium 20 Mg Tablet PO 12/02/24 08:59 Not Given QDAY ESPERANZA Budesonide 0.5 mg 11/03/24 19:00 11/07/24 06:30 Budesonide Rt 0.5 Mg/2 Ml Nebu INH 12/03/24 18:59 0.5 mg BIDRT ESPERANZA Administration Dextrose 25 ml 11/03/24 16:28 Dextrose 50%-Water Inj 50 Ml Syringe IV 12/03/24 16:27 Q15MIN PRN BG 50-70 responsive npo pt Diltiazem HCl 360 mg 11/03/24 09:00 11/05/24 12:37 Diltiazem Cd 120 Mg Capcr PO 12/03/24 08:59 Not Given QDAY ESPERANZA Folic Acid 1 mg 11/03/24 21:00 11/06/24 20:49 Folic Acid 1 Mg Tablet PO 11/08/24 20:59 1 mg BID ESPERANZA Administration Furosemide 40 mg 11/05/24 12:15 11/06/24 08:29 Furosemide Inj 10 Mg/Ml 4ml Vial IVP 12/05/24 12:14 40 mg QDAY ESPERANZA Administration Glucagon 1 mg 11/03/24 16:28 Glucagon Inj 1 Mg Vial IM Q15MIN PRN BG <70, and no IV access Guaifenesin/Dextromethorphan 1 each 11/03/24 10:45 11/06/24 20:52 Guaifenesin/Dm Tablet PO 12/03/24 10:44 1 each BID ESPERANZA Administration Heparin Sodium (Porcine) 5,000 unit 11/06/24 21:00 11/06/24 20:51 Heparin Sod Inj 5000 Unit/Ml Vial SC 11/20/24 20:59 5,000 unit Q12HR ESPERANZA Administration Levofloxacin/Dextrose 750 mg in 150 mls @ 100 mls/hr 11/03/24 14:30 11/06/24 08:26 Levaquin Ivpb IV 11/10/24 14:29 100 mls/hr QDAY ESPERANZA Administration Diltiazem HCl 125 mg/ Dextrose 125 mls @ 15 mls/hr 11/06/24 08:00 11/07/24 00:56 IV 12/06/24 07:59 15 mg/hr .Q8H20M ESPERANZA 15 mls/hr Administration 15 MG/HR Amiodarone HCl/Dextrose 360 mg in 200 mls @ 33.333 mls/hr 11/07/24 07:47 11/07/24 08:13 Nexterone Ivpb IV 11/07/24 13:46 33.333 mls/hr .Q6H ONE Administration Insulin Human Lispro 0 unit 11/03/24 17:00 11/07/24 07:54 Insulin Lispro (Admelog) 1 Unit/0.01 Ml Unit SC 12/03/24 16:59 1 unit AC ESPERANZA Administration Protocol Ipratropium [place] 0.5 mg 11/06/24 15:00 11/07/24 06:30 Ipratropium Rt 0.5 Mg/ 2.5 Ml Nebu INH 12/06/24 14:59 0.5 mg Q4HRRT ESPERANZA Administration Protocol Levalbuterol HCl 0.63 mg 11/03/24 09:49 Levalbuterol Rt 0.63 Mg/3 Ml Nebu INH 12/03/24 09:48 Q6HR PRN WHEEZING Levalbuterol HCl 0.63 mg 11/03/24 11:00 11/07/24 02:31 Levalbuterol Rt 0.63 Mg/3 Ml Nebu INH 12/03/24 10:59 0.63 mg Q4HRRT ESPERANZA Administration Protocol Lorazepam 0.5 mg 11/04/24 00:38 11/06/24 21:14 Lorazepam 2 Mg/Ml Vial IV 11/09/24 00:37 0.5 mg Q2HR PRN Administration CIWA SCORE 8-13 Lorazepam 1 mg 11/04/24 00:38 11/07/24 05:42 Lorazepam 2 Mg/Ml Vial IV 11/09/24 00:37 1 mg Q2HR PRN Administration CIWA SCORE 14-19 Lorazepam 2 mg 11/04/24 00:38 Lorazepam 2 Mg/Ml Vial IV 11/09/24 00:37 Q2HR PRN CIWA SCORE 20-25 Lorazepam 2 mg 11/04/24 00:38 Lorazepam 2 Mg/Ml Vial IVP X1 PRN Breakthrough Agitation Methylprednisolone Sodium Succinate 40 mg 11/04/24 21:00 11/06/24 20:51 Methylprednisolone Sod Succ 40 Mg Vial IVP 11/11/24 20:59 40 mg Q12HR ESPERANZA Administration Nicotine 21 mg 11/02/24 14:00 11/06/24 08:27 Nicotine Patch 21 Mg/24 Hr Patch.Td24 TOP 12/02/24 13:59 21 mg QDAY ESPERANZA Administration Ondansetron HCl 4 mg 11/01/24 17:42 Ondansetron Inj 2 Mg/Ml Inj 2 Ml IV 12/01/24 17:41 Q6H PRN NAUSEA OR VOMITING Protocol Pantoprazole Sodium 40 mg 11/02/24 13:45 11/06/24 08:30 Pantoprazole Inj 40 Mg Vial IV 12/02/24 13:44 40 mg QDAY ESPERANZA Administration Ropinirole HCl 0.25 mg 11/02/24 09:00 11/06/24 11:07 Ropinirole Hcl 0.25 Mg Tablet PO 12/02/24 08:59 Not Given QDAY ESPERANZA Sodium Chloride 3 ml 11/01/24 10:06 11/01/24 14:22 Sodium Chloride Rt Nayla 0.9% 3 Ml Nebu INH 12/01/24 10:05 3 ml PRN PRN Administration SOLN Thiamine HCl 100 mg 11/03/24 10:00 11/06/24 20:51 Thiamine 100 Mg Tablet PO 11/08/24 09:59 100 mg BID ESPERANZA Administration Plan Summary: The patient is 69 years old female with past medical history of CAD s/p CABG more than 20 years ago, hypertension, hyperlipidemia, hepatocellular disease, restless legs syndrome, history of polysubstance abuse (alcohol, marijuana, tobacco use, methamphetamine use) presented to the ED complaining of worsening shortness of breath and cough and was admitted for COPD treatment and A-flutter management. #Acute hypoxic respiratory failure secondary to #COPD exacerbation. #Bibasilar pneumonia. #Hx of COPD, on 2L. #Pulmonary embolism ruled out The patient has a history of COPD and has prior admissions for the same. At home, she reports being on 2L of O2 which she only uses occasionally. She still smokes about a pack a year. Generalized wheezing on physical exam. CXR showed bibasilar pneumonia. 11/07/2024- Repeat ABG done yesterday evening showed a pH of 7.52 and pCO2 of 61. Consequently, she was transitioned to HFNC from BIPAP 100%, 40L. At bedside today, she is alert and oriented, but restless and uncomfortable, wanting to get out of bed, has a very bothersome productive cough with whitish frothy sputum. On examination, has minimal wheezing, but no crackles on auscultation. Still on Levofloxacin for pneumonia, day 7 today. Will DC. Blood cultures and MRSA nares negative. Plan: -Continue titrating oxygen, saturation goal of 88-92% -Continue levalbuterol and ipratropium -DC Levofloxacin -Mucinex and Prometh/DM added for cough #A-flutter. #Hx of A-fib. Likely 2/2 acute hypoxic respiratory failure and COPD exacerbation. At home, she is on diltiazem for 60 mg, digoxin 0.125 mg and Eliquis 5 mg twice daily. CHADVASC- 4 HASBLED- 1 On admission, she was in A-flutter with RVR, HR in the 140s to 150s. She was started on diltiazem drip yesterday as well as digoxin and Eliquis. EKG done this morning showed a flutter with a heart rate of 75 beats per minutes. Following up with cardiology for further recommendations/possible cardioversion. 11/07/2024- Received 5mg Lopressor yesterday and heart rate slowing down. EKG this morning showed a sinus rhythm with some PACs and a heart rate of 80. Per cardiology recommendations, the patient will be transitioned to PO amiodarone and diltiazem and the drips will be stopped 2hrs after. Will ensure oxygen titration not greater than 92%, and encourage moving patient to chair. Pending PT evaluation. Plan: -Amiodarone 200mg and Dilt 360mg, stop drips in two hours -Monitor and replete magnesium and potassium. Keep between 2 and 5 accordingly. -Follow up cardiology recommendations. #Alcohol withdrawal #Hx of polysubstance abuse. -remote hx of Marijuana, alcohol, methamphetamine, tobacco use. Plan: -CIWA protocol #Hyperkalemia- resolved Potassium today- 4.0 Plan: -Continue to monitor electrolytes #Hx of CAD s/p CABG (more then 20 years ago). #Hx of hyperlipidemia. -Echocardiogram showed EF 45-50% with diastolic dysfunction present but not able to grade due to A-flutter Plan: - On home aspirin and atorvastatin. -Holding Lasix as patient is not overloaded #Hx of hypertension. BP 164/103 on admission. Plan: -takes only diltiazem at home, will hold in setting of diltiazem drip. Monitoring BP #Hypoosmolar hyponatremia. -Na 130, osm 261, glucose 112 on admission. Sodium today- 128. Urine sodium <10, Urine CL 21.4 Completed 1/2 NS one Plan: -Continue monitoring CMP -Nephrology consulted, appreciate recommendations #Hx of restless legs syndrome. -resumed home ropinirole. #Hx of hepatocellular disease. -Follow-up outpatient. FEN: Cardiac diet. DVT prophylaxis: Eliquis Dispo: Telemetry for acute hypoxic respiratory failure 2/2 COPD exacerbation. Code status: FULL CODE. Case was discussed with Dr Espinoza PGY-2 and attending physician, Dr Vincenzo Blount MD PGY-1 Disclaimer: This note was dictated by speech recognition. Minor errors in senior energy trader may be present due to voice recognition software. Patient is 69 years old female with worsening shortness of breath and cough and was admitted for COPD excerbation and palpitations secondary to A-flutter. She is also an active smoker, likely here for exacerbations of her COPD. - Acute hypoxic respiratory failure: CXR shows improvement of vascular congestion but prominenet bilateral pleural effusion, L>R. 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 - Contraction Alkalosis: ABG shows contraction alkalosis pH 7.5 ; ordered acetazolamide x1 . Repeat ABG for am draw. Will continue HFNC HS. - Bilateral pneumonia: On IV Azithro + Rocephin (2/3 - ) ; Cocci negative - COPD exacerbation: Continue PRN Duonebs, INH steroids, IV Methylprednisone and Mucinex for COPD - Atrial fibrillation with RVR: CHADVASC is 4 and HASBLED score 1. Finished IV diltiazem. Completed IV Amiodarone , transitioned to P.O. Amio 200mg BID. AC with Eliquis. Cardiology following. - CAD status post CABG: Continue aspirin and atorvastatin - Active tobacco smoker: Nicotine patch PRN - Alcohol use disorder: On CISD protocol Patient examined and case discussed with the team including attending physician. Note reviewed, I agree with the care plan as documented. - Issac Espinoza MD, PGY 2 Attending Provider Attestation/Addendum I reviewed labs, imaging, EKG, home medications and prior available records. Face to face evaluation was performed by me. I have personally examined the patient and discussed assessment and plan with the IM team. I reviewed the resident note and agree with the plan with exceptions as below. Acute hypoxic respiratory failure: She is now on high flow nasal cannula. ABG showed pH of 7.52. Repeat chest x-ray that showed possible bilateral effusion. Consulted IR for possible pleurocentesis Bilateral pneumonia: Continue ceftriaxone/azithromycin. Sent cocci IgM: Negative COPD exacerbation: Continue DuoNebs and corticosteroids. Atrial fibrillation with RVR: Finally rate controlled. Increase diltiazem. Continue p.o. amiodarone. Cardiology is following. CAD status post CABG: Continue aspirin and atorvastatin Hyperkalemia: Improved. Received insulin and dextrose. Received Veltassa. Nephrology is following. Monitor BMP. Hyponatremia: Possibly due to dehydration. Appreciate nephrology recommendations. Monitor BMP
[2024-11-07] MEDS: LEVOFLOXACIN/D5W 750MG IVPB 750 MG/150 ML BAG 100 MG IV (09:55)
[2024-11-07] MEDS: ASPIRIN EC 81 MG TABEC PO (09:56)
[2024-11-07] MEDS: ATORVASTATIN CALCIUM 20 MG TABLET 40 MG PO (09:56)
[2024-11-07] MEDS: FOLIC ACID 1 MG TABLET PO ×2 (09:56→22:11)
[2024-11-07] MEDS: Milk Of Magnesia Susp 30 ML UDC PO (09:56)
[2024-11-07] MEDS: guaiFENesin/P-EPHED TABLET 1 TAB PO ×2 (09:56→22:11)
[2024-11-07] MEDS: rOPINIRole HCL 0.25 MG TABLET PO (09:56)
[2024-11-07] MEDS: THIAMINE 100 MG TABLET PO ×2 (09:56→22:11)
[2024-11-07] MEDS: DILTIAZEM CD 120 MG CAPCR 360 MG PO (09:57)
[2024-11-07] MEDS: NICOTINE PATCH 21 MG/24 HR PATCH.TD24 TOP (09:58)
[2024-11-07] MEDS: PANTOPRAZOLE INJ 40 MG VIAL IV (09:59)
[2024-11-07] MEDS: AMIODARONE HCL 200 MG TABLET PO ×2 (10:00→22:11)
--- NOTE | 2024-11-07 10:20 | XR_ITS ---
Examination: AP chest single view Technique one AP portable supine chest single view Exam date and time: November 07, 2024 1103 hrs. Comparison November 04, 2024 Indications: Hypoxia today. Findings: Significant bibasilar pneumonia Moderate to large bilateral pleural effusions Moderate enlargement cardiac contour with CABG Mild associated heart failure Impression: Bibasilar pneumonia Mild associated heart failure
--- NOTE | 2024-11-07 12:47 | PD.RESPRO ---
Documentation for date of: 11/07/24 Subjective Subjective Interval history: 11/07: No acute overnight events reported patient seen and examined at bedside this morning patient is currently saturating between 93 to 94% on high flow FiO2 is 70% on 40 L. telemetry is reviewed, Pt is in sinus rhythm with HR in the 70's. Patient's daughter is at bedside who stated this morning patient is alert and oriented and is not confused she was able to use the bathroom she was also able to work with PT and she ate breakfast. Patient is eager to go home. Pt feels much better. she endorses her SOB has significant improved, denies chest pain or palpitations. Pts amio and cardizem drips are finsihed and pt is trasitioned to oral amio 200mg BID, eliquis 5mg BID, and cardizem 360mg once daily. pt has no other complaints. Exam Vital Signs Temp Pulse Resp BP Pulse Ox O2 Del Method O2 Flow Rate 96.9 F 76 16 127/66 94 L High Flow Nasal Cannula 40 11/07/24 12:00 11/07/24 12:00 11/07/24 12:00 11/07/24 12:00 11/07/24 12:00 11/07/24 12:00 11/07/24 10:32 FiO2 70 11/07/24 10:32 Narrative Exam GENERAL: A&Ox1 . somnolent, saturating on high flow 40L [id number]% NEURO: no focal neurological deficits HEENT: Atraumatic, Normocephalic. mucous membranes moist. Eyes open, symmetrical, & clear HEART: Normal Heart Sounds LUNGS: faint expiratory Wheezing in upper lung ruiz bilaterally. ABDOMEN: soft, non-distended, non-tender, bowel sounds heard, no guarding or rebound tenderness SKIN: No Rash or ecchymoses EXTREMITIES: No edema, tenderness, able to move all 4 extremities, pedal pulses palpated Objective Labs 11/07/24 04:44 11/07/24 04:44 Labs: Laboratory Results - last 24 hr 11/06/24 11/07/24 16:00 04:44 WBC 9.0 RBC 3.92 L Hgb 10.0 L Hct 32.1 L MCV 82 MCH 25.5 MCHC 31.2 RDW Std Deviation 53.1 H Plt Count 164 D Neut % (Auto) 93 H Lymph % (Auto) 2 L [place] % (Auto) 4 Eos % (Auto) 0 Baso % (Auto) 0 Neut # (Auto) 8.4 H Lymph # (Auto) 0.2 L [place] # (Auto) 0.4 Eos # (Auto) 0.0 Baso # (Auto) 0.0 Immature Gran # (Auto) 0.07 H Absolute Nucleated RBC 0.08 H Immature Gran % 1 H Nucleated RBC % 1 H Puncture Site Right Radial ABG pH 7.52 H D ABG pCO2 61 H D ABG pO2 189 H D ABG HCO3 49 H ABG O2 Saturation 99 H ABG Base Excess 23 H FiO2 92 Sodium 128 L Potassium 4.3 D Chloride 82 L Carbon Dioxide > 40.0 H Anion Gap 6 L BUN 21 Creatinine 0.9 Estim Creat Clear Calc 57.1 L eGFR > 60 BUN/Creatinine Ratio 23 H Glucose 157 H Calculated Osmolality 263 L Calcium 8.8 Corrected Calcium 9.0 Phosphorus 2.5 Magnesium 2.2 Albumin 3.7 ABG Interpretation ABG results: 11/01/24 11/04/24 11/05/24 19:07 23:05 03:10 ABG pH 7.17 L* 7.33 L D ABG pCO2 98 H* 77 H* D ABG pO2 92 58 L* D ABG HCO3 36 H 40 H ABG O2 Saturation 97 90 L ABG Base Excess 5 H 12 H VBG pH 7.41 VBG pCO2 54 VBG pO2 77 H VBG Base Excess 8 H 11/05/24 11/06/24 11/06/24 17:00 01:10 08:45 ABG pH 7.31 L 7.37 7.42 ABG pCO2 94 H* D 81 H* D 73 H* ABG pO2 66 L 75 L 69 L ABG HCO3 47 H 47 H 47 H ABG O2 Saturation 91 95 94 ABG Base Excess 17 H 18 H 19 H VBG pH VBG pCO2 VBG pO2 VBG Base Excess 11/06/24 16:00 ABG pH 7.52 H D ABG pCO2 61 H D ABG pO2 189 H D ABG HCO3 49 H ABG O2 Saturation 99 H ABG Base Excess 23 H VBG pH VBG pCO2 VBG pO2 VBG Base Excess Quality Measures Quality Measures VTE prophylaxis Advance care planning discussed with:: patient and child Assessment & Plan Assessment Current Active Medications: Generic Name Dose Route Start Last Admin Trade Name Natacha PRN Reason Stop Dose Admin Acetaminophen 1,000 mg 11/02/24 08:17 Acetaminophen 500 Mg Tablet PO 12/01/24 17:41 Q6H PRN Fever >100 Amiodarone HCl 200 mg 11/07/24 09:00 11/07/24 10:00 Amiodarone Hcl 200 Mg Tablet PO 12/07/24 08:59 200 mg BID ESPERANZA Administration Apixaban 5 mg 11/01/24 21:00 11/06/24 11:05 Apixaban 2.5 Mg Tablet PO 12/01/24 20:59 Not Given BID ESPERANZA Aspirin 81 mg 11/03/24 09:00 11/07/24 09:56 Aspirin Ec 81 Mg Tabec PO 12/03/24 08:59 81 mg QDAY ESPERANZA Administration Atorvastatin Calcium 40 mg 11/02/24 09:00 11/07/24 09:56 Atorvastatin Calcium 20 Mg Tablet PO 12/02/24 08:59 40 mg QDAY ESPERANZA Administration Budesonide 0.5 mg 11/03/24 19:00 11/07/24 06:30 Budesonide Rt 0.5 Mg/2 Ml Nebu INH 12/03/24 18:59 0.5 mg BIDRT ESPERANZA Administration Dextrose 25 ml 11/03/24 16:28 Dextrose 50%-Water Inj 50 Ml Syringe IV 12/03/24 16:27 Q15MIN PRN BG 50-70 responsive npo pt Diltiazem HCl 360 mg 11/08/24 09:00 Diltiazem Cd 120 Mg Capcr PO 12/08/24 08:59 QDAY ESPERANZA Folic Acid 1 mg 11/03/24 21:00 11/07/24 09:56 Folic Acid 1 Mg Tablet PO 11/08/24 20:59 1 mg BID ESPERANZA Administration Furosemide 40 mg 11/05/24 12:15 11/06/24 08:29 Furosemide Inj 10 Mg/Ml 4ml Vial IVP 12/05/24 12:14 40 mg QDAY ESPERANZA Administration Glucagon 1 mg 11/03/24 16:28 Glucagon Inj 1 Mg Vial IM Q15MIN PRN BG <70, and no IV access Guaifenesin 1 tab 11/07/24 09:45 11/07/24 09:56 Guaifenesin/P-Ephed Tablet PO 12/07/24 09:44 1 tab BID ESPERANZA Administration Guaifenesin/Dextromethorphan 1 each 11/03/24 10:45 11/07/24 10:07 Guaifenesin/Dm Tablet PO 12/03/24 10:44 Not Given BID [facility] Insulin Human Lispro 0 unit 11/03/24 17:00 11/07/24 11:37 Insulin Lispro (Admelog) 1 Unit/0.01 Ml Unit SC 12/03/24 16:59 1 unit AC [facility] Administration Protocol Ipratropium [place] 0.5 mg 11/06/24 15:00 11/07/24 10:27 Ipratropium Rt 0.5 Mg/ 2.5 Ml Nebu INH 12/06/24 14:59 0.5 mg Q4HRRT ESPERANZA Administration Protocol Levalbuterol HCl 0.63 mg 11/03/24 09:49 Levalbuterol Rt 0.63 Mg/3 Ml Nebu INH 12/03/24 09:48 Q6HR PRN WHEEZING Levalbuterol HCl 0.63 mg 11/03/24 11:00 11/07/24 10:27 Levalbuterol Rt 0.63 Mg/3 Ml Nebu INH 12/03/24 10:59 0.63 mg Q4HRRT ESPERANZA Administration Protocol Lorazepam 0.5 mg 11/04/24 00:38 11/06/24 21:14 Lorazepam 2 Mg/Ml Vial IV 11/09/24 00:37 0.5 mg Q2HR PRN Administration CIWA SCORE 8-13 Lorazepam 1 mg 11/04/24 00:38 11/07/24 05:42 Lorazepam 2 Mg/Ml Vial IV 11/09/24 00:37 1 mg Q2HR PRN Administration CIWA SCORE 14-19 Lorazepam 2 mg 11/04/24 00:38 Lorazepam 2 Mg/Ml Vial IV 11/09/24 00:37 Q2HR PRN CIWA SCORE 20-25 Lorazepam 2 mg 11/04/24 00:38 Lorazepam 2 Mg/Ml Vial IVP X1 PRN Breakthrough Agitation Methylprednisolone Sodium Succinate 40 mg 11/04/24 21:00 11/07/24 09:59 Methylprednisolone Sod Succ 40 Mg Vial IVP 11/11/24 20:59 40 mg Q12HR ESPERANZA Administration Nicotine 21 mg 11/02/24 14:00 11/07/24 09:58 Nicotine Patch 21 Mg/24 Hr Patch.Td24 TOP 12/02/24 13:59 21 mg QDAY ESPERANZA Administration Ondansetron HCl 4 mg 11/01/24 17:42 Ondansetron Inj 2 Mg/Ml Inj 2 Ml IV 12/01/24 17:41 Q6H PRN NAUSEA OR VOMITING Protocol Pantoprazole Sodium 40 mg 11/02/24 13:45 11/07/24 09:59 Pantoprazole Inj 40 Mg Vial IV 12/02/24 13:44 40 mg QDAY ESPERANZA Administration Promethazine HCl/Dextromethorphan 5 ml 11/07/24 09:44 Promethazine/Dm Syrup 5 Ml Dose PO 12/07/24 09:43 Q4HR PRN COUGH Protocol Ropinirole HCl 0.25 mg 11/02/24 09:00 11/07/24 09:56 Ropinirole Hcl 0.25 Mg Tablet PO 12/02/24 08:59 0.25 mg QDAY ESPERANZA Administration Sodium Chloride 3 ml 11/01/24 10:06 11/01/24 14:22 Sodium Chloride Rt Nayla 0.9% 3 Ml Nebu INH 12/01/24 10:05 3 ml PRN PRN Administration SOLN Thiamine HCl 100 mg 11/03/24 10:00 11/07/24 09:56 Thiamine 100 Mg Tablet PO 11/08/24 09:59 100 mg BID ESPERANZA Administration Plan Ms. 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 #AHRF in the setting of #COPD exacerbation #Pneumonia -Patient has a history of COPD in the setting of chronic smoking history. Patient uses 2 L of oxygen at home which she states she is not always compliant with. Chest x-ray showed bibasilar pneumonia and patient has bilateral wheezing on auscultation. -Per primary hospitalist team patient is on scheduled breathing treatments as well as daily steroids. -IV antibiotics started with azithromycin and ceftriaxone - ICU team is consulted, as pt may require intubation. Pt's daughter is at bedside and agrees with the plans. # A flutter/A-fib with RVR -CHADVASC- 4 HASBLED- 1 -Since admission patient has been in a flutter with RVR initially was rate controlled patient was placed on diltiazem drip plus digoxin and transition to p.o. diltiazem 360 Mg daily however patient was unable to to be in rate control as today in the afternoon patient's heart rate was in the 140s to 150s again IV diltiazem 20 Mg x 1 was given once. For anticoagulation patient is on Eliquis -Pt remained in afib/flutter st. was started on amio drip -Keep potassium above 4 and magnesium above 2 at all times -Plans to cardiovert the patient when she is not in respiratory distress and able to tolerate intubation, will continue to monitor for improvement -Echocardiogram fcompleted on 11/04/2024 with showed normal LV size, low normal LV function LVEF 45 to 50%. Diastolic dysfunction present but could not grade due to atrial flutter with RVR. RV systolic function mildly decreased. Estimated RVSP 55 mmHg with at least moderate PAH. Trace to mild MR. Moderate TR. Mild biatrial dilatation along with dilated IVC noted. -No blockers for rate control because of the severe COPD. - Pt will require BiPAP at night upon discharge home. -Pts amio and cardizem drips are finished Pts amio and cardizem drips are finished and pt is transitioned to oral amio 200mg BID, eliquis 5mg BID, and cardizem 360mg once daily. pt has no other complaints. and pt is transitioned to oral amio 200mg BID, eliquis 5mg BID, and cardizem 360mg once daily. #Hyperkalemia- resolved -today patient's potassium was 6.3 patient was started on IV insulin with D50, patient was also given Kayexalate plus Veltassa and repeat potassium was 4.7 # History of CAD status post CABG approximately 20 years ago as well as patient has history of hyperlipidemia patient is continued on aspirin as well as atorvastatin. - No blockers for rate control because of the severe COPD. # Primary hypertension-on admission patient blood pressure 163/110 however patient was placed on diltiazem drip therefore antihypertensive therapy was held. Today blood pressure is 141/95 We will continue to hold antihypertensive therapy as patient requires diltiazem. Will consider antihypertensive therapy when patient a flutter with RVR is under control # Patient has history of restless leg syndrome-patient complained of an inability to sleep due to the restless leg syndrome although home ropinirole is resumed by the primary team Assessment and plan discussed with my attending physician Dr. Liana Collins (PGY-1)- Internal medicine resident Attending Provider Attestation/Addendum I have personally seen and examined the patient separately on the above date of service and discussed the plan of care with the resident. I reviewed the resident Dr. Torin Collins consultation progress note and agree with the resident findings and plan in the note above and have also edited the documentation to reflect my findings and plan. Rex Gaines M.D. Interventional Cardiology
--- NOTE | 2024-11-07 14:22 | ESPR_ITS ---
Documentation for date of: 11/07/24 Subjective Subjective Interval history: Interval history: The patient is a 69-year-old female with significant past medical history of COPD on home oxygen, CAD s/p CABG 20 years ago, tension, hyperlipidemia, hepatocellular disease, restless leg syndrome, history of polysubstance abuse including alcohol, marijuana, tobacco use and amphetamine use presented to ED with chief complaint of worsening of SOB. She denies any fever or chills, chest pain sore throat, phlegm production. She was admitted 1 year ago with similar symptoms and was found to have COPD exacerbation. During our evaluation, her vitals were significant for blood pressure 132/92, 130, RR 22, and saturating 90% on 3 L OxyMask. Labs are significant for white count 11.6, hemoglobin 10.5, with MCV 86. Chemistry panel was significant for sodium 122 worsening from 129 yesterday, potassium 6.3 worsened from 5.1 yesterday bicarb 32.3, creatinine 1.0 blood sugar 205. CXR revealing bibasilar pneumonia with EKG revealing atrial flutter. PMH: As mentioned above PSHx: CABG 20 years ago Social history: History of marijuana, tobacco and methamphetamine use, alcohol quitted 1 year ago Allergies: No known allergies Medications: Albuterol, apixaban, aspirin, diltiazem and omeprazole. Nephrology consultation was done for further management of moderate hyponatremia and severe hyperkalemia. 11/04/2024: Overnight patient was agitated and received IV lorazepam. This morning patient was sleeping comfortably, saturating 94% on 6 L OxiMask. She was comfortably resting on her bed. Her wheezing has improved months. Still tachycardic with irregularly irregular rhythm. White count 12.4, sodium 128, chloride 89, potassium trended down to 4.2, bicarb 34, BUN 26 and creatinine 0.9. Renin activity, aldosterone and total cortisol pending. We changed IV maintenance fluid to normal saline 70 cc/h, and we will continue with monitoring renal panel every 4 hourly. 11/06/2024: The patient was interviewed and examined at the bedside this morning. She was on BiPAP, saturating 93% on FiO2 60% and O2 flow 40 L/min. Her pulse has been in the range of 150s to 160s. Exam was significant for mildly dry mucous membranes, no crackles but mild wheezing over the lung ruiz. Peripheral pitting edema. CBC revealed hemoglobin 10.6, ABG done this morning revealed pH 7.42, pCO2 73, bicarb 47 consistent with respiratory acidosis compensated with metabolic alkalosis. Sodium was 133, potassium 3.6, chloride 84, bicarb greater than 40 and magnesium 2.6. Potassium was repleted with 20 mEq IV KCl. She was also started on half-normal saline maintenance fluids 70 cc/h as she appeared severely dry. 11/07/2024 patient currently seen in telemetry. Today she seems to be slightly better. Currently transition to high flow oxygen at 40 L. Electrolyte seems to be acceptable except bicarb still greater than 40 and pH is greater than 7.5. Suggested to the primary team to give 1 dose of Diamox. Review of Systems Review of Systems Narrative Review of Systems: Patient denies any chest pain. Does have shortness of breath. Very tired. No nausea, vomiting. Exam Vital Signs Temp Pulse Resp BP Pulse Ox O2 Del Method O2 Flow Rate 36.1 C 75 18 128/88 H 90 L High Flow Nasal Cannula 40 11/07/24 20:00 11/07/24 20:00 11/07/24 20:00 11/07/24 20:00 11/07/24 20:00 11/07/24 20:00 11/07/24 20:00 FiO2 70 11/07/24 20:00 Narrative Exam General: No acute distress, comfortably resting on her bed, on high flow oxygen HEENT: Mildly dry mucous membranes, oropharynx clear Neck: Supple, No masses, No JVD CVS: S1S2 Regular rate and rhythm, No murmurs, rubs or gallops Lungs: Mild wheezing throughout the lung field, no crackles or rhonchi appreciated, saturating 93% on BiPAP Abd: Soft, NT/ND, +BS, no organomegaly Ext: No edema, warm and well perfused Skin: No rash Psych: Anxious Objective Labs 11/09/24 04:20 11/08/24 04:45 Labs: Laboratory Results - last 24 hr 11/07/24 04:44 WBC 9.0 RBC 3.92 L Hgb 10.0 L Hct 32.1 L MCV 82 MCH 25.5 MCHC 31.2 RDW Std Deviation 53.1 H Plt Count 164 D Neut % (Auto) 93 H Lymph % (Auto) 2 L [place] % (Auto) 4 Eos % (Auto) 0 Baso % (Auto) 0 Neut # (Auto) 8.4 H Lymph # (Auto) 0.2 L [place] # (Auto) 0.4 Eos # (Auto) 0.0 Baso # (Auto) 0.0 Immature Gran # (Auto) 0.07 H Absolute Nucleated RBC 0.08 H Immature Gran % 1 H Nucleated RBC % 1 H Sodium 128 L Potassium 4.3 D Chloride 82 L Carbon Dioxide > 40.0 H Anion Gap 6 L BUN 21 Creatinine 0.9 Estim Creat Clear Calc 57.1 L eGFR > 60 BUN/Creatinine Ratio 23 H Glucose 157 H Calculated Osmolality 263 L Calcium 8.8 Corrected Calcium 9.0 Phosphorus 2.5 Magnesium 2.2 Albumin 3.7 ABG Interpretation ABG results: 11/01/24 11/04/24 11/05/24 19:07 23:05 03:10 ABG pH 7.17 L* 7.33 L D ABG pCO2 98 H* 77 H* D ABG pO2 92 58 L* D ABG HCO3 36 H 40 H ABG O2 Saturation 97 90 L ABG Base Excess 5 H 12 H VBG pH 7.41 VBG pCO2 54 VBG pO2 77 H VBG Base Excess 8 H 11/05/24 11/06/24 11/06/24 17:00 01:10 08:45 ABG pH 7.31 L 7.37 7.42 ABG pCO2 94 H* D 81 H* D 73 H* ABG pO2 66 L 75 L 69 L ABG HCO3 47 H 47 H 47 H ABG O2 Saturation 91 95 94 ABG Base Excess 17 H 18 H 19 H VBG pH VBG pCO2 VBG pO2 VBG Base Excess 11/06/24 16:00 ABG pH 7.52 H D ABG pCO2 61 H D ABG pO2 189 H D ABG HCO3 49 H ABG O2 Saturation 99 H ABG Base Excess 23 H VBG pH VBG pCO2 VBG pO2 VBG Base Excess Assessment & Plan Additional Assessment & Plan Additional Plan: The patient is a 69-year-old female with significant past medical history of COPD on home oxygen, CAD s/p CABG 20 years ago, tension, hyperlipidemia, hepatocellular disease, restless leg syndrome, history of polysubstance abuse including alcohol, marijuana, tobacco use and amphetamine use presented to ED with chief complaint of worsening of SOB. She denies any fever or chills, chest pain sore throat, phlegm production was found to be on AHRF 2/2 COPD exacerbation. Nephrology consultation was done for further management of moderate hyponatremia and severe hyperkalemia. #Hyperkalemia, resolved Etiology currently unknown ?? partial adrenal insufficiency: Upon further chart review, always has borderline hyperkalemia and borderline hyponatremia DDx: Chronic kidney disease or chronic use of JANA inhibitors or ARB ruled out as the patient does not has CKD and has not been using JANA inhibitors/ARB Presented with potassium of 5.1 Increased up to 6.3 11/07/2024: Potassium level was 3.6, likely in the setting of DuoNeb use with intracellular potassium shift. Was given 20 mEq of IV KCl, as the patient's has cardiac rhythm disorder atrial flutter. -Cortisol level, renin and aldosterone level pending -Monitor potassium level -We will continue to monitor daily potassium level #Mild hypoosmolar hypovolemic hyponatremia Etiology currently unknown Stable at 133 -Treat the underlying cause of COPD exacerbation 11/04/2024: Sodium level 128, started the patient on normal saline maintenance IV fluid 70 cc/h, will monitor renal panel every 4 hourly, and goal level of sodium will be less than 134 in next 24-hour. 11/05/24: Na 132. Discontinued IV NS 70cc/hr, continue to monitor daily Na level. 11/07/2024: Sodium 133, started the patient on half NS in the setting of severe dehydration. #Primary respiratory acidosis fully compensated by metabolic alkalosis ABG done this morning revealed pH 7.52, pCO2 73, bicarb 47 consistent with respiratory acidosis compensated with metabolic alkalosis Will give 1 dose of Diamox. -Continue to treat underlying COPD exacerbation #Hypertension -Continue with current medications as BP is currently stable -Monitor vitals #Acute hypoxic respiratory failure secondary to #COPD exacerbation. #Bibasilar pneumonia. ICU was consulted. #Hx of COPD, on 2L. #A-flutter. #Hx of A-fib. #Hx of CAD s/p CABG (more then 20 years ago). #Hx of hyperlipidemia. #Hx of restless legs syndrome. #Hx of hepatocellular disease. #Hx of polysubstance abuse. Quality - progress note Quality Measures Quality Measures: VTE prophylaxis Reason for Continued Stay Reason for Continued Stay: further monitoring
[2024-11-07] MEDS: ACETAzolaMIDE SOD 500 MG in SODIUM CHLORIDE 0.9% (P) 50 ML 100 MG IV (17:03)
[2024-11-07] MEDS: HYDROcodone/APAP 5/325 TABLET 1 TAB PO (17:52)
[2024-11-07] MEDS: APIXABAN 2.5 MG TABLET 5 MG PO (22:10)
[2024-11-08] VITALS (20 sets, daily range): BP systolic 108–154; BP diastolic 52–76; PULSE 69–787; RESP 13–30; TEMP 36.1–36.8; O2SAT 90–100; BMI 32.2
[2024-11-08] MEDS: IPRATROPIUM RT 0.5 MG/ 2.5 ML NEBU INH ×6 (03:40→22:58)
[2024-11-08] MEDS: LEVALBUTEROL RT 0.63 MG/3 ML NEBU INH ×6 (03:40→22:59)
[2024-11-08 05:55] LABS: Basophils % (Auto) 0 % (0-2.5); Eosinophils % (Auto) 0 % (0-10); Hematocrit 33.4 % (36.0-46.0); Hemoglobin 10.1 g/dL (12.0-16.0); Immature Granulocytes % (Auto) 1 % (0-0); Immature Granulocytes Auto 0.06 Thou/mm3 (0.00-0.00); Lymphocytes # (Auto) 0.2 Thou/mm3 (1.0-4.8); Lymphocytes % (Auto) 2 % (10-50); Mean Corpuscular HGB Conc 30.2 g/dl (31.0-37.0); Mean Corpuscular Hemoglobin 25.3 pg (25.0-35.0); Mean Corpuscular Volume 84 fL (80-100); Monocytes # (Auto) 0.3 Thou/mm3 (0.0-0.8); Monocytes % (Auto) 3 % (0-12); Neutrophils # (Auto) 9.6 Thou/mm3 (1.8-7.7); Neutrophils % (Auto) 94 % (37-80); Nucleated Red Blood Cell # 0.03 Thou/mm3 (0.00-0.00); Nucleated Red Blood Cell % 0 /100 WBC (0); Platelet Count 273 Thou/mm3 (140-440); RDW Standard Deviation 54.8 fL (36.4-46.3); White Blood Count 10.2 Thou/mm3 (3.6-11.0)
--- NOTE | 2024-11-08 06:00 | XR_ITS ---
Examination: Ultrasound right hemithorax. Ultrasound left hemithorax Exam date and time: November 08, 2024 1252 hours INDICATIONS: Shortness of breath this week, pleural fluid on chest x-ray November 07, 2024 with heart failure TECHNIQUE AND FINDINGS: Grayscale sonographic images right and left hemithoraces Small bilateral pleural effusions IMPRESSION: Small bilateral pleural effusions
[2024-11-08] MEDS: BUDESONIDE RT 0.5 MG/2 ML NEBU INH ×2 (06:15→19:57)
[2024-11-08] MEDS: INSULIN LISPRO (AdmeLOG) 1 UNIT/0.01 ML UNIT SC ×3 (07:34→17:14)
[2024-11-08] MEDS: HYDROcodone/APAP 5/325 TABLET 1 TAB PO ×2 (07:37→22:27)
[2024-11-08 08:02] LABS: Alanine Aminotransferase 32 U/L (10-49); Albumin, Serum 3.7 gm/dL (3.4-4.8); Albumin/Globulin Ratio 1.8 (1.2-2.2); Alkaline Phosphatase 139 U/L (46-116); Anion Gap 6 (7-16); Aspartate Amino Transferase 44 U/L (0-34); BUN/Creatinine Ratio 27 Ratio (12-20); Bilirubin,Total 0.4 mg/dL (0.3-1.2); Blood Urea Nitrogen 27 mg/dL (9-23); Calcium 8.7 mg/dL (8.3-10.6); Calcium (Corrected) 8.9 mg/dL (8.5-10.1); Carbon Dioxide > 40.0 mMol/L (20.0-31.0); Chloride 85 mMol/L (98-107); Estimated Creatinine Clearance 51.4 mL/min (>60); Globulin 2.1 gm/dL (2.3-3.5); Glucose 199 mg/dL (74-106); Osmolality,Calculated 273 (275-295); Phosphorous 2.7 mg/dL (2.4-5.1); Potassium 3.7 mMol/L (3.4-5.1); Sodium 131 mMol/L (136-145); Total Protein 5.8 gm/dL (5.7-8.2); eGFR > 60 See Note
--- NOTE | 2024-11-08 08:31 | PD.RESPRO ---
Documentation for date of: 11/08/24 Subjective Subjective Interval history: The patient is a 69-year-old female with significant past medical history of COPD on home oxygen, CAD s/p CABG 20 years ago, tension, hyperlipidemia, hepatocellular disease, restless leg syndrome, history of polysubstance abuse including alcohol, marijuana, tobacco use and amphetamine use presented to ED with chief complaint of worsening of SOB. She denies any fever or chills, chest pain sore throat, phlegm production. She was admitted 1 year ago with similar symptoms and was found to have COPD exacerbation. During our evaluation, her vitals were significant for blood pressure 132/92, 130, RR 22, and saturating 90% on 3 L OxyMask. Labs are significant for white count 11.6, hemoglobin 10.5, with MCV 86. Chemistry panel was significant for sodium 122 worsening from 129 yesterday, potassium 6.3 worsened from 5.1 yesterday bicarb 32.3, creatinine 1.0 blood sugar 205. CXR revealing bibasilar pneumonia with EKG revealing atrial flutter. PMH: As mentioned above PSHx: CABG 20 years ago Social history: History of marijuana, tobacco and methamphetamine use, alcohol quitted 1 year ago Allergies: No known allergies Medications: Albuterol, apixaban, aspirin, diltiazem and omeprazole. Nephrology consultation was done for further management of moderate hyponatremia and severe hyperkalemia. 11/04/2024: Overnight patient was agitated and received IV lorazepam. This morning patient was sleeping comfortably, saturating 94% on 6 L OxiMask. She was comfortably resting on her bed. Her wheezing has improved months. Still tachycardic with irregularly irregular rhythm. White count 12.4, sodium 128, chloride 89, potassium trended down to 4.2, bicarb 34, BUN 26 and creatinine 0.9. Renin activity, aldosterone and total cortisol pending. We changed IV maintenance fluid to normal saline 70 cc/h, and we will continue with monitoring renal panel every 4 hourly. 11/06/2024: The patient was interviewed and examined at the bedside this morning. She was on BiPAP, saturating 93% on FiO2 60% and O2 flow 40 L/min. Her pulse has been in the range of 150s to 160s. Exam was significant for mildly dry mucous membranes, no crackles but mild wheezing over the lung ruiz. Peripheral pitting edema. CBC revealed hemoglobin 10.6, ABG done this morning revealed pH 7.42, pCO2 73, bicarb 47 consistent with respiratory acidosis compensated with metabolic alkalosis. Sodium was 133, potassium 3.6, chloride 84, bicarb greater than 40 and magnesium 2.6. Potassium was repleted with 20 mEq IV KCl. She was also started on half-normal saline maintenance fluids 70 cc/h as she appeared severely dry. 11/08/2024: The patient was interviewed and examined at the bedside this morning. She reported doing a little better today morning. She was on high flow nasal cannula with FiO2 70% saturating 95%. Other vitals were fairly stable. Physical exam revealed crackles or decreased breath sounds over lungs, no edema was noted. CBC fairly at baseline, sodium 131, chloride 85, bicarb greater than 40, BUN 27 and creatinine 1.0, with mild transaminitis AST 44 and ALT 139. We will continue to monitor sodium and potassium level daily. Exam Vital Signs Temp Pulse Resp BP Pulse Ox O2 Del Method O2 Flow Rate 97.4 F 84 16 154/69 H 95 High Flow Nasal Cannula 40 11/08/24 08:00 11/08/24 08:00 11/08/24 08:00 11/08/24 08:00 11/08/24 08:00 11/08/24 08:00 11/08/24 08:00 FiO2 70 11/08/24 08:00 Narrative Exam General: No acute distress, comfortably resting on her bed, on high flow nasal cannula HEENT: Mildly dry mucous membranes, oropharynx clear Neck: Supple, No masses, No JVD CVS: S1S2 Regular rate and rhythm, No murmurs, rubs or gallops Lungs: Clear lung sounds throughout the lung field, no wheezing, no crackles or rhonchi appreciated, saturating 95% on high flow nasal cannula Abd: Soft, NT/ND, +BS, no organomegaly Ext: No edema, warm and well perfused Skin: No rash Psych: Appropriate mood and affect Objective Labs 11/09/24 04:20 11/08/24 04:45 Labs: Laboratory Results - last 24 hr 11/08/24 04:45 WBC 10.2 RBC 4.00 Hgb 10.1 L Hct 33.4 L MCV 84 MCH 25.3 MCHC 30.2 L RDW Std Deviation 54.8 H Plt Count 273 D Neut % (Auto) 94 H Lymph % (Auto) 2 L [place] % (Auto) 3 Eos % (Auto) 0 Baso % (Auto) 0 Neut # (Auto) 9.6 H Lymph # (Auto) 0.2 L [place] # (Auto) 0.3 Eos # (Auto) 0.0 Baso # (Auto) 0.0 Immature Gran # (Auto) 0.06 H Absolute Nucleated RBC 0.03 H Immature Gran % 1 H Nucleated RBC % 0 Sodium 131 L Potassium 3.7 D Chloride 85 L Carbon Dioxide > 40.0 H Anion Gap 6 L BUN 27 H Creatinine 1.0 Estim Creat Clear Calc 51.4 L eGFR > 60 BUN/Creatinine Ratio 27 H Glucose 199 H Calculated Osmolality 273 L Calcium 8.7 Corrected Calcium 8.9 Phosphorus 2.7 Magnesium 2.0 Total Bilirubin 0.4 AST 44 H ALT 32 Alkaline Phosphatase 139 H Total Protein 5.8 Albumin 3.7 Globulin 2.1 L Albumin/Globulin Ratio 1.8 ABG Interpretation ABG results: 11/01/24 11/04/24 11/05/24 19:07 23:05 03:10 ABG pH 7.17 L* 7.33 L D ABG pCO2 98 H* 77 H* D ABG pO2 92 58 L* D ABG HCO3 36 H 40 H ABG O2 Saturation 97 90 L ABG Base Excess 5 H 12 H VBG pH 7.41 VBG pCO2 54 VBG pO2 77 H VBG Base Excess 8 H 11/05/24 11/06/24 11/06/24 17:00 01:10 08:45 ABG pH 7.31 L 7.37 7.42 ABG pCO2 94 H* D 81 H* D 73 H* ABG pO2 66 L 75 L 69 L ABG HCO3 47 H 47 H 47 H ABG O2 Saturation 91 95 94 ABG Base Excess 17 H 18 H 19 H VBG pH VBG pCO2 VBG pO2 VBG Base Excess 11/06/24 16:00 ABG pH 7.52 H D ABG pCO2 61 H D ABG pO2 189 H D ABG HCO3 49 H ABG O2 Saturation 99 H ABG Base Excess 23 H VBG pH VBG pCO2 VBG pO2 VBG Base Excess Quality Measures Quality Measures VTE prophylaxis Advance care planning discussed with:: other Assessment & Plan Assessment Current Active Medications: Generic Name Dose Route Start Last Admin Trade Name Timq PRN Reason Stop Dose Admin Acetaminophen 1,000 mg 11/07/24 17:47 Acetaminophen 500 Mg Tablet PO 12/01/24 17:41 Q6H PRN Pain 1-3 or Fever >100 Hydrocodone Bitart/Acetaminophen 1 tab 11/07/24 17:46 11/08/24 07:37 Hydrocodone/Apap 5/325 Tablet PO 11/12/24 17:45 1 tab Q6HR PRN Administration Pain 4-10 Amiodarone HCl 200 mg 11/07/24 09:00 11/07/24 22:11 Amiodarone Hcl 200 Mg Tablet PO 12/07/24 08:59 200 mg BID ESPERANZA Administration Apixaban 5 mg 11/01/24 21:00 11/07/24 22:10 Apixaban 2.5 Mg Tablet PO 12/01/24 20:59 5 mg BID ESPERANZA Administration Aspirin 81 mg 11/03/24 09:00 11/07/24 09:56 Aspirin Ec 81 Mg Tabec PO 12/03/24 08:59 81 mg QDAY ESPERANZA Administration Atorvastatin Calcium 40 mg 11/02/24 09:00 11/07/24 09:56 Atorvastatin Calcium 20 Mg Tablet PO 12/02/24 08:59 40 mg QDAY ESPERANZA Administration Budesonide 0.5 mg 11/03/24 19:00 11/08/24 06:15 Budesonide Rt 0.5 Mg/2 Ml Nebu INH 12/03/24 18:59 0.5 mg BIDRT ESPERANZA Administration Dextrose 25 ml 11/03/24 16:28 Dextrose 50%-Water Inj 50 Ml Syringe IV 12/03/24 16:27 Q15MIN PRN BG 50-70 responsive npo pt Diltiazem HCl 360 mg 11/08/24 09:00 Diltiazem Cd 120 Mg Capcr PO 12/08/24 08:59 QDAY ESPERANZA Furosemide 40 mg 11/05/24 12:15 11/06/24 08:29 Furosemide Inj 10 Mg/Ml 4ml Vial IVP 12/05/24 12:14 40 mg QDAY ESPERANZA Administration Glucagon 1 mg 11/03/24 16:28 Glucagon Inj 1 Mg Vial IM Q15MIN PRN BG <70, and no IV access Guaifenesin 1 tab 11/07/24 09:45 11/07/24 22:11 Guaifenesin/P-Ephed Tablet PO 12/07/24 09:44 1 tab BID ESPERANZA Administration Guaifenesin/Dextromethorphan 1 each 11/03/24 10:45 11/07/24 10:07 Guaifenesin/Dm Tablet PO 12/03/24 10:44 Not Given BID ESPERANZA Insulin Human Lispro 0 unit 11/03/24 17:00 11/08/24 07:34 Insulin Lispro (Admelog) 1 Unit/0.01 Ml Unit SC 12/03/24 16:59 2 unit AC ESPERANZA Administration Protocol Ipratropium [place] 0.5 mg 11/06/24 15:00 11/08/24 06:15 Ipratropium Rt 0.5 Mg/ 2.5 Ml Nebu INH 12/06/24 14:59 0.5 mg Q4HRRT ESPERANZA Administration Protocol Levalbuterol HCl 0.63 mg 11/03/24 09:49 Levalbuterol Rt 0.63 Mg/3 Ml Nebu INH 12/03/24 09:48 Q6HR PRN WHEEZING Levalbuterol HCl 0.63 mg 11/03/24 11:00 11/08/24 06:15 Levalbuterol Rt 0.63 Mg/3 Ml Nebu INH 12/03/24 10:59 0.63 mg Q4HRRT ESPERANZA Administration Protocol Lorazepam 0.5 mg 11/04/24 00:38 11/06/24 21:14 Lorazepam 2 Mg/Ml Vial IV 11/09/24 00:37 0.5 mg Q2HR PRN Administration CIWA SCORE 8-13 Lorazepam 1 mg 11/04/24 00:38 11/07/24 05:42 Lorazepam 2 Mg/Ml Vial IV 11/09/24 00:37 1 mg Q2HR PRN Administration CIWA SCORE 14-19 Lorazepam 2 mg 11/04/24 00:38 Lorazepam 2 Mg/Ml Vial IV 11/09/24 00:37 Q2HR PRN CIWA SCORE 20-25 Lorazepam 2 mg 11/04/24 00:38 Lorazepam 2 Mg/Ml Vial IVP X1 PRN Breakthrough Agitation Methylprednisolone Sodium Succinate 40 mg 11/04/24 21:00 11/07/24 22:12 Methylprednisolone Sod Succ 40 Mg Vial IVP 11/11/24 20:59 40 mg Q12HR ESPERANZA Administration Nicotine 21 mg 11/02/24 14:00 11/07/24 09:58 Nicotine Patch 21 Mg/24 Hr Patch.Td24 TOP 12/02/24 13:59 21 mg QDAY ESPERANZA Administration Ondansetron HCl 4 mg 11/01/24 17:42 Ondansetron Inj 2 Mg/Ml Inj 2 Ml IV 12/01/24 17:41 Q6H PRN NAUSEA OR VOMITING Protocol Pantoprazole Sodium 40 mg 11/02/24 13:45 11/07/24 09:59 Pantoprazole Inj 40 Mg Vial IV 12/02/24 13:44 40 mg QDAY ESPERANZA Administration Promethazine HCl/Dextromethorphan 5 ml 11/07/24 09:44 Promethazine/Dm Syrup 5 Ml Dose PO 12/07/24 09:43 Q4HR PRN COUGH Protocol Ropinirole HCl 0.25 mg 11/02/24 09:00 11/07/24 09:56 Ropinirole Hcl 0.25 Mg Tablet PO 12/02/24 08:59 0.25 mg QDAY ESPERANZA Administration Sodium Chloride 3 ml 11/01/24 10:06 11/01/24 14:22 Sodium Chloride Rt Nayla 0.9% 3 Ml Nebu INH 12/01/24 10:05 3 ml PRN PRN Administration SOLN Thiamine HCl 100 mg 11/03/24 10:00 11/07/24 22:11 Thiamine 100 Mg Tablet PO 11/08/24 09:59 100 mg BID ESPERANZA Administration Vitamin B Complex/Vit C/Folic Acid 1 tab 11/08/24 09:00 Vit B12/Vit C/Fa (Nephrovite) Tablet PO 12/08/24 08:59 QDAY ESPERANZA Plan The patient is a 69-year-old female with significant past medical history of COPD on home oxygen, CAD s/p CABG 20 years ago, tension, hyperlipidemia, hepatocellular disease, restless leg syndrome, history of polysubstance abuse including alcohol, marijuana, tobacco use and amphetamine use presented to ED with chief complaint of worsening of SOB. She denies any fever or chills, chest pain sore throat, phlegm production was found to be on AHRF 2/2 COPD exacerbation. Nephrology consultation was done for further management of moderate hyponatremia and severe hyperkalemia. #Hyperkalemia, resolved Etiology currently unknown ?? partial adrenal insufficiency: Upon further chart review, always has borderline hyperkalemia and borderline hyponatremia DDx: Chronic kidney disease or chronic use of JANA inhibitors or ARB ruled out as the patient does not has CKD and has not been using JANA inhibitors/ARB Presented with potassium of 5.1 Increased up to 6.3 11/06/2024: Potassium level was 3.6, likely in the setting of DuoNeb use with intracellular potassium shift. Was given 20 mEq of IV KCl, as the patient's has cardiac rhythm disorder atrial flutter. 11/07/2024: Potassium level 3.7, was repleted with 40 mEq p.o. KCl in the setting of a flutter to keep level greater than 4.0 -Cortisol level, renin and aldosterone level pending -Monitor potassium level -We will continue to monitor daily potassium level #Mild hypoosmolar hypovolemic hyponatremia Etiology currently unknown Stable at 131 -Treat the underlying cause of COPD exacerbation 11/04/2024: Sodium level 128, started the patient on normal saline maintenance IV fluid 70 cc/h, will monitor renal panel every 4 hourly, and goal level of sodium will be less than 134 in next 24-hour. 11/05/24: Na 132. Discontinued IV NS 70cc/hr, continue to monitor daily Na level. 11/06/2024: Sodium 133, started the patient on half NS in the setting of severe dehydration. 11/08/2024: Sodium 131, we will continue to monitor sodium level daily in the a.m. #Primary respiratory acidosis fully compensated by metabolic alkalosis ABG done this on 11/06/2024 revealed pH 7.42, pCO2 73, bicarb 47 consistent with respiratory acidosis compensated with metabolic alkalosis -Continue to treat underlying COPD exacerbation #Hypertension -Continue with current medications as BP is currently stable -Monitor vitals #Acute hypoxic respiratory failure secondary to #COPD exacerbation. #Bibasilar pneumonia. ICU was consulted. #Hx of COPD, on 2L. #A-flutter. #Hx of A-fib. #Hx of CAD s/p CABG (more then 20 years ago). #Hx of hyperlipidemia. #Hx of restless legs syndrome. #Hx of hepatocellular disease. #Hx of polysubstance abuse. Thank you for your opportunity to participate nephrology team in this patient care. The patient's management plan was discussed with my attending physician MD Randal Camargo MD, PGY2 Attending Provider Attestation/Addendum Patient seen and examined with resident physician Dr. Ferrari. Note reviewed, agree with findings and recommendations. Hyperkalemia-unclear etiology. No medications which can cause hyperkalemia. Patient does admit to eating avocados but currently in hospital setting. Question partial adrenal insufficiency. Renin, aldosterone, cortisol levels are pending. Blood pressure seems to be acceptable. With medical management potassium seems to be better. Discontinued Veltassa. Hyponatremia-most likely hypovolemia now. Continue with normal saline. Sodium 133. Patient in aflutter with RVR-on Cardizem, amiodarone. Cardiology on the case. Patient with severe metabolic alkalosis as a compensation for respiratory acidosis. pH 7.52. Gave 1 dose of Diamox yesterday. Severe COPD exacerbation-on high flow.
[2024-11-08] MEDS: APIXABAN 2.5 MG TABLET 5 MG PO ×2 (09:41→20:38)
[2024-11-08] MEDS: ATORVASTATIN CALCIUM 20 MG TABLET 40 MG PO (09:41)
[2024-11-08] MEDS: guaiFENesin/P-EPHED TABLET 1 TAB PO (09:41)
[2024-11-08] MEDS: rOPINIRole HCL 0.25 MG TABLET PO (09:41)
[2024-11-08] MEDS: ASPIRIN EC 81 MG TABEC PO (09:41)
[2024-11-08] MEDS: THIAMINE 100 MG TABLET PO (09:41)
[2024-11-08] MEDS: VIT B12/Vit C/FA (Nephrovite) TABLET 1 TAB PO (09:42)
[2024-11-08] MEDS: AMIODARONE HCL 200 MG TABLET PO ×2 (09:42→20:38)
[2024-11-08] MEDS: NICOTINE PATCH 21 MG/24 HR PATCH.TD24 TOP (09:42)
[2024-11-08] MEDS: PANTOPRAZOLE INJ 40 MG VIAL IV (09:42)
[2024-11-08] MEDS: DILTIAZEM CD 120 MG CAPCR 360 MG PO (09:45)
[2024-11-08] MEDS: POTASSIUM CHLORIDE 10% 20 MEQ/15 ML UDC 40 MEQ PO (09:45)
--- NOTE | 2024-11-08 10:05 | ESPR_ITS ---
Documentation for date of: 11/08/24 Subjective Subjective Interval history: 11/08: no acute overnight events reported. Pt is seen and examined at bedside this morning. telemetry review and Pt is in normal sinus rhythm. Pt is saturating on 40L oxygen with FiO2 70% on high flow. Pt endorses to feeling much better, she is able to eat some breakfast and snack on things that her daughter brought from home. Pt denies chest pain, pressure and palpitation. ABG today showed PH 7.32, CO279, O2 82 HCO3 41. (respiratory acidosis with metabolic compensation). Pt sodium improved to 131, potassium is 3.7 and magnesium is 2.0. Pt is on amio 200mg BID and cardizam 360mg qday. Pt has no complaints. Exam Vital Signs Temp Pulse Resp BP Pulse Ox O2 Del Method O2 Flow Rate 97.4 F 70 16 143/70 H 95 High Flow Nasal Cannula 40 11/08/24 08:00 11/08/24 09:45 11/08/24 08:00 11/08/24 09:45 11/08/24 08:00 11/08/24 08:00 11/08/24 08:00 FiO2 70 11/08/24 08:00 Narrative Exam GENERAL: A&Ox3, awake, holds conversation saturating on high flow 40L [id number] NEURO: no focal neurological deficits HEENT: Atraumatic, Normocephalic. mucous membranes moist. Eyes open, symmetrical, & clear HEART: Normal Heart Sounds LUNGS: faint expiratory Wheezing in upper lung ruiz bilaterally. ABDOMEN: soft, non-distended, non-tender, bowel sounds heard, no guarding or rebound tenderness SKIN: No Rash or ecchymoses EXTREMITIES: No edema, tenderness, able to move all 4 extremities, pedal pulses palpated Objective Labs 11/08/24 04:45 11/08/24 04:45 Labs: Laboratory Results - last 24 hr 11/08/24 04:45 WBC 10.2 RBC 4.00 Hgb 10.1 L Hct 33.4 L MCV 84 MCH 25.3 MCHC 30.2 L RDW Std Deviation 54.8 H Plt Count 273 D Neut % (Auto) 94 H Lymph % (Auto) 2 L Anderson % (Auto) 3 Eos % (Auto) 0 Baso % (Auto) 0 Neut # (Auto) 9.6 H Lymph # (Auto) 0.2 L Anderson # (Auto) 0.3 Eos # (Auto) 0.0 Baso # (Auto) 0.0 Immature Gran # (Auto) 0.06 H Absolute Nucleated RBC 0.03 H Immature Gran % 1 H Nucleated RBC % 0 Sodium 131 L Potassium 3.7 D Chloride 85 L Carbon Dioxide > 40.0 H Anion Gap 6 L BUN 27 H Creatinine 1.0 Estim Creat Clear Calc 51.4 L eGFR > 60 BUN/Creatinine Ratio 27 H Glucose 199 H Calculated Osmolality 273 L Calcium 8.7 Corrected Calcium 8.9 Phosphorus 2.7 Magnesium 2.0 Total Bilirubin 0.4 AST 44 H ALT 32 Alkaline Phosphatase 139 H Total Protein 5.8 Albumin 3.7 Globulin 2.1 L Albumin/Globulin Ratio 1.8 ABG Interpretation ABG results: 11/01/24 11/04/24 11/05/24 19:07 23:05 03:10 ABG pH 7.17 L* 7.33 L D ABG pCO2 98 H* 77 H* D ABG pO2 92 58 L* D ABG HCO3 36 H 40 H ABG O2 Saturation 97 90 L ABG Base Excess 5 H 12 H VBG pH 7.41 VBG pCO2 54 VBG pO2 77 H VBG Base Excess 8 H 11/05/24 11/06/24 11/06/24 17:00 01:10 08:45 ABG pH 7.31 L 7.37 7.42 ABG pCO2 94 H* D 81 H* D 73 H* ABG pO2 66 L 75 L 69 L ABG HCO3 47 H 47 H 47 H ABG O2 Saturation 91 95 94 ABG Base Excess 17 H 18 H 19 H VBG pH VBG pCO2 VBG pO2 VBG Base Excess 11/06/24 16:00 ABG pH 7.52 H D ABG pCO2 61 H D ABG pO2 189 H D ABG HCO3 49 H ABG O2 Saturation 99 H ABG Base Excess 23 H VBG pH VBG pCO2 VBG pO2 VBG Base Excess Quality Measures Quality Measures VTE prophylaxis Advance care planning discussed with:: patient and child Assessment & Plan Assessment Current Active Medications: Generic Name Dose Route Start Last Admin Trade Name Freq PRN Reason Stop Dose Admin Acetaminophen 1,000 mg 11/07/24 17:47 Acetaminophen 500 Mg Tablet PO 12/01/24 17:41 Q6H PRN Pain 1-3 or Fever >100 Hydrocodone Bitart/Acetaminophen 1 tab 11/07/24 17:46 11/08/24 07:37 Hydrocodone/Apap 5/325 Tablet PO 11/12/24 17:45 1 tab Q6HR PRN Administration Pain 4-10 Amiodarone HCl 200 mg 11/07/24 09:00 11/08/24 09:42 Amiodarone Hcl 200 Mg Tablet PO 12/07/24 08:59 200 mg BID ESPERANZA Administration Apixaban 5 mg 11/01/24 21:00 11/08/24 09:41 Apixaban 2.5 Mg Tablet PO 12/01/24 20:59 5 mg BID ESPERANZA Administration Aspirin 81 mg 11/03/24 09:00 11/08/24 09:41 Aspirin Ec 81 Mg Tabec PO 12/03/24 08:59 81 mg QDAY ESPERANZA Administration Atorvastatin Calcium 40 mg 11/02/24 09:00 11/08/24 09:41 Atorvastatin Calcium 20 Mg Tablet PO 12/02/24 08:59 40 mg QDAY ESPERANZA Administration Budesonide 0.5 mg 11/03/24 19:00 11/08/24 06:15 Budesonide Rt 0.5 Mg/2 Ml Nebu INH 12/03/24 18:59 0.5 mg BIDRT ESPERANZA Administration Dextrose 25 ml 11/03/24 16:28 Dextrose 50%-Water Inj 50 Ml Syringe IV 12/03/24 16:27 Q15MIN PRN BG 50-70 responsive npo pt Diltiazem HCl 360 mg 11/08/24 09:00 11/08/24 09:45 Diltiazem Cd 120 Mg Capcr PO 12/08/24 08:59 360 mg QDAY ESPERANZA Administration Furosemide 40 mg 11/05/24 12:15 11/06/24 08:29 Furosemide Inj 10 Mg/Ml 4ml Vial IVP 12/05/24 12:14 40 mg QDAY ESPERANZA Administration Glucagon 1 mg 11/03/24 16:28 Glucagon Inj 1 Mg Vial IM Q15MIN PRN BG <70, and no IV access Guaifenesin 1 tab 11/07/24 09:45 11/08/24 09:41 Guaifenesin/P-Ephed Tablet PO 12/07/24 09:44 1 tab BID ESPERANZA Administration Guaifenesin/Dextromethorphan 1 each 11/03/24 10:45 11/07/24 10:07 Guaifenesin/Dm Tablet PO 12/03/24 10:44 Not Given BID ESPERANZA Insulin Human Lispro 0 unit 11/03/24 17:00 11/08/24 07:34 Insulin Lispro (Admelog) 1 Unit/0.01 Ml Unit SC 12/03/24 16:59 2 unit AC ESPERANZA Administration Protocol Ipratropium [place] 0.5 mg 11/06/24 15:00 11/08/24 06:15 Ipratropium Rt 0.5 Mg/ 2.5 Ml Nebu INH 12/06/24 14:59 0.5 mg Q4HRRT ESPERANZA Administration Protocol Levalbuterol HCl 0.63 mg 11/03/24 09:49 Levalbuterol Rt 0.63 Mg/3 Ml Nebu INH 12/03/24 09:48 Q6HR PRN WHEEZING Levalbuterol HCl 0.63 mg 11/03/24 11:00 11/08/24 06:15 Levalbuterol Rt 0.63 Mg/3 Ml Nebu INH 12/03/24 10:59 0.63 mg Q4HRRT ESPERANZA Administration Protocol Lorazepam 0.5 mg 11/04/24 00:38 11/06/24 21:14 Lorazepam 2 Mg/Ml Vial IV 11/09/24 00:37 0.5 mg Q2HR PRN Administration CIWA SCORE 8-13 Lorazepam 1 mg 11/04/24 00:38 11/07/24 05:42 Lorazepam 2 Mg/Ml Vial IV 11/09/24 00:37 1 mg Q2HR PRN Administration CIWA SCORE 14-19 Lorazepam 2 mg 11/04/24 00:38 Lorazepam 2 Mg/Ml Vial IV 11/09/24 00:37 Q2HR PRN CIWA SCORE 20-25 Lorazepam 2 mg 11/04/24 00:38 Lorazepam 2 Mg/Ml Vial IVP X1 PRN Breakthrough Agitation Methylprednisolone Sodium Succinate 40 mg 11/04/24 21:00 11/08/24 09:42 Methylprednisolone Sod Succ 40 Mg Vial IVP 11/11/24 20:59 40 mg Q12HR ESPERANZA Administration Nicotine 21 mg 11/02/24 14:00 11/08/24 09:42 Nicotine Patch 21 Mg/24 Hr Patch.Td24 TOP 12/02/24 13:59 21 mg QDAY ESPERANZA Administration Ondansetron HCl 4 mg 11/01/24 17:42 Ondansetron Inj 2 Mg/Ml Inj 2 Ml IV 12/01/24 17:41 Q6H PRN NAUSEA OR VOMITING Protocol Pantoprazole Sodium 40 mg 11/02/24 13:45 11/08/24 09:42 Pantoprazole Inj 40 Mg Vial IV 12/02/24 13:44 40 mg QDAY ESPERANZA Administration Promethazine HCl/Dextromethorphan 5 ml 11/07/24 09:44 Promethazine/Dm Syrup 5 Ml Dose PO 12/07/24 09:43 Q4HR PRN COUGH Protocol Ropinirole HCl 0.25 mg 11/02/24 09:00 11/08/24 09:41 Ropinirole Hcl 0.25 Mg Tablet PO 12/02/24 08:59 0.25 mg QDAY ESPERANZA Administration Sodium Chloride 3 ml 11/01/24 10:06 11/01/24 14:22 Sodium Chloride Rt Nayla 0.9% 3 Ml Nebu INH 12/01/24 10:05 3 ml PRN PRN Administration SOLN Vitamin B Complex/Vit C/Folic Acid 1 tab 11/08/24 09:00 11/08/24 09:42 Vit B12/Vit C/Fa (Nephrovite) Tablet PO 12/08/24 08:59 1 tab QDAY ESPERANZA Administration Plan Ms. 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 #AHRF in the setting of #COPD exacerbation #Pneumonia -Patient has a history of COPD in the setting of chronic smoking history. Patient uses 2 L of oxygen at home which she states she is not always compliant with. Chest x-ray showed bibasilar pneumonia and patient has bilateral wheezing on auscultation. -Per primary hospitalist team patient is on scheduled breathing treatments as well as daily steroids. -IV antibiotics started with azithromycin and ceftriaxone - ICU team is consulted, as pt may require intubation. Pt's daughter is at bedside and agrees with the plans. # A flutter/A-fib with RVR -CHADVASC- 4 HASBLED- 1 -Since admission patient has been in a flutter with RVR initially was rate controlled patient was placed on diltiazem drip plus digoxin and transition to p.o. diltiazem 360 Mg daily however patient was unable to to be in rate control as today in the afternoon patient's heart rate was in the 140s to 150s again IV diltiazem 20 Mg x 1 was given once. For anticoagulation patient is on Eliquis -Pt remained in afib/flutter st. was started on amio drip -Keep potassium above 4 and magnesium above 2 at all times -Echocardiogram completed on 11/04/2024 with showed normal LV size, low normal LV function LVEF 45 to 50%. Diastolic dysfunction present but could not grade due to atrial flutter with RVR. RV systolic function mildly decreased. Estimated RVSP 55 mmHg with at least moderate PAH. Trace to mild MR. Moderate TR. Mild biatrial dilatation along with dilated IVC noted. -No blockers for rate control because of the severe COPD. - Pt will require BiPAP at night upon discharge home. -Pts amio and cardizem drips are finished Pts amio and cardizem drips are finished and pt is transitioned to oral amio 200mg BID, eliquis 5mg BID, and cardizem 360mg once daily. #Hyperkalemia- resolved -today patient's potassium was 6.3 patient was started on IV insulin with D50, patient was also given Kayexalate plus Veltassa and repeat potassium was 4.7 # History of CAD status post CABG approximately 20 years ago as well as patient has history of hyperlipidemia patient is continued on aspirin as well as atorvastatin. - No blockers for rate control because of the severe COPD. # Primary hypertension-on admission patient blood pressure 163/110 however patient was placed on diltiazem drip therefore antihypertensive therapy was held. Today blood pressure is 141/95 We will continue to hold antihypertensive therapy as patient requires diltiazem. Will consider antihypertensive therapy when patient a flutter with RVR is under control # Patient has history of restless leg syndrome-patient complained of an inability to sleep due to the restless leg syndrome although home ropinirole is resumed by the primary team Assessment and plan discussed with my attending physician Dr. Liana Collins (PGY-1)- Internal medicine resident Attending Provider Attestation/Addendum I have personally seen and examined the patient separately on the above date of service and discussed the plan of care with the resident. I reviewed the resident Dr. Torin Collins consultation progress note and agree with the resident findings and plan in the note above and have also edited the documentation to reflect my findings and plan. Patient continues to improve slowly every day. Patient breathing is much better and the is not using any accessory muscles. VBG this morning showed pH of 7.32 and pCO2 of 79, PaO2 of 82 and bicarb 41 the saturations of 55%. Patient still continues to be on high flow oxygen with an FiO2 of 70% at 15 L oxygen during my examination. Recommend to continue to use BiPAP at night every day for 8 PM to 6 AM on 9 PM to [address] the patient on aggressive COPD regimen. Telemetry reviewed and patient continues to be in sinus rhythm at the present point of time and rate is well-controlled. Patient to be continued on amiodarone 200 mg twice daily and Cardizem CD3 160 mg once daily. Keep potassium greater than 4 and magnesium greater than 2.0 at all times. Kidney function appears stable with a BUN of 27 and creatinine of 1.0. Encourage patient to eat well and also to ambulate with physical therapy. Patient will need possible rehab placement eventually at the time of discharge. Rex Gaines M.D. Interventional Cardiology
[2024-11-08 11:10] LABS: Base Excess 12 (-3-3); HCO3 41 mEq/L (20-26); Inspired Oxygen, FIO2 100 %; O2 Saturation 96 % (91-98); PCO2 79 mmHg (32.0-48.0); PO2 82 mmHg (83-108); pH, Arterial 7.32 (7.35-7.45)
[2024-11-08 11:12] LABS: Allen Test Performed/OK; Puncture Site Right Radial
[2024-11-08] MEDS: POTASSIUM CHLORIDE 20 mEq TABCR 40 MEQ PO (11:19)
[2024-11-08] MEDS: ACETAzolaMIDE SOD 500 MG in SODIUM CHLORIDE 0.9% (P) 50 ML 100 MG IV (11:19)
--- NOTE | 2024-11-08 11:39 | PC.SS ---
Walkers The diagnosis creates mobility limitation that significantly impairs ability to participate in the patients activities of daily living either in their entirety, or in a reasonable time frame. Also the patient is able to safely use the walker and the patient?s mobility is sufficiently resolved with the use of the walker and cane has been ruled out.
[2024-11-08] MEDS: BusPIRone HCL 5 MG TABLET PO ×2 (14:07→20:40)
[2024-11-08] MEDS: ALPRazoLAM 0.25 MG TABLET PO (14:07)
--- NOTE | 2024-11-08 14:30 | PC.SS ---
Addendum entered by Marsha Workman 11/08/24 14:46: Madeline booked, pending delivery of DME Original Note: DME referral fro Fiordaliza powell submitted via [employer], pending responses
--- NOTE | 2024-11-08 14:31 | PC.SS ---
Rounding: Pending rico
--- NOTE | 2024-11-08 14:44 | PD.RESPRO ---
Documentation for date of: 11/08/24 Subjective Subjective Interval history: Patient seen at bedside. No acute overnight events. She has been transitioned from BIPAP to high flow nasal cannula HS nightly. Today at bedside patient is AOx4, stable on HFNC, FiO2 and flow adjusted to titrate down from HFNC -> NC Follow up ABG this morning showed pH of 7.32 and pCO2 of 79, will follow up with 3 hours of BiPAP and re-evaluate VBG Heart rate was in the 70s at this time, sinus rhythm on tele, with intermittent PACs. Cardiology following. Per recommendations, the patient transitioned to PO amiodarone and diltiazem US thoracentesis ordered for b/l pleural effusions, not amenable to drainage at this time. PT evaluation pending once stable on NC or Oxymask. Nurse requested to move patient to chair. Exam Vital Signs Temp Pulse Resp BP Pulse Ox O2 Del Method O2 Flow Rate 98.2 F 84 24 H 145/76 H 100 High Flow Nasal Cannula 15 11/08/24 12:00 11/08/24 14:42 11/08/24 14:42 11/08/24 12:00 11/08/24 14:42 11/08/24 12:00 11/08/24 12:00 FiO2 60 11/08/24 14:42 Narrative Exam Constitutional Alert, oriented x4 , obese, and on HFNC FiO2 100 and flow 40 HEENT Vision grossly intact. Patent nares. Trachea midline. Respiratory Chest normal on inspection and soft wheezes on auscultation bilaterally. Cardiovascular S1 and S2 audible, RRR. No murmurs or carotid bruit. No gross JVD. Abdominal Soft and non tender to palpation in all quadrants. BS + Genitourinary No bladder tenderness, no flank pain. Normal to palpation. Musculoskeletal Extremities tone within normal limits. 1+ LE edema up to mid shins. Mild tremors B/L UE Neurological CN II - XII grossly intact. Extremity motor and sensation grossly intact. Skin Warm, dry and intact. No apparent lesions. Psychiatric Patient has a good affect, is cooperative. Objective Labs 11/09/24 04:20 11/09/24 04:20 Labs: Laboratory Results - last 24 hr 11/08/24 11/08/24 04:45 11:03 WBC 10.2 RBC 4.00 Hgb 10.1 L Hct 33.4 L MCV 84 MCH 25.3 MCHC 30.2 L RDW Std Deviation 54.8 H Plt Count 273 D Neut % (Auto) 94 H Lymph % (Auto) 2 L [place] % (Auto) 3 Eos % (Auto) 0 Baso % (Auto) 0 Neut # (Auto) 9.6 H Lymph # (Auto) 0.2 L [place] # (Auto) 0.3 Eos # (Auto) 0.0 Baso # (Auto) 0.0 Immature Gran # (Auto) 0.06 H Absolute Nucleated RBC 0.03 H Immature Gran % 1 H Nucleated RBC % 0 Puncture Site Right Radial ABG pH 7.32 L D ABG pCO2 79 H* D ABG pO2 82 L D ABG HCO3 41 H ABG O2 Saturation 96 ABG Base Excess 12 H FiO2 100 Sodium 131 L Potassium 3.7 D Chloride 85 L Carbon Dioxide > 40.0 H Anion Gap 6 L BUN 27 H Creatinine 1.0 Estim Creat Clear Calc 51.4 L eGFR > 60 BUN/Creatinine Ratio 27 H Glucose 199 H Calculated Osmolality 273 L Calcium 8.7 Corrected Calcium 8.9 Phosphorus 2.7 Magnesium 2.0 Total Bilirubin 0.4 AST 44 H ALT 32 Alkaline Phosphatase 139 H Total Protein 5.8 Albumin 3.7 Globulin 2.1 L Albumin/Globulin Ratio 1.8 ABG Interpretation ABG results: 11/01/24 11/04/24 11/05/24 19:07 23:05 03:10 ABG pH 7.17 L* 7.33 L D ABG pCO2 98 H* 77 H* D ABG pO2 92 58 L* D ABG HCO3 36 H 40 H ABG O2 Saturation 97 90 L ABG Base Excess 5 H 12 H VBG pH 7.41 VBG pCO2 54 VBG pO2 77 H VBG Base Excess 8 H 11/05/24 11/06/24 11/06/24 17:00 01:10 08:45 ABG pH 7.31 L 7.37 7.42 ABG pCO2 94 H* D 81 H* D 73 H* ABG pO2 66 L 75 L 69 L ABG HCO3 47 H 47 H 47 H ABG O2 Saturation 91 95 94 ABG Base Excess 17 H 18 H 19 H VBG pH VBG pCO2 VBG pO2 VBG Base Excess 11/06/24 11/08/24 16:00 11:03 ABG pH 7.52 H D 7.32 L D ABG pCO2 61 H D 79 H* D ABG pO2 189 H D 82 L D ABG HCO3 49 H 41 H ABG O2 Saturation 99 H 96 ABG Base Excess 23 H 12 H VBG pH VBG pCO2 VBG pO2 VBG Base Excess Quality Measures Quality Measures VTE prophylaxis Advance care planning discussed with:: patient and child Assessment & Plan Assessment Current Active Medications: Generic Name Dose Route Start Last Admin Trade Name Freq PRN Reason Stop Dose Admin Acetaminophen 1,000 mg 11/07/24 17:47 Acetaminophen 500 Mg Tablet PO 12/01/24 17:41 Q6H PRN Pain 1-3 or Fever >100 Hydrocodone Bitart/Acetaminophen 1 tab 11/07/24 17:46 11/08/24 07:37 Hydrocodone/Apap 5/325 Tablet PO 11/12/24 17:45 1 tab Q6HR PRN Administration Pain 4-10 Amiodarone HCl 200 mg 11/07/24 09:00 11/08/24 09:42 Amiodarone Hcl 200 Mg Tablet PO 12/07/24 08:59 200 mg BID ESPERANZA Administration Apixaban 5 mg 11/01/24 21:00 11/08/24 09:41 Apixaban 2.5 Mg Tablet PO 12/01/24 20:59 5 mg BID ESPERANZA Administration Aspirin 81 mg 11/03/24 09:00 11/08/24 09:41 Aspirin Ec 81 Mg Tabec PO 12/03/24 08:59 81 mg QDAY ESPERANZA Administration Atorvastatin Calcium 40 mg 11/02/24 09:00 11/08/24 09:41 Atorvastatin Calcium 20 Mg Tablet PO 12/02/24 08:59 40 mg QDAY ESPERANZA Administration Budesonide 0.5 mg 11/03/24 19:00 11/08/24 06:15 Budesonide Rt 0.5 Mg/2 Ml Nebu INH 12/03/24 18:59 0.5 mg BIDRT ESPERANZA Administration Buspirone HCl 5 mg 11/08/24 14:00 11/08/24 14:07 Buspirone Hcl 5 Mg Tablet PO 12/08/24 13:59 5 mg BID ESPERANZA Administration Dextrose 25 ml 11/03/24 16:28 Dextrose 50%-Water Inj 50 Ml Syringe IV 12/03/24 16:27 Q15MIN PRN BG 50-70 responsive npo pt Diltiazem HCl 360 mg 11/08/24 09:00 11/08/24 09:45 Diltiazem Cd 120 Mg Capcr PO 12/08/24 08:59 360 mg QDAY ESPERANZA Administration Furosemide 40 mg 11/05/24 12:15 11/06/24 08:29 Furosemide Inj 10 Mg/Ml 4ml Vial IVP 12/05/24 12:14 40 mg QDAY ESPERANZA Administration Glucagon 1 mg 11/03/24 16:28 Glucagon Inj 1 Mg Vial IM Q15MIN PRN BG <70, and no IV access Guaifenesin/Dextromethorphan 1 each 11/03/24 10:45 11/07/24 10:07 Guaifenesin/Dm Tablet PO 12/03/24 10:44 Not Given BID COUNT INCLUDES THE [facility] Insulin Human Lispro 0 unit 11/03/24 17:00 11/08/24 12:04 Insulin Lispro (Admelog) 1 Unit/0.01 Ml Unit SC 12/03/24 16:59 1 unit AC ESPERANZA Administration Protocol Ipratropium [place] 0.5 mg 11/06/24 15:00 11/08/24 14:39 Ipratropium Rt 0.5 Mg/ 2.5 Ml Nebu INH 12/06/24 14:59 0.5 mg Q4HRRT ESPERANZA Administration Protocol Levalbuterol HCl 0.63 mg 11/03/24 09:49 Levalbuterol Rt 0.63 Mg/3 Ml Nebu INH 12/03/24 09:48 Q6HR PRN WHEEZING Levalbuterol HCl 0.63 mg 11/03/24 11:00 11/08/24 14:40 Levalbuterol Rt 0.63 Mg/3 Ml Nebu INH 12/03/24 10:59 0.63 mg Q4HRRT ESPERANZA Administration Protocol Lorazepam 0.5 mg 11/08/24 13:56 Lorazepam 2 Mg/Ml Vial IV 11/09/24 00:37 Q2HR PRN CIWA SCORE 5-9 Lorazepam 1 mg 11/08/24 13:56 Lorazepam 2 Mg/Ml Vial IV 11/09/24 00:37 Q2HR PRN CIWA SCORE 10-15 Lorazepam 2 mg 11/08/24 13:56 Lorazepam 2 Mg/Ml Vial IV 11/09/24 00:37 Q2HR PRN CIWA SCORE 16-20 Lorazepam 2 mg 11/08/24 13:56 Lorazepam 2 Mg/Ml Vial IVP X1 PRN Breakthrough Agitation,CIWA>20 Methylprednisolone Sodium Succinate 40 mg 11/09/24 09:00 Methylprednisolone Sod Succ 40 Mg Vial IVP 11/16/24 08:59 DAILY ESPERANZA Nicotine 21 mg 11/02/24 14:00 11/08/24 09:42 Nicotine Patch 21 Mg/24 Hr Patch.Td24 TOP 12/02/24 13:59 21 mg QDAY ESPERANZA Administration Ondansetron HCl 4 mg 11/01/24 17:42 Ondansetron Inj 2 Mg/Ml Inj 2 Ml IV 12/01/24 17:41 Q6H PRN NAUSEA OR VOMITING Protocol Pantoprazole Sodium 40 mg 11/02/24 13:45 11/08/24 09:42 Pantoprazole Inj 40 Mg Vial IV 12/02/24 13:44 40 mg QDAY ESPERANZA Administration Promethazine HCl/Dextromethorphan 5 ml 11/07/24 09:44 Promethazine/Dm Syrup 5 Ml Dose PO 12/07/24 09:43 Q4HR PRN COUGH Protocol Ropinirole HCl 0.25 mg 11/02/24 09:00 11/08/24 09:41 Ropinirole Hcl 0.25 Mg Tablet PO 12/02/24 08:59 0.25 mg QDAY ESPERANZA Administration Sodium Chloride 3 ml 11/01/24 10:06 11/01/24 14:22 Sodium Chloride Rt Nayla 0.9% 3 Ml Nebu INH 12/01/24 10:05 3 ml PRN PRN Administration SOLN Vitamin B Complex/Vit C/Folic Acid 1 tab 11/08/24 09:00 11/08/24 09:42 Vit B12/Vit C/Fa (Nephrovite) Tablet PO 12/08/24 08:59 1 tab QDAY ESPERANZA Administration Plan Ms. 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 Acute hypoxic respiratory failure COPD exacerbation Bi-Basilar Pneumonia Obesity hypoventilation Bilateral pleural effusions -Patient has a history of COPD in the setting of chronic smoking history. Patient uses 2 L of oxygen at home which she states she is not always compliant with. Chest x-ray showed bibasilar pneumonia and patient has bilateral wheezing on auscultation. -Per primary hospitalist team patient is on scheduled breathing treatments as well as daily steroids. - IV Azithromycin (11/01 - 11/04) + Ceftriaxone (11/01 - 11/08) - 11/07 : Acetazolamide IV x1 for alkalosis - 11/08 : HFNC FiO2 100 and flow 40 - ABG : pH 7.32 and pCO2 79 --> 3 hours of BiPAP --> VBG : pH 7.36 and pCO2 76 - US thoracentesis : effusions not amenable to drainage Plan: - ICU team consulted, monitoring closely in case need for intubation. - Stable on HFNC during the day, FiO2 and flow adjusted to titrate down from HFNC -> NC - BIPAP x 3 hours today, follow up VBG - Continue BiPAP HS only Atrial flutter A-fib with RVR - EKG : A flutter with RVR , received IV diltiazem 20 Mg x 1 in the ED for HR 140-150s - CHADVASC = 4 HASBLED = 1 - 11/01 : On admission, initially on diltiazem drip plus digoxin -> transition to p.o. diltiazem 360 Mg daily was given once. For anticoagulation: Eliquis. - Cardiology was consulted and recommendations appreciated - 11/04 ECHO: normal LV size, low normal LV function LVEF 45 to 50%. Diastolic dysfunction present but could not grade due to atrial flutter with RVR. RV systolic function mildly decreased. Estimated RVSP 55 mmHg with at least moderate PAH. Trace to mild MR. Moderate TR. Mild biatrial dilatation along with dilated IVC noted. - 11/06 : Started on Amio gtt given persistent AFib HR 120s. Continue PO Diltiazem. No beta blockers for rate control because of the severe COPD. Plan: - Cardiology unable to cardiovert the patient as she remains in respiratory distress and able to tolerate intubation, will continue to monitor for improvement - Rhythm control: Amiodarone 200 mg PO BiD - Rate control: Diltiazem 360 mg PO OD - Anticoagulation: Eliquis 5 mg PO BiD - Continue to monitor Telemetry CAD s/p CABG Primary hypertension - Hx of approximately 20 years ago as well as patient has history of hyperlipidemia Plan: - Patient is continued on aspirin as well as atorvastatin. - No blockers for rate control because of the severe COPD. - BP controlled on PO Diltiazem - Cardiology is following, appreciate recommendations History of restless leg syndrome - patient complained of an inability to sleep due to the restless leg syndrome Plan: Continue home ropinirole is resumed by the primary team Alcohol withdrawal Hx of polysubstance abuse Hx of hepatocellular disease - remote hx of Marijuana, alcohol, methamphetamine, tobacco use. Plan: -CIWA protocol 0.5mg q2H CIWA 5-10 1mg q2H CIWA 11-15 2mg q2H CIWA 16-20 - PRN Ativan/Valium >20 - Follow-up outpatient Hepatology Health maintenance: Dispo: Telemetry for AHRF 2/2 COPD exacerbation - BiPAP HS , Cardiology for AFib - imporved FEN: Cardiac diet GI prophylaxis: Protonix 40mg IV daily DVT prophylaxis: Eliquis 5mg BID Code status: FULL CODE Plan of care discussed with attending Dr Loya , Surya Espinoza M.D. PGY2 Attending Provider Attestation/Addendum I reviewed labs, imaging, EKG, home medications and prior available records. Face to face evaluation was performed by me. I have personally examined the patient and discussed assessment and plan with the IM team. I reviewed the resident note and agree with the plan with exceptions as below. Acute hypoxic respiratory failure: She is now on high flow nasal cannula. Repeat ABG showed recurrence of respiratory acidosis. Started BiPAP. Repeat chest x-ray that showed possible bilateral effusion. Consulted IR for possible pleurocentesis: Insufficient fluids Bilateral pneumonia: Continue ceftriaxone/azithromycin. Sent cocci IgM: Negative COPD exacerbation: Continue DuoNebs and corticosteroids. Atrial fibrillation with RVR: Finally rate controlled. Increase diltiazem. Continue p.o. amiodarone. Cardiology is following. CAD status post CABG: Continue aspirin and atorvastatin Hyperkalemia: Improved. Received insulin and dextrose. Received Veltassa. Nephrology is following. Monitor BMP. Hyponatremia: Possibly due to dehydration. Improved with IV fluids. Appreciate nephrology recommendations. Monitor BMP
[2024-11-08 15:35] LABS: Base Excess, Venous 13 (-3-3); O2 Saturation, Venous 55 % (96-97); PCO2, Venous 73 mmHg (36-56); PO2, Venous 31 mmHg (15-58); pH, Venous 7.36 (7.33-7.66)
[2024-11-08] MEDS: guaiFENesin/DM TABLET 1 EACH PO (20:38)
[2024-11-09] VITALS (16 sets, daily range): BP systolic 136–153; BP diastolic 72–87; PULSE 70–88; RESP 16–28; TEMP 36.1–36.4; O2SAT 91–99; BMI 32.2
[2024-11-09] MEDS: LEVALBUTEROL RT 0.63 MG/3 ML NEBU INH ×6 (02:58→23:33)
[2024-11-09] MEDS: IPRATROPIUM RT 0.5 MG/ 2.5 ML NEBU INH ×6 (02:58→23:33)
[2024-11-09 05:39] LABS: Basophils % (Auto) 0 % (0-2.5); Eosinophils % (Auto) 0 % (0-10); Hematocrit 33.5 % (36.0-46.0); Hemoglobin 10.1 g/dL (12.0-16.0); Immature Granulocytes % (Auto) 1 % (0-0); Lymphocytes # (Auto) 0.3 Thou/mm3 (1.0-4.8); Lymphocytes % (Auto) 2 % (10-50); Mean Corpuscular HGB Conc 30.1 g/dl (31.0-37.0); Mean Corpuscular Hemoglobin 25.4 pg (25.0-35.0); Mean Corpuscular Volume 84 fL (80-100); Monocytes # (Auto) 0.7 Thou/mm3 (0.0-0.8); Monocytes % (Auto) 5 % (0-12); Neutrophils # (Auto) 12.6 Thou/mm3 (1.8-7.7); Neutrophils % (Auto) 92 % (37-80); Nucleated Red Blood Cell # 0.03 Thou/mm3 (0.00-0.00); Nucleated Red Blood Cell % 0 /100 WBC (0); Platelet Count 273 Thou/mm3 (140-440); RDW Standard Deviation 55.8 fL (36.4-46.3); Red Blood Count 3.98 Miln/mm3 (4.00-5.20); White Blood Count 13.6 Thou/mm3 (3.6-11.0)
[2024-11-09 06:20] LABS: Alanine Aminotransferase 45 U/L (10-49); Albumin, Serum 3.8 gm/dL (3.4-4.8); Albumin/Globulin Ratio 1.9 (1.2-2.2); Alkaline Phosphatase 130 U/L (46-116); Anion Gap 3 (7-16); Aspartate Amino Transferase 68 U/L (0-34); BUN/Creatinine Ratio 22 Ratio (12-20); Bilirubin,Total 0.5 mg/dL (0.3-1.2); Blood Urea Nitrogen 22 mg/dL (9-23); Calcium 9.1 mg/dL (8.3-10.6); Calcium (Corrected) 9.3 mg/dL (8.5-10.1); Carbon Dioxide 38.2 mMol/L (20.0-31.0); Chloride 91 mMol/L (98-107); Estimated Creatinine Clearance 51.4 mL/min (>60); Glucose 132 mg/dL (74-106); Magnesium 1.8 mg/dL (1.6-2.6); Osmolality,Calculated 269 (275-295); Phosphorous 2.8 mg/dL (2.4-5.1); Potassium 4.3 mMol/L (3.4-5.1); Sodium 132 mMol/L (136-145); Total Protein 5.8 gm/dL (5.7-8.2); eGFR > 60 See Note
[2024-11-09] MEDS: BUDESONIDE RT 0.5 MG/2 ML NEBU INH ×2 (07:19→18:55)
[2024-11-09] MEDS: NICOTINE PATCH 21 MG/24 HR PATCH.TD24 TOP (08:25)
[2024-11-09] MEDS: PANTOPRAZOLE INJ 40 MG VIAL IV (08:26)
[2024-11-09] MEDS: DILTIAZEM CD 120 MG CAPCR 360 MG PO (08:26)
[2024-11-09] MEDS: rOPINIRole HCL 0.25 MG TABLET PO (08:27)
[2024-11-09] MEDS: AMIODARONE HCL 200 MG TABLET PO ×2 (08:27→20:27)
[2024-11-09] MEDS: ASPIRIN EC 81 MG TABEC PO (08:27)
[2024-11-09] MEDS: ATORVASTATIN CALCIUM 20 MG TABLET 40 MG PO (08:27)
[2024-11-09] MEDS: VIT B12/Vit C/FA (Nephrovite) TABLET 1 TAB PO (08:28)
[2024-11-09] MEDS: BusPIRone HCL 5 MG TABLET PO ×2 (08:28→20:27)
[2024-11-09] MEDS: APIXABAN 2.5 MG TABLET 5 MG PO ×2 (08:30→20:27)
[2024-11-09] MEDS: guaiFENesin/DM TABLET 1 EACH PO ×2 (08:33→20:27)
--- NOTE | 2024-11-09 08:44 | ESPR_ITS ---
Documentation for date of: 11/09/24 Subjective Subjective Interval history: The patient is a 69-year-old female with significant past medical history of COPD on home oxygen, CAD s/p CABG 20 years ago, tension, hyperlipidemia, hepatocellular disease, restless leg syndrome, history of polysubstance abuse including alcohol, marijuana, tobacco use and amphetamine use presented to ED with chief complaint of worsening of SOB. She denies any fever or chills, chest pain sore throat, phlegm production. She was admitted 1 year ago with similar symptoms and was found to have COPD exacerbation. During our evaluation, her vitals were significant for blood pressure 132/92, 130, RR 22, and saturating 90% on 3 L OxyMask. Labs are significant for white count 11.6, hemoglobin 10.5, with MCV 86. Chemistry panel was significant for sodium 122 worsening from 129 yesterday, potassium 6.3 worsened from 5.1 yesterday bicarb 32.3, creatinine 1.0 blood sugar 205. CXR revealing bibasilar pneumonia with EKG revealing atrial flutter. PMH: As mentioned above PSHx: CABG 20 years ago Social history: History of marijuana, tobacco and methamphetamine use, alcohol quitted 1 year ago Allergies: No known allergies Medications: Albuterol, apixaban, aspirin, diltiazem and omeprazole. Nephrology consultation was done for further management of moderate hyponatremia and severe hyperkalemia. 11/04/2024: Overnight patient was agitated and received IV lorazepam. This morning patient was sleeping comfortably, saturating 94% on 6 L OxiMask. She was comfortably resting on her bed. Her wheezing has improved months. Still tachycardic with irregularly irregular rhythm. White count 12.4, sodium 128, chloride 89, potassium trended down to 4.2, bicarb 34, BUN 26 and creatinine 0.9. Renin activity, aldosterone and total cortisol pending. We changed IV maintenance fluid to normal saline 70 cc/h, and we will continue with monitoring renal panel every 4 hourly. 11/06/2024: The patient was interviewed and examined at the bedside this morning. She was on BiPAP, saturating 93% on FiO2 60% and O2 flow 40 L/min. Her pulse has been in the range of 150s to 160s. Exam was significant for mildly dry mucous membranes, no crackles but mild wheezing over the lung ruiz. Peripheral pitting edema. CBC revealed hemoglobin 10.6, ABG done this morning revealed pH 7.42, pCO2 73, bicarb 47 consistent with respiratory acidosis compensated with metabolic alkalosis. Sodium was 133, potassium 3.6, chloride 84, bicarb greater than 40 and magnesium 2.6. Potassium was repleted with 20 mEq IV KCl. She was also started on half-normal saline maintenance fluids 70 cc/h as she appeared severely dry. 11/08/2024: The patient was interviewed and examined at the bedside this morning. She reported doing a little better today morning. She was on high flow nasal cannula with FiO2 70% saturating 95%. Other vitals were fairly stable. Physical exam revealed crackles or decreased breath sounds over lungs, no edema was noted. CBC fairly at baseline, sodium 131, chloride 85, bicarb greater than 40, BUN 27 and creatinine 1.0, with mild transaminitis AST 44 and ALT 139. We will continue to monitor sodium and potassium level daily. 11/09/2024: The patient was interviewed and examined at the bedside this morning. She reported doing a lot better this morning. She was saturating 93% on 6 L NC and eating comfortably on her bed. Her white count mildly trended up to 13.6, hemoglobin stable, sodium 132, potassium 4.2, bicarb 38.2 calculated osmolality 269, and pleural drainage attempted yesterday was significant for only mild pleural effusion on bilateral lower lobe. We will recommend the primary team to hold off on Diamox. Patient will probably need BiPAP during discharge at least at night, and lasix 20mg PO every other day, and F/U with Dr. Cowart in 1-2 weeks of discharge. Exam Vital Signs Temp Pulse Resp BP Pulse Ox O2 Del Method O2 Flow Rate 97.5 F 77 18 141/72 H 94 L Oxy Mask 8 11/09/24 08:00 11/09/24 08:27 11/09/24 08:00 11/09/24 08:27 11/09/24 08:00 11/09/24 08:00 11/09/24 08:00 FiO2 75 11/09/24 03:05 Narrative Exam General: No acute distress, comfortably resting on her bed HEENT: Mildly dry mucous membranes, oropharynx clear Neck: Supple, No masses, No JVD CVS: S1S2 Regular rate and rhythm, No murmurs, rubs or gallops Lungs: Clear lung sounds throughout the lung field, no wheezing, no crackles or rhonchi appreciated, saturating 93% on 6 L NC Abd: Soft, NT/ND, +BS, no organomegaly Ext: No edema, warm and well perfused Skin: No rash Psych: Appropriate mood and affect Objective Labs 11/10/24 04:30 11/10/24 04:30 Labs: Laboratory Results - last 24 hr 11/08/24 11/08/24 11/09/24 11:03 15:25 04:20 WBC 13.6 H RBC 3.98 L Hgb 10.1 L Hct 33.5 L MCV 84 MCH 25.4 MCHC 30.1 L RDW Std Deviation 55.8 H Plt Count 273 Neut % (Auto) 92 H Lymph % (Auto) 2 L [place] % (Auto) 5 Eos % (Auto) 0 Baso % (Auto) 0 Neut # (Auto) 12.6 H Lymph # (Auto) 0.3 L [place] # (Auto) 0.7 Eos # (Auto) 0.0 Baso # (Auto) 0.0 Immature Gran # (Auto) 0.10 H Absolute Nucleated RBC 0.03 H Immature Gran % 1 H Nucleated RBC % 0 Puncture Site Right Radial ABG pH 7.32 L D ABG pCO2 79 H* D ABG pO2 82 L D ABG HCO3 41 H ABG O2 Saturation 96 ABG Base Excess 12 H VBG pH 7.36 VBG pCO2 73 H VBG pO2 31 VBG O2 Sat (Mike) 55 L VBG Base Excess 13 H FiO2 100 Sodium 132 L Potassium 4.3 D Chloride 91 L Carbon Dioxide 38.2 H Anion Gap 3 L BUN 22 Creatinine 1.0 Estim Creat Clear Calc 51.4 L eGFR > 60 BUN/Creatinine Ratio 22 H Glucose 132 H D Calculated Osmolality 269 L Calcium 9.1 Corrected Calcium 9.3 Phosphorus 2.8 Magnesium 1.8 Total Bilirubin 0.5 AST 68 H ALT 45 Alkaline Phosphatase 130 H Total Protein 5.8 Albumin 3.8 Globulin 2.0 L Albumin/Globulin Ratio 1.9 ABG Interpretation ABG results: 11/01/24 11/04/24 11/05/24 19:07 23:05 03:10 ABG pH 7.17 L* 7.33 L D ABG pCO2 98 H* 77 H* D ABG pO2 92 58 L* D ABG HCO3 36 H 40 H ABG O2 Saturation 97 90 L ABG Base Excess 5 H 12 H VBG pH 7.41 VBG pCO2 54 VBG pO2 77 H VBG Base Excess 8 H 11/05/24 11/06/24 11/06/24 17:00 01:10 08:45 ABG pH 7.31 L 7.37 7.42 ABG pCO2 94 H* D 81 H* D 73 H* ABG pO2 66 L 75 L 69 L ABG HCO3 47 H 47 H 47 H ABG O2 Saturation 91 95 94 ABG Base Excess 17 H 18 H 19 H VBG pH VBG pCO2 VBG pO2 VBG Base Excess 11/06/24 11/08/24 11/08/24 16:00 11:03 15:25 ABG pH 7.52 H D 7.32 L D ABG pCO2 61 H D 79 H* D ABG pO2 189 H D 82 L D ABG HCO3 49 H 41 H ABG O2 Saturation 99 H 96 ABG Base Excess 23 H 12 H VBG pH 7.36 VBG pCO2 73 H VBG pO2 31 VBG Base Excess 13 H Quality Measures Quality Measures VTE prophylaxis Advance care planning discussed with:: patient Assessment & Plan Assessment Current Active Medications: Generic Name Dose Route Start Last Admin Trade Name Freq PRN Reason Stop Dose Admin Acetaminophen 1,000 mg 11/07/24 17:47 Acetaminophen 500 Mg Tablet PO 12/01/24 17:41 Q6H PRN Pain 1-3 or Fever >100 Hydrocodone Bitart/Acetaminophen 1 tab 11/07/24 17:46 11/08/24 22:27 Hydrocodone/Apap 5/325 Tablet PO 11/12/24 17:45 1 tab Q6HR PRN Administration Pain 4-10 Amiodarone HCl 200 mg 11/07/24 09:00 11/09/24 08:27 Amiodarone Hcl 200 Mg Tablet PO 12/07/24 08:59 200 mg BID ESPERANZA Administration Apixaban 5 mg 11/01/24 21:00 11/09/24 08:30 Apixaban 2.5 Mg Tablet PO 12/01/24 20:59 5 mg BID ESPERANZA Administration Aspirin 81 mg 11/03/24 09:00 11/09/24 08:27 Aspirin Ec 81 Mg Tabec PO 12/03/24 08:59 81 mg QDAY ESPERANZA Administration Atorvastatin Calcium 40 mg 11/02/24 09:00 11/09/24 08:27 Atorvastatin Calcium 20 Mg Tablet PO 12/02/24 08:59 40 mg QDAY ESPERANZA Administration Budesonide 0.5 mg 11/03/24 19:00 11/09/24 07:19 Budesonide Rt 0.5 Mg/2 Ml Nebu INH 12/03/24 18:59 0.5 mg BIDRT ESPERANZA Administration Buspirone HCl 5 mg 11/08/24 14:00 11/09/24 08:28 Buspirone Hcl 5 Mg Tablet PO 12/08/24 13:59 5 mg BID ESPERANZA Administration Dextrose 25 ml 11/03/24 16:28 Dextrose 50%-Water Inj 50 Ml Syringe IV 12/03/24 16:27 Q15MIN PRN BG 50-70 responsive npo pt Diltiazem HCl 360 mg 11/08/24 09:00 11/09/24 08:26 Diltiazem Cd 120 Mg Capcr PO 12/08/24 08:59 360 mg QDAY ESPERANZA Administration Furosemide 40 mg 11/05/24 12:15 11/06/24 08:29 Furosemide Inj 10 Mg/Ml 4ml Vial IVP 12/05/24 12:14 40 mg QDAY ESPERANZA Administration Glucagon 1 mg 11/03/24 16:28 Glucagon Inj 1 Mg Vial IM Q15MIN PRN BG <70, and no IV access Guaifenesin/Dextromethorphan 1 each 11/03/24 10:45 11/09/24 08:33 Guaifenesin/Dm Tablet PO 12/03/24 10:44 1 each BID ESPERANZA Administration Insulin Human Lispro 0 unit 11/03/24 17:00 11/09/24 08:24 Insulin Lispro (Admelog) 1 Unit/0.01 Ml Unit SC 12/03/24 16:59 Not Given AC ESPERANZA Protocol Ipratropium [place] 0.5 mg 11/06/24 15:00 11/09/24 07:19 Ipratropium Rt 0.5 Mg/ 2.5 Ml Nebu INH 12/06/24 14:59 0.5 mg Q4HRRT ESPERANZA Administration Protocol Levalbuterol HCl 0.63 mg 11/03/24 09:49 Levalbuterol Rt 0.63 Mg/3 Ml Nebu INH 12/03/24 09:48 Q6HR PRN WHEEZING Levalbuterol HCl 0.63 mg 11/03/24 11:00 11/09/24 07:19 Levalbuterol Rt 0.63 Mg/3 Ml Nebu INH 12/03/24 10:59 0.63 mg Q4HRRT ESPERANZA Administration Protocol Lorazepam 2 mg 11/08/24 13:56 Lorazepam 2 Mg/Ml Vial IVP X1 PRN Breakthrough Agitation,CIWA>20 Methylprednisolone Sodium Succinate 40 mg 11/09/24 09:00 11/09/24 08:26 Methylprednisolone Sod Succ 40 Mg Vial IVP 11/16/24 08:59 40 mg DAILY ESPERANZA Administration Nicotine 21 mg 11/02/24 14:00 11/09/24 08:25 Nicotine Patch 21 Mg/24 Hr Patch.Td24 TOP 12/02/24 13:59 21 mg QDAY ESPERANZA Administration Ondansetron HCl 4 mg 11/01/24 17:42 Ondansetron Inj 2 Mg/Ml Inj 2 Ml IV 12/01/24 17:41 Q6H PRN NAUSEA OR VOMITING Protocol Pantoprazole Sodium 40 mg 11/02/24 13:45 11/09/24 08:26 Pantoprazole Inj 40 Mg Vial IV 12/02/24 13:44 40 mg QDAY ESPERANZA Administration Promethazine HCl/Dextromethorphan 5 ml 11/07/24 09:44 Promethazine/Dm Syrup 5 Ml Dose PO 12/07/24 09:43 Q4HR PRN COUGH Protocol Ropinirole HCl 0.25 mg 11/02/24 09:00 11/09/24 08:27 Ropinirole Hcl 0.25 Mg Tablet PO 12/02/24 08:59 0.25 mg QDAY ESPERANZA Administration Sodium Chloride 3 ml 11/01/24 10:06 11/01/24 14:22 Sodium Chloride Rt Nayla 0.9% 3 Ml Nebu INH 12/01/24 10:05 3 ml PRN PRN Administration SOLN Vitamin B Complex/Vit C/Folic Acid 1 tab 11/08/24 09:00 11/09/24 08:28 Vit B12/Vit C/Fa (Nephrovite) Tablet PO 12/08/24 08:59 1 tab QDAY ESPERANZA Administration Plan The patient is a 69-year-old female with significant past medical history of COPD on home oxygen, CAD s/p CABG 20 years ago, tension, hyperlipidemia, hepatocellular disease, restless leg syndrome, history of polysubstance abuse including alcohol, marijuana, tobacco use and amphetamine use presented to ED with chief complaint of worsening of SOB. She denies any fever or chills, chest pain sore throat, phlegm production was found to be on AHRF 2/2 COPD exacerbation. Nephrology consultation was done for further management of moderate hyponatremia and severe hyperkalemia. #Hyperkalemia, resolved Etiology currently unknown ?? partial adrenal insufficiency: Upon further chart review, always has borderline hyperkalemia and borderline hyponatremia DDx: Chronic kidney disease or chronic use of JANA inhibitors or ARB ruled out as the patient does not has CKD and has not been using JANA inhibitors/ARB Presented with potassium of 5.1 Increased up to 6.3 11/06/2024: Potassium level was 3.6, likely in the setting of DuoNeb use with intracellular potassium shift. Was given 20 mEq of IV KCl, as the patient's has cardiac rhythm disorder atrial flutter. 11/07/2024: Potassium level 3.7, was repleted with 40 mEq p.o. KCl in the setting of a flutter to keep level greater than 4.0 -Cortisol level, renin and aldosterone level pending -Monitor potassium level -We will continue to monitor daily potassium level #Mild hypoosmolar hypovolemic hyponatremia Etiology currently unknown Stable at 132 -Treat the underlying cause of COPD exacerbation 11/04/2024: Sodium level 128, started the patient on normal saline maintenance IV fluid 70 cc/h, will monitor renal panel every 4 hourly, and goal level of sodium will be less than 134 in next 24-hour. 11/05/24: Na 132. Discontinued IV NS 70cc/hr, continue to monitor daily Na level. 11/06/2024: Sodium 133, started the patient on half NS in the setting of severe dehydration. 11/08/2024: Sodium 131, we will continue to monitor sodium level daily in the a.m. 11/09/2023: Sodium 132, will continue to monitor sodium level daily in the a.m. #Primary respiratory acidosis fully compensated by metabolic alkalosis ABG done this on 11/06/2024 revealed pH 7.42, pCO2 73, bicarb 47 consistent with respiratory acidosis compensated with metabolic alkalosis -Continue to treat underlying COPD exacerbation #Hypertension -Continue with current medications as BP is currently stable -Monitor vitals #Acute hypoxic respiratory failure secondary to #COPD exacerbation. #Bibasilar pneumonia. ICU was consulted. #Hx of COPD, on 2L. #A-flutter. #Hx of A-fib. #Hx of CAD s/p CABG (more then 20 years ago). #Hx of hyperlipidemia. #Hx of restless legs syndrome. #Hx of hepatocellular disease. #Hx of polysubstance abuse. Thank you for your opportunity to participate nephrology team in this patient care. The patient's management plan was discussed with my attending physician MD Randal Camargo MD, PGY2 Attending Provider Attestation/Addendum Patient seen and examined with resident physician Dr. Ferrari. Note reviewed, agree with findings and recommendations. Hyperkalemia-unclear etiology. No medications which can cause hyperkalemia. Patient does admit to eating avocados but currently in hospital setting. Question partial adrenal insufficiency. Renin, aldosterone, cortisol levels are pending. Blood pressure seems to be acceptable. With medical management potassium seems to be better. Discontinued Veltassa. Hyponatremia-most likely hypovolemia now. Continue with normal saline. Sodium 133. Patient in aflutter with RVR-on Cardizem, amiodarone. Cardiology on the case. Patient with severe metabolic alkalosis as a compensation for respiratory acidosis. pH better Severe COPD exacerbation-on nasal cannula
--- NOTE | 2024-11-09 09:48 | ESPR_ITS ---
Documentation for date of: 11/09/24 Subjective Subjective Interval history: 11/09: No acute overnight events patient seen and examined at bedside this morning. Patient is currently saturating at 96% on 8 L of oxygen via oxime mask. Oxygen is titrated down to 6 L and recommend to continue to titrate down to maintain oxygen saturation between 88 to 92%. Patient endorses to feeling significantly better she denies any chest pain or palpitations she states her shortness of breath has improved and she does not have difficulty lying flat. Patient states she did not sleep that well last night because of generalized body aches from being in hospital bed for too long. Telemetry is reviewed patient is in sinus rhythm max heart rate is 79 and minimum 74 in the last 12 hours. Patient has no other complaints other than eager to get back home and never smoke again. Current potassium is 4.3 and magnesium is 1.8. Keep potassium above 4 and magnesium above 2 at all times. Encouraged to continue to use Bipap at night and as well as upon discharge. Exam Vital Signs Temp Pulse Resp BP Pulse Ox O2 Del Method O2 Flow Rate 97.5 F 77 18 141/72 H 94 L Oxy Mask 8 11/09/24 08:00 11/09/24 08:27 11/09/24 08:00 11/09/24 08:27 11/09/24 08:00 11/09/24 08:00 11/09/24 08:00 FiO2 75 11/09/24 03:05 Narrative Exam GENERAL: A&Ox3, awake,saturating 95% on 6L via oxymask NEURO: no focal neurological deficits HEENT: Atraumatic, Normocephalic. mucous membranes moist. Eyes open, symmetrical, & clear HEART: Normal Heart Sounds LUNGS: faint expiratory Wheezing in upper lung ruiz bilaterally ( more prominent on right) ABDOMEN: soft, non-distended, non-tender, bowel sounds heard, no guarding or rebound tenderness SKIN: No Rash or ecchymoses EXTREMITIES: No edema, tenderness, able to move all 4 extremities, pedal pulses palpated Objective Labs 11/10/24 04:30 11/10/24 04:30 Labs: Laboratory Results - last 24 hr 11/08/24 11/08/24 11/09/24 11:03 15:25 04:20 WBC 13.6 H RBC 3.98 L Hgb 10.1 L Hct 33.5 L MCV 84 MCH 25.4 MCHC 30.1 L RDW Std Deviation 55.8 H Plt Count 273 Neut % (Auto) 92 H Lymph % (Auto) 2 L [place] % (Auto) 5 Eos % (Auto) 0 Baso % (Auto) 0 Neut # (Auto) 12.6 H Lymph # (Auto) 0.3 L [place] # (Auto) 0.7 Eos # (Auto) 0.0 Baso # (Auto) 0.0 Immature Gran # (Auto) 0.10 H Absolute Nucleated RBC 0.03 H Immature Gran % 1 H Nucleated RBC % 0 Puncture Site Right Radial ABG pH 7.32 L D ABG pCO2 79 H* D ABG pO2 82 L D ABG HCO3 41 H ABG O2 Saturation 96 ABG Base Excess 12 H VBG pH 7.36 VBG pCO2 73 H VBG pO2 31 VBG O2 Sat (Mike) 55 L VBG Base Excess 13 H FiO2 100 Sodium 132 L Potassium 4.3 D Chloride 91 L Carbon Dioxide 38.2 H Anion Gap 3 L BUN 22 Creatinine 1.0 Estim Creat Clear Calc 51.4 L eGFR > 60 BUN/Creatinine Ratio 22 H Glucose 132 H D Calculated Osmolality 269 L Calcium 9.1 Corrected Calcium 9.3 Phosphorus 2.8 Magnesium 1.8 Total Bilirubin 0.5 AST 68 H ALT 45 Alkaline Phosphatase 130 H Total Protein 5.8 Albumin 3.8 Globulin 2.0 L Albumin/Globulin Ratio 1.9 ABG Interpretation ABG results: 11/01/24 11/04/24 11/05/24 19:07 23:05 03:10 ABG pH 7.17 L* 7.33 L D ABG pCO2 98 H* 77 H* D ABG pO2 92 58 L* D ABG HCO3 36 H 40 H ABG O2 Saturation 97 90 L ABG Base Excess 5 H 12 H VBG pH 7.41 VBG pCO2 54 VBG pO2 77 H VBG Base Excess 8 H 11/05/24 11/06/24 11/06/24 17:00 01:10 08:45 ABG pH 7.31 L 7.37 7.42 ABG pCO2 94 H* D 81 H* D 73 H* ABG pO2 66 L 75 L 69 L ABG HCO3 47 H 47 H 47 H ABG O2 Saturation 91 95 94 ABG Base Excess 17 H 18 H 19 H VBG pH VBG pCO2 VBG pO2 VBG Base Excess 11/06/24 11/08/24 11/08/24 16:00 11:03 15:25 ABG pH 7.52 H D 7.32 L D ABG pCO2 61 H D 79 H* D ABG pO2 189 H D 82 L D ABG HCO3 49 H 41 H ABG O2 Saturation 99 H 96 ABG Base Excess 23 H 12 H VBG pH 7.36 VBG pCO2 73 H VBG pO2 31 VBG Base Excess 13 H Quality Measures Quality Measures VTE prophylaxis Advance care planning discussed with:: patient and child Assessment & Plan Assessment Current Active Medications: Generic Name Dose Route Start Last Admin Trade Name Freq PRN Reason Stop Dose Admin Acetaminophen 1,000 mg 11/07/24 17:47 Acetaminophen 500 Mg Tablet PO 12/01/24 17:41 Q6H PRN Pain 1-3 or Fever >100 Hydrocodone Bitart/Acetaminophen 1 tab 11/07/24 17:46 11/08/24 22:27 Hydrocodone/Apap 5/325 Tablet PO 11/12/24 17:45 1 tab Q6HR PRN Administration Pain 4-10 Amiodarone HCl 200 mg 11/07/24 09:00 11/09/24 08:27 Amiodarone Hcl 200 Mg Tablet PO 12/07/24 08:59 200 mg BID ESPERANZA Administration Apixaban 5 mg 11/01/24 21:00 11/09/24 08:30 Apixaban 2.5 Mg Tablet PO 12/01/24 20:59 5 mg BID ESPERANZA Administration Aspirin 81 mg 11/03/24 09:00 11/09/24 08:27 Aspirin Ec 81 Mg Tabec PO 12/03/24 08:59 81 mg QDAY ESPERANZA Administration Atorvastatin Calcium 40 mg 11/02/24 09:00 11/09/24 08:27 Atorvastatin Calcium 20 Mg Tablet PO 12/02/24 08:59 40 mg QDAY ESPERANZA Administration Budesonide 0.5 mg 11/03/24 19:00 11/09/24 07:19 Budesonide Rt 0.5 Mg/2 Ml Nebu INH 12/03/24 18:59 0.5 mg BIDRT ESPERANZA Administration Buspirone HCl 5 mg 11/08/24 14:00 11/09/24 08:28 Buspirone Hcl 5 Mg Tablet PO 12/08/24 13:59 5 mg BID ESPERANZA Administration Dextrose 25 ml 11/03/24 16:28 Dextrose 50%-Water Inj 50 Ml Syringe IV 12/03/24 16:27 Q15MIN PRN BG 50-70 responsive npo pt Diltiazem HCl 360 mg 11/08/24 09:00 11/09/24 08:26 Diltiazem Cd 120 Mg Capcr PO 12/08/24 08:59 360 mg QDAY ESPERANZA Administration Furosemide 40 mg 11/05/24 12:15 11/06/24 08:29 Furosemide Inj 10 Mg/Ml 4ml Vial IVP 12/05/24 12:14 40 mg QDAY ESPERANZA Administration Glucagon 1 mg 11/03/24 16:28 Glucagon Inj 1 Mg Vial IM Q15MIN PRN BG <70, and no IV access Guaifenesin/Dextromethorphan 1 each 11/03/24 10:45 11/09/24 08:33 Guaifenesin/Dm Tablet PO 12/03/24 10:44 1 each BID ESPERANZA Administration Magnesium Sulfate 4 gm in 50 mls @ 12.5 mls/hr 11/09/24 09:09 Magnesium Sulfate Ivpb IV 11/09/24 13:08 X1 ONE Insulin Human Lispro 0 unit 11/03/24 17:00 11/09/24 08:24 Insulin Lispro (Admelog) 1 Unit/0.01 Ml Unit SC 12/03/24 16:59 Not Given AC ESPERANZA Protocol Ipratropium [place] 0.5 mg 11/06/24 15:00 11/09/24 07:19 Ipratropium Rt 0.5 Mg/ 2.5 Ml Nebu INH 12/06/24 14:59 0.5 mg Q4HRRT ESPERANZA Administration Protocol Levalbuterol HCl 0.63 mg 11/03/24 09:49 Levalbuterol Rt 0.63 Mg/3 Ml Nebu INH 12/03/24 09:48 Q6HR PRN WHEEZING Levalbuterol HCl 0.63 mg 11/03/24 11:00 11/09/24 07:19 Levalbuterol Rt 0.63 Mg/3 Ml Nebu INH 12/03/24 10:59 0.63 mg Q4HRRT ESPERANZA Administration Protocol Lorazepam 2 mg 11/08/24 13:56 Lorazepam 2 Mg/Ml Vial IVP X1 PRN Breakthrough Agitation,CIWA>20 Methylprednisolone Sodium Succinate 40 mg 11/09/24 09:00 11/09/24 08:26 Methylprednisolone Sod Succ 40 Mg Vial IVP 11/16/24 08:59 40 mg DAILY ESPERANZA Administration Nicotine 21 mg 11/02/24 14:00 11/09/24 08:25 Nicotine Patch 21 Mg/24 Hr Patch.Td24 TOP 12/02/24 13:59 21 mg QDAY ESPERANZA Administration Ondansetron HCl 4 mg 11/01/24 17:42 Ondansetron Inj 2 Mg/Ml Inj 2 Ml IV 12/01/24 17:41 Q6H PRN NAUSEA OR VOMITING Protocol Pantoprazole Sodium 40 mg 11/02/24 13:45 11/09/24 08:26 Pantoprazole Inj 40 Mg Vial IV 12/02/24 13:44 40 mg QDAY ESPERANZA Administration Promethazine HCl/Dextromethorphan 5 ml 11/07/24 09:44 Promethazine/Dm Syrup 5 Ml Dose PO 12/07/24 09:43 Q4HR PRN COUGH Protocol Ropinirole HCl 0.25 mg 11/02/24 09:00 11/09/24 08:27 Ropinirole Hcl 0.25 Mg Tablet PO 12/02/24 08:59 0.25 mg QDAY ESPERANZA Administration Sodium Chloride 3 ml 11/01/24 10:06 11/01/24 14:22 Sodium Chloride Rt Nayla 0.9% 3 Ml Nebu INH 12/01/24 10:05 3 ml PRN PRN Administration SOLN Vitamin B Complex/Vit C/Folic Acid 1 tab 11/08/24 09:00 11/09/24 08:28 Vit B12/Vit C/Fa (Nephrovite) Tablet PO 12/08/24 08:59 1 tab QDAY ESPERANZA Administration Plan Ms. 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 #AHRF in the setting of #COPD exacerbation #Pneumonia -Patient has a history of COPD in the setting of chronic smoking history. Patient uses 2 L of oxygen at home which she states she is not always compliant with. Chest x-ray showed bibasilar pneumonia and patient has bilateral wheezing on auscultation. -Per primary hospitalist team patient is on scheduled breathing treatments as well as daily steroids. -IV antibiotics started with azithromycin and ceftriaxone -DuoNebs as needed -Continue supplemental oxygen and patient must be on BiPAP at night # A flutter/A-fib with RVR -CHADVASC- 4 HASBLED- 1 -Since admission patient has been in a flutter with RVR initially was rate controlled patient was placed on diltiazem drip plus digoxin and transition to p.o. diltiazem 360 Mg daily however patient was unable to to be in rate control as today in the afternoon patient's heart rate was in the 140s to 150s again IV diltiazem 20 Mg x 1 was given once. For anticoagulation patient is on Eliquis -Pt remained in afib/flutter st. was started on amio drip -Keep potassium above 4 and magnesium above 2 at all times -Echocardiogram completed on 11/04/2024 with showed normal LV size, low normal LV function LVEF 45 to 50%. Diastolic dysfunction present but could not grade due to atrial flutter with RVR. RV systolic function mildly decreased. Estimated RVSP 55 mmHg with at least moderate PAH. Trace to mild MR. Moderate TR. Mild biatrial dilatation along with dilated IVC noted. -No blockers for rate control because of the severe COPD. - Pt will require BiPAP at night upon discharge home. -Pts amio and cardizem drips are finished Pts amio and cardizem drips are finished and pt is transitioned to oral amio 200mg BID, eliquis 5mg BID, and cardizem 360mg once daily. #Hyperkalemia- resolved -today patient's potassium was 6.3 patient was started on IV insulin with D50, patient was also given Kayexalate plus Veltassa and repeat potassium was 4.7 # History of CAD status post CABG approximately 20 years ago as well as patient has history of hyperlipidemia patient is continued on aspirin as well as atorvastatin. - No blockers for rate control because of the severe COPD. # Primary hypertension-on admission patient blood pressure 163/110 however patient was placed on diltiazem drip therefore antihypertensive therapy was held. Today blood pressure is 141/95 We will continue to hold antihypertensive therapy as patient requires diltiazem. Will consider antihypertensive therapy when patient a flutter with RVR is under control # Patient has history of restless leg syndrome-patient complained of an inability to sleep due to the restless leg syndrome although home ropinirole is resumed by the primary team Assessment and plan discussed with my attending physician Dr. Liana Collins ([id number])- Internal medicine resident Attending Provider Attestation/Addendum I have personally seen and examined the patient separately on the above date of service and discussed the plan of care with the resident. I reviewed the resident Dr. Torin Collins consultation progress note and agree with the resident findings and plan in the note above and have also edited the documentation to reflect my findings and plan. Patient continues to improve slowly every day. Patient breathing is much better and the is not using any accessory muscles. Patient oxygen recommends continued decrease and is only on 5 L/min right now VBG from 11/08/24 showed pH of 7.32 and pCO2 of 79, PaO2 of 82 and bicarb 41 the saturations of 55%. Recommend to continue to use BiPAP at night every day for 8 PM to 6 AM on 9 PM to [address] the patient on aggressive COPD regimen. Telemetry reviewed and patient continues to be in sinus rhythm at the present point of time and rate is well-controlled between 60-80 bpm Patient to be continued on amiodarone 200 mg twice daily and Cardizem CD360 mg once daily. Keep potassium greater than 4 and magnesium greater than 2.0 at all times. Kidney function appears stable with a BUN of 27 and creatinine of 1.0. Encourage patient to eat well and also to ambulate with physical therapy. Patient will need possible rehab placement eventually at the time of discharge. Rex Gaines M.D. Interventional Cardiology
[2024-11-09] MEDS: Magnesium Sulfate 4 GM Ivpb 4 GM/50 ML BAG IV (10:26)
[2024-11-09] MEDS: Furosemide 20 MG TABLET PO (10:26)
--- NOTE | 2024-11-09 10:59 | ESPR_ITS ---
Documentation for date of: 11/09/24 Subjective Subjective Interval history: Patient seen at bedside. No acute overnight events. She is doing much better today, significantly improved. Patient is able to converse freely without getting short of breath or difficulty breathing. Today, she is saturating 94% on 6L of oxygen via oxymask, benefitting from BIPAP at night. Labs reviewed- Leukocytosis, possibly from steroid use. Patient is fever free and has no new coomplaints. Will continue to downtitrate oxygen to 2-3L and plan for discharge with home oxygen as well as Trilogy machine. Per nephro recs, will continue on lasix 20mg every other day. 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 Eyes open, symmetrical, & clear CARDIO: No chest pain on palpation. Heart RRR, no obvious murmurs PULM: No noted coughing/dyspnea. Lungs clear to asucultation, no crackles or wheezing. Oxy mask on. 6L GI: Abdomen soft, nondistended, no pain on palpation. BSx4 URO/DRAMA CRITIC:: No further abnormalities noted. SKIN/MSK/EXT: No wounds/rashes/edema/amputations, no pain on palpation. Pedal pulses present B/L Objective Labs 11/10/24 04:30 11/10/24 04:30 Labs: Laboratory Results - last 24 hr 11/08/24 11/08/24 11/09/24 11:03 15:25 04:20 WBC 13.6 H RBC 3.98 L Hgb 10.1 L Hct 33.5 L MCV 84 MCH 25.4 MCHC 30.1 L RDW Std Deviation 55.8 H Plt Count 273 Neut % (Auto) 92 H Lymph % (Auto) 2 L [place] % (Auto) 5 Eos % (Auto) 0 Baso % (Auto) 0 Neut # (Auto) 12.6 H Lymph # (Auto) 0.3 L [place] # (Auto) 0.7 Eos # (Auto) 0.0 Baso # (Auto) 0.0 Immature Gran # (Auto) 0.10 H Absolute Nucleated RBC 0.03 H Immature Gran % 1 H Nucleated RBC % 0 Puncture Site Right Radial ABG pH 7.32 L D ABG pCO2 79 H* D ABG pO2 82 L D ABG HCO3 41 H ABG O2 Saturation 96 ABG Base Excess 12 H VBG pH 7.36 VBG pCO2 73 H VBG pO2 31 VBG O2 Sat (Mike) 55 L VBG Base Excess 13 H FiO2 100 Sodium 132 L Potassium 4.3 D Chloride 91 L Carbon Dioxide 38.2 H Anion Gap 3 L BUN 22 Creatinine 1.0 Estim Creat Clear Calc 51.4 L eGFR > 60 BUN/Creatinine Ratio 22 H Glucose 132 H D Calculated Osmolality 269 L Calcium 9.1 Corrected Calcium 9.3 Phosphorus 2.8 Magnesium 1.8 Total Bilirubin 0.5 AST 68 H ALT 45 Alkaline Phosphatase 130 H Total Protein 5.8 Albumin 3.8 Globulin 2.0 L Albumin/Globulin Ratio 1.9 ABG Interpretation ABG results: 11/01/24 11/04/24 11/05/24 19:07 23:05 03:10 ABG pH 7.17 L* 7.33 L D ABG pCO2 98 H* 77 H* D ABG pO2 92 58 L* D ABG HCO3 36 H 40 H ABG O2 Saturation 97 90 L ABG Base Excess 5 H 12 H VBG pH 7.41 VBG pCO2 54 VBG pO2 77 H VBG Base Excess 8 H 11/05/24 11/06/24 11/06/24 17:00 01:10 08:45 ABG pH 7.31 L 7.37 7.42 ABG pCO2 94 H* D 81 H* D 73 H* ABG pO2 66 L 75 L 69 L ABG HCO3 47 H 47 H 47 H ABG O2 Saturation 91 95 94 ABG Base Excess 17 H 18 H 19 H VBG pH VBG pCO2 VBG pO2 VBG Base Excess 11/06/24 11/08/24 11/08/24 16:00 11:03 15:25 ABG pH 7.52 H D 7.32 L D ABG pCO2 61 H D 79 H* D ABG pO2 189 H D 82 L D ABG HCO3 49 H 41 H ABG O2 Saturation 99 H 96 ABG Base Excess 23 H 12 H VBG pH 7.36 VBG pCO2 73 H VBG pO2 31 VBG Base Excess 13 H Quality Measures Quality Measures VTE prophylaxis Advance care planning discussed with:: patient Assessment & Plan Assessment Current Active Medications: Generic Name Dose Route Start Last Admin Trade Name Freq PRN Reason Stop Dose Admin Acetaminophen 1,000 mg 11/07/24 17:47 Acetaminophen 500 Mg Tablet PO 12/01/24 17:41 Q6H PRN Pain 1-3 or Fever >100 Hydrocodone Bitart/Acetaminophen 1 tab 11/07/24 17:46 11/08/24 22:27 Hydrocodone/Apap 5/325 Tablet PO 11/12/24 17:45 1 tab Q6HR PRN Administration Pain 4-10 Amiodarone HCl 200 mg 11/07/24 09:00 11/09/24 08:27 Amiodarone Hcl 200 Mg Tablet PO 12/07/24 08:59 200 mg BID ESPERANZA Administration Apixaban 5 mg 11/01/24 21:00 11/09/24 08:30 Apixaban 2.5 Mg Tablet PO 12/01/24 20:59 5 mg BID ESPERANZA Administration Aspirin 81 mg 11/03/24 09:00 11/09/24 08:27 Aspirin Ec 81 Mg Tabec PO 12/03/24 08:59 81 mg QDAY ESPERANZA Administration Atorvastatin Calcium 40 mg 11/02/24 09:00 11/09/24 08:27 Atorvastatin Calcium 20 Mg Tablet PO 12/02/24 08:59 40 mg QDAY ESPERANZA Administration Budesonide 0.5 mg 11/03/24 19:00 11/09/24 07:19 Budesonide Rt 0.5 Mg/2 Ml Nebu INH 12/03/24 18:59 0.5 mg BIDRT ESPERANZA Administration Buspirone HCl 5 mg 11/08/24 14:00 11/09/24 08:28 Buspirone Hcl 5 Mg Tablet PO 12/08/24 13:59 5 mg BID ESPERANZA Administration Dextrose 25 ml 11/03/24 16:28 Dextrose 50%-Water Inj 50 Ml Syringe IV 12/03/24 16:27 Q15MIN PRN BG 50-70 responsive npo pt Diltiazem HCl 360 mg 11/08/24 09:00 11/09/24 08:26 Diltiazem Cd 120 Mg Capcr PO 12/08/24 08:59 360 mg QDAY ESPERANZA Administration Furosemide 20 mg 11/09/24 10:00 11/09/24 10:26 Furosemide 20 Mg Tablet PO 12/09/24 09:59 20 mg Q48HR@2100 ESPERANZA Administration Glucagon 1 mg 11/03/24 16:28 Glucagon Inj 1 Mg Vial IM Q15MIN PRN BG <70, and no IV access Guaifenesin/Dextromethorphan 1 each 11/03/24 10:45 11/09/24 08:33 Guaifenesin/Dm Tablet PO 12/03/24 10:44 1 each BID ESPERANZA Administration Magnesium Sulfate 4 gm in 50 mls @ 12.5 mls/hr 11/09/24 09:09 11/09/24 10:26 Magnesium Sulfate Ivpb IV 11/09/24 13:08 12.5 mls/hr X1 ONE Administration Insulin Human Lispro 0 unit 11/03/24 17:00 11/09/24 08:24 Insulin Lispro (Admelog) 1 Unit/0.01 Ml Unit SC 12/03/24 16:59 Not Given AC ESPERANZA Protocol Ipratropium [place] 0.5 mg 11/06/24 15:00 11/09/24 10:11 Ipratropium Rt 0.5 Mg/ 2.5 Ml Nebu INH 12/06/24 14:59 0.5 mg Q4HRRT ESPERANZA Administration Protocol Levalbuterol HCl 0.63 mg 11/03/24 09:49 Levalbuterol Rt 0.63 Mg/3 Ml Nebu INH 12/03/24 09:48 Q6HR PRN WHEEZING Levalbuterol HCl 0.63 mg 11/03/24 11:00 11/09/24 10:11 Levalbuterol Rt 0.63 Mg/3 Ml Nebu INH 12/03/24 10:59 0.63 mg Q4HRRT ESPERANZA Administration Protocol Lorazepam 2 mg 11/08/24 13:56 Lorazepam 2 Mg/Ml Vial IVP X1 PRN Breakthrough Agitation,CIWA>20 Methylprednisolone Sodium Succinate 40 mg 11/09/24 09:00 11/09/24 08:26 Methylprednisolone Sod Succ 40 Mg Vial IVP 11/16/24 08:59 40 mg DAILY ESPERANZA Administration Nicotine 21 mg 11/02/24 14:00 11/09/24 08:25 Nicotine Patch 21 Mg/24 Hr Patch.Td24 TOP 12/02/24 13:59 21 mg QDAY ESPERANZA Administration Ondansetron HCl 4 mg 11/01/24 17:42 Ondansetron Inj 2 Mg/Ml Inj 2 Ml IV 12/01/24 17:41 Q6H PRN NAUSEA OR VOMITING Protocol Pantoprazole Sodium 40 mg 11/02/24 13:45 11/09/24 08:26 Pantoprazole Inj 40 Mg Vial IV 12/02/24 13:44 40 mg QDAY ESPERANZA Administration Promethazine HCl/Dextromethorphan 5 ml 11/07/24 09:44 Promethazine/Dm Syrup 5 Ml Dose PO 12/07/24 09:43 Q4HR PRN COUGH Protocol Ropinirole HCl 0.25 mg 11/02/24 09:00 11/09/24 08:27 Ropinirole Hcl 0.25 Mg Tablet PO 12/02/24 08:59 0.25 mg QDAY ESPERANZA Administration Sodium Chloride 3 ml 11/01/24 10:06 11/01/24 14:22 Sodium Chloride Rt Nayla 0.9% 3 Ml Nebu INH 12/01/24 10:05 3 ml PRN PRN Administration SOLN Vitamin B Complex/Vit C/Folic Acid 1 tab 11/08/24 09:00 11/09/24 08:28 Vit B12/Vit C/Fa (Nephrovite) Tablet PO 12/08/24 08:59 1 tab QDAY ESPERANZA Administration Plan Summary: The patient is 69 years old female with past medical history of CAD s/p CABG more than 20 years ago, hypertension, hyperlipidemia, hepatocellular disease, restless legs syndrome, history of polysubstance abuse (alcohol, marijuana, tobacco use, methamphetamine use) presented to the ED complaining of worsening shortness of breath and cough and was admitted for COPD treatment and A-flutter management. #Acute hypoxic respiratory failure secondary to #COPD exacerbation. #Bibasilar pneumonia. #Bilateral pleural effusions #Hx of COPD, on 2L. #Pulmonary embolism ruled out The patient has a history of COPD and has prior admissions for the same. At home, she reports being on 2L of O2 which she only uses occasionally. She still smokes about a pack a year. Generalized wheezing on physical exam. CXR showed bibasilar pneumonia. 11/09/2024- Patient is significantly imnproved, tolerating BIPAP at night. Currently saturating 94% on 6L of oxygen via oxymask. Titrating oxygen to 2-3L, will plan for DC on home oxygen and trilogy machine Plan: -Continue titrating oxygen, saturation goal of 88-92% -Continue levalbuterol and ipratropium -BIPAP at night -Mucinex and Prometh/DM added for cough #A-flutter. #Hx of A-fib. Likely 2/2 acute hypoxic respiratory failure and COPD exacerbation. At home, she is on diltiazem for 60 mg, digoxin 0.125 mg and Eliquis 5 mg twice daily. CHADVASC- 4 HASBLED- 1 On admission, she was in A-flutter with RVR, HR in the 140s to 150s. She was started on diltiazem drip yesterday as well as digoxin and Eliquis. EKG done this morning showed a flutter with a heart rate of 75 beats per minutes. Following up with cardiology for further recommendations/possible cardioversion. 11/09/2024- Patient is currently on Amio and Diltiazem PO. On tele this morning, sinus rhythm with PAcs, rate controlled. Also on Eliquis 5mg BID Plan: -Continue Amiodarone and Diltiazem -Continue Eliquis -Monitor and replete magnesium and potassium. Keep between 2 and 5 accordingly. -Follow up cardiology recommendations. #Alcohol withdrawal #Hx of polysubstance abuse. -remote hx of Marijuana, alcohol, methamphetamine, tobacco use. Plan: -CIWA protocol #Hyperkalemia- resolved Potassium today- 4.0 Plan: -Continue to monitor electrolytes #Hx of CAD s/p CABG (more than 20 years ago). #Hx of hyperlipidemia. -Echocardiogram showed EF 45-50% with diastolic dysfunction present but not able to grade due to A-flutter Per nephro rec, will continue on Lasix 20mg every other day Plan: - On home aspirin and atorvastatin. -Lasix 20mg every other day #Hx of hypertension. BP 164/103 on admission. Plan: -takes only diltiazem at home, will hold in setting of diltiazem drip. Monitoring BP #Hypoosmolar hyponatremia. -Na 130, osm 261, glucose 112 on admission. Sodium today- 132. Urine sodium <10, Urine CL 21.4 Completed 1/ NS Plan: -Continue monitoring CMP -Nephrology consulted, appreciate recommendations #Hx of restless legs syndrome. -resumed home ropinirole. #Hx of hepatocellular disease. -Follow-up outpatient. FEN: Cardiac diet. DVT prophylaxis: Eliquis Dispo: Telemetry for acute hypoxic respiratory failure 2/2 COPD exacerbation. Code status: FULL CODE. Case was discussed with Dr Espinoza PGY-2 and attending physician, Dr Vincenzo Blount MD PGY-1 Disclaimer: This note was dictated by speech recognition. Minor errors in supervisor specialty plant may be present due to voice recognition software. Attending Provider Attestation/Addendum I reviewed labs, imaging, EKG, home medications and prior available records. Face to face evaluation was performed by me. I have personally examined the patient and discussed assessment and plan with the IM team. I reviewed the resident note and agree with the plan with exceptions as below. Acute hypoxic respiratory failure: She is now on nasal cannula. Repeat ABG showed recurrence of respiratory acidosis. Started BiPAP. Repeat chest x-ray that showed possible bilateral effusion. Consulted IR for possible pleurocentesis: Insufficient fluids. May discharge the patient if her oxygen requirements are less than 5 L. She will need BiPAP at night. Discussed with social media coordinator Bilateral pneumonia: Continue ceftriaxone/azithromycin. Sent cocci IgM: Negative COPD exacerbation: Continue DuoNebs and corticosteroids. Atrial fibrillation with RVR: Finally rate controlled. Increased diltiazem. Continue p.o. amiodarone. Cardiology is following. CAD status post CABG: Continue aspirin and atorvastatin Hyperkalemia: Improved. Received insulin and dextrose. Received Veltassa. Nephrology is following. Monitor BMP. Hyponatremia: Possibly due to dehydration. Improved with IV fluids. Appreciate nephrology recommendations. Monitor BMP Possible CHF: Cardiology was consulted. Recommended Lasix 20 mg every 48 hours. Debility: Ordered PT evaluation that recommended outpatient PT and a walker
--- NOTE | 2024-11-09 14:28 | PC.SS ---
Out pt PT submitted to [facility] PT FAX [phone]
--- NOTE | 2024-11-09 16:43 | PC.PT ---
Patient will be D/C from PT services 10/31 patient is xI with bed mobility, transfers, and ambulation using DME. Patient is at her PLOF. Patient is clear to ambulate to the bathroom and around her room using her rollator walker and with an O2 wall extension. RN made aware.
[2024-11-09] MEDS: INSULIN LISPRO (AdmeLOG) 1 UNIT/0.01 ML UNIT SC (17:20)
[2024-11-09] MEDS: HYDROcodone/APAP 5/325 TABLET 1 TAB PO (20:27)
[2024-11-10] VITALS (19 sets, daily range): BP systolic 131–171; BP diastolic 69–99; PULSE 69–85; RESP 15–22; TEMP 36.1–37.2; O2SAT 82–97; BMI 32.2
[2024-11-10] MEDS: HYDROcodone/APAP 5/325 TABLET 1 TAB PO ×3 (03:24→20:02)
[2024-11-10] MEDS: LEVALBUTEROL RT 0.63 MG/3 ML NEBU INH ×5 (03:46→22:14)
[2024-11-10] MEDS: IPRATROPIUM RT 0.5 MG/ 2.5 ML NEBU INH ×5 (03:46→22:14)
[2024-11-10 05:40] LABS: Basophils % (Auto) 0 % (0-2.5); Eosinophils % (Auto) 0 % (0-10); Hematocrit 33.5 % (36.0-46.0); Hemoglobin 9.9 g/dL (12.0-16.0); Immature Granulocytes % (Auto) 2 % (0-0); Immature Granulocytes Auto 0.29 Thou/mm3 (0.00-0.00); Lymphocytes # (Auto) 0.4 Thou/mm3 (1.0-4.8); Lymphocytes % (Auto) 2 % (10-50); Mean Corpuscular HGB Conc 29.6 g/dl (31.0-37.0); Mean Corpuscular Volume 85 fL (80-100); Monocytes # (Auto) 1.1 Thou/mm3 (0.0-0.8); Monocytes % (Auto) 7 % (0-12); Neutrophils # (Auto) 14.4 Thou/mm3 (1.8-7.7); Neutrophils % (Auto) 89 % (37-80); Nucleated Red Blood Cell # 0.02 Thou/mm3 (0.00-0.00); Nucleated Red Blood Cell % 0 /100 WBC (0); Platelet Count 240 Thou/mm3 (140-440); Red Blood Count 3.96 Miln/mm3 (4.00-5.20); White Blood Count 16.1 Thou/mm3 (3.6-11.0)
[2024-11-10 06:18] LABS: Alanine Aminotransferase 62 U/L (10-49); Albumin, Serum 3.8 gm/dL (3.4-4.8); Albumin/Globulin Ratio 1.9 (1.2-2.2); Alkaline Phosphatase 143 U/L (46-116); Anion Gap 3 (7-16); Aspartate Amino Transferase 70 U/L (0-34); BUN/Creatinine Ratio 27 Ratio (12-20); Bilirubin,Total 0.4 mg/dL (0.3-1.2); Blood Urea Nitrogen 24 mg/dL (9-23); Calcium 8.9 mg/dL (8.3-10.6); Calcium (Corrected) 9.1 mg/dL (8.5-10.1); Carbon Dioxide 35.2 mMol/L (20.0-31.0); Chloride 96 mMol/L (98-107); Creatinine (Component) 0.9 mg/dL (0.6-1.3); Estimated Creatinine Clearance 57.1 mL/min (>60); Glucose 156 mg/dL (74-106); Magnesium 2.1 mg/dL (1.6-2.6); Osmolality,Calculated 275 (275-295); Phosphorous 3.3 mg/dL (2.4-5.1); Potassium 4.3 mMol/L (3.4-5.1); Sodium 134 mMol/L (136-145); Total Protein 5.8 gm/dL (5.7-8.2); eGFR > 60 See Note
[2024-11-10] MEDS: BUDESONIDE RT 0.5 MG/2 ML NEBU INH ×2 (08:22→18:48)
[2024-11-10] MEDS: PANTOPRAZOLE INJ 40 MG VIAL IV (09:09)
[2024-11-10] MEDS: guaiFENesin/DM TABLET 1 EACH PO ×2 (09:10→20:02)
[2024-11-10] MEDS: DILTIAZEM CD 120 MG CAPCR 360 MG PO (09:10)
[2024-11-10] MEDS: ATORVASTATIN CALCIUM 20 MG TABLET 40 MG PO (09:11)
[2024-11-10] MEDS: APIXABAN 2.5 MG TABLET 5 MG PO ×2 (09:11→20:02)
[2024-11-10] MEDS: BusPIRone HCL 5 MG TABLET PO ×2 (09:11→20:02)
[2024-11-10] MEDS: ASPIRIN EC 81 MG TABEC PO (09:12)
[2024-11-10] MEDS: VIT B12/Vit C/FA (Nephrovite) TABLET 1 TAB PO (09:12)
[2024-11-10] MEDS: rOPINIRole HCL 0.25 MG TABLET PO (09:12)
[2024-11-10] MEDS: NICOTINE PATCH 21 MG/24 HR PATCH.TD24 TOP (09:12)
[2024-11-10] MEDS: AMIODARONE HCL 200 MG TABLET PO ×2 (09:12→20:02)
[2024-11-10] MEDS: Milk Of Magnesia Susp 30 ML UDC PO (09:14)
--- NOTE | 2024-11-10 09:46 | PD.RESPRO ---
Documentation for date of: 11/10/24 Subjective Subjective Interval history: The patient is a 69-year-old female with significant past medical history of COPD on home oxygen, CAD s/p CABG 20 years ago, tension, hyperlipidemia, hepatocellular disease, restless leg syndrome, history of polysubstance abuse including alcohol, marijuana, tobacco use and amphetamine use presented to ED with chief complaint of worsening of SOB. She denies any fever or chills, chest pain sore throat, phlegm production. She was admitted 1 year ago with similar symptoms and was found to have COPD exacerbation. During our evaluation, her vitals were significant for blood pressure 132/92, 130, RR 22, and saturating 90% on 3 L OxyMask. Labs are significant for white count 11.6, hemoglobin 10.5, with MCV 86. Chemistry panel was significant for sodium 122 worsening from 129 yesterday, potassium 6.3 worsened from 5.1 yesterday bicarb 32.3, creatinine 1.0 blood sugar 205. CXR revealing bibasilar pneumonia with EKG revealing atrial flutter. PMH: As mentioned above PSHx: CABG 20 years ago Social history: History of marijuana, tobacco and methamphetamine use, alcohol quitted 1 year ago Allergies: No known allergies Medications: Albuterol, apixaban, aspirin, diltiazem and omeprazole. Nephrology consultation was done for further management of moderate hyponatremia and severe hyperkalemia. 11/04/2024: Overnight patient was agitated and received IV lorazepam. This morning patient was sleeping comfortably, saturating 94% on 6 L OxiMask. She was comfortably resting on her bed. Her wheezing has improved months. Still tachycardic with irregularly irregular rhythm. White count 12.4, sodium 128, chloride 89, potassium trended down to 4.2, bicarb 34, BUN 26 and creatinine 0.9. Renin activity, aldosterone and total cortisol pending. We changed IV maintenance fluid to normal saline 70 cc/h, and we will continue with monitoring renal panel every 4 hourly. 11/06/2024: The patient was interviewed and examined at the bedside this morning. She was on BiPAP, saturating 93% on FiO2 60% and O2 flow 40 L/min. Her pulse has been in the range of 150s to 160s. Exam was significant for mildly dry mucous membranes, no crackles but mild wheezing over the lung ruiz. Peripheral pitting edema. CBC revealed hemoglobin 10.6, ABG done this morning revealed pH 7.42, pCO2 73, bicarb 47 consistent with respiratory acidosis compensated with metabolic alkalosis. Sodium was 133, potassium 3.6, chloride 84, bicarb greater than 40 and magnesium 2.6. Potassium was repleted with 20 mEq IV KCl. She was also started on half-normal saline maintenance fluids 70 cc/h as she appeared severely dry. 11/08/2024: The patient was interviewed and examined at the bedside this morning. She reported doing a little better today morning. She was on high flow nasal cannula with FiO2 70% saturating 95%. Other vitals were fairly stable. Physical exam revealed crackles or decreased breath sounds over lungs, no edema was noted. CBC fairly at baseline, sodium 131, chloride 85, bicarb greater than 40, BUN 27 and creatinine 1.0, with mild transaminitis AST 44 and ALT 139. We will continue to monitor sodium and potassium level daily. 11/09/2024: The patient was interviewed and examined at the bedside this morning. She reported doing a lot better this morning. She was saturating 93% on 6 L NC and eating comfortably on her bed. Her white count mildly trended up to 13.6, hemoglobin stable, sodium 132, potassium 4.2, bicarb 38.2 calculated osmolality 269, and pleural drainage attempted yesterday was significant for only mild pleural effusion on bilateral lower lobe. We will recommend the primary team to hold off on Diamox. Patient will probably need BiPAP during discharge at least at night, and lasix 20mg PO every other day, and F/U with Dr. Cowart in 1-2 weeks of discharge. 11/10/2024: The patient was interviewed and examined at the bedside this morning. She reported doing well. She was saturating 93% on 6 L oxygen mask this morning, was asked to take deep breaths and we were able to taper down the oxygen to 5 L. CBC trended up to 16.1, sodium mildly improved to 134, potassium 4.3, chloride 96, bicarb improving to 35.2, BUN 24, creatinine 0.9, GFR greater than 60, AST 70 ALT 62 with ALP 143. Physical exam was significant for decreased breath sound over bibasilar lung ruiz. Patient will probably need BiPAP during discharge at least at night, and lasix 20mg PO every other day, and F/U with Dr. Cowart in 1-2 weeks of discharge. Exam Vital Signs Temp Pulse Resp BP Pulse Ox O2 Del Method O2 Flow Rate 97.0 F 80 18 149/69 H 97 Oxy Mask 5 11/10/24 07:47 11/10/24 09:12 11/10/24 08:24 11/10/24 09:12 11/10/24 08:24 11/10/24 07:47 11/10/24 08:24 FiO2 80 11/09/24 10:13 Narrative Exam General: No acute distress, comfortably resting on her bed, A and O x 3 HEENT: Mildly dry mucous membranes, oropharynx clear Neck: Supple, No masses, No JVD CVS: S1S2 Regular rate and rhythm, No murmurs, rubs or gallops Lungs: Mild expiratory wheezing throughout the lung field, no crackles or rhonchi appreciated, saturating 93% on 5 L oxygen max Abd: Soft, NT/ND, +BS, no organomegaly Ext: No edema, warm and well perfused Skin: No rash Psych: Appropriate mood and affect Objective Labs 11/10/24 04:30 11/10/24 04:30 Labs: Laboratory Results - last 24 hr 11/10/24 04:30 WBC 16.1 H RBC 3.96 L Hgb 9.9 L Hct 33.5 L MCV 85 MCH 25.0 MCHC 29.6 L RDW Std Deviation 57.0 H Plt Count 240 D Neut % (Auto) 89 H Lymph % (Auto) 2 L [place] % (Auto) 7 Eos % (Auto) 0 Baso % (Auto) 0 Neut # (Auto) 14.4 H Lymph # (Auto) 0.4 L [place] # (Auto) 1.1 H Eos # (Auto) 0.0 Baso # (Auto) 0.0 Immature Gran # (Auto) 0.29 H Absolute Nucleated RBC 0.02 H Immature Gran % 2 H Nucleated RBC % 0 Sodium 134 L Potassium 4.3 Chloride 96 L Carbon Dioxide 35.2 H Anion Gap 3 L BUN 24 H Creatinine 0.9 Estim Creat Clear Calc 57.1 L eGFR > 60 BUN/Creatinine Ratio 27 H Glucose 156 H Calculated Osmolality 275 Calcium 8.9 Corrected Calcium 9.1 Phosphorus 3.3 Magnesium 2.1 Total Bilirubin 0.4 AST 70 H ALT 62 H Alkaline Phosphatase 143 H Total Protein 5.8 Albumin 3.8 Globulin 2.0 L Albumin/Globulin Ratio 1.9 ABG Interpretation ABG results: 11/01/24 11/04/24 11/05/24 19:07 23:05 03:10 ABG pH 7.17 L* 7.33 L D ABG pCO2 98 H* 77 H* D ABG pO2 92 58 L* D ABG HCO3 36 H 40 H ABG O2 Saturation 97 90 L ABG Base Excess 5 H 12 H VBG pH 7.41 VBG pCO2 54 VBG pO2 77 H VBG Base Excess 8 H 11/05/24 11/06/24 11/06/24 17:00 01:10 08:45 ABG pH 7.31 L 7.37 7.42 ABG pCO2 94 H* D 81 H* D 73 H* ABG pO2 66 L 75 L 69 L ABG HCO3 47 H 47 H 47 H ABG O2 Saturation 91 95 94 ABG Base Excess 17 H 18 H 19 H VBG pH VBG pCO2 VBG pO2 VBG Base Excess 11/06/24 11/08/24 11/08/24 16:00 11:03 15:25 ABG pH 7.52 H D 7.32 L D ABG pCO2 61 H D 79 H* D ABG pO2 189 H D 82 L D ABG HCO3 49 H 41 H ABG O2 Saturation 99 H 96 ABG Base Excess 23 H 12 H VBG pH 7.36 VBG pCO2 73 H VBG pO2 31 VBG Base Excess 13 H Quality Measures Quality Measures VTE prophylaxis Advance care planning discussed with:: patient Assessment & Plan Assessment Current Active Medications: Generic Name Dose Route Start Last Admin Trade Name Freq PRN Reason Stop Dose Admin Acetaminophen 1,000 mg 11/07/24 17:47 Acetaminophen 500 Mg Tablet PO 12/01/24 17:41 Q6H PRN Pain 1-3 or Fever >100 Hydrocodone Bitart/Acetaminophen 1 tab 11/07/24 17:46 11/10/24 09:39 Hydrocodone/Apap 5/325 Tablet PO 11/12/24 17:45 1 tab Q6HR PRN Administration Pain 4-10 Amiodarone HCl 200 mg 11/07/24 09:00 11/10/24 09:12 Amiodarone Hcl 200 Mg Tablet PO 12/07/24 08:59 200 mg BID ESPERANZA Administration Apixaban 5 mg 11/01/24 21:00 11/10/24 09:11 Apixaban 2.5 Mg Tablet PO 12/01/24 20:59 5 mg BID ESPERANZA Administration Aspirin 81 mg 11/03/24 09:00 11/10/24 09:12 Aspirin Ec 81 Mg Tabec PO 12/03/24 08:59 81 mg QDAY ESPERANZA Administration Atorvastatin Calcium 40 mg 11/02/24 09:00 11/10/24 09:11 Atorvastatin Calcium 20 Mg Tablet PO 12/02/24 08:59 40 mg QDAY ESPERANZA Administration Budesonide 0.5 mg 11/03/24 19:00 11/10/24 08:22 Budesonide Rt 0.5 Mg/2 Ml Nebu INH 12/03/24 18:59 0.5 mg BIDRT ESPERANZA Administration Buspirone HCl 5 mg 11/08/24 14:00 11/10/24 09:11 Buspirone Hcl 5 Mg Tablet PO 12/08/24 13:59 5 mg BID ESPERANZA Administration Dextrose 25 ml 11/03/24 16:28 Dextrose 50%-Water Inj 50 Ml Syringe IV 12/03/24 16:27 Q15MIN PRN BG 50-70 responsive npo pt Diltiazem HCl 360 mg 11/08/24 09:00 11/10/24 09:10 Diltiazem Cd 120 Mg Capcr PO 12/08/24 08:59 360 mg QDAY ESPERANZA Administration Furosemide 20 mg 11/11/24 09:00 Furosemide 20 Mg Tablet PO 12/11/24 08:59 Q48H ESPERANZA Glucagon 1 mg 11/03/24 16:28 Glucagon Inj 1 Mg Vial IM Q15MIN PRN BG <70, and no IV access Guaifenesin/Dextromethorphan 1 each 11/03/24 10:45 11/10/24 09:10 Guaifenesin/Dm Tablet PO 12/03/24 10:44 1 each BID ESPERANZA Administration Insulin Human Lispro 0 unit 11/03/24 17:00 11/09/24 17:20 Insulin Lispro (Admelog) 1 Unit/0.01 Ml Unit SC 12/03/24 16:59 1 unit AC ESPERANZA Administration Protocol Ipratropium [place] 0.5 mg 11/06/24 15:00 11/10/24 08:21 Ipratropium Rt 0.5 Mg/ 2.5 Ml Nebu INH 12/06/24 14:59 0.5 mg Q4HRRT ESPERANZA Administration Protocol Levalbuterol HCl 0.63 mg 11/03/24 09:49 Levalbuterol Rt 0.63 Mg/3 Ml Nebu INH 12/03/24 09:48 Q6HR PRN WHEEZING Levalbuterol HCl 0.63 mg 11/03/24 11:00 11/10/24 08:22 Levalbuterol Rt 0.63 Mg/3 Ml Nebu INH 12/03/24 10:59 0.63 mg Q4HRRT ESPERANZA Administration Protocol Lorazepam 2 mg 11/08/24 13:56 Lorazepam 2 Mg/Ml Vial IVP X1 PRN Breakthrough Agitation,CIWA>20 Nicotine 21 mg 11/02/24 14:00 11/10/24 09:12 Nicotine Patch 21 Mg/24 Hr Patch.Td24 TOP 12/02/24 13:59 21 mg QDAY ESPERANZA Administration Ondansetron HCl 4 mg 11/01/24 17:42 Ondansetron Inj 2 Mg/Ml Inj 2 Ml IV 12/01/24 17:41 Q6H PRN NAUSEA OR VOMITING Protocol Pantoprazole Sodium 40 mg 11/02/24 13:45 11/10/24 09:09 Pantoprazole Inj 40 Mg Vial IV 12/02/24 13:44 40 mg QDAY ESPERANZA Administration Promethazine HCl/Dextromethorphan 5 ml 11/07/24 09:44 Promethazine/Dm Syrup 5 Ml Dose PO 12/07/24 09:43 Q4HR PRN COUGH Protocol Ropinirole HCl 0.25 mg 11/02/24 09:00 11/10/24 09:12 Ropinirole Hcl 0.25 Mg Tablet PO 12/02/24 08:59 0.25 mg QDAY ESPERANZA Administration Sodium Chloride 3 ml 11/01/24 10:06 11/01/24 14:22 Sodium Chloride Rt [place] 0.9% 3 Ml Nebu INH 12/01/24 10:05 3 ml PRN PRN Administration SOLN Vitamin B Complex/Vit C/Folic Acid 1 tab 11/08/24 09:00 11/10/24 09:12 Vit B12/Vit C/Fa (Nephrovite) Tablet PO 12/08/24 08:59 1 tab QDAY ESPERANZA Administration Plan The patient is a 69-year-old female with significant past medical history of COPD on home oxygen, CAD s/p CABG 20 years ago, tension, hyperlipidemia, hepatocellular disease, restless leg syndrome, history of polysubstance abuse including alcohol, marijuana, tobacco use and amphetamine use presented to ED with chief complaint of worsening of SOB. She denies any fever or chills, chest pain sore throat, phlegm production was found to be on AHRF 2/2 COPD exacerbation. Nephrology consultation was done for further management of moderate hyponatremia and severe hyperkalemia. #Hyperkalemia, resolved Etiology currently unknown ?? partial adrenal insufficiency: Upon further chart review, always has borderline hyperkalemia and borderline hyponatremia DDx: Chronic kidney disease or chronic use of JANA inhibitors or ARB ruled out as the patient does not has CKD and has not been using JANA inhibitors/ARB Presented with potassium of 5.1 Increased up to 6.3 11/06/2024: Potassium level was 3.6, likely in the setting of DuoNeb use with intracellular potassium shift. Was given 20 mEq of IV KCl, as the patient's has cardiac rhythm disorder atrial flutter. 11/07/2024: Potassium level 3.7, was repleted with 40 mEq p.o. KCl in the setting of a flutter to keep level greater than 4.0 -Cortisol level, renin and aldosterone level pending, will need to follow-up as an outpatient for results -Monitor potassium level -We will continue to monitor daily potassium level #Mild hypoosmolar hypovolemic hyponatremia Etiology currently unknown Stable at 134 -Treat the underlying cause of COPD exacerbation 11/04/2024: Sodium level 128, started the patient on normal saline maintenance IV fluid 70 cc/h, will monitor renal panel every 4 hourly, and goal level of sodium will be less than 134 in next 24-hour. 11/05/24: Na 132. Discontinued IV NS 70cc/hr, continue to monitor daily Na level. 11/06/2024: Sodium 133, started the patient on half NS in the setting of severe dehydration. 11/08/2024: Sodium 131, we will continue to monitor sodium level daily in the a.m. 11/09/2023: Sodium 132, will continue to monitor sodium level daily in the a.m. 11/10/2023: Sodium 134, we will continue to monitor sodium level daily in the a.m. #Primary respiratory acidosis fully compensated by metabolic alkalosis ABG done this on 11/06/2024 revealed pH 7.42, pCO2 73, bicarb 47 consistent with respiratory acidosis compensated with metabolic alkalosis -Continue to treat underlying COPD exacerbation #Hypertension -Continue with current medications as BP is currently stable -Monitor vitals #Acute hypoxic respiratory failure secondary to #COPD exacerbation. #Bibasilar pneumonia. ICU was consulted. #Hx of COPD, on 2L. #A-flutter. #Hx of A-fib. #Hx of CAD s/p CABG (more then 20 years ago). #Hx of hyperlipidemia. #Hx of restless legs syndrome. #Hx of hepatocellular disease. #Hx of polysubstance abuse. Thank you for your opportunity to participate nephrology team in this patient care. The patient's management plan was discussed with my attending physician MD Randal Camargo MD, PGY2 Attending Provider Attestation/Addendum Patient seen and examined with resident physician Dr. Ferrari. Note reviewed, agree with findings and recommendations. Hyperkalemia-unclear etiology. No medications which can cause hyperkalemia. Patient does admit to eating avocados but currently in hospital setting. Question partial adrenal insufficiency. Renin, aldosterone, cortisol levels are pending. Blood pressure seems to be acceptable. With medical management potassium seems to be better. Discontinued Veltassa. Hyponatremia-most likely hypovolemia now. Continue with normal saline. Sodium 133. Patient in aflutter with RVR-on Cardizem, amiodarone. Cardiology on the case. Discharge planning per primary team. Continue diuretics every other day Patient with severe metabolic alkalosis as a compensation for respiratory acidosis. pH better Severe COPD exacerbation-on nasal cannula
--- NOTE | 2024-11-10 10:00 | PD.RESPRO ---
Documentation for date of: 11/10/24 Subjective Subjective Interval history: 11/10: no acute overnight events reported. Pt is seen and examined at bedside this morning. Patient is saturating 90% on 5 L oxygen via oxime mask primary team having to do substantive spirometry to however patient is continue to use BiPAP at night. Leukocytosis is mildly elevated this morning, potassium at 4.3 and magnesium 2.1. Patient denies any chest pain, pressure, palpitations she denies shortness of breath or dizziness. Patient is able to tolerate oral diet. Patient is eager to be discharged home. Telemetry is reviewed patient is in sinus rhythm. Exam Vital Signs Temp Pulse Resp BP Pulse Ox O2 Del Method O2 Flow Rate 97.0 F 80 18 149/69 H 97 Oxy Mask 5 11/10/24 07:47 11/10/24 09:12 11/10/24 08:24 11/10/24 09:12 11/10/24 08:24 11/10/24 07:47 11/10/24 08:24 FiO2 80 11/09/24 10:13 Narrative Exam GENERAL: A&Ox3, awake,saturating 95% on 5L via oxymask NEURO: no focal neurological deficits HEENT: Atraumatic, Normocephalic. mucous membranes moist. Eyes open, symmetrical, & clear HEART: Normal Heart Sounds LUNGS: Clear to auscultation bilaterally ABDOMEN: soft, non-distended, non-tender, bowel sounds heard, no guarding or rebound tenderness SKIN: No Rash or ecchymoses EXTREMITIES: No edema, tenderness, able to move all 4 extremities, pedal pulses palpated Objective Labs 11/10/24 04:30 11/10/24 04:30 Labs: Laboratory Results - last 24 hr 11/10/24 04:30 WBC 16.1 H RBC 3.96 L Hgb 9.9 L Hct 33.5 L MCV 85 MCH 25.0 MCHC 29.6 L RDW Std Deviation 57.0 H Plt Count 240 D Neut % (Auto) 89 H Lymph % (Auto) 2 L [place] % (Auto) 7 Eos % (Auto) 0 Baso % (Auto) 0 Neut # (Auto) 14.4 H Lymph # (Auto) 0.4 L [place] # (Auto) 1.1 H Eos # (Auto) 0.0 Baso # (Auto) 0.0 Immature Gran # (Auto) 0.29 H Absolute Nucleated RBC 0.02 H Immature Gran % 2 H Nucleated RBC % 0 Sodium 134 L Potassium 4.3 Chloride 96 L Carbon Dioxide 35.2 H Anion Gap 3 L BUN 24 H Creatinine 0.9 Estim Creat Clear Calc 57.1 L eGFR > 60 BUN/Creatinine Ratio 27 H Glucose 156 H Calculated Osmolality 275 Calcium 8.9 Corrected Calcium 9.1 Phosphorus 3.3 Magnesium 2.1 Total Bilirubin 0.4 AST 70 H ALT 62 H Alkaline Phosphatase 143 H Total Protein 5.8 Albumin 3.8 Globulin 2.0 L Albumin/Globulin Ratio 1.9 ABG Interpretation ABG results: 11/01/24 11/04/24 11/05/24 19:07 23:05 03:10 ABG pH 7.17 L* 7.33 L D ABG pCO2 98 H* 77 H* D ABG pO2 92 58 L* D ABG HCO3 36 H 40 H ABG O2 Saturation 97 90 L ABG Base Excess 5 H 12 H VBG pH 7.41 VBG pCO2 54 VBG pO2 77 H VBG Base Excess 8 H 11/05/24 11/06/24 11/06/24 17:00 01:10 08:45 ABG pH 7.31 L 7.37 7.42 ABG pCO2 94 H* D 81 H* D 73 H* ABG pO2 66 L 75 L 69 L ABG HCO3 47 H 47 H 47 H ABG O2 Saturation 91 95 94 ABG Base Excess 17 H 18 H 19 H VBG pH VBG pCO2 VBG pO2 VBG Base Excess 11/06/24 11/08/24 11/08/24 16:00 11:03 15:25 ABG pH 7.52 H D 7.32 L D ABG pCO2 61 H D 79 H* D ABG pO2 189 H D 82 L D ABG HCO3 49 H 41 H ABG O2 Saturation 99 H 96 ABG Base Excess 23 H 12 H VBG pH 7.36 VBG pCO2 73 H VBG pO2 31 VBG Base Excess 13 H Quality Measures Quality Measures VTE prophylaxis Advance care planning discussed with:: patient Assessment & Plan Assessment Current Active Medications: Generic Name Dose Route Start Last Admin Trade Name Freq PRN Reason Stop Dose Admin Acetaminophen 1,000 mg 11/07/24 17:47 Acetaminophen 500 Mg Tablet PO 12/01/24 17:41 Q6H PRN Pain 1-3 or Fever >100 Hydrocodone Bitart/Acetaminophen 1 tab 11/07/24 17:46 11/10/24 09:39 Hydrocodone/Apap 5/325 Tablet PO 11/12/24 17:45 1 tab Q6HR PRN Administration Pain 4-10 Amiodarone HCl 200 mg 11/07/24 09:00 11/10/24 09:12 Amiodarone Hcl 200 Mg Tablet PO 12/07/24 08:59 200 mg BID ESPERANZA Administration Apixaban 5 mg 11/01/24 21:00 11/10/24 09:11 Apixaban 2.5 Mg Tablet PO 12/01/24 20:59 5 mg BID ESPERANZA Administration Aspirin 81 mg 11/03/24 09:00 11/10/24 09:12 Aspirin Ec 81 Mg Tabec PO 12/03/24 08:59 81 mg QDAY ESPERANZA Administration Atorvastatin Calcium 40 mg 11/02/24 09:00 11/10/24 09:11 Atorvastatin Calcium 20 Mg Tablet PO 12/02/24 08:59 40 mg QDAY ESPERANZA Administration Budesonide 0.5 mg 11/03/24 19:00 11/10/24 08:22 Budesonide Rt 0.5 Mg/2 Ml Nebu INH 12/03/24 18:59 0.5 mg BIDRT ESPERANZA Administration Buspirone HCl 5 mg 11/08/24 14:00 11/10/24 09:11 Buspirone Hcl 5 Mg Tablet PO 12/08/24 13:59 5 mg BID ESPERANZA Administration Dextrose 25 ml 11/03/24 16:28 Dextrose 50%-Water Inj 50 Ml Syringe IV 12/03/24 16:27 Q15MIN PRN BG 50-70 responsive npo pt Diltiazem HCl 360 mg 11/08/24 09:00 11/10/24 09:10 Diltiazem Cd 120 Mg Capcr PO 12/08/24 08:59 360 mg QDAY ESPERANZA Administration Furosemide 20 mg 11/11/24 09:00 Furosemide 20 Mg Tablet PO 12/11/24 08:59 Q48H ESPERANZA Glucagon 1 mg 11/03/24 16:28 Glucagon Inj 1 Mg Vial IM Q15MIN PRN BG <70, and no IV access Guaifenesin/Dextromethorphan 1 each 11/03/24 10:45 11/10/24 09:10 Guaifenesin/Dm Tablet PO 12/03/24 10:44 1 each BID ESPERANZA Administration Insulin Human Lispro 0 unit 11/03/24 17:00 11/09/24 17:20 Insulin Lispro (Admelog) 1 Unit/0.01 Ml Unit SC 12/03/24 16:59 1 unit AC ESPERANZA Administration Protocol Ipratropium [place] 0.5 mg 11/06/24 15:00 11/10/24 08:21 Ipratropium Rt 0.5 Mg/ 2.5 Ml Nebu INH 12/06/24 14:59 0.5 mg Q4HRRT ESPERANZA Administration Protocol Levalbuterol HCl 0.63 mg 11/03/24 09:49 Levalbuterol Rt 0.63 Mg/3 Ml Nebu INH 12/03/24 09:48 Q6HR PRN WHEEZING Levalbuterol HCl 0.63 mg 11/03/24 11:00 11/10/24 08:22 Levalbuterol Rt 0.63 Mg/3 Ml Nebu INH 12/03/24 10:59 0.63 mg Q4HRRT ESPERANZA Administration Protocol Lorazepam 2 mg 11/08/24 13:56 Lorazepam 2 Mg/Ml Vial IVP X1 PRN Breakthrough Agitation,CIWA>20 Nicotine 21 mg 11/02/24 14:00 11/10/24 09:12 Nicotine Patch 21 Mg/24 Hr Patch.Td24 TOP 12/02/24 13:59 21 mg QDAY ESPERANZA Administration Ondansetron HCl 4 mg 11/01/24 17:42 Ondansetron Inj 2 Mg/Ml Inj 2 Ml IV 12/01/24 17:41 Q6H PRN NAUSEA OR VOMITING Protocol Pantoprazole Sodium 40 mg 11/02/24 13:45 11/10/24 09:09 Pantoprazole Inj 40 Mg Vial IV 12/02/24 13:44 40 mg QDAY ESPERANZA Administration Promethazine HCl/Dextromethorphan 5 ml 11/07/24 09:44 Promethazine/Dm Syrup 5 Ml Dose PO 12/07/24 09:43 Q4HR PRN COUGH Protocol Ropinirole HCl 0.25 mg 11/02/24 09:00 11/10/24 09:12 Ropinirole Hcl 0.25 Mg Tablet PO 12/02/24 08:59 0.25 mg QDAY ESPERANZA Administration Sodium Chloride 3 ml 11/01/24 10:06 11/01/24 14:22 Sodium Chloride Rt [place] 0.9% 3 Ml Nebu INH 12/01/24 10:05 3 ml PRN PRN Administration SOLN Vitamin B Complex/Vit C/Folic Acid 1 tab 11/08/24 09:00 11/10/24 09:12 Vit B12/Vit C/Fa (Nephrovite) Tablet PO 12/08/24 08:59 1 tab QDAY ESPERANZA Administration Plan Ms. 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 #AHRF in the setting of #COPD exacerbation #Pneumonia -Patient has a history of COPD in the setting of chronic smoking history. Patient uses 2 L of oxygen at home which she states she is not always compliant with. Chest x-ray showed bibasilar pneumonia and patient has bilateral wheezing on auscultation. -Per primary hospitalist team patient is on scheduled breathing treatments as well as daily steroids. -IV antibiotics started with azithromycin and ceftriaxone -DuoNebs as needed -Continue supplemental oxygen and patient must be on BiPAP at night # A flutter/A-fib with RVR -CHADVASC- 4 HASBLED- 1 -Since admission patient has been in a flutter with RVR initially was rate controlled patient was placed on diltiazem drip plus digoxin and transition to p.o. diltiazem 360 Mg daily however patient was unable to to be in rate control as today in the afternoon patient's heart rate was in the 140s to 150s again IV diltiazem 20 Mg x 1 was given once. For anticoagulation patient is on Eliquis -Pt remained in afib/flutter st. was started on amio drip -Keep potassium above 4 and magnesium above 2 at all times -Echocardiogram completed on 11/04/2024 with showed normal LV size, low normal LV function LVEF 45 to 50%. Diastolic dysfunction present but could not grade due to atrial flutter with RVR. RV systolic function mildly decreased. Estimated RVSP 55 mmHg with at least moderate PAH. Trace to mild MR. Moderate TR. Mild biatrial dilatation along with dilated IVC noted. -No blockers for rate control because of the severe COPD. - Pt will require BiPAP at night upon discharge home. -pt is transitioned to oral amio 200mg BID, eliquis 5mg BID, and cardizem 360mg once daily. #Hyperkalemia- resolved -today patient's potassium was 6.3 patient was started on IV insulin with D50, patient was also given Kayexalate plus Veltassa and repeat potassium was 4.7 # History of CAD status post CABG approximately 20 years ago as well as patient has history of hyperlipidemia patient is continued on aspirin as well as atorvastatin. - No blockers for rate control because of the severe COPD. # Primary hypertension-on admission patient blood pressure 163/110 however patient was placed on diltiazem drip therefore antihypertensive therapy was held. -Today blood pressure is 171/73 -Patient was started on losartan 25 mg Qday # Patient has history of restless leg syndrome-patient complained of an inability to sleep due to the restless leg syndrome although home ropinirole is resumed by the primary team Assessment and plan discussed with my attending physician Dr. Liana Collins (PGY-1)- Internal medicine resident Attending Provider Attestation/Addendum I have personally seen and examined the patient separately on the above date of service and discussed the plan of care with the resident. I reviewed the resident Dr. Torin Collins consultation progress note and agree with the resident findings and plan in the note above and have also edited the documentation to reflect my findings and plan. Rex Gaines M.D. Interventional Cardiology
--- NOTE | 2024-11-10 10:43 | PC.SS ---
Follow up note: Physician requests patient have 02 and a portable vent device for home. SS verified and patient already has this from [facility]. D/c scheduled for today
[2024-11-10] MEDS: predniSONE 20 MG TABLET PO (11:17)
--- NOTE | 2024-11-10 13:11 | ESPR_ITS ---
Documentation for date of: 11/10/24 Subjective Subjective Interval history: Patient seen at bedside. No acute overnight events. Patient has been tolerating BiPAP at night. At bedside today, she has no complaints and she is saturating 88% on 6 L of oxygen via oxymask. Encourage patient to continue incentive spirometry treatment Per telemetry, still has sinus rhythm with PACs, rate controlled. Plan is to discharge patient on home oxygen once we get oxygen down to 4 L or below as well as trilogy machine. Patient has also been encouraged to ambulate more. Blood pressure has been elevated, cardiology recommends to start patient on losartan 25 mg daily. 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 Eyes open, symmetrical, & clear CARDIO: No chest pain on palpation. Heart RRR, no obvious murmurs PULM: No noted coughing/dyspnea. Minimal wheezing bilaterally, Oxymask on, 6L of O2 GI: Abdomen soft, nondistended, no pain on palpation. 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 SKIN/MSK/EXT: No wounds/rashes/edema/amputations, no pain on palpation. Pedal pulses present B/L Objective Labs 11/10/24 04:30 11/10/24 04:30 Labs: Laboratory Results - last 24 hr 11/10/24 04:30 WBC 16.1 H RBC 3.96 L Hgb 9.9 L Hct 33.5 L MCV 85 MCH 25.0 MCHC 29.6 L RDW Std Deviation 57.0 H Plt Count 240 D Neut % (Auto) 89 H Lymph % (Auto) 2 L [place] % (Auto) 7 Eos % (Auto) 0 Baso % (Auto) 0 Neut # (Auto) 14.4 H Lymph # (Auto) 0.4 L [place] # (Auto) 1.1 H Eos # (Auto) 0.0 Baso # (Auto) 0.0 Immature Gran # (Auto) 0.29 H Absolute Nucleated RBC 0.02 H Immature Gran % 2 H Nucleated RBC % 0 Sodium 134 L Potassium 4.3 Chloride 96 L Carbon Dioxide 35.2 H Anion Gap 3 L BUN 24 H Creatinine 0.9 Estim Creat Clear Calc 57.1 L eGFR > 60 BUN/Creatinine Ratio 27 H Glucose 156 H Calculated Osmolality 275 Calcium 8.9 Corrected Calcium 9.1 Phosphorus 3.3 Magnesium 2.1 Total Bilirubin 0.4 AST 70 H ALT 62 H Alkaline Phosphatase 143 H Total Protein 5.8 Albumin 3.8 Globulin 2.0 L Albumin/Globulin Ratio 1.9 ABG Interpretation ABG results: 11/01/24 11/04/24 11/05/24 19:07 23:05 03:10 ABG pH 7.17 L* 7.33 L D ABG pCO2 98 H* 77 H* D ABG pO2 92 58 L* D ABG HCO3 36 H 40 H ABG O2 Saturation 97 90 L ABG Base Excess 5 H 12 H VBG pH 7.41 VBG pCO2 54 VBG pO2 77 H VBG Base Excess 8 H 11/05/24 11/06/24 11/06/24 17:00 01:10 08:45 ABG pH 7.31 L 7.37 7.42 ABG pCO2 94 H* D 81 H* D 73 H* ABG pO2 66 L 75 L 69 L ABG HCO3 47 H 47 H 47 H ABG O2 Saturation 91 95 94 ABG Base Excess 17 H 18 H 19 H VBG pH VBG pCO2 VBG pO2 VBG Base Excess 11/06/24 11/08/24 11/08/24 16:00 11:03 15:25 ABG pH 7.52 H D 7.32 L D ABG pCO2 61 H D 79 H* D ABG pO2 189 H D 82 L D ABG HCO3 49 H 41 H ABG O2 Saturation 99 H 96 ABG Base Excess 23 H 12 H VBG pH 7.36 VBG pCO2 73 H VBG pO2 31 VBG Base Excess 13 H Quality Measures Quality Measures VTE prophylaxis Advance care planning discussed with:: patient and child Assessment & Plan Assessment Current Active Medications: Generic Name Dose Route Start Last Admin Trade Name Freq PRN Reason Stop Dose Admin Acetaminophen 1,000 mg 11/07/24 17:47 Acetaminophen 500 Mg Tablet PO 12/01/24 17:41 Q6H PRN Pain 1-3 or Fever >100 Hydrocodone Bitart/Acetaminophen 1 tab 11/07/24 17:46 11/10/24 09:39 Hydrocodone/Apap 5/325 Tablet PO 11/12/24 17:45 1 tab Q6HR PRN Administration Pain 4-10 Amiodarone HCl 200 mg 11/07/24 09:00 11/10/24 09:12 Amiodarone Hcl 200 Mg Tablet PO 12/07/24 08:59 200 mg BID ESPERANZA Administration Apixaban 5 mg 11/01/24 21:00 11/10/24 09:11 Apixaban 2.5 Mg Tablet PO 12/01/24 20:59 5 mg BID ESPERANZA Administration Aspirin 81 mg 11/03/24 09:00 11/10/24 09:12 Aspirin Ec 81 Mg Tabec PO 12/03/24 08:59 81 mg QDAY ESPERANZA Administration Atorvastatin Calcium 40 mg 11/02/24 09:00 11/10/24 09:11 Atorvastatin Calcium 20 Mg Tablet PO 12/02/24 08:59 40 mg QDAY ESPERANZA Administration Budesonide 0.5 mg 11/03/24 19:00 11/10/24 08:22 Budesonide Rt 0.5 Mg/2 Ml Nebu INH 12/03/24 18:59 0.5 mg BIDRT ESPERANZA Administration Buspirone HCl 5 mg 11/08/24 14:00 11/10/24 09:11 Buspirone Hcl 5 Mg Tablet PO 12/08/24 13:59 5 mg BID ESPERANZA Administration Dextrose 25 ml 11/03/24 16:28 Dextrose 50%-Water Inj 50 Ml Syringe IV 12/03/24 16:27 Q15MIN PRN BG 50-70 responsive npo pt Diltiazem HCl 360 mg 11/08/24 09:00 11/10/24 09:10 Diltiazem Cd 120 Mg Capcr PO 12/08/24 08:59 360 mg QDAY ESPERANZA Administration Furosemide 20 mg 11/11/24 09:00 Furosemide 20 Mg Tablet PO 12/11/24 08:59 Q48H ESPERANZA Glucagon 1 mg 11/03/24 16:28 Glucagon Inj 1 Mg Vial IM Q15MIN PRN BG <70, and no IV access Guaifenesin/Dextromethorphan 1 each 11/03/24 10:45 11/10/24 09:10 Guaifenesin/Dm Tablet PO 12/03/24 10:44 1 each BID ESPERANZA Administration Insulin Human Lispro 0 unit 11/03/24 17:00 11/10/24 11:29 Insulin Lispro (Admelog) 1 Unit/0.01 Ml Unit SC 12/03/24 16:59 Not Given AC ESPERANZA Protocol Ipratropium [place] 0.5 mg 11/06/24 15:00 11/10/24 10:16 Ipratropium Rt 0.5 Mg/ 2.5 Ml Nebu INH 12/06/24 14:59 0.5 mg Q4HRRT ESPERANZA Administration Protocol Levalbuterol HCl 0.63 mg 11/03/24 09:49 Levalbuterol Rt 0.63 Mg/3 Ml Nebu INH 12/03/24 09:48 Q6HR PRN WHEEZING Levalbuterol HCl 0.63 mg 11/03/24 11:00 11/10/24 10:16 Levalbuterol Rt 0.63 Mg/3 Ml Nebu INH 12/03/24 10:59 0.63 mg Q4HRRT ESPERANZA Administration Protocol Lorazepam 2 mg 11/08/24 13:56 Lorazepam 2 Mg/Ml Vial IVP X1 PRN Breakthrough Agitation,CIWA>20 Losartan Potassium 25 mg 11/10/24 13:15 Losartan Potassium 25 Mg Tablet PO 12/10/24 13:14 QDAY ESPERANZA Nicotine 21 mg 11/02/24 14:00 11/10/24 09:12 Nicotine Patch 21 Mg/24 Hr Patch.Td24 TOP 12/02/24 13:59 21 mg QDAY ESPERANZA Administration Ondansetron HCl 4 mg 11/01/24 17:42 Ondansetron Inj 2 Mg/Ml Inj 2 Ml IV 12/01/24 17:41 Q6H PRN NAUSEA OR VOMITING Protocol Pantoprazole Sodium 40 mg 11/11/24 09:00 Pantoprazole 40 Mg Tablet PO 12/11/24 08:59 QDAY ESPERANZA Prednisone 20 mg 11/10/24 10:30 11/10/24 11:17 Prednisone 20 Mg Tablet PO 12/10/24 10:29 20 mg QDAY ESPERANZA Administration Promethazine HCl/Dextromethorphan 5 ml 11/07/24 09:44 Promethazine/Dm Syrup 5 Ml Dose PO 12/07/24 09:43 Q4HR PRN COUGH Protocol Ropinirole HCl 0.25 mg 11/02/24 09:00 11/10/24 09:12 Ropinirole Hcl 0.25 Mg Tablet PO 12/02/24 08:59 0.25 mg QDAY ESPERANZA Administration Sodium Chloride 3 ml 11/01/24 10:06 11/01/24 14:22 Sodium Chloride Rt [place] 0.9% 3 Ml Nebu INH 12/01/24 10:05 3 ml PRN PRN Administration SOLN Vitamin B Complex/Vit C/Folic Acid 1 tab 11/08/24 09:00 11/10/24 09:12 Vit B12/Vit C/Fa (Nephrovite) Tablet PO 12/08/24 08:59 1 tab QDAY ESPERANZA Administration Plan Summary: The patient is 69 years old female with past medical history of CAD s/p CABG more than 20 years ago, hypertension, hyperlipidemia, hepatocellular disease, restless legs syndrome, history of polysubstance abuse (alcohol, marijuana, tobacco use, methamphetamine use) presented to the ED complaining of worsening shortness of breath and cough and was admitted for COPD treatment and A-flutter management. #Acute hypoxic respiratory failure secondary to #COPD exacerbation. #Bibasilar pneumonia. #Bilateral pleural effusions #Hx of COPD, on 2L. #Pulmonary embolism ruled out The patient has a history of COPD and has prior admissions for the same. At home, she reports being on 2L of O2 which she only uses occasionally. She still smokes about a pack a year. Generalized wheezing on physical exam. CXR showed bibasilar pneumonia. 11/10/2024- Patient has been tolerating BiPAP at night. At bedside today, she has no complaints and she is saturating 88% on 6 L of oxygen via oxymask. Encourage patient to continue incentive spirometry treatment Plan is to discharge patient on home oxygen once we get oxygen down to 4 L or below as well as trilogy machine. Patient has also been encouraged to ambulate more. Plan: -Continue titrating oxygen, saturation goal of 88-92% -Continue levalbuterol and ipratropium -Incentive Spirometry -Encourage to ambulate more -BIPAP at night -Mucinex and Prometh/DM added for cough #A-flutter. #Hx of A-fib. Likely 2/2 acute hypoxic respiratory failure and COPD exacerbation. At home, she is on diltiazem for 60 mg, digoxin 0.125 mg and Eliquis 5 mg twice daily. CHADVASC- 4 HASBLED- 1 On admission, she was in A-flutter with RVR, HR in the 140s to 150s. She was started on diltiazem drip yesterday as well as digoxin and Eliquis. EKG done this morning showed a flutter with a heart rate of 75 beats per minutes. Following up with cardiology for further recommendations/possible cardioversion. 11/10/2024- Patient is currently on Amio and Diltiazem PO. On tele this morning, sinus rhythm with PAcs, rate controlled. Also on Eliquis 5mg BID Plan: -Continue Amiodarone and Diltiazem -Continue Eliquis -Monitor and replete magnesium and potassium. Keep between 2 and 5 accordingly. -Follow up cardiology recommendations. #Alcohol withdrawal-resolved #Hx of polysubstance abuse. -remote hx of Marijuana, alcohol, methamphetamine, tobacco use. Plan: -CIWA protocol #Hyperkalemia- resolved Potassium today- 4.0 Plan: -Continue to monitor electrolytes #Hx of CAD s/p CABG (more than 20 years ago). #Hx of hyperlipidemia. -Echocardiogram showed EF 45-50% with diastolic dysfunction present but not able to grade due to A-flutter Per nephro rec, will continue on Lasix 20mg every other day Plan: - On home aspirin and atorvastatin. -Lasix 20mg every other day #Hx of hypertension. BP 164/103 on admission. Plan: -Losartan 25mg daily #Hypoosmolar hyponatremia-resolved -Na 130, osm 261, glucose 112 on admission. Sodium today- 132. Urine sodium <10, Urine CL 21.4 Completed 1/2 NS Plan: -Continue monitoring CMP -Nephrology consulted, appreciate recommendations #Hx of restless legs syndrome. -resumed home ropinirole. #Hx of hepatocellular disease. -Follow-up outpatient. FEN: Cardiac diet. DVT prophylaxis: Eliquis Dispo: Telemetry for acute hypoxic respiratory failure 2/2 COPD exacerbation. Code status: FULL CODE. Case was discussed with Dr Espinoza PGY-2 and attending physician, Dr Vincenzo Blount MD PGY-1 Disclaimer: This note was dictated by speech recognition. Minor errors in technical assistance consultant may be present due to voice recognition software. LPatient is 69 years old female with worsening shortness of breath and cough and was admitted for COPD excerbation and palpitations secondary to A-flutter. She is also an active smoker, likely here for exacerbations of her COPD. - Acute hypoxic respiratory failure: Improved, oxygen requirements now down to 5-6L via [place]. Ambulatory oxygen requirement 8-9L. Patient has Trilogy and oxygen at home. Bilateral pleural effusions not amenable to drainage. 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 Lasix 20mg every other day. Nephrology on board. - Contraction Alkalosis: ABG shows contraction alkalosis pH 7.5 ; ordered acetazolamide x1 . Repeat ABG for am draw. Will continue HFNC HS. - Bilateral pneumonia: On IV Azithro + Rocephin (11/01 - 11/10) ; Cocci negative - COPD exacerbation: Continue PRN Duonebs, INH steroids, IV Methylprednisone and Mucinex for COPD - Atrial fibrillation with RVR: CHADVASC is 4 and HASBLED score 1. Finished IV diltiazem. Completed IV Amiodarone , transitioned to P.O. Amio 200mg BID. AC with Diamante. Cardiology following. - CAD status post CABG: Continue aspirin and atorvastatin - Active tobacco smoker: Nicotine patch PRN - Alcohol use disorder: On CIWA protocol Dispo : Anticipate DC to home in 24 hours. Repeat PT evaluation requested Patient examined and case discussed with the team including attending physician. Note reviewed, I agree with the care plan as documented. - Issac Espinoza MD, PGY 2 Attending Provider Attestation/Addendum I reviewed labs, imaging, EKG, home medications and prior available records. Face to face evaluation was performed by me. I have personally examined the patient and discussed assessment and plan with the IM team. I reviewed the resident note and agree with the plan with exceptions as below. Acute hypoxic respiratory failure: She is now on nasal cannula. Repeat ABG showed recurrence of respiratory acidosis. Started BiPAP. Repeat chest x-ray that showed possible bilateral effusion. Consulted IR for possible pleurocentesis: Insufficient fluids. May discharge the patient if her oxygen requirements are less than 5 L. She will need BiPAP at night. Discussed with social work administrator Bilateral pneumonia: Received ceftriaxone/azithromycin. Sent cocci IgM: Negative COPD exacerbation: Continue DuoNebs and corticosteroids. Taper steroids Atrial fibrillation with RVR: Finally rate controlled. Increased diltiazem. Continue p.o. amiodarone. Cardiology is following. CAD status post CABG: Continue aspirin and atorvastatin Hyperkalemia: Improved. Received insulin and dextrose. Received Veltassa. Nephrology is following. Monitor BMP. Hyponatremia: Possibly due to dehydration. Improved with IV fluids. Appreciate nephrology recommendations. Monitor BMP Possible CHF: Cardiology was consulted. Recommended Lasix 20 mg every 48 hours. Debility: Ordered PT evaluation that recommended outpatient PT and a walker Leukocytosis: Likely reactive in the setting of corticosteroid use. Monitor CBC
--- NOTE | 2024-11-10 13:20 | PC.NURSE ---
o2 sat @ 7L oxymask at rest 91%,o2 sat while ambulating in room dropped to 82 %,increased oxymask to 9L,O2 sat up to 88%.
[2024-11-10] MEDS: ALBUTEROL/IPRATROPIUM (Duoneb) RT SOL 3 ML NEBU INH (14:14)
[2024-11-10] MEDS: LOSARTAN POTASSIUM 25 MG TABLET PO (14:35)
[2024-11-10] MEDS: ACETAMINOPHEN 500 MG TABLET 1000 MG PO (22:53)
[2024-11-11] VITALS (18 sets, daily range): BP systolic 119–145; BP diastolic 59–71; PULSE 68–118; RESP 13–26; TEMP 35.9–36.2; O2SAT 79–99; BMI 31.6
[2024-11-11] MEDS: IPRATROPIUM RT 0.5 MG/ 2.5 ML NEBU INH ×5 (02:19→23:05)
[2024-11-11] MEDS: LEVALBUTEROL RT 0.63 MG/3 ML NEBU INH ×6 (02:19→23:05)
[2024-11-11] MEDS: BUDESONIDE RT 0.5 MG/2 ML NEBU INH ×2 (07:04→18:15)
--- NOTE | 2024-11-11 07:16 | ESPR_ITS ---
Documentation for date of: 11/11/24 Subjective Subjective Interval history: Patient seen and examined at the bedside. Patient sleepy this morning and has been on BiPAP during my examination. Upon further questioning patient apparently did not sleep well and did not use her BiPAP consistently overnight and hence restarted on BiPAP. Discussed with the patient that she has to use at least 10 to 12 hours of BiPAP every night at the present settings. Continue aggressive treatment of COPD and should be on an good COPD outpatient regimen at the time of discharge. Patient should have an BiPAP machine arranged as outpatient at the time of discharge. Telemetry reviewed and patient continues to be in normal sinus rhythm with a heart rate between 70 to 80 bpm Rest of the vitals and labs appear to be stable Keep potassium greater than 4 and magnesium greater than 2.0 at all times. Exam Vital Signs Temp Pulse Resp BP Pulse Ox O2 Del Method O2 Flow Rate 96.7 F L 75 19 129/63 95 Oxy Mask 6 11/11/24 04:00 11/11/24 07:07 11/11/24 07:07 11/11/24 04:00 11/11/24 07:07 11/11/24 04:00 11/11/24 07:07 FiO2 80 11/11/24 04:00 Narrative Exam General: Alert and oriented x3. In no acute distress. Eyes: Pupils are equal and reactive to light bilaterally. HEENT: Atraumatic, normocephalic. No JVD noted. Mucosa moist. Cardiovascular: Normal S1 and S2. Normal rate and regular rhythm. No murmurs appreciated. No peripheral pitting edema noted. Respiratory: No respiratory distress. bilateral air entry+. minimal wheezing with no crackles heard. Abdomen: Soft, nontender, nondistended. Skin: No rash. Warm to touch. Musculoskeletal: No gross injuries. Able to move all 4 extremities. Neuro: Alert and oriented x3. No focal neuro deficits. Psych: Normal affect and mood Objective Labs 11/11/24 09:25 11/11/24 09:25 ABG Interpretation ABG results: 11/01/24 11/04/24 11/05/24 19:07 23:05 03:10 ABG pH 7.17 L* 7.33 L D ABG pCO2 98 H* 77 H* D ABG pO2 92 58 L* D ABG HCO3 36 H 40 H ABG O2 Saturation 97 90 L ABG Base Excess 5 H 12 H VBG pH 7.41 VBG pCO2 54 VBG pO2 77 H VBG Base Excess 8 H 11/05/24 11/06/24 11/06/24 17:00 01:10 08:45 ABG pH 7.31 L 7.37 7.42 ABG pCO2 94 H* D 81 H* D 73 H* ABG pO2 66 L 75 L 69 L ABG HCO3 47 H 47 H 47 H ABG O2 Saturation 91 95 94 ABG Base Excess 17 H 18 H 19 H VBG pH VBG pCO2 VBG pO2 VBG Base Excess 11/06/24 11/08/24 11/08/24 16:00 11:03 15:25 ABG pH 7.52 H D 7.32 L D ABG pCO2 61 H D 79 H* D ABG pO2 189 H D 82 L D ABG HCO3 49 H 41 H ABG O2 Saturation 99 H 96 ABG Base Excess 23 H 12 H VBG pH 7.36 VBG pCO2 73 H VBG pO2 31 VBG Base Excess 13 H Assessment & Plan A&P Narrative A 69-year-old female with a past medical of CAD s/p CABG more than 20 years ago with unknown grafts is operative report unavailable, paroxysmal atrial fibrillation/flutter anticoagulation, rate controlled, history of moderate to severe COPD, active smoker still more than half a pack a day, increased 30 pack years smoking history, essential hypertension, hyperlipidemia, morbid obesity, history of alcohol, marijuana and tobacco abuse along with history of methamphetamine abuse previously many years ago, questionable liver disease secondary to alcohol and drug abuse, nephrolithiasis presented to the emergency department for further evaluation of shortness of breath and cough. Patient well-known to me from previous admission in October 2023 as well as she follows up with me in the clinic. Patient was initially diagnosed with paroxysmal atrial flutter/fibrillation with RVR in 10/2023 when she had COPD exacerbation along with an active COVID infection. Patient was followed up as outpatient and was placed on diltiazem ER to 60 mg once daily as well as digoxin 125 mcg once daily and Eliquis for anticoagulation. Heart rate was well-controlled but continued to be in normal sinus rhythm at that point of time. Patient continues to be smoking and she has at least moderate to severe COPD based on her previous presentations. Cardiology was consulted today for further management of the possible atrial flutter/fibrillation with RVR 1. Paroxysmal atrial flutter with RVR with 2:1 block and less likely SVT 2. Acute on chronic severe COPD exacerbation with unclear trigger - possible pneumonia - improved with BIPAP. 3. CAD s/p CABG more than 20 years ago with unknown grafts as operative report is unavailable 4. Acute on chronic hypoxic respiratory failure and rule out pneumonia 5. HFpEF or diastolic CHF 6. Essential hypertension 7. Hyperlipidemia 8. Morbid obesity 9. History of remote alcohol, marijuana and methamphetamine 10. Active smoker with more than [id number] smoking history 11. Questionable liver disease with given her history of alcohol abuse 12. Mild anemia Patient presented with severe COPD exacerbation unclear trigger and could be possible pneumonia and patient started on IV antibiotics per the primary team which we recommend to continue and do further workup for the sepsis. Patient should also receive Solu-Medrol 125 mg IV x 1 and aggressive treatment of the COPD exacerbation with the nebulizations but avoid albuterol and give patient levalbuterol along with Atrovent nebulizations. Patient will need long-term steroid inhaler along with other COPD regimen. Primary team is following the patient. Regarding tachycardia patient appears to be in paroxysmal atrial flutter with RVR at least 1 block and less likely SVT. Patient apparently did receive adenosine 12 mg IV x 1 in the ED but did not convert also patient received Cardizem 25 mg IV x 1 and Cardizem drip at 10 mg/h. Unfortunately we are unable to obtain the ECG rhythm when the patient did receive diagnosing and it would help with the diagnosis. At home doses of medication was Cardizem CD 360 mg once daily and digoxin 125 mcg once daily with which her heart rate was well- controlled and also was not Eliquis for anticoagulation. -Patient in the atrial flutter with RVR mostly secondary to the COPD exacerbation but as noted above unclear etiology for the COPD exacerbation possible pneumonia. -Recommend to continue Eliquis for anticoagulation -Patient apparently takes her medications as prescribed daily including the digoxin as well as the diltiazem CD and the last dose was yesterday. -Please started on Cardizem drip at 15 mg/h and was changed to Cardizem 360 mg once daily along with digoxin 125 mcg daily and patient's nuclear rate for better control of 75 bpm with atrial flutter and 40s to 1 block. -She did receive some additional doses of diltiazem 20 mg IV on 11/03/2023 for brief episodes of atrial flutter with RVR. -Patient could not receive a ZEE with cardioversion as patient respiratory status continued to decline and still had significant wheezing and increasing oxygen requirements from her significant COPD exacerbation with possible underlying pneumonia. 11/11/2024 Patient sleepy this morning and has been on BiPAP during my examination. Upon further questioning patient apparently did not sleep well and did not use her BiPAP consistently overnight and hence restarted on BiPAP. Discussed with the patient that she has to use at least 10 to 12 hours of BiPAP every night at the present settings. Continue aggressive treatment of COPD and should be on an good COPD outpatient regimen at the time of discharge. Patient should have an BiPAP machine arranged as outpatient at the time of discharge. Telemetry reviewed and patient continues to be in normal sinus rhythm with a heart rate between 70 to 80 bpm Rest of the vitals and labs appear to be stable Keep potassium greater than 4 and magnesium greater than 2.0 at all times. History of CAD s/p CABG with unknown grafts-please try to obtain the report from her previous hospitalization where the CABG was performed Continue aspirin and statin and no beta-maverick given the severe COPD exacerbation. Recommend aggressive control of CAD with aspirin, high intensity statin. No blockers for rate control because of the severe COPD. Patient does have diastolic dysfunction on the previous echo and chest x-ray shows moderate vascular congestion as per the report. Does not appear to be in overt heart failure but appears to be mildly fluid overloaded. She is not on any kind of Lasix previously at home. Recommend to check BMP tomorrow morning. Okay to give 1 dose of Lasix 40 mg IV x 1. Strict input output, daily weights and 2 g sodium diet. Management of rest of the medical conditions as per primary team and other consultants. Thank you for the consult and allowing me to participate in the care of the patient. Cardiology will continue to follow. Rex Gaines M.D. Interventional Cardiology Time Spent With Patient Time: Total time spent is greater than 50% in coordination of care (as documented) at patient's floor/unit and/or counseling patient:
[2024-11-11] MEDS: HYDROcodone/APAP 5/325 TABLET 1 TAB PO ×3 (08:18→23:08)
[2024-11-11] MEDS: APIXABAN 2.5 MG TABLET 5 MG PO ×2 (09:22→22:15)
[2024-11-11] MEDS: PANTOPRAZOLE 40 MG TABLET PO (09:23)
[2024-11-11] MEDS: guaiFENesin/DM TABLET 1 EACH PO (09:23)
[2024-11-11] MEDS: VIT B12/Vit C/FA (Nephrovite) TABLET 1 TAB PO (09:23)
[2024-11-11] MEDS: BusPIRone HCL 5 MG TABLET PO ×2 (09:23→22:20)
[2024-11-11] MEDS: rOPINIRole HCL 0.25 MG TABLET PO (09:23)
[2024-11-11] MEDS: NICOTINE PATCH 21 MG/24 HR PATCH.TD24 TOP (09:24)
[2024-11-11] MEDS: predniSONE 20 MG TABLET PO (09:24)
[2024-11-11] MEDS: ASPIRIN EC 81 MG TABEC PO (09:24)
[2024-11-11] MEDS: ATORVASTATIN CALCIUM 20 MG TABLET 40 MG PO (09:24)
[2024-11-11] MEDS: AMIODARONE HCL 200 MG TABLET PO ×2 (09:25→22:15)
[2024-11-11] MEDS: LOSARTAN POTASSIUM 25 MG TABLET PO (09:27)
[2024-11-11] MEDS: Furosemide 20 MG TABLET PO (09:27)
[2024-11-11] MEDS: DILTIAZEM CD 120 MG CAPCR 360 MG PO (09:28)
[2024-11-11 10:12] LABS: Basophils % (Auto) 0 % (0-2.5); Eosinophils % (Auto) 0 % (0-10); Hematocrit 35.4 % (36.0-46.0); Hemoglobin 10.2 g/dL (12.0-16.0); Immature Granulocytes % (Auto) 2 % (0-0); Immature Granulocytes Auto 0.39 Thou/mm3 (0.00-0.00); Lymphocytes # (Auto) 1.1 Thou/mm3 (1.0-4.8); Lymphocytes % (Auto) 5 % (10-50); Mean Corpuscular HGB Conc 28.8 g/dl (31.0-37.0); Mean Corpuscular Hemoglobin 25.2 pg (25.0-35.0); Mean Corpuscular Volume 88 fL (80-100); Monocytes # (Auto) 1.4 Thou/mm3 (0.0-0.8); Monocytes % (Auto) 7 % (0-12); Neutrophils # (Auto) 18.6 Thou/mm3 (1.8-7.7); Neutrophils % (Auto) 87 % (37-80); Nucleated Red Blood Cell # 0.02 Thou/mm3 (0.00-0.00); Nucleated Red Blood Cell % 0 /100 WBC (0); Platelet Count 275 Thou/mm3 (140-440); RDW Standard Deviation 60.8 fL (36.4-46.3); Red Blood Count 4.04 Miln/mm3 (4.00-5.20); White Blood Count 21.5 Thou/mm3 (3.6-11.0)
[2024-11-11 10:50] LABS: Alanine Aminotransferase 97 U/L (10-49); Albumin/Globulin Ratio 2.1 (1.2-2.2); Alkaline Phosphatase 124 U/L (46-116); Anion Gap 2 (7-16); Aspartate Amino Transferase 94 U/L (0-34); BUN/Creatinine Ratio 29 Ratio (12-20); Bilirubin,Total 0.5 mg/dL (0.3-1.2); Blood Urea Nitrogen 23 mg/dL (9-23); Calcium 9.1 mg/dL (8.3-10.6); Calcium (Corrected) 9.1 mg/dL (8.5-10.1); Carbon Dioxide 39.1 mMol/L (20.0-31.0); Chloride 94 mMol/L (98-107); Creatinine (Component) 0.8 mg/dL (0.6-1.3); Estimated Creatinine Clearance 63.6 mL/min (>60); Globulin 1.9 gm/dL (2.3-3.5); Glucose 103 mg/dL (74-106); Osmolality,Calculated 273 (275-295); Potassium 4.4 mMol/L (3.4-5.1); Sodium 135 mMol/L (136-145); Total Protein 5.9 gm/dL (5.7-8.2); eGFR > 60 See Note
--- NOTE | 2024-11-11 13:14 | PC.SS ---
Follow up note: Patient d/c held for today. Patient is on a higher flow of 02 at 8L. SS confirmed with patient that she will be returning home and her cousin will be staying with her. All other relatives live on same property. Patient already has 02 and trilogy device at home.
--- NOTE | 2024-11-11 13:46 | PD.ADDPROG ---
Addendum Progress Note Addendum Date of report being addended: 11/11/24 Narrative: Attending's attestation I reviewed labs, imaging, EKG, home medications and prior available records. Face to face evaluation was performed by me. I have personally examined the patient and discussed assessment and plan with the IM team. I reviewed the resident note and agree with the plan with exceptions as below. Acute hypoxic respiratory failure: She is now on nasal cannula. Repeat ABG showed recurrence of respiratory acidosis. Started BiPAP. Repeat chest x-ray that showed possible bilateral effusion. Consulted IR for possible pleurocentesis: Insufficient fluids. May discharge the patient if her oxygen requirements are less than 5 L. She will need CPAP at night. Discussed with vp digital marketing social media and crm. Patient has been difficult to wean of oxygen to less than 5 L, likely in setting of advanced COPD. Will continue weaning of trials and work with PT. Bilateral pneumonia: Received ceftriaxone/azithromycin. Sent cocci IgM: Negative COPD exacerbation: Continue DuoNebs and corticosteroids. Taper steroids. Trelegy upon discharge Atrial fibrillation with RVR: Finally rate controlled. Increased diltiazem. Continue p.o. amiodarone. Continue apixaban. Cardiology to follow. CAD status post CABG: Continue aspirin and atorvastatin Hyperkalemia: Resolved. Received insulin and dextrose. Received Veltassa. Nephrology is following. Monitor BMP. Hyponatremia: Possibly due to dehydration. Improved with IV fluids. Appreciate nephrology recommendations. Monitor BMP Possible CHF: Cardiology was consulted. Recommended Lasix 20 mg every 48 hours. Debility: Ordered PT evaluation that recommended outpatient PT and a walker Leukocytosis: Likely reactive in the setting of corticosteroid use. Monitor CBC
--- NOTE | 2024-11-11 13:52 | XR_ITS ---
Examination: AP chest single view Technique one AP portable semiupright chest single view Exam date and time: November 11, 2024 1407 hours Comparison November 07, 2024 INDICATIONS: Hypoxia low O2 saturation today FINDINGS: Enlarged cardiac contour with prominent vascular congestion CABG Edema at the lung bases Left pleural fluid IMPRESSION: Mild heart failure Consider superimposed pneumonia at the lung bases
--- NOTE | 2024-11-11 14:20 | ESPR_ITS ---
Documentation for date of: 11/11/24 Subjective Subjective Interval history: Patient seen at bedside. No acute overnight events. Patient is still doing clinically good, continues to be saturating 88% on 6 L of oxygen. On examination, lungs are clear to auscultation bilaterally, no wheezing. Labs reviewed WBC uptrending-21.5 today, running on steroid taper and patient is currently on prednisone 20 mg daily. BMP improved, including sodium. Patient continues to desaturate on 10 L of oxygen and had to be switched back to BiPAP. 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 Eyes open, symmetrical, & clear CARDIO: No chest pain on palpation. Heart RRR, no obvious murmurs PULM: No noted coughing/dyspnea. Lungs CTA B/L GI: Abdomen soft, nondistended, no pain on palpation. BSx4 URO/MIDDLE SCHOOL COUNSELOR:: No further abnormalities noted. SKIN/MSK/EXT: No wounds/rashes/edema/amputations, no pain on palpation. Pedal pulses present B/L Objective Labs 11/12/24 05:09 11/12/24 05:09 Labs: Laboratory Results - last 24 hr 11/11/24 09:25 WBC 21.5 H D RBC 4.04 Hgb 10.2 L Hct 35.4 L MCV 88 MCH 25.2 MCHC 28.8 L RDW Std Deviation 60.8 H Plt Count 275 D Neut % (Auto) 87 H Lymph % (Auto) 5 L Sebastian % (Auto) 7 Eos % (Auto) 0 Baso % (Auto) 0 Neut # (Auto) 18.6 H Lymph # (Auto) 1.1 Sebastian # (Auto) 1.4 H Eos # (Auto) 0.0 Baso # (Auto) 0.0 Immature Gran # (Auto) 0.39 H Absolute Nucleated RBC 0.02 H Immature Gran % 2 H Nucleated RBC % 0 Sodium 135 L Potassium 4.4 Chloride 94 L Carbon Dioxide 39.1 H Anion Gap 2 L BUN 23 Creatinine 0.8 Estim Creat Clear Calc 63.6 eGFR > 60 BUN/Creatinine Ratio 29 H Glucose 103 D Calculated Osmolality 273 L Calcium 9.1 Corrected Calcium 9.1 Total Bilirubin 0.5 AST 94 H ALT 97 H Alkaline Phosphatase 124 H Total Protein 5.9 Albumin 4.0 Globulin 1.9 L Albumin/Globulin Ratio 2.1 ABG Interpretation ABG results: 11/01/24 11/04/24 11/05/24 19:07 23:05 03:10 ABG pH 7.17 L* 7.33 L D ABG pCO2 98 H* 77 H* D ABG pO2 92 58 L* D ABG HCO3 36 H 40 H ABG O2 Saturation 97 90 L ABG Base Excess 5 H 12 H VBG pH 7.41 VBG pCO2 54 VBG pO2 77 H VBG Base Excess 8 H 11/05/24 11/06/24 11/06/24 17:00 01:10 08:45 ABG pH 7.31 L 7.37 7.42 ABG pCO2 94 H* D 81 H* D 73 H* ABG pO2 66 L 75 L 69 L ABG HCO3 47 H 47 H 47 H ABG O2 Saturation 91 95 94 ABG Base Excess 17 H 18 H 19 H VBG pH VBG pCO2 VBG pO2 VBG Base Excess 11/06/24 11/08/24 11/08/24 16:00 11:03 15:25 ABG pH 7.52 H D 7.32 L D ABG pCO2 61 H D 79 H* D ABG pO2 189 H D 82 L D ABG HCO3 49 H 41 H ABG O2 Saturation 99 H 96 ABG Base Excess 23 H 12 H VBG pH 7.36 VBG pCO2 73 H VBG pO2 31 VBG Base Excess 13 H Quality Measures Quality Measures VTE prophylaxis Advance care planning discussed with:: patient Assessment & Plan Assessment Current Active Medications: Generic Name Dose Route Start Last Admin Trade Name Freq PRN Reason Stop Dose Admin Acetaminophen 1,000 mg 11/07/24 17:47 11/10/24 22:53 Acetaminophen 500 Mg Tablet PO 12/01/24 17:41 1,000 mg Q6H PRN Administration Pain 1-3 or Fever >100 Hydrocodone Bitart/Acetaminophen 1 tab 11/07/24 17:46 11/11/24 08:18 Hydrocodone/Apap 5/325 Tablet PO 11/12/24 17:45 1 tab Q6HR PRN Administration Pain 4-10 Amiodarone HCl 200 mg 11/07/24 09:00 11/11/24 09:25 Amiodarone Hcl 200 Mg Tablet PO 12/07/24 08:59 200 mg BID ESPERANZA Administration Apixaban 5 mg 11/01/24 21:00 11/11/24 09:22 Apixaban 2.5 Mg Tablet PO 12/01/24 20:59 5 mg BID ESPERANZA Administration Aspirin 81 mg 11/03/24 09:00 11/11/24 09:24 Aspirin Ec 81 Mg Tabec PO 12/03/24 08:59 81 mg QDAY ESPERANZA Administration Atorvastatin Calcium 40 mg 11/02/24 09:00 11/11/24 09:24 Atorvastatin Calcium 20 Mg Tablet PO 12/02/24 08:59 40 mg QDAY ESPERANZA Administration Budesonide 0.5 mg 11/03/24 19:00 11/11/24 07:04 Budesonide Rt 0.5 Mg/2 Ml Nebu INH 12/03/24 18:59 0.5 mg BIDRT ESPERANZA Administration Buspirone HCl 5 mg 11/08/24 14:00 11/11/24 09:23 Buspirone Hcl 5 Mg Tablet PO 12/08/24 13:59 5 mg BID ESPERANZA Administration Dextrose 25 ml 11/03/24 16:28 Dextrose 50%-Water Inj 50 Ml Syringe IV 12/03/24 16:27 Q15MIN PRN BG 50-70 responsive npo pt Diltiazem HCl 360 mg 11/08/24 09:00 11/11/24 09:28 Diltiazem Cd 120 Mg Capcr PO 12/08/24 08:59 360 mg QDAY ESPERANZA Administration Furosemide 20 mg 11/11/24 09:00 11/11/24 09:27 Furosemide 20 Mg Tablet PO 12/11/24 08:59 20 mg Q48H ESPERANZA Administration Glucagon 1 mg 11/03/24 16:28 Glucagon Inj 1 Mg Vial IM Q15MIN PRN BG <70, and no IV access Guaifenesin/Dextromethorphan 1 each 11/03/24 10:45 11/11/24 09:23 Guaifenesin/Dm Tablet PO 12/03/24 10:44 1 each BID ESPERANZA Administration Insulin Human Lispro 0 unit 11/03/24 17:00 11/11/24 12:08 Insulin Lispro (Admelog) 1 Unit/0.01 Ml Unit SC 12/03/24 16:59 Not Given AC ESPERANZA Protocol Ipratropium [place] 0.5 mg 11/06/24 15:00 11/11/24 12:04 Ipratropium Rt 0.5 Mg/ 2.5 Ml Nebu INH 12/06/24 14:59 0.5 mg Q4HRRT ESPERANZA Administration Protocol Levalbuterol HCl 0.63 mg 11/03/24 09:49 Levalbuterol Rt 0.63 Mg/3 Ml Nebu INH 12/03/24 09:48 Q6HR PRN WHEEZING Levalbuterol HCl 0.63 mg 11/03/24 11:00 11/11/24 12:04 Levalbuterol Rt 0.63 Mg/3 Ml Nebu INH 12/03/24 10:59 0.63 mg Q4HRRT ESPERANZA Administration Protocol Lorazepam 2 mg 11/08/24 13:56 Lorazepam 2 Mg/Ml Vial IVP X1 PRN Breakthrough Agitation,CIWA>20 Losartan Potassium 25 mg 11/10/24 13:15 11/11/24 09:27 Losartan Potassium 25 Mg Tablet PO 12/10/24 13:14 25 mg QDAY ESPERANZA Administration Nicotine 21 mg 11/02/24 14:00 11/11/24 09:24 Nicotine Patch 21 Mg/24 Hr Patch.Td24 TOP 12/02/24 13:59 21 mg QDAY ESPERANZA Administration Ondansetron HCl 4 mg 11/01/24 17:42 Ondansetron Inj 2 Mg/Ml Inj 2 Ml IV 12/01/24 17:41 Q6H PRN NAUSEA OR VOMITING Protocol Pantoprazole Sodium 40 mg 11/11/24 09:00 11/11/24 09:23 Pantoprazole 40 Mg Tablet PO 12/11/24 08:59 40 mg QDAY ESPERANZA Administration Promethazine HCl/Dextromethorphan 5 ml 11/07/24 09:44 Promethazine/Dm Syrup 5 Ml Dose PO 12/07/24 09:43 Q4HR PRN COUGH Protocol Ropinirole HCl 0.25 mg 11/02/24 09:00 11/11/24 09:23 Ropinirole Hcl 0.25 Mg Tablet PO 12/02/24 08:59 0.25 mg QDAY ESPERANZA Administration Sodium Chloride 3 ml 11/01/24 10:06 11/01/24 14:22 Sodium Chloride Rt Nayla 0.9% 3 Ml Nebu INH 12/01/24 10:05 3 ml PRN PRN Administration SOLN Vitamin B Complex/Vit C/Folic Acid 1 tab 11/08/24 09:00 11/11/24 09:23 Vit B12/Vit C/Fa (Nephrovite) Tablet PO 12/08/24 08:59 1 tab QDAY ESPERANZA Administration Plan Summary: The patient is 69 years old female with past medical history of CAD s/p CABG more than 20 years ago, hypertension, hyperlipidemia, hepatocellular disease, restless legs syndrome, history of polysubstance abuse (alcohol, marijuana, tobacco use, methamphetamine use) presented to the ED complaining of worsening shortness of breath and cough and was admitted for COPD treatment and A-flutter management. #Acute hypoxic respiratory failure secondary to #COPD exacerbation. #Bibasilar pneumonia. #Bilateral pleural effusions #Hx of COPD, on 2L. #Pulmonary embolism ruled out The patient has a history of COPD and has prior admissions for the same. At home, she reports being on 2L of O2 which she only uses occasionally. She still smokes about a pack a year. Generalized wheezing on physical exam. CXR showed bibasilar pneumonia. 11/11/2024- Patient is expected to be on BIPAP at night but turns out she did not use it last night. Oxygen requirements went up today up to 10L and the patient was switched again to BIPAP. Plan: -Ensure BIPAP at night -Continue titrating oxygen, saturation goal of 88-92% -Continue levalbuterol and ipratropium -Incentive Spirometry -Encourage to ambulate more -Mucinex and Prometh/DM added for cough #[id number] #Hx of A-fib. Likely 2/2 acute hypoxic respiratory failure and COPD exacerbation. At home, she is on diltiazem for 60 mg, digoxin 0.125 mg and Eliquis 5 mg twice daily. CHADVASC- 4 HASBLED- 1 On admission, she was in A-flutter with RVR, HR in the 140s to 150s. She was started on diltiazem drip yesterday as well as digoxin and Eliquis. EKG done this morning showed a flutter with a heart rate of 75 beats per minutes. Following up with cardiology for further recommendations/possible cardioversion. 11/11/2024- Patient is currently on Amio and Diltiazem PO. On tele this morning, sinus rhythm. Also on Eliquis 5mg BID Plan: -Continue Amiodarone and Diltiazem -Continue Eliquis -Monitor and replete magnesium and potassium. Keep between 2 and 5 accordingly. -Follow up cardiology recommendations. #Alcohol withdrawal-resolved #Hx of polysubstance abuse. -remote hx of Marijuana, alcohol, methamphetamine, tobacco use. Plan: -CICT protocol #Hyperkalemia- resolved Potassium today- 4.0 Plan: -Continue to monitor electrolytes #Hx of CAD s/p CABG (more than 20 years ago). #Hx of hyperlipidemia. -Echocardiogram showed EF 45-50% with diastolic dysfunction present but not able to grade due to A-flutter Per nephro rec, will continue on Lasix 20mg every other day Plan: - On home aspirin and atorvastatin. -Lasix 20mg every other day #Hx of hypertension. BP 164/103 on admission. Plan: -Losartan 25mg daily #Hypoosmolar hyponatremia-resolved -Na 130, osm 261, glucose 112 on admission. Sodium today- 135. Urine sodium <10, Urine CL 21.4 Plan: -Continue monitoring CMP -Nephrology consulted, appreciate recommendations #Hx of restless legs syndrome. -resumed home ropinirole. #Hx of hepatocellular disease. -Follow-up outpatient. FEN: Cardiac diet. DVT prophylaxis: Eliquis Dispo: Telemetry for acute hypoxic respiratory failure 2/2 COPD exacerbation. Code status: FULL CODE. Case was discussed with Dr Marks PGY-2 and attending physician, Dr Vincenzo Blount MD PGY-1 Disclaimer: This note was dictated by speech recognition. Minor errors in hoop driving machine operator helper may be present due to voice recognition software. Attending Provider Attestation/Addendum I reviewed labs, imaging, EKG, home medications and prior available records. Face to face evaluation was performed by me. I have personally examined the patient and discussed assessment and plan with the IM team. I reviewed the resident note and agree with the plan with exceptions as below. See my addendum in a separate addendum note
[2024-11-11] MEDS: INSULIN LISPRO (AdmeLOG) 1 UNIT/0.01 ML UNIT SC (17:11)
--- NOTE | 2024-11-11 19:18 | PD.RESPRO ---
Documentation for date of: 11/11/24 Subjective Subjective Interval history: The patient is a 69-year-old female with significant past medical history of COPD on home oxygen, CAD s/p CABG 20 years ago, tension, hyperlipidemia, hepatocellular disease, restless leg syndrome, history of polysubstance abuse including alcohol, marijuana, tobacco use and amphetamine use presented to ED with chief complaint of worsening of SOB. She denies any fever or chills, chest pain sore throat, phlegm production. She was admitted 1 year ago with similar symptoms and was found to have COPD exacerbation. During our evaluation, her vitals were significant for blood pressure 132/92, 130, RR 22, and saturating 90% on 3 L OxyMask. Labs are significant for white count 11.6, hemoglobin 10.5, with MCV 86. Chemistry panel was significant for sodium 122 worsening from 129 yesterday, potassium 6.3 worsened from 5.1 yesterday bicarb 32.3, creatinine 1.0 blood sugar 205. CXR revealing bibasilar pneumonia with EKG revealing atrial flutter. PMH: As mentioned above PSHx: CABG 20 years ago Social history: History of marijuana, tobacco and methamphetamine use, alcohol quitted 1 year ago Allergies: No known allergies Medications: Albuterol, apixaban, aspirin, diltiazem and omeprazole. Nephrology consultation was done for further management of moderate hyponatremia and severe hyperkalemia. 11/04/2024: Overnight patient was agitated and received IV lorazepam. This morning patient was sleeping comfortably, saturating 94% on 6 L OxiMask. She was comfortably resting on her bed. Her wheezing has improved months. Still tachycardic with irregularly irregular rhythm. White count 12.4, sodium 128, chloride 89, potassium trended down to 4.2, bicarb 34, BUN 26 and creatinine 0.9. Renin activity, aldosterone and total cortisol pending. We changed IV maintenance fluid to normal saline 70 cc/h, and we will continue with monitoring renal panel every 4 hourly. 11/06/2024: The patient was interviewed and examined at the bedside this morning. She was on BiPAP, saturating 93% on FiO2 60% and O2 flow 40 L/min. Her pulse has been in the range of 150s to 160s. Exam was significant for mildly dry mucous membranes, no crackles but mild wheezing over the lung ruiz. Peripheral pitting edema. CBC revealed hemoglobin 10.6, ABG done this morning revealed pH 7.42, pCO2 73, bicarb 47 consistent with respiratory acidosis compensated with metabolic alkalosis. Sodium was 133, potassium 3.6, chloride 84, bicarb greater than 40 and magnesium 2.6. Potassium was repleted with 20 mEq IV KCl. She was also started on half-normal saline maintenance fluids 70 cc/h as she appeared severely dry. 11/08/2024: The patient was interviewed and examined at the bedside this morning. She reported doing a little better today morning. She was on high flow nasal cannula with FiO2 70% saturating 95%. Other vitals were fairly stable. Physical exam revealed crackles or decreased breath sounds over lungs, no edema was noted. CBC fairly at baseline, sodium 131, chloride 85, bicarb greater than 40, BUN 27 and creatinine 1.0, with mild transaminitis AST 44 and ALT 139. We will continue to monitor sodium and potassium level daily. 11/09/2024: The patient was interviewed and examined at the bedside this morning. She reported doing a lot better this morning. She was saturating 93% on 6 L NC and eating comfortably on her bed. Her white count mildly trended up to 13.6, hemoglobin stable, sodium 132, potassium 4.2, bicarb 38.2 calculated osmolality 269, and pleural drainage attempted yesterday was significant for only mild pleural effusion on bilateral lower lobe. We will recommend the primary team to hold off on Diamox. Patient will probably need BiPAP during discharge at least at night, and lasix 20mg PO every other day, and F/U with Dr. Cowart in 1-2 weeks of discharge. 11/10/2024: The patient was interviewed and examined at the bedside this morning. She reported doing well. She was saturating 93% on 6 L oxygen mask this morning, was asked to take deep breaths and we were able to taper down the oxygen to 5 L. CBC trended up to 16.1, sodium mildly improved to 134, potassium 4.3, chloride 96, bicarb improving to 35.2, BUN 24, creatinine 0.9, GFR greater than 60, AST 70 ALT 62 with ALP 143. Physical exam was significant for decreased breath sound over bibasilar lung ruiz. Patient will probably need BiPAP during discharge at least at night, and lasix 20mg PO every other day, and F/U with Dr. Cowart in 1-2 weeks of discharge. 11/11/24: The patient reported doing well. Saturating 91% on 6 L oxy mask, improving further with deep inspiration. WBC still 21.5, K 4.4, Na 135 with mild transamnites. Patient will probably need BiPAP during discharge at least at night, and lasix 20mg PO every other day, and F/U with Dr. Cowart in 1-2 weeks of discharge. Exam Vital Signs Temp Pulse Resp BP Pulse Ox O2 Del Method O2 Flow Rate 96.7 F L 71 24 H 119/59 L 98 Oxy Mask 6 11/11/24 16:00 11/11/24 18:58 11/11/24 18:58 11/11/24 16:00 11/11/24 18:58 11/11/24 16:00 11/11/24 18:19 FiO2 50 11/11/24 18:58 Narrative Exam General: No acute distress, comfortably resting on her bed, A and O x 3 HEENT: Mildly dry mucous membranes, oropharynx clear Neck: Supple, No masses, No JVD CVS: S1S2 Regular rate and rhythm, No murmurs, rubs or gallops Lungs: Mild expiratory wheezing throughout the lung field, no crackles or rhonchi appreciated, saturating 93% on 6 L oxygen max Abd: Soft, NT/ND, +BS, no organomegaly Ext: No edema, warm and well perfused Skin: No rash Psych: Appropriate mood and affect Objective Labs 11/12/24 05:09 11/12/24 05:09 Labs: Laboratory Results - last 24 hr 11/11/24 09:25 WBC 21.5 H D RBC 4.04 Hgb 10.2 L Hct 35.4 L MCV 88 MCH 25.2 MCHC 28.8 L RDW Std Deviation 60.8 H Plt Count 275 D Neut % (Auto) 87 H Lymph % (Auto) 5 L [place] % (Auto) 7 Eos % (Auto) 0 Baso % (Auto) 0 Neut # (Auto) 18.6 H Lymph # (Auto) 1.1 [place] # (Auto) 1.4 H Eos # (Auto) 0.0 Baso # (Auto) 0.0 Immature Gran # (Auto) 0.39 H Absolute Nucleated RBC 0.02 H Immature Gran % 2 H Nucleated RBC % 0 Sodium 135 L Potassium 4.4 Chloride 94 L Carbon Dioxide 39.1 H Anion Gap 2 L BUN 23 Creatinine 0.8 Estim Creat Clear Calc 63.6 eGFR > 60 BUN/Creatinine Ratio 29 H Glucose 103 D Calculated Osmolality 273 L Calcium 9.1 Corrected Calcium 9.1 Total Bilirubin 0.5 AST 94 H ALT 97 H Alkaline Phosphatase 124 H Total Protein 5.9 Albumin 4.0 Globulin 1.9 L Albumin/Globulin Ratio 2.1 ABG Interpretation ABG results: 11/01/24 11/04/24 11/05/24 19:07 23:05 03:10 ABG pH 7.17 L* 7.33 L D ABG pCO2 98 H* 77 H* D ABG pO2 92 58 L* D ABG HCO3 36 H 40 H ABG O2 Saturation 97 90 L ABG Base Excess 5 H 12 H VBG pH 7.41 VBG pCO2 54 VBG pO2 77 H VBG Base Excess 8 H 11/05/24 11/06/24 11/06/24 17:00 01:10 08:45 ABG pH 7.31 L 7.37 7.42 ABG pCO2 94 H* D 81 H* D 73 H* ABG pO2 66 L 75 L 69 L ABG HCO3 47 H 47 H 47 H ABG O2 Saturation 91 95 94 ABG Base Excess 17 H 18 H 19 H VBG pH VBG pCO2 VBG pO2 VBG Base Excess 11/06/24 11/08/24 11/08/24 16:00 11:03 15:25 ABG pH 7.52 H D 7.32 L D ABG pCO2 61 H D 79 H* D ABG pO2 189 H D 82 L D ABG HCO3 49 H 41 H ABG O2 Saturation 99 H 96 ABG Base Excess 23 H 12 H VBG pH 7.36 VBG pCO2 73 H VBG pO2 31 VBG Base Excess 13 H Quality Measures Quality Measures VTE prophylaxis Advance care planning discussed with:: patient Assessment & Plan Assessment Current Active Medications: Generic Name Dose Route Start Last Admin Trade Name Freq PRN Reason Stop Dose Admin Acetaminophen 1,000 mg 11/07/24 17:47 11/10/24 22:53 Acetaminophen 500 Mg Tablet PO 12/01/24 17:41 1,000 mg Q6H PRN Administration Pain 1-3 or Fever >100 Hydrocodone Bitart/Acetaminophen 1 tab 11/07/24 17:46 11/11/24 17:14 Hydrocodone/Apap 5/325 Tablet PO 11/12/24 17:45 1 tab Q6HR PRN Administration Pain 4-10 Amiodarone HCl 200 mg 11/07/24 09:00 11/11/24 09:25 Amiodarone Hcl 200 Mg Tablet PO 12/07/24 08:59 200 mg BID ESPERANZA Administration Apixaban 5 mg 11/01/24 21:00 11/11/24 09:22 Apixaban 2.5 Mg Tablet PO 12/01/24 20:59 5 mg BID ESPERANZA Administration Aspirin 81 mg 11/03/24 09:00 11/11/24 09:24 Aspirin Ec 81 Mg Tabec PO 12/03/24 08:59 81 mg QDAY ESPERANZA Administration Atorvastatin Calcium 40 mg 11/02/24 09:00 11/11/24 09:24 Atorvastatin Calcium 20 Mg Tablet PO 12/02/24 08:59 40 mg QDAY ESPERANZA Administration Budesonide 0.5 mg 11/03/24 19:00 11/11/24 18:15 Budesonide Rt 0.5 Mg/2 Ml Nebu INH 12/03/24 18:59 0.5 mg BIDRT ESPERANZA Administration Buspirone HCl 5 mg 11/08/24 14:00 11/11/24 09:23 Buspirone Hcl 5 Mg Tablet PO 12/08/24 13:59 5 mg BID ESPERANZA Administration Dextrose 25 ml 11/03/24 16:28 Dextrose 50%-Water Inj 50 Ml Syringe IV 12/03/24 16:27 Q15MIN PRN BG 50-70 responsive npo pt Diltiazem HCl 360 mg 11/08/24 09:00 11/11/24 09:28 Diltiazem Cd 120 Mg Capcr PO 12/08/24 08:59 360 mg QDAY ESPERANZA Administration Furosemide 20 mg 11/11/24 09:00 11/11/24 09:27 Furosemide 20 Mg Tablet PO 12/11/24 08:59 20 mg Q48H ESPERANZA Administration Glucagon 1 mg 11/03/24 16:28 Glucagon Inj 1 Mg Vial IM Q15MIN PRN BG <70, and no IV access Guaifenesin/Dextromethorphan 1 each 11/03/24 10:45 11/11/24 09:23 Guaifenesin/Dm Tablet PO 12/03/24 10:44 1 each BID ESPERANZA Administration Insulin Human Lispro 0 unit 11/03/24 17:00 11/11/24 17:11 Insulin Lispro (Admelog) 1 Unit/0.01 Ml Unit SC 12/03/24 16:59 1 unit AC ESPERANZA Administration Protocol Ipratropium [place] 0.5 mg 11/06/24 15:00 11/11/24 18:15 Ipratropium Rt 0.5 Mg/ 2.5 Ml Nebu INH 12/06/24 14:59 0.5 mg Q4HRRT ESPERANZA Administration Protocol Levalbuterol HCl 0.63 mg 11/03/24 09:49 Levalbuterol Rt 0.63 Mg/3 Ml Nebu INH 12/03/24 09:48 Q6HR PRN WHEEZING Levalbuterol HCl 0.63 mg 11/03/24 11:00 11/11/24 18:15 Levalbuterol Rt 0.63 Mg/3 Ml Nebu INH 12/03/24 10:59 0.63 mg Q4HRRT ESPERANZA Administration Protocol Lorazepam 2 mg 11/08/24 13:56 Lorazepam 2 Mg/Ml Vial IVP X1 PRN Breakthrough Agitation,CIWA>20 Losartan Potassium 25 mg 11/10/24 13:15 11/11/24 09:27 Losartan Potassium 25 Mg Tablet PO 12/10/24 13:14 25 mg QDAY ESPERANZA Administration Nicotine 21 mg 11/02/24 14:00 11/11/24 09:24 Nicotine Patch 21 Mg/24 Hr Patch.Td24 TOP 12/02/24 13:59 21 mg QDAY ESPERANZA Administration Ondansetron HCl 4 mg 11/01/24 17:42 Ondansetron Inj 2 Mg/Ml Inj 2 Ml IV 12/01/24 17:41 Q6H PRN NAUSEA OR VOMITING Protocol Pantoprazole Sodium 40 mg 11/11/24 09:00 11/11/24 09:23 Pantoprazole 40 Mg Tablet PO 12/11/24 08:59 40 mg QDAY ESPERANZA Administration Promethazine HCl/Dextromethorphan 5 ml 11/07/24 09:44 Promethazine/Dm Syrup 5 Ml Dose PO 12/07/24 09:43 Q4HR PRN COUGH Protocol Ropinirole HCl 0.25 mg 11/02/24 09:00 11/11/24 09:23 Ropinirole Hcl 0.25 Mg Tablet PO 12/02/24 08:59 0.25 mg QDAY ESPERANZA Administration Sodium Chloride 3 ml 11/01/24 10:06 11/01/24 14:22 Sodium Chloride Rt Nayla 0.9% 3 Ml Nebu INH 12/01/24 10:05 3 ml PRN PRN Administration SOLN Vitamin B Complex/Vit C/Folic Acid 1 tab 11/08/24 09:00 11/11/24 09:23 Vit B12/Vit C/Fa (Nephrovite) Tablet PO 12/08/24 08:59 1 tab QDAY ESPERANZA Administration Plan The patient is a 69-year-old female with significant past medical history of COPD on home oxygen, CAD s/p CABG 20 years ago, tension, hyperlipidemia, hepatocellular disease, restless leg syndrome, history of polysubstance abuse including alcohol, marijuana, tobacco use and amphetamine use presented to ED with chief complaint of worsening of SOB. She denies any fever or chills, chest pain sore throat, phlegm production was found to be on AHRF 2/2 COPD exacerbation. Nephrology consultation was done for further management of moderate hyponatremia and severe hyperkalemia. #Hyperkalemia, resolved Etiology currently unknown ?? partial adrenal insufficiency: Upon further chart review, always has borderline hyperkalemia and borderline hyponatremia DDx: Chronic kidney disease or chronic use of JANA inhibitors or ARB ruled out as the patient does not has CKD and has not been using JANA inhibitors/ARB Presented with potassium of 5.1 Increased up to 6.3 11/06/2024: Potassium level was 3.6, likely in the setting of DuoNeb use with intracellular potassium shift. Was given 20 mEq of IV KCl, as the patient's has cardiac rhythm disorder atrial flutter. 11/07/2024: Potassium level 3.7, was repleted with 40 mEq p.o. KCl in the setting of a flutter to keep level greater than 4.0 -Cortisol level, renin and aldosterone level pending, will need to follow-up as an outpatient for results -Monitor potassium level -We will continue to monitor daily potassium level #Mild hypoosmolar hypovolemic hyponatremia Etiology currently unknown Stable at 134 -Treat the underlying cause of COPD exacerbation 11/04/2024: Sodium level 128, started the patient on normal saline maintenance IV fluid 70 cc/h, will monitor renal panel every 4 hourly, and goal level of sodium will be less than 134 in next 24-hour. 11/05/24: Na 132. Discontinued IV NS 70cc/hr, continue to monitor daily Na level. 11/06/2024: Sodium 133, started the patient on half NS in the setting of severe dehydration. 11/08/2024: Sodium 131, we will continue to monitor sodium level daily in the a.m. 11/09/2024: Sodium 132, will continue to monitor sodium level daily in the a.m. 11/11/2024: Sodium 135, we will continue to monitor sodium level daily in the a.m. #Primary respiratory acidosis fully compensated by metabolic alkalosis ABG done this on 11/06/2024 revealed pH 7.42, pCO2 73, bicarb 47 consistent with respiratory acidosis compensated with metabolic alkalosis -Continue to treat underlying COPD exacerbation #Hypertension -Continue with current medications as BP is currently stable -Monitor vitals #Acute hypoxic respiratory failure secondary to #COPD exacerbation. #Bibasilar pneumonia. ICU was consulted. #Hx of COPD, on 2L. #A-flutter. #Hx of A-fib. #Hx of CAD s/p CABG (more then 20 years ago). #Hx of hyperlipidemia. #Hx of restless legs syndrome. #Hx of hepatocellular disease. #Hx of polysubstance abuse. Thank you for your opportunity to participate nephrology team in this patient care. The patient's management plan was discussed with my attending physician MD Randal Camargo MD, PGY2 Attending Provider Attestation/Addendum Patient seen and examined with resident physician Dr. Ferrari. Note reviewed, agree with findings and recommendations. Hyperkalemia-unclear etiology. No medications which can cause hyperkalemia. Patient does admit to eating avocados but currently in hospital setting. Question partial adrenal insufficiency. Renin, aldosterone, cortisol levels are pending. Blood pressure seems to be acceptable. With medical management potassium seems to be better. Discontinued Veltassa. Hyponatremia-most likely hypovolemia now. Continue with normal saline. Sodium 135. Patient in aflutter with RVR-on Cardizem, amiodarone. Cardiology on the case. Discharge planning per primary team. Continue diuretics every other day Patient with severe metabolic alkalosis as a compensation for respiratory acidosis. pH better Severe COPD exacerbation-on nasal mask
[2024-11-11] MEDS: PROMETHAZINE/DM SYRUP 5 ML DOSE PO (23:08)
[2024-11-12] VITALS (22 sets, daily range): BP systolic 97–154; BP diastolic 56–80; PULSE 96–123; RESP 13–27; TEMP 36–36.6; O2SAT 88–100; BMI 31.3
[2024-11-12] MEDS: LORazepam 2 MG/ML VIAL 0.5 MG IVP (03:17)
[2024-11-12] MEDS: LEVALBUTEROL RT 0.63 MG/3 ML NEBU INH ×6 (03:29→23:28)
[2024-11-12] MEDS: IPRATROPIUM RT 0.5 MG/ 2.5 ML NEBU INH ×6 (03:29→23:28)
--- NOTE | 2024-11-12 03:40 | PC.NURSE ---
PT was encouraged to wear bipap all night as ordered per cardiology. PT was adamant to eat snacks and have a cup of coffee then she would leave it alone the remainder of the night from [id number] PT was on NC.
[2024-11-12 06:01] LABS: Basophils % (Auto) 0 % (0-2.5); Eosinophils % (Auto) 0 % (0-10); Hematocrit 35.2 % (36.0-46.0); Hemoglobin 10.5 g/dL (12.0-16.0); Immature Granulocytes % (Auto) 1 % (0-0); Immature Granulocytes Auto 0.24 Thou/mm3 (0.00-0.00); Lymphocytes # (Auto) 1.3 Thou/mm3 (1.0-4.8); Lymphocytes % (Auto) 7 % (10-50); Mean Corpuscular HGB Conc 29.8 g/dl (31.0-37.0); Mean Corpuscular Hemoglobin 25.5 pg (25.0-35.0); Mean Corpuscular Volume 85 fL (80-100); Monocytes # (Auto) 1.1 Thou/mm3 (0.0-0.8); Monocytes % (Auto) 6 % (0-12); Neutrophils # (Auto) 15.5 Thou/mm3 (1.8-7.7); Neutrophils % (Auto) 85 % (37-80); Platelet Count 275 Thou/mm3 (140-440); RDW Standard Deviation 57.1 fL (36.4-46.3); Red Blood Count 4.12 Miln/mm3 (4.00-5.20); White Blood Count 18.2 Thou/mm3 (3.6-11.0)
[2024-11-12 06:02] LABS: Nucleated Red Blood Cell % 0 /100 WBC (0)
[2024-11-12 06:32] LABS: Albumin, Serum 3.7 gm/dL (3.4-4.8); Anion Gap 5 (7-16); BUN/Creatinine Ratio 22 Ratio (12-20); Blood Urea Nitrogen 20 mg/dL (9-23); Calcium 9.1 mg/dL (8.3-10.6); Calcium (Corrected) 9.3 mg/dL (8.5-10.1); Carbon Dioxide 37.1 mMol/L (20.0-31.0); Chloride 94 mMol/L (98-107); Creatinine (Component) 0.9 mg/dL (0.6-1.3); Estimated Creatinine Clearance 56.3 mL/min (>60); Glucose 86 mg/dL (74-106); Magnesium 1.8 mg/dL (1.6-2.6); Osmolality,Calculated 273 (275-295); Phosphorous 3.1 mg/dL (2.4-5.1); Sodium 136 mMol/L (136-145); eGFR > 60 See Note
[2024-11-12] MEDS: BUDESONIDE RT 0.5 MG/2 ML NEBU INH ×2 (07:16→18:30)
[2024-11-12] MEDS: VIT B12/Vit C/FA (Nephrovite) TABLET 1 TAB PO (08:47)
[2024-11-12] MEDS: AMIODARONE HCL 200 MG TABLET PO ×2 (08:47→21:04)
[2024-11-12] MEDS: PANTOPRAZOLE 40 MG TABLET PO (08:47)
[2024-11-12] MEDS: ATORVASTATIN CALCIUM 20 MG TABLET 40 MG PO (08:47)
[2024-11-12] MEDS: guaiFENesin/DM TABLET 1 EACH PO ×2 (08:47→21:04)
[2024-11-12] MEDS: LOSARTAN POTASSIUM 25 MG TABLET PO (08:48)
[2024-11-12] MEDS: BusPIRone HCL 5 MG TABLET PO ×2 (08:48→21:04)
[2024-11-12] MEDS: APIXABAN 2.5 MG TABLET 5 MG PO ×2 (08:48→21:04)
[2024-11-12] MEDS: ASPIRIN EC 81 MG TABEC PO (08:48)
[2024-11-12] MEDS: NICOTINE PATCH 21 MG/24 HR PATCH.TD24 TOP (08:49)
[2024-11-12] MEDS: DILTIAZEM CD 120 MG CAPCR 360 MG PO (08:49)
[2024-11-12] MEDS: rOPINIRole HCL 0.25 MG TABLET PO (08:49)
[2024-11-12] MEDS: HYDROcodone/APAP 5/325 TABLET 1 TAB PO ×2 (08:57→17:00)
[2024-11-12] MEDS: ALBUTEROL/IPRATROPIUM (Duoneb) RT SOL 3 ML NEBU INH (09:05)
--- NOTE | 2024-11-12 09:57 | EKG_ITS ---
[facility] Test Date: 2024-11-12 Pat Name: MIC GRANDE [facility] Pattern Checker: BEVERLEY : 1955 Requested By: Key Blount Order Number: [id number] Reading MD: Key Blount Measurements Intervals [place] Rate: 129 P: SC: QRS: 37 QRSD: 91 T: 55 QT: 295 QTc: 433 Interpretive Statements ATRIAL FIBRILLATION WITH RAPID VENTRICULAR RESPONSE INCOMPLETE RIGHT BUNDLE BRANCH BLOCK MODERATE ST DEPRESSION Compared to ECG 11/07/2024 07:50:16 Incomplete right bundle-branch block now present ST (T wave) deviation now present Sinus rhythm no longer present Myocardial infarct finding no longer present /store/S0/[id number].pdf
[2024-11-12] MEDS: predniSONE 5 MG TABLET 10 MG PO (12:46)
[2024-11-12] MEDS: FUROSEMIDE INJ 10 MG/ML VIAL 2 ML 40 MG IVP (12:46)
[2024-11-12] MEDS: DIGOXIN 0.125 MG TABLET 0.25 MG PO (12:47)
[2024-11-12] MEDS: ACETAMINOPHEN 500 MG TABLET 1000 MG PO (12:58)
--- NOTE | 2024-11-12 14:29 | ESPR_ITS ---
<Statement entered by Len Marks MD - 11/13/24 15:38> Senior Resident Attestation: I supervised/discussed management plan with international exchange coordinator physician Dr. Blount, and was involved in the care of this patient. I personally saw and examined the patient and discussed the assessment and plan with the entire medicine team, including my attending. I agree with the assessment and plan as documented. Patient's care was discussed with attending physician, Dr. Price. Len Marks MD PGY-2. Documentation for date of: 11/12/24 Subjective Subjective Interval history: Patient seen at bedside. Overnight was said to not being using the BiPAP consistently as she said it was uncomfortable. Today at bedside, patient is saturating 95% on 5 L of oxygen, she has expiratory wheezes and rhonchi Additionally, heart rates has been elevated, in the 120s. Repeat EKG was done which showed A-fib with RVR, heart rate 129. Patient is currently on amiodarone and diltiazem, will add digoxin as kidney injury has resolved. Patient, will add IV Lasix 40 mg daily to help with oxygen requirements. Exam Vital Signs Temp Pulse Resp BP Pulse Ox O2 Del Method O2 Flow Rate 97.5 F 113 H 17 104/69 94 L Nasal Cannula 5 11/12/24 12:00 11/12/24 12:47 11/12/24 12:00 11/12/24 12:47 11/12/24 12:00 11/12/24 12:00 11/12/24 12:00 FiO2 5 11/12/24 11:05 Narrative Exam GENERAL: AAOX3 NEURO: BUNCH TRIMMER MOLD grossly intact, moves extremities x4 HEENT: Moist mucosa. Eyes open, symmetrical, & clear CARDIO: No chest pain on palpation. Heart RRR, no obvious murmurs PULM: No noted coughing/dyspnea. Expiratory wheeze and rhonchi on auscultation, OxyMask on-5 L of oxygen GI: Abdomen soft, nondistended, no pain on palpation. BSx4 URO/PICKING SUPERVISOR:: No further abnormalities noted. SKIN/MSK/EXT: No wounds/rashes/edema/amputations, no pain on palpation. Pedal pulses present B/L Objective Labs 11/12/24 05:09 11/12/24 05:09 Labs: Laboratory Results - last 24 hr 11/12/24 05:09 WBC 18.2 H RBC 4.12 Hgb 10.5 L Hct 35.2 L MCV 85 MCH 25.5 MCHC 29.8 L RDW Std Deviation 57.1 H Plt Count 275 Neut % (Auto) 85 H Lymph % (Auto) 7 L Sanders % (Auto) 6 Eos % (Auto) 0 Baso % (Auto) 0 Neut # (Auto) 15.5 H Lymph # (Auto) 1.3 Sanders # (Auto) 1.1 H Eos # (Auto) 0.0 Baso # (Auto) 0.0 Immature Gran # (Auto) 0.24 H Absolute Nucleated RBC 0.00 Immature Gran % 1 H Nucleated RBC % 0 Sodium 136 Potassium 5.0 D Chloride 94 L Carbon Dioxide 37.1 H Anion Gap 5 L BUN 20 Creatinine 0.9 Estim Creat Clear Calc 56.3 L eGFR > 60 BUN/Creatinine Ratio 22 H Glucose 86 Calculated Osmolality 273 L Calcium 9.1 Corrected Calcium 9.3 Phosphorus 3.1 Magnesium 1.8 Albumin 3.7 ABG Interpretation ABG results: 11/01/24 11/04/24 11/05/24 19:07 23:05 03:10 ABG pH 7.17 L* 7.33 L D ABG pCO2 98 H* 77 H* D ABG pO2 92 58 L* D ABG HCO3 36 H 40 H ABG O2 Saturation 97 90 L ABG Base Excess 5 H 12 H VBG pH 7.41 VBG pCO2 54 VBG pO2 77 H VBG Base Excess 8 H 11/05/24 11/06/24 11/06/24 17:00 01:10 08:45 ABG pH 7.31 L 7.37 7.42 ABG pCO2 94 H* D 81 H* D 73 H* ABG pO2 66 L 75 L 69 L ABG HCO3 47 H 47 H 47 H ABG O2 Saturation 91 95 94 ABG Base Excess 17 H 18 H 19 H VBG pH VBG pCO2 VBG pO2 VBG Base Excess 11/06/24 11/08/24 11/08/24 16:00 11:03 15:25 ABG pH 7.52 H D 7.32 L D ABG pCO2 61 H D 79 H* D ABG pO2 189 H D 82 L D ABG HCO3 49 H 41 H ABG O2 Saturation 99 H 96 ABG Base Excess 23 H 12 H VBG pH 7.36 VBG pCO2 73 H VBG pO2 31 VBG Base Excess 13 H Quality Measures Quality Measures VTE prophylaxis Advance care planning discussed with:: patient Assessment & Plan Assessment Current Active Medications: Generic Name Dose Route Start Last Admin Trade Name Freq PRN Reason Stop Dose Admin Acetaminophen 1,000 mg 11/07/24 17:47 11/12/24 12:58 Acetaminophen 500 Mg Tablet PO 12/01/24 17:41 1,000 mg Q6H PRN Administration Pain 1-3 or Fever >100 Hydrocodone Bitart/Acetaminophen 1 tab 11/07/24 17:46 11/12/24 08:57 Hydrocodone/Apap 5/325 Tablet PO 11/12/24 17:45 1 tab Q6HR PRN Administration Pain 4-10 Amiodarone HCl 200 mg 11/07/24 09:00 11/12/24 08:47 Amiodarone Hcl 200 Mg Tablet PO 12/07/24 08:59 200 mg BID ESPERANZA Administration Apixaban 5 mg 11/01/24 21:00 11/12/24 08:48 Apixaban 2.5 Mg Tablet PO 12/01/24 20:59 5 mg BID ESPERANZA Administration Aspirin 81 mg 11/03/24 09:00 11/12/24 08:48 Aspirin Ec 81 Mg Tabec PO 12/03/24 08:59 81 mg QDAY ESPERANZA Administration Atorvastatin Calcium 40 mg 11/02/24 09:00 11/12/24 08:47 Atorvastatin Calcium 20 Mg Tablet PO 12/02/24 08:59 40 mg QDAY ESPERANZA Administration Budesonide 0.5 mg 11/03/24 19:00 11/12/24 07:16 Budesonide Rt 0.5 Mg/2 Ml Nebu INH 12/03/24 18:59 0.5 mg BIDRT ESPERANZA Administration Buspirone HCl 5 mg 11/08/24 14:00 11/12/24 08:48 Buspirone Hcl 5 Mg Tablet PO 12/08/24 13:59 5 mg BID ESPERANZA Administration Dextrose 25 ml 11/03/24 16:28 Dextrose 50%-Water Inj 50 Ml Syringe IV 12/03/24 16:27 Q15MIN PRN BG 50-70 responsive npo pt Digoxin 0.25 mg 11/12/24 10:15 11/12/24 12:47 Digoxin 0.125 Mg Tablet PO 12/12/24 10:14 0.25 mg QDAY ESPERANZA Administration Diltiazem HCl 360 mg 11/08/24 09:00 11/12/24 08:49 Diltiazem Cd 120 Mg Capcr PO 12/08/24 08:59 360 mg QDAY ESPERANZA Administration Furosemide 40 mg 11/12/24 10:15 11/12/24 12:46 Furosemide Inj 10 Mg/Ml Vial 2 Ml IVP 12/12/24 10:14 40 mg QDAY ESPERANZA Administration Glucagon 1 mg 11/03/24 16:28 Glucagon Inj 1 Mg Vial IM Q15MIN PRN BG <70, and no IV access Guaifenesin/Dextromethorphan 1 each 11/03/24 10:45 11/12/24 08:47 Guaifenesin/Dm Tablet PO 12/03/24 10:44 1 each BID ESPERANZA Administration Insulin Human Lispro 0 unit 11/03/24 17:00 11/12/24 13:59 Insulin Lispro (Admelog) 1 Unit/0.01 Ml Unit SC 12/03/24 16:59 Not Given AC ESPERANZA Protocol Ipratropium [place] 0.5 mg 11/06/24 15:00 11/12/24 11:03 Ipratropium Rt 0.5 Mg/ 2.5 Ml Nebu INH 12/06/24 14:59 0.5 mg Q4HRRT ESPERANZA Administration Protocol Levalbuterol HCl 0.63 mg 11/03/24 09:49 Levalbuterol Rt 0.63 Mg/3 Ml Nebu INH 12/03/24 09:48 Q6HR PRN WHEEZING Levalbuterol HCl 0.63 mg 11/03/24 11:00 11/12/24 11:03 Levalbuterol Rt 0.63 Mg/3 Ml Nebu INH 12/03/24 10:59 0.63 mg Q4HRRT ESPERANZA Administration Protocol Lorazepam 2 mg 11/08/24 13:56 Lorazepam 2 Mg/Ml Vial IVP X1 PRN Breakthrough Agitation,CIWA>20 Losartan Potassium 25 mg 11/10/24 13:15 11/12/24 08:48 Losartan Potassium 25 Mg Tablet PO 12/10/24 13:14 25 mg QDAY ESPERANZA Administration Nicotine 21 mg 11/02/24 14:00 11/12/24 08:49 Nicotine Patch 21 Mg/24 Hr Patch.Td24 TOP 12/02/24 13:59 21 mg QDAY ESPERANZA Administration Ondansetron HCl 4 mg 11/01/24 17:42 Ondansetron Inj 2 Mg/Ml Inj 2 Ml IV 12/01/24 17:41 Q6H PRN NAUSEA OR VOMITING Protocol Pantoprazole Sodium 40 mg 11/11/24 09:00 11/12/24 08:47 Pantoprazole 40 Mg Tablet PO 12/11/24 08:59 40 mg QDAY ESPERANZA Administration Prednisone 10 mg 11/12/24 10:15 11/12/24 12:46 Prednisone 5 Mg Tablet PO 12/12/24 10:14 10 mg QDAY ESPERANZA Administration Promethazine HCl/Dextromethorphan 5 ml 11/07/24 09:44 11/11/24 23:08 Promethazine/Dm Syrup 5 Ml Dose PO 12/07/24 09:43 5 ml Q4HR PRN Administration COUGH Protocol Ropinirole HCl 0.25 mg 11/02/24 09:00 11/12/24 08:49 Ropinirole Hcl 0.25 Mg Tablet PO 12/02/24 08:59 0.25 mg QDAY ESPERANZA Administration Sodium Chloride 3 ml 11/01/24 10:06 11/01/24 14:22 Sodium Chloride Rt Nayla 0.9% 3 Ml Nebu INH 12/01/24 10:05 3 ml PRN PRN Administration SOLN Sodium Chloride 1 spray 11/12/24 08:27 Saline Nasal 45 Ml Btl NASAL 12/12/24 08:26 PRN PRN CONGESTION Vitamin B Complex/Vit C/Folic Acid 1 tab 11/08/24 09:00 11/12/24 08:47 Vit B12/Vit C/Fa (Nephrovite) Tablet PO 12/08/24 08:59 1 tab QDAY ESPERANZA Administration Plan Summary: The patient is 69 years old female with past medical history of CAD s/p CABG more than 20 years ago, hypertension, hyperlipidemia, hepatocellular disease, restless legs syndrome, history of polysubstance abuse (alcohol, marijuana, tobacco use, methamphetamine use) presented to the ED complaining of worsening shortness of breath and cough and was admitted for COPD treatment and A-flutter management. #Acute hypoxic respiratory failure secondary to #COPD exacerbation. #Bibasilar pneumonia. #Bilateral pleural effusions #Hx of COPD, on 2L. #Pulmonary embolism ruled out The patient has a history of COPD and has prior admissions for the same. At home, she reports being on 2L of O2 which she only uses occasionally. She still smokes about a pack a year. Generalized wheezing on physical exam. CXR showed bibasilar pneumonia. 11/12/2024- Overnight was said to not being using the BiPAP consistently as she said it was uncomfortable. Today at bedside, patient is saturating 95% on 5 L of oxygen, she has expiratory wheezes and rhonchi. Will optimize breathing treatments, chest physiotherapy and incentive spirometry. Tapering prednisone-start 10 mg x 2 days today Plan: -Ensure BIPAP at night -Continue titrating oxygen, saturation goal of 88-92% -Continue levalbuterol and ipratropium -Continue prednisone 10 mg daily -Incentive Spirometry -Encourage to ambulate more -Mucinex and Prometh/DM added for cough #[id number] #Hx of A-fib. Likely 2/2 acute hypoxic respiratory failure and COPD exacerbation. At home, she is on diltiazem for 60 mg, digoxin 0.125 mg and Eliquis 5 mg twice daily. CHADVASC- 4 HASBLED- 1 On admission, she was in A-flutter with RVR, HR in the 140s to 150s. She was started on diltiazem drip yesterday as well as digoxin and Eliquis. EKG done this morning showed a flutter with a heart rate of 75 beats per minutes. Following up with cardiology for further recommendations/possible cardioversion. 11/12/2024- Heart rate has been elevated more than 160. Repeat EKG was done which showed A-fib with RVR, heart rate 129. Patient is currently on amiodarone and diltiazem, will add digoxin as kidney injury has resolve Plan: -Continue Amiodarone and Diltiazem -Continue Eliquis -Add digoxin, 0.25 mg daily -Monitor and replete magnesium and potassium. Keep between 2 and 5 accordingly. -Follow up cardiology recommendations. #Alcohol withdrawal-resolved #Hx of polysubstance abuse. -remote hx of Marijuana, alcohol, methamphetamine, tobacco use. Plan: -CIWA protocol #Hyperkalemia- resolved Potassium today- 4.0 Plan: -Continue to monitor electrolytes #Hx of CAD s/p CABG (more than 20 years ago). #Hx of hyperlipidemia. -Echocardiogram showed EF 45-50% with diastolic dysfunction present but not able to grade due to A-flutter Per nephro rec, will continue on Lasix 20mg every other day 11/12/2024-increasing patient's Lasix dose to 40 mg daily Plan: - On home aspirin and atorvastatin. -Lasix 40 mg daily #Hx of hypertension. BP 164/103 on admission. Plan: -Losartan 25mg daily #Hypoosmolar hyponatremia-resolved -Na 130, osm 261, glucose 112 on admission. Sodium today- 135. Urine sodium <10, Urine CL 21.4 Plan: -Continue monitoring CMP -Nephrology consulted, appreciate recommendations #Hx of restless legs syndrome. -resumed home ropinirole. #Hx of hepatocellular disease. -Follow-up outpatient. FEN: Cardiac diet. DVT prophylaxis: Eliquis Dispo: Telemetry for acute hypoxic respiratory failure 2/2 COPD exacerbation. Code status: FULL CODE. Case was discussed with Dr Makrs PGY-2 and attending physician, Dr Albert Blount MD PGY-1 Disclaimer: This note was dictated by speech recognition. Minor errors in casing splitter may be present due to voice recognition software.
--- NOTE | 2024-11-12 14:30 | PD.RESPRO ---
Documentation for date of: 11/12/24 Subjective Subjective Interval history: The patient is a 69-year-old female with significant past medical history of COPD on home oxygen, CAD s/p CABG 20 years ago, tension, hyperlipidemia, hepatocellular disease, restless leg syndrome, history of polysubstance abuse including alcohol, marijuana, tobacco use and amphetamine use presented to ED with chief complaint of worsening of SOB. She denies any fever or chills, chest pain sore throat, phlegm production. She was admitted 1 year ago with similar symptoms and was found to have COPD exacerbation. During our evaluation, her vitals were significant for blood pressure 132/92, 130, RR 22, and saturating 90% on 3 L OxyMask. Labs are significant for white count 11.6, hemoglobin 10.5, with MCV 86. Chemistry panel was significant for sodium 122 worsening from 129 yesterday, potassium 6.3 worsened from 5.1 yesterday bicarb 32.3, creatinine 1.0 blood sugar 205. CXR revealing bibasilar pneumonia with EKG revealing atrial flutter. PMH: As mentioned above PSHx: CABG 20 years ago Social history: History of marijuana, tobacco and methamphetamine use, alcohol quitted 1 year ago Allergies: No known allergies Medications: Albuterol, apixaban, aspirin, diltiazem and omeprazole. Nephrology consultation was done for further management of moderate hyponatremia and severe hyperkalemia. 11/04/2024: Overnight patient was agitated and received IV lorazepam. This morning patient was sleeping comfortably, saturating 94% on 6 L OxiMask. She was comfortably resting on her bed. Her wheezing has improved months. Still tachycardic with irregularly irregular rhythm. White count 12.4, sodium 128, chloride 89, potassium trended down to 4.2, bicarb 34, BUN 26 and creatinine 0.9. Renin activity, aldosterone and total cortisol pending. We changed IV maintenance fluid to normal saline 70 cc/h, and we will continue with monitoring renal panel every 4 hourly. 11/06/2024: The patient was interviewed and examined at the bedside this morning. She was on BiPAP, saturating 93% on FiO2 60% and O2 flow 40 L/min. Her pulse has been in the range of 150s to 160s. Exam was significant for mildly dry mucous membranes, no crackles but mild wheezing over the lung ruiz. Peripheral pitting edema. CBC revealed hemoglobin 10.6, ABG done this morning revealed pH 7.42, pCO2 73, bicarb 47 consistent with respiratory acidosis compensated with metabolic alkalosis. Sodium was 133, potassium 3.6, chloride 84, bicarb greater than 40 and magnesium 2.6. Potassium was repleted with 20 mEq IV KCl. She was also started on half-normal saline maintenance fluids 70 cc/h as she appeared severely dry. 11/08/2024: The patient was interviewed and examined at the bedside this morning. She reported doing a little better today morning. She was on high flow nasal cannula with FiO2 70% saturating 95%. Other vitals were fairly stable. Physical exam revealed crackles or decreased breath sounds over lungs, no edema was noted. CBC fairly at baseline, sodium 131, chloride 85, bicarb greater than 40, BUN 27 and creatinine 1.0, with mild transaminitis AST 44 and ALT 139. We will continue to monitor sodium and potassium level daily. 11/09/2024: The patient was interviewed and examined at the bedside this morning. She reported doing a lot better this morning. She was saturating 93% on 6 L NC and eating comfortably on her bed. Her white count mildly trended up to 13.6, hemoglobin stable, sodium 132, potassium 4.2, bicarb 38.2 calculated osmolality 269, and pleural drainage attempted yesterday was significant for only mild pleural effusion on bilateral lower lobe. We will recommend the primary team to hold off on Diamox. Patient will probably need BiPAP during discharge at least at night, and lasix 20mg PO every other day, and F/U with Dr. Cowart in 1-2 weeks of discharge. 11/10/2024: The patient was interviewed and examined at the bedside this morning. She reported doing well. She was saturating 93% on 6 L oxygen mask this morning, was asked to take deep breaths and we were able to taper down the oxygen to 5 L. CBC trended up to 16.1, sodium mildly improved to 134, potassium 4.3, chloride 96, bicarb improving to 35.2, BUN 24, creatinine 0.9, GFR greater than 60, AST 70 ALT 62 with ALP 143. Physical exam was significant for decreased breath sound over bibasilar lung ruiz. Patient will probably need BiPAP during discharge at least at night, and lasix 20mg PO every other day, and F/U with Dr. Cowart in 1-2 weeks of discharge. 11/11/24: The patient reported doing well. Saturating 91% on 6 L oxy mask, improving further with deep inspiration. WBC still 21.5, K 4.4, Na 135 with mild transamnites. Patient will probably need BiPAP during discharge at least at night, and lasix 20mg PO every other day, and F/U with Dr. Cowart in 1-2 weeks of discharge. 11/12/2024: The patient was interviewed and examined at the bedside this morning. She was saturating 98% on 6 L oxygen mask, and we decreased oxygen to 3 L, and she was still saturating 93%. Her vitals were fairly stable with pulse rate 113. WBC 18.2 trended down, hemoglobin 10.5, sodium 136, potassium 5.0, chloride 94, bicarb 37.1, GFR greater than 60. Patient will probably need BiPAP during discharge at least at night, and lasix 20mg PO every other day, and F/U with Dr. Cowart in 1-2 weeks of discharge. Exam Vital Signs Temp Pulse Resp BP Pulse Ox O2 Del Method O2 Flow Rate 97.5 F 113 H 17 104/69 94 L Nasal Cannula 5 11/12/24 12:00 11/12/24 12:47 11/12/24 12:00 11/12/24 12:47 11/12/24 12:00 11/12/24 12:00 11/12/24 12:00 FiO2 5 11/12/24 11:05 Narrative Exam General: No acute distress, comfortably resting on her bed, A and O x 3 HEENT: Mildly dry mucous membranes, oropharynx clear Neck: Supple, No masses, No JVD CVS: S1S2 Regular rate and rhythm, No murmurs, rubs or gallops Lungs: Mild expiratory wheezing throughout the lung field, no crackles or rhonchi appreciated, saturating 93% on 3 L oxygen max Abd: Soft, NT/ND, +BS, no organomegaly Ext: No edema, warm and well perfused Skin: No rash Psych: Appropriate mood and affect Objective Labs 11/12/24 05:09 11/12/24 05:09 Labs: Laboratory Results - last 24 hr 11/12/24 05:09 WBC 18.2 H RBC 4.12 Hgb 10.5 L Hct 35.2 L MCV 85 MCH 25.5 MCHC 29.8 L RDW Std Deviation 57.1 H Plt Count 275 Neut % (Auto) 85 H Lymph % (Auto) 7 L Terrell % (Auto) 6 Eos % (Auto) 0 Baso % (Auto) 0 Neut # (Auto) 15.5 H Lymph # (Auto) 1.3 Terrell # (Auto) 1.1 H Eos # (Auto) 0.0 Baso # (Auto) 0.0 Immature Gran # (Auto) 0.24 H Absolute Nucleated RBC 0.00 Immature Gran % 1 H Nucleated RBC % 0 Sodium 136 Potassium 5.0 D Chloride 94 L Carbon Dioxide 37.1 H Anion Gap 5 L BUN 20 Creatinine 0.9 Estim Creat Clear Calc 56.3 L eGFR > 60 BUN/Creatinine Ratio 22 H Glucose 86 Calculated Osmolality 273 L Calcium 9.1 Corrected Calcium 9.3 Phosphorus 3.1 Magnesium 1.8 Albumin 3.7 ABG Interpretation ABG results: 11/01/24 11/04/24 11/05/24 19:07 23:05 03:10 ABG pH 7.17 L* 7.33 L D ABG pCO2 98 H* 77 H* D ABG pO2 92 58 L* D ABG HCO3 36 H 40 H ABG O2 Saturation 97 90 L ABG Base Excess 5 H 12 H VBG pH 7.41 VBG pCO2 54 VBG pO2 77 H VBG Base Excess 8 H 11/05/24 11/06/24 11/06/24 17:00 01:10 08:45 ABG pH 7.31 L 7.37 7.42 ABG pCO2 94 H* D 81 H* D 73 H* ABG pO2 66 L 75 L 69 L ABG HCO3 47 H 47 H 47 H ABG O2 Saturation 91 95 94 ABG Base Excess 17 H 18 H 19 H VBG pH VBG pCO2 VBG pO2 VBG Base Excess 11/06/24 11/08/24 11/08/24 16:00 11:03 15:25 ABG pH 7.52 H D 7.32 L D ABG pCO2 61 H D 79 H* D ABG pO2 189 H D 82 L D ABG HCO3 49 H 41 H ABG O2 Saturation 99 H 96 ABG Base Excess 23 H 12 H VBG pH 7.36 VBG pCO2 73 H VBG pO2 31 VBG Base Excess 13 H Quality Measures Quality Measures VTE prophylaxis Advance care planning discussed with:: patient Assessment & Plan Assessment Current Active Medications: Generic Name Dose Route Start Last Admin Trade Name Freq PRN Reason Stop Dose Admin Acetaminophen 1,000 mg 11/07/24 17:47 11/12/24 12:58 Acetaminophen 500 Mg Tablet PO 12/01/24 17:41 1,000 mg Q6H PRN Administration Pain 1-3 or Fever >100 Hydrocodone Bitart/Acetaminophen 1 tab 11/07/24 17:46 11/12/24 08:57 Hydrocodone/Apap 5/325 Tablet PO 11/12/24 17:45 1 tab Q6HR PRN Administration Pain 4-10 Amiodarone HCl 200 mg 11/07/24 09:00 11/12/24 08:47 Amiodarone Hcl 200 Mg Tablet PO 12/07/24 08:59 200 mg BID ESPERANZA Administration Apixaban 5 mg 11/01/24 21:00 11/12/24 08:48 Apixaban 2.5 Mg Tablet PO 12/01/24 20:59 5 mg BID ESPERANZA Administration Aspirin 81 mg 11/03/24 09:00 11/12/24 08:48 Aspirin Ec 81 Mg Tabec PO 12/03/24 08:59 81 mg QDAY ESPERANZA Administration Atorvastatin Calcium 40 mg 11/02/24 09:00 11/12/24 08:47 Atorvastatin Calcium 20 Mg Tablet PO 12/02/24 08:59 40 mg QDAY ESPERANZA Administration Budesonide 0.5 mg 11/03/24 19:00 11/12/24 07:16 Budesonide Rt 0.5 Mg/2 Ml Nebu INH 12/03/24 18:59 0.5 mg BIDRT ESPERANZA Administration Buspirone HCl 5 mg 11/08/24 14:00 11/12/24 08:48 Buspirone Hcl 5 Mg Tablet PO 12/08/24 13:59 5 mg BID ESPERANZA Administration Dextrose 25 ml 11/03/24 16:28 Dextrose 50%-Water Inj 50 Ml Syringe IV 12/03/24 16:27 Q15MIN PRN BG 50-70 responsive npo pt Digoxin 0.25 mg 11/12/24 10:15 11/12/24 12:47 Digoxin 0.125 Mg Tablet PO 12/12/24 10:14 0.25 mg QDAY ESPERANZA Administration Diltiazem HCl 360 mg 11/08/24 09:00 11/12/24 08:49 Diltiazem Cd 120 Mg Capcr PO 12/08/24 08:59 360 mg QDAY ESPERANZA Administration Furosemide 40 mg 11/12/24 10:15 11/12/24 12:46 Furosemide Inj 10 Mg/Ml Vial 2 Ml IVP 12/12/24 10:14 40 mg QDAY ESPERANZA Administration Glucagon 1 mg 11/03/24 16:28 Glucagon Inj 1 Mg Vial IM Q15MIN PRN BG <70, and no IV access Guaifenesin/Dextromethorphan 1 each 11/03/24 10:45 11/12/24 08:47 Guaifenesin/Dm Tablet PO 12/03/24 10:44 1 each BID ESPERANZA Administration Insulin Human Lispro 0 unit 11/03/24 17:00 11/12/24 13:59 Insulin Lispro (Admelog) 1 Unit/0.01 Ml Unit SC 12/03/24 16:59 Not Given AC ESPERANZA Protocol Ipratropium Lovilia 0.5 mg 11/06/24 15:00 11/12/24 11:03 Ipratropium Rt 0.5 Mg/ 2.5 Ml Nebu INH 12/06/24 14:59 0.5 mg Q4HRRT ESPERANZA Administration Protocol Levalbuterol HCl 0.63 mg 11/03/24 09:49 Levalbuterol Rt 0.63 Mg/3 Ml Nebu INH 12/03/24 09:48 Q6HR PRN WHEEZING Levalbuterol HCl 0.63 mg 11/03/24 11:00 11/12/24 11:03 Levalbuterol Rt 0.63 Mg/3 Ml Nebu INH 12/03/24 10:59 0.63 mg Q4HRRT ESPERANZA Administration Protocol Lorazepam 2 mg 11/08/24 13:56 Lorazepam 2 Mg/Ml Vial IVP X1 PRN Breakthrough Agitation,CIWA>20 Losartan Potassium 25 mg 11/10/24 13:15 11/12/24 08:48 Losartan Potassium 25 Mg Tablet PO 12/10/24 13:14 25 mg QDAY ESPERANZA Administration Nicotine 21 mg 11/02/24 14:00 11/12/24 08:49 Nicotine Patch 21 Mg/24 Hr Patch.Td24 TOP 12/02/24 13:59 21 mg QDAY ESPERANZA Administration Ondansetron HCl 4 mg 11/01/24 17:42 Ondansetron Inj 2 Mg/Ml Inj 2 Ml IV 12/01/24 17:41 Q6H PRN NAUSEA OR VOMITING Protocol Pantoprazole Sodium 40 mg 11/11/24 09:00 11/12/24 08:47 Pantoprazole 40 Mg Tablet PO 12/11/24 08:59 40 mg QDAY ESPERANZA Administration Prednisone 10 mg 11/12/24 10:15 11/12/24 12:46 Prednisone 5 Mg Tablet PO 12/12/24 10:14 10 mg QDAY ESPERANZA Administration Promethazine HCl/Dextromethorphan 5 ml 11/07/24 09:44 11/11/24 23:08 Promethazine/Dm Syrup 5 Ml Dose PO 12/07/24 09:43 5 ml Q4HR PRN Administration COUGH Protocol Ropinirole HCl 0.25 mg 11/02/24 09:00 11/12/24 08:49 Ropinirole Hcl 0.25 Mg Tablet PO 12/02/24 08:59 0.25 mg QDAY ESPERANZA Administration Sodium Chloride 3 ml 11/01/24 10:06 11/01/24 14:22 Sodium Chloride Rt Nayla 0.9% 3 Ml Nebu INH 12/01/24 10:05 3 ml PRN PRN Administration SOLN Sodium Chloride 1 spray 11/12/24 08:27 Saline Nasal 45 Ml Btl NASAL 12/12/24 08:26 PRN PRN CONGESTION Vitamin B Complex/Vit C/Folic Acid 1 tab 11/08/24 09:00 11/12/24 08:47 Vit B12/Vit C/Fa (Nephrovite) Tablet PO 12/08/24 08:59 1 tab QDAY ESPERANZA Administration Plan The patient is a 69-year-old female with significant past medical history of COPD on home oxygen, CAD s/p CABG 20 years ago, tension, hyperlipidemia, hepatocellular disease, restless leg syndrome, history of polysubstance abuse including alcohol, marijuana, tobacco use and amphetamine use presented to ED with chief complaint of worsening of SOB. She denies any fever or chills, chest pain sore throat, phlegm production was found to be on AHRF 2/2 COPD exacerbation. Nephrology consultation was done for further management of moderate hyponatremia and severe hyperkalemia. #Hyperkalemia, resolved Etiology currently unknown ?? partial adrenal insufficiency: Upon further chart review, always has borderline hyperkalemia and borderline hyponatremia DDx: Chronic kidney disease or chronic use of JANA inhibitors or ARB ruled out as the patient does not has CKD and has not been using JANA inhibitors/ARB Presented with potassium of 5.1 Increased up to 6.3 11/06/2024: Potassium level was 3.6, likely in the setting of DuoNeb use with intracellular potassium shift. Was given 20 mEq of IV KCl, as the patient's has cardiac rhythm disorder atrial flutter. 11/07/2024: Potassium level 3.7, was repleted with 40 mEq p.o. KCl in the setting of a flutter to keep level greater than 4.0 -Cortisol level, renin and aldosterone level pending, will need to follow-up as an outpatient for results -Monitor potassium level -We will continue to monitor daily potassium level #Mild hypoosmolar hypovolemic hyponatremia, resolved Etiology currently unknown Stable at 136 -Treat the underlying cause of COPD exacerbation 11/04/2024: Sodium level 128, started the patient on normal saline maintenance IV fluid 70 cc/h, will monitor renal panel every 4 hourly, and goal level of sodium will be less than 134 in next 24-hour. 11/05/24: Na 132. Discontinued IV NS 70cc/hr, continue to monitor daily Na level. 11/06/2024: Sodium 133, started the patient on half NS in the setting of severe dehydration. 11/08/2024: Sodium 131, we will continue to monitor sodium level daily in the a.m. 11/09/2024: Sodium 132, will continue to monitor sodium level daily in the a.m. 11/11/2024: Sodium 135, we will continue to monitor sodium level daily in the a.m. #Primary respiratory acidosis fully compensated by metabolic alkalosis ABG done this on 11/06/2024 revealed pH 7.42, pCO2 73, bicarb 47 consistent with respiratory acidosis compensated with metabolic alkalosis -Continue to treat underlying COPD exacerbation #Hypertension -Continue with current medications as BP is currently stable -Monitor vitals #Acute hypoxic respiratory failure secondary to #COPD exacerbation. #Bibasilar pneumonia. ICU was consulted. #Hx of COPD, on 2L. #A-flutter. #Hx of A-fib. #Hx of CAD s/p CABG (more then 20 years ago). #Hx of hyperlipidemia. #Hx of restless legs syndrome. #Hx of hepatocellular disease. #Hx of polysubstance abuse. Thank you for your opportunity to participate nephrology team in this patient care. The patient's management plan was discussed with my attending physician MD Randal Camargo MD, PGY2 Attending Provider Attestation/Addendum Patient seen and examined with resident physician Dr. Ferrari. Note reviewed, agree with findings and recommendations. Hyperkalemia-unclear etiology. No medications which can cause hyperkalemia. Patient does admit to eating avocados but currently in hospital setting. Question partial adrenal insufficiency. Renin, aldosterone, cortisol levels are pending. Blood pressure seems to be acceptable. With medical management potassium seems to be better. Discontinued Veltassa. Hyponatremia-most likely hypovolemia now. Continue with normal saline. Sodium 135. Patient in aflutter with RVR-on Cardizem, amiodarone. Cardiology on the case. Discharge planning per primary team. Continue diuretics every other day Patient with severe metabolic alkalosis as a compensation for respiratory acidosis. pH better. Patient needs BiPAP at night Severe COPD exacerbation-on nasal mask
--- NOTE | 2024-11-12 17:02 | ESPR_ITS ---
Documentation for date of: 11/12/24 Subjective Subjective Interval history: Patient seen and examined at the bedside. Patient again did not use her BiPAP consistently and was again given BiPAP this morning. Telemetry reviewed and patient went into atrial fibrillation around 10 PM last night. Primary team restarted the digoxin for the patient and recommend to completely stop the digoxin. Continue amiodarone 200 mg twice daily along with Cardizem CD 360 mg once daily. Restart amiodarone drip if needed along with oral amiodarone as a QTc is normal on the EKG at 433. Patient magnesium is 1.8 and recommend to replace aggressively with at least 4 g magnesium sulfate IV. Potassium level is 5.0 and continue to monitor potassium. Chest x-ray was repeated and it did show vascular congestion but appeared slightly better than before. Agree with IV Lasix 40 mg for now. Also patient's bicarbonate is 37 and recommend to give 1 dose of acetazolamide 500 mg orally x 1. Discussed with the patient that she has to use at least 10 to 12 hours of BiPAP every night at the present settings. Continue aggressive treatment of COPD and should be on an good COPD outpatient regimen at the time of discharge. Patient should have an BiPAP machine arranged as outpatient at the time of discharge. Exam Vital Signs Temp Pulse Resp BP Pulse Ox O2 Del Method O2 Flow Rate 97.8 F 120 H 13 97/56 L 99 Nasal Cannula 5 11/12/24 16:00 11/12/24 16:00 11/12/24 16:00 11/12/24 16:00 11/12/24 16:00 11/12/24 16:11/12/24 16:00 FiO2 5 11/12/24 11:05 Narrative Exam General: Alert and oriented x3. In no acute distress. Eyes: Pupils are equal and reactive to light bilaterally. HEENT: Atraumatic, normocephalic. No JVD noted. Mucosa moist. Cardiovascular: Normal S1 and S2. Normal rate and regular rhythm. No murmurs appreciated. No peripheral pitting edema noted. Respiratory: No respiratory distress. bilateral air entry+. minimal wheezing with no crackles heard. Abdomen: Soft, nontender, nondistended. Skin: No rash. Warm to touch. Musculoskeletal: No gross injuries. Able to move all 4 extremities. Neuro: Alert and oriented x3. No focal neuro deficits. Psych: Normal affect and mood Objective Labs 11/12/24 05:09 11/12/24 05:09 Labs: Laboratory Results - last 24 hr 11/12/24 05:09 WBC 18.2 H RBC 4.12 Hgb 10.5 L Hct 35.2 L MCV 85 MCH 25.5 MCHC 29.8 L RDW Std Deviation 57.1 H Plt Count 275 Neut % (Auto) 85 H Lymph % (Auto) 7 L [place] % (Auto) 6 Eos % (Auto) 0 Baso % (Auto) 0 Neut # (Auto) 15.5 H Lymph # (Auto) 1.3 [place] # (Auto) 1.1 H Eos # (Auto) 0.0 Baso # (Auto) 0.0 Immature Gran # (Auto) 0.24 H Absolute Nucleated RBC 0.00 Immature Gran % 1 H Nucleated RBC % 0 Sodium 136 Potassium 5.0 D Chloride 94 L Carbon Dioxide 37.1 H Anion Gap 5 L BUN 20 Creatinine 0.9 Estim Creat Clear Calc 56.3 L eGFR > 60 BUN/Creatinine Ratio 22 H Glucose 86 Calculated Osmolality 273 L Calcium 9.1 Corrected Calcium 9.3 Phosphorus 3.1 Magnesium 1.8 Albumin 3.7 ABG Interpretation ABG results: 11/01/24 11/04/24 11/05/24 19:07 23:05 03:10 ABG pH 7.17 L* 7.33 L D ABG pCO2 98 H* 77 H* D ABG pO2 92 58 L* D ABG HCO3 36 H 40 H ABG O2 Saturation 97 90 L ABG Base Excess 5 H 12 H VBG pH 7.41 VBG pCO2 54 VBG pO2 77 H VBG Base Excess 8 H 11/05/24 11/06/24 11/06/24 17:00 01:10 08:45 ABG pH 7.31 L 7.37 7.42 ABG pCO2 94 H* D 81 H* D 73 H* ABG pO2 66 L 75 L 69 L ABG HCO3 47 H 47 H 47 H ABG O2 Saturation 91 95 94 ABG Base Excess 17 H 18 H 19 H VBG pH VBG pCO2 VBG pO2 VBG Base Excess 11/06/24 11/08/24 11/08/24 16:00 11:03 15:25 ABG pH 7.52 H D 7.32 L D ABG pCO2 61 H D 79 H* D ABG pO2 189 H D 82 L D ABG HCO3 49 H 41 H ABG O2 Saturation 99 H 96 ABG Base Excess 23 H 12 H VBG pH 7.36 VBG pCO2 73 H VBG pO2 31 VBG Base Excess 13 H Assessment & Plan A&P Narrative A 69-year-old female with a past medical of CAD s/p CABG more than 20 years ago with unknown grafts is operative report unavailable, paroxysmal atrial fibrillation/flutter anticoagulation, rate controlled, history of moderate to severe COPD, active smoker still more than half a pack a day, increased 30 pack years smoking history, essential hypertension, hyperlipidemia, morbid obesity, history of alcohol, marijuana and tobacco abuse along with history of methamphetamine abuse previously many years ago, questionable liver disease secondary to alcohol and drug abuse, nephrolithiasis presented to the emergency department for further evaluation of shortness of breath and cough. Patient well-known to me from previous admission in October 2023 as well as she follows up with me in the clinic. Patient was initially diagnosed with paroxysmal atrial flutter/fibrillation with RVR in 10/2023 when she had COPD exacerbation along with an active COVID infection. Patient was followed up as outpatient and was placed on diltiazem ER to 60 mg once daily as well as digoxin 125 mcg once daily and Eliquis for anticoagulation. Heart rate was well-controlled but continued to be in normal sinus rhythm at that point of time. Patient continues to be smoking and she has at least moderate to severe COPD based on her previous presentations. Cardiology was consulted today for further management of the possible atrial flutter/fibrillation with RVR 1. Paroxysmal atrial flutter with RVR with 2:1 block and less likely SVT 2. Acute on chronic severe COPD exacerbation with unclear trigger - possible pneumonia - improved with BIPAP. 3. CAD s/p CABG more than 20 years ago with unknown grafts as operative report is unavailable 4. Acute on chronic hypoxic respiratory failure and rule out pneumonia 5. HFpEF or diastolic CHF 6. Essential hypertension 7. Hyperlipidemia 8. Morbid obesity 9. History of remote alcohol, marijuana and methamphetamine 10. Active smoker with more than [id number] smoking history 11. Questionable liver disease with given her history of alcohol abuse 12. Mild anemia Patient presented with severe COPD exacerbation unclear trigger and could be possible pneumonia and patient started on IV antibiotics per the primary team which we recommend to continue and do further workup for the sepsis. Patient should also receive Solu-Medrol 125 mg IV x 1 and aggressive treatment of the COPD exacerbation with the nebulizations but avoid albuterol and give patient levalbuterol along with Atrovent nebulizations. Patient will need long-term steroid inhaler along with other COPD regimen. Primary team is following the patient. Regarding tachycardia patient appears to be in paroxysmal atrial flutter with RVR at least 1 block and less likely SVT. Patient apparently did receive adenosine 12 mg IV x 1 in the ED but did not convert also patient received Cardizem 25 mg IV x 1 and Cardizem drip at 10 mg/h. Unfortunately we are unable to obtain the ECG rhythm when the patient did receive diagnosing and it would help with the diagnosis. At home doses of medication was Cardizem CD 360 mg once daily and digoxin 125 mcg once daily with which her heart rate was well- controlled and also was not Eliquis for anticoagulation. -Patient in the atrial flutter with RVR mostly secondary to the COPD exacerbation but as noted above unclear etiology for the COPD exacerbation possible pneumonia. -Recommend to continue Eliquis for anticoagulation -Patient apparently takes her medications as prescribed daily including the digoxin as well as the diltiazem CD and the last dose was yesterday. -Please started on Cardizem drip at 15 mg/h and was changed to Cardizem 360 mg once daily along with digoxin 125 mcg daily and patient's nuclear rate for better control of 75 bpm with atrial flutter and 40s to 1 block. -She did receive some additional doses of diltiazem 20 mg IV on 11/03/2023 for brief episodes of atrial flutter with RVR. -Patient could not receive a ZEE with cardioversion as patient respiratory status continued to decline and still had significant wheezing and increasing oxygen requirements from her significant COPD exacerbation with possible underlying pneumonia. 11/12/2024 Patient again did not use her BiPAP consistently and was again given BiPAP this morning. Telemetry reviewed and patient went into atrial fibrillation around 10 PM last night. Primary team restarted the digoxin for the patient and recommend to completely stop the digoxin. Continue amiodarone 200 mg twice daily along with Cardizem CD 360 mg once daily. Restart amiodarone drip if needed along with oral amiodarone as a QTc is normal on the EKG at 433. Patient magnesium is 1.8 and recommend to replace aggressively with at least 4 g magnesium sulfate IV. Potassium level is 5.0 and continue to monitor potassium. Chest x-ray was repeated and it did show vascular congestion but appeared slightly better than before. Agree with IV Lasix 40 mg for now. Also patient's bicarbonate is 37 and recommend to give 1 dose of acetazolamide 500 mg orally x 1. Discussed with the patient that she has to use at least 10 to 12 hours of BiPAP every night at the present settings. Continue aggressive treatment of COPD and should be on an good COPD outpatient regimen at the time of discharge. Patient should have an BiPAP machine arranged as outpatient at the time of discharge. History of CAD s/p CABG with unknown grafts-please try to obtain the report from her previous hospitalization where the CABG was performed Continue aspirin and statin and no beta-maverick given the severe COPD exacerbation. Recommend aggressive control of CAD with aspirin, high intensity statin. No blockers for rate control because of the severe COPD. Patient does have diastolic dysfunction on the previous echo and chest x-ray shows moderate vascular congestion as per the report. Does not appear to be in overt heart failure but appears to be mildly fluid overloaded. She is not on any kind of Lasix previously at home. Recommend to check BMP tomorrow morning. Okay to give 1 dose of Lasix 40 mg IV x 1. Strict input output, daily weights and 2 g sodium diet. Management of rest of the medical conditions as per primary team and other consultants. Thank you for the consult and allowing me to participate in the care of the patient. Cardiology will continue to follow. Rex Gaines M.D. Interventional Cardiology Time Spent With Patient Time: Total time spent is greater than 50% in coordination of care (as documented) at patient's floor/unit and/or counseling patient:
[2024-11-12] MEDS: INSULIN LISPRO (AdmeLOG) 1 UNIT/0.01 ML UNIT SC (17:04)
[2024-11-13] VITALS (24 sets, daily range): BP systolic 112–156; BP diastolic 69–113; PULSE 77–119; RESP 13–28; TEMP 36–36.7; O2SAT 91–100; BMI 31.2
[2024-11-13] MEDS: AMIODARONE 150 MG IVPB 150 MG/100 ML BAG 600 MG IV (02:39)
[2024-11-13] MEDS: AMIODARONE 360 MG IVPB 360 MG/200 ML BAG 33.333 MG IV (02:56)
[2024-11-13] MEDS: Magnesium Sulfate 4 GM Ivpb 4 GM/50 ML BAG IV (02:57)
[2024-11-13] MEDS: IPRATROPIUM RT 0.5 MG/ 2.5 ML NEBU INH ×6 (03:05→23:59)
[2024-11-13] MEDS: LEVALBUTEROL RT 0.63 MG/3 ML NEBU INH ×6 (03:05→23:59)
[2024-11-13 05:51] LABS: Basophils % (Auto) 0 % (0-2.5); Eosinophils # (Auto) 0.1 Thou/mm3 (0.0-0.5); Eosinophils % (Auto) 0 % (0-10); Hematocrit 32.5 % (36.0-46.0); Hemoglobin 10.1 g/dL (12.0-16.0); Immature Granulocytes % (Auto) 1 % (0-0); Lymphocytes # (Auto) 1.5 Thou/mm3 (1.0-4.8); Lymphocytes % (Auto) 9 % (10-50); Mean Corpuscular HGB Conc 31.1 g/dl (31.0-37.0); Mean Corpuscular Hemoglobin 25.8 pg (25.0-35.0); Mean Corpuscular Volume 83 fL (80-100); Monocytes # (Auto) 0.9 Thou/mm3 (0.0-0.8); Monocytes % (Auto) 6 % (0-12); Neutrophils # (Auto) 14.3 Thou/mm3 (1.8-7.7); Neutrophils % (Auto) 84 % (37-80); Nucleated Red Blood Cell % 0 /100 WBC (0); Platelet Count 268 Thou/mm3 (140-440); RDW Standard Deviation 54.2 fL (36.4-46.3); Red Blood Count 3.92 Miln/mm3 (4.00-5.20)
[2024-11-13 06:47] LABS: Albumin, Serum 3.5 gm/dL (3.4-4.8); Anion Gap 3 (7-16); BUN/Creatinine Ratio 24 Ratio (12-20); Blood Urea Nitrogen 22 mg/dL (9-23); Calcium 8.9 mg/dL (8.3-10.6); Calcium (Corrected) 9.3 mg/dL (8.5-10.1); Carbon Dioxide 38.6 mMol/L (20.0-31.0); Chloride 95 mMol/L (98-107); Creatinine (Component) 0.9 mg/dL (0.6-1.3); Estimated Creatinine Clearance 56.2 mL/min (>60); Glucose 98 mg/dL (74-106); Magnesium 2.9 mg/dL (1.6-2.6); Osmolality,Calculated 277 (275-295); Phosphorous 3.5 mg/dL (2.4-5.1); Potassium 4.2 mMol/L (3.4-5.1); Sodium 137 mMol/L (136-145); eGFR > 60 See Note
[2024-11-13] MEDS: BUDESONIDE RT 0.5 MG/2 ML NEBU INH ×2 (07:22→19:25)
[2024-11-13] MEDS: APIXABAN 2.5 MG TABLET 5 MG PO ×2 (08:46→20:33)
[2024-11-13] MEDS: ASPIRIN EC 81 MG TABEC PO (08:46)
[2024-11-13] MEDS: LOSARTAN POTASSIUM 25 MG TABLET PO (08:46)
[2024-11-13] MEDS: BusPIRone HCL 5 MG TABLET PO ×2 (08:47→20:32)
[2024-11-13] MEDS: ATORVASTATIN CALCIUM 20 MG TABLET 40 MG PO (08:47)
[2024-11-13] MEDS: VIT B12/Vit C/FA (Nephrovite) TABLET 1 TAB PO (08:47)
[2024-11-13] MEDS: predniSONE 5 MG TABLET 10 MG PO (08:47)
[2024-11-13] MEDS: DILTIAZEM CD 120 MG CAPCR 360 MG PO (08:47)
[2024-11-13] MEDS: AMIODARONE HCL 200 MG TABLET PO ×2 (08:47→20:33)
[2024-11-13] MEDS: PANTOPRAZOLE 40 MG TABLET PO (08:47)
[2024-11-13] MEDS: rOPINIRole HCL 0.25 MG TABLET PO (08:47)
[2024-11-13] MEDS: NICOTINE PATCH 21 MG/24 HR PATCH.TD24 TOP (08:48)
[2024-11-13] MEDS: AMIODARONE 360 MG IVPB 360 MG/200 ML BAG 16.667 MG IV ×2 (09:46→20:48)
[2024-11-13] MEDS: HYDROcodone/APAP 5/325 TABLET 1 TAB PO ×2 (10:41→19:23)
[2024-11-13] MEDS: guaiFENesin/DM TABLET 1 EACH PO (10:42)
[2024-11-13] MEDS: ACETAzolaMIDE 250 MG TABLET 500 MG PO (10:42)
--- NOTE | 2024-11-13 11:54 | PD.RESPRO ---
Documentation for date of: 11/13/24 Subjective Subjective Interval history: The patient is a 69-year-old female with significant past medical history of COPD on home oxygen, CAD s/p CABG 20 years ago, tension, hyperlipidemia, hepatocellular disease, restless leg syndrome, history of polysubstance abuse including alcohol, marijuana, tobacco use and amphetamine use presented to ED with chief complaint of worsening of SOB. She denies any fever or chills, chest pain sore throat, phlegm production. She was admitted 1 year ago with similar symptoms and was found to have COPD exacerbation. During our evaluation, her vitals were significant for blood pressure 132/92, 130, RR 22, and saturating 90% on 3 L OxyMask. Labs are significant for white count 11.6, hemoglobin 10.5, with MCV 86. Chemistry panel was significant for sodium 122 worsening from 129 yesterday, potassium 6.3 worsened from 5.1 yesterday bicarb 32.3, creatinine 1.0 blood sugar 205. CXR revealing bibasilar pneumonia with EKG revealing atrial flutter. PMH: As mentioned above PSHx: CABG 20 years ago Social history: History of marijuana, tobacco and methamphetamine use, alcohol quitted 1 year ago Allergies: No known allergies Medications: Albuterol, apixaban, aspirin, diltiazem and omeprazole. Nephrology consultation was done for further management of moderate hyponatremia and severe hyperkalemia. 11/04/2024: Overnight patient was agitated and received IV lorazepam. This morning patient was sleeping comfortably, saturating 94% on 6 L OxiMask. She was comfortably resting on her bed. Her wheezing has improved months. Still tachycardic with irregularly irregular rhythm. White count 12.4, sodium 128, chloride 89, potassium trended down to 4.2, bicarb 34, BUN 26 and creatinine 0.9. Renin activity, aldosterone and total cortisol pending. We changed IV maintenance fluid to normal saline 70 cc/h, and we will continue with monitoring renal panel every 4 hourly. 11/06/2024: The patient was interviewed and examined at the bedside this morning. She was on BiPAP, saturating 93% on FiO2 60% and O2 flow 40 L/min. Her pulse has been in the range of 150s to 160s. Exam was significant for mildly dry mucous membranes, no crackles but mild wheezing over the lung ruiz. Peripheral pitting edema. CBC revealed hemoglobin 10.6, ABG done this morning revealed pH 7.42, pCO2 73, bicarb 47 consistent with respiratory acidosis compensated with metabolic alkalosis. Sodium was 133, potassium 3.6, chloride 84, bicarb greater than 40 and magnesium 2.6. Potassium was repleted with 20 mEq IV KCl. She was also started on half-normal saline maintenance fluids 70 cc/h as she appeared severely dry. 11/13/2024: The patient was interviewed and examined at the bedside this morning. She was saturating 96% on 6 L oxygen mask, and was decreased again to 3 L, and was saturating between 92-93%. Her vitals were fairly stable, heart rate 94, physical examination did not reveal any wheezing over lung ruiz, but mild chest tightness was appreciated. The patient continues to be on amiodarone drip for A-fib. White count trended down to 17.0, hemoglobin stable around 10.1, sodium 137, potassium 4.2, chloride 95, bicarb 38.6, magnesium 2.9. Patient will probably need BiPAP during discharge at least at night, and lasix 20mg PO every other day, and F/U with Dr. Cowart in 1-2 weeks of discharge. Continue to monitor renal panel daily in the a.m. Exam Vital Signs Temp Pulse Resp BP Pulse Ox O2 Del Method O2 Flow Rate 97.3 F 94 15 112/69 96 BiPAP 3 11/13/24 07:39 11/13/24 10:45 11/13/24 10:45 11/13/24 09:46 11/13/24 10:45 11/13/24 07:39 11/13/24 10:45 FiO2 50 11/13/24 08:18 Narrative Exam General: No acute distress, comfortably resting on her bed, A and O x 3 HEENT: Mildly dry mucous membranes, oropharynx clear Neck: Supple, No masses, No JVD CVS: S1S2 Regular rate and rhythm, No murmurs, rubs or gallops Lungs: Distant breath sounds, no crackles or rhonchi appreciated, saturating 93% on 3 L oxygen max Abd: Soft, NT/ND, +BS, no organomegaly Ext: No edema, warm and well perfused Skin: No rash Psych: Appropriate mood and affect Objective Labs 11/14/24 05:26 11/14/24 05:26 Labs: Laboratory Results - last 24 hr 11/13/24 05:30 WBC 17.0 H RBC 3.92 L Hgb 10.1 L Hct 32.5 L MCV 83 MCH 25.8 MCHC 31.1 RDW Std Deviation 54.2 H Plt Count 268 Neut % (Auto) 84 H Lymph % (Auto) 9 L [place] % (Auto) 6 Eos % (Auto) 0 Baso % (Auto) 0 Neut # (Auto) 14.3 H Lymph # (Auto) 1.5 [place] # (Auto) 0.9 H Eos # (Auto) 0.1 Baso # (Auto) 0.0 Immature Gran # (Auto) 0.20 H Absolute Nucleated RBC 0.00 Immature Gran % 1 H Nucleated RBC % 0 Sodium 137 Potassium 4.2 D Chloride 95 L Carbon Dioxide 38.6 H Anion Gap 3 L BUN 22 Creatinine 0.9 Estim Creat Clear Calc 56.2 L eGFR > 60 BUN/Creatinine Ratio 24 H Glucose 98 Calculated Osmolality 277 Calcium 8.9 Corrected Calcium 9.3 Phosphorus 3.5 Magnesium 2.9 H Albumin 3.5 ABG Interpretation ABG results: 11/01/24 11/04/24 11/05/24 19:07 23:05 03:10 ABG pH 7.17 L* 7.33 L D ABG pCO2 98 H* 77 H* D ABG pO2 92 58 L* D ABG HCO3 36 H 40 H ABG O2 Saturation 97 90 L ABG Base Excess 5 H 12 H VBG pH 7.41 VBG pCO2 54 VBG pO2 77 H VBG Base Excess 8 H 11/05/24 11/06/24 11/06/24 17:00 01:10 08:45 ABG pH 7.31 L 7.37 7.42 ABG pCO2 94 H* D 81 H* D 73 H* ABG pO2 66 L 75 L 69 L ABG HCO3 47 H 47 H 47 H ABG O2 Saturation 91 95 94 ABG Base Excess 17 H 18 H 19 H VBG pH VBG pCO2 VBG pO2 VBG Base Excess 11/06/24 11/08/24 11/08/24 16:00 11:03 15:25 ABG pH 7.52 H D 7.32 L D ABG pCO2 61 H D 79 H* D ABG pO2 189 H D 82 L D ABG HCO3 49 H 41 H ABG O2 Saturation 99 H 96 ABG Base Excess 23 H 12 H VBG pH 7.36 VBG pCO2 73 H VBG pO2 31 VBG Base Excess 13 H Quality Measures Quality Measures VTE prophylaxis Advance care planning discussed with:: patient Assessment & Plan Assessment Current Active Medications: Generic Name Dose Route Start Last Admin Trade Name Freq PRN Reason Stop Dose Admin Acetaminophen 1,000 mg 11/07/24 17:47 11/12/24 12:58 Acetaminophen 500 Mg Tablet PO 12/01/24 17:41 1,000 mg Q6H PRN Administration Pain 1-3 or Fever >100 Amiodarone HCl 200 mg 11/07/24 09:00 11/13/24 08:47 Amiodarone Hcl 200 Mg Tablet PO 12/07/24 08:59 200 mg BID ESPERANZA Administration Apixaban 5 mg 11/01/24 21:00 11/13/24 08:46 Apixaban 2.5 Mg Tablet PO 12/01/24 20:59 5 mg BID ESPERANZA Administration Aspirin 81 mg 11/03/24 09:00 11/13/24 08:46 Aspirin Ec 81 Mg Tabec PO 12/03/24 08:59 81 mg QDAY ESPERANZA Administration Atorvastatin Calcium 40 mg 11/02/24 09:00 11/13/24 08:47 Atorvastatin Calcium 20 Mg Tablet PO 12/02/24 08:59 40 mg QDAY ESPERANZA Administration Budesonide 0.5 mg 11/03/24 19:00 11/13/24 07:22 Budesonide Rt 0.5 Mg/2 Ml Nebu INH 12/03/24 18:59 0.5 mg BIDRT ESPERANZA Administration Buspirone HCl 5 mg 11/08/24 14:00 11/13/24 08:47 Buspirone Hcl 5 Mg Tablet PO 12/08/24 13:59 5 mg BID ESPERANZA Administration Dextrose 25 ml 11/03/24 16:28 Dextrose 50%-Water Inj 50 Ml Syringe IV 12/03/24 16:27 Q15MIN PRN BG 50-70 responsive npo pt Diltiazem HCl 360 mg 11/08/24 09:00 11/13/24 08:47 Diltiazem Cd 120 Mg Capcr PO 12/08/24 08:59 360 mg QDAY ESPERANZA Administration Furosemide 40 mg 11/12/24 10:15 11/12/24 12:46 Furosemide Inj 10 Mg/Ml Vial 2 Ml IVP 12/12/24 10:14 40 mg QDAY ESPERANZA Administration Glucagon 1 mg 11/03/24 16:28 Glucagon Inj 1 Mg Vial IM Q15MIN PRN BG <70, and no IV access Guaifenesin/Dextromethorphan 1 each 11/03/24 10:45 11/13/24 10:42 Guaifenesin/Dm Tablet PO 12/03/24 10:44 1 each BID ESPERANZA Administration Amiodarone HCl/Dextrose 360 mg in 200 mls @ 16.667 mls/hr 11/13/24 06:00 11/13/24 09:46 Nexterone Ivpb IV 11/14/24 05:59 16.667 mls/hr .Q12H ESPERANZA Administration Insulin Human Lispro 0 unit 11/03/24 17:00 11/13/24 07:28 Insulin Lispro (Admelog) 1 Unit/0.01 Ml Unit SC 12/03/24 16:59 Not Given AC ESPERANZA Protocol Ipratropium [place] 0.5 mg 11/06/24 15:00 11/13/24 10:44 Ipratropium Rt 0.5 Mg/ 2.5 Ml Nebu INH 12/06/24 14:59 0.5 mg Q4HRRT ESPERANZA Administration Protocol Levalbuterol HCl 0.63 mg 11/03/24 09:49 Levalbuterol Rt 0.63 Mg/3 Ml Nebu INH 12/03/24 09:48 Q6HR PRN WHEEZING Levalbuterol HCl 0.63 mg 11/03/24 11:00 11/13/24 10:43 Levalbuterol Rt 0.63 Mg/3 Ml Nebu INH 12/03/24 10:59 0.63 mg Q4HRRT ESPERANZA Administration Protocol Lorazepam 2 mg 11/08/24 13:56 Lorazepam 2 Mg/Ml Vial IVP X1 PRN Breakthrough Agitation,CIWA>20 Losartan Potassium 25 mg 11/10/24 13:15 11/13/24 08:46 Losartan Potassium 25 Mg Tablet PO 12/10/24 13:14 25 mg QDAY ESPERANZA Administration Methylprednisolone Sodium Succinate 60 mg 11/13/24 21:00 Methylprednisolone Sod Succ 40 Mg Vial IV 11/20/24 20:59 Q12HR ESPERANZA Nicotine 21 mg 11/02/24 14:00 11/13/24 08:48 Nicotine Patch 21 Mg/24 Hr Patch.Td24 TOP 12/02/24 13:59 21 mg QDAY ESPERANZA Administration Ondansetron HCl 4 mg 11/01/24 17:42 Ondansetron Inj 2 Mg/Ml Inj 2 Ml IV 12/01/24 17:41 Q6H PRN NAUSEA OR VOMITING Protocol Pantoprazole Sodium 40 mg 11/11/24 09:00 11/13/24 08:47 Pantoprazole 40 Mg Tablet PO 12/11/24 08:59 40 mg QDAY ESPERANZA Administration Promethazine HCl/Dextromethorphan 5 ml 11/07/24 09:44 11/11/24 23:08 Promethazine/Dm Syrup 5 Ml Dose PO 12/07/24 09:43 5 ml Q4HR PRN Administration COUGH Protocol Ropinirole HCl 0.25 mg 11/02/24 09:00 11/13/24 08:47 Ropinirole Hcl 0.25 Mg Tablet PO 12/02/24 08:59 0.25 mg QDAY ESPERANZA Administration Sodium Chloride 3 ml 11/01/24 10:06 11/01/24 14:22 Sodium Chloride Rt Nayla 0.9% 3 Ml Nebu INH 12/01/24 10:05 3 ml PRN PRN Administration SOLN Sodium Chloride 1 spray 11/12/24 08:27 Saline Nasal 45 Ml Btl NASAL 12/12/24 08:26 PRN PRN CONGESTION Vitamin B Complex/Vit C/Folic Acid 1 tab 11/08/24 09:00 11/13/24 08:47 Vit B12/Vit C/Fa (Nephrovite) Tablet PO 12/08/24 08:59 1 tab QDAY ESPERANZA Administration Plan The patient is a 69-year-old female with significant past medical history of COPD on home oxygen, CAD s/p CABG 20 years ago, tension, hyperlipidemia, hepatocellular disease, restless leg syndrome, history of polysubstance abuse including alcohol, marijuana, tobacco use and amphetamine use presented to ED with chief complaint of worsening of SOB. She denies any fever or chills, chest pain sore throat, phlegm production was found to be on AHRF 2/2 COPD exacerbation. Nephrology consultation was done for further management of moderate hyponatremia and severe hyperkalemia. #Hyperkalemia, resolved Etiology currently unknown ?? partial adrenal insufficiency: Upon further chart review, always has borderline hyperkalemia and borderline hyponatremia DDx: Chronic kidney disease or chronic use of JANA inhibitors or ARB ruled out as the patient does not has CKD and has not been using JANA inhibitors/ARB Presented with potassium of 5.1 Increased up to 6.3 11/06/2024: Potassium level was 3.6, likely in the setting of DuoNeb use with intracellular potassium shift. Was given 20 mEq of IV KCl, as the patient's has cardiac rhythm disorder atrial flutter. 11/07/2024: Potassium level 3.7, was repleted with 40 mEq p.o. KCl in the setting of a flutter to keep level greater than 4.0 11/13/2024: Potassium level 4.2, please keep potassium level greater than 4.0. -Cortisol level, renin and aldosterone level pending, will need to follow-up as an outpatient for results -Monitor potassium level -We will continue to monitor daily potassium level #Mild hypoosmolar hypovolemic hyponatremia, resolved Etiology currently unknown Stable at 137 -Treat the underlying cause of COPD exacerbation leading to SIADH #Primary respiratory acidosis fully compensated by metabolic alkalosis ABG done this on 11/06/2024 revealed pH 7.42, pCO2 73, bicarb 47 consistent with respiratory acidosis compensated with metabolic alkalosis -Continue to treat underlying COPD exacerbation #Hypertension -Continue with current medications as BP is currently stable -Monitor vitals #Acute hypoxic respiratory failure secondary to #COPD exacerbation. #Bibasilar pneumonia. ICU was consulted. #Hx of COPD, on 2L. #A-flutter. #Hx of A-fib. #Hx of CAD s/p CABG (more then 20 years ago). #Hx of hyperlipidemia. #Hx of restless legs syndrome. #Hx of hepatocellular disease. #Hx of polysubstance abuse. Thank you for your opportunity to participate nephrology team in this patient care. The patient's management plan was discussed with my attending physician MD Randal Camargo MD, PGY2 Attending Provider Attestation/Addendum Patient seen and examined with resident physician Dr. Ferrari. Note reviewed, agree with findings and recommendations. Hyperkalemia-unclear etiology. No medications which can cause hyperkalemia. Patient does admit to eating avocados but currently in hospital setting. Question partial adrenal insufficiency. Renin, aldosterone, cortisol levels are pending. Blood pressure seems to be acceptable. With medical management potassium seems to be better. Discontinued Veltassa. Hyponatremia-most likely hypovolemia now. Continue with normal saline. Sodium 135. Patient in aflutter with RVR-on Cardizem, amiodarone. Cardiology on the case. Discharge planning per primary team. Continue diuretics every other day Patient with severe metabolic alkalosis as a compensation for respiratory acidosis. pH better. Did receive 2 doses of Diamox. Patient needs BiPAP at night Severe COPD exacerbation-on nasal mask
--- NOTE | 2024-11-13 12:41 | PD.RESPRO ---
Documentation for date of: 11/13/24 Subjective Subjective Interval history: Patient seen at bedside. No acute overnight events. She was able to tolerate BIPAP and be more consistent with using it. Currently saturating 86% on 6L of oxygen, On examination, left lung field clearer, right lung field still has some wheezing and rhonchi Encouraged patient to continue incentive spirometer. Increasing steroids to solumedrol 60mg twice daily Still tachycardic, although improved on amiodarone and diltiazem Exam Vital Signs Temp Pulse Resp BP Pulse Ox O2 Del Method O2 Flow Rate 98.0 F 111 H 13 113/86 H 93 L Nasal Cannula 6 11/13/24 12:00 11/13/24 12:00 11/13/24 12:00 11/13/24 12:00 11/13/24 12:00 11/13/24 12:00 11/13/24 12:00 FiO2 50 11/13/24 08:18 Objective Labs 11/13/24 05:30 11/13/24 05:30 Labs: Laboratory Results - last 24 hr 11/13/24 05:30 WBC 17.0 H RBC 3.92 L Hgb 10.1 L Hct 32.5 L MCV 83 MCH 25.8 MCHC 31.1 RDW Std Deviation 54.2 H Plt Count 268 Neut % (Auto) 84 H Lymph % (Auto) 9 L [place] % (Auto) 6 Eos % (Auto) 0 Baso % (Auto) 0 Neut # (Auto) 14.3 H Lymph # (Auto) 1.5 [place] # (Auto) 0.9 H Eos # (Auto) 0.1 Baso # (Auto) 0.0 Immature Gran # (Auto) 0.20 H Absolute Nucleated RBC 0.00 Immature Gran % 1 H Nucleated RBC % 0 Sodium 137 Potassium 4.2 D Chloride 95 L Carbon Dioxide 38.6 H Anion Gap 3 L BUN 22 Creatinine 0.9 Estim Creat Clear Calc 56.2 L eGFR > 60 BUN/Creatinine Ratio 24 H Glucose 98 Calculated Osmolality 277 Calcium 8.9 Corrected Calcium 9.3 Phosphorus 3.5 Magnesium 2.9 H Albumin 3.5 ABG Interpretation ABG results: 11/01/24 11/04/24 11/05/24 19:07 23:05 03:10 ABG pH 7.17 L* 7.33 L D ABG pCO2 98 H* 77 H* D ABG pO2 92 58 L* D ABG HCO3 36 H 40 H ABG O2 Saturation 97 90 L ABG Base Excess 5 H 12 H VBG pH 7.41 VBG pCO2 54 VBG pO2 77 H VBG Base Excess 8 H 11/05/24 11/06/24 11/06/24 17:00 01:10 08:45 ABG pH 7.31 L 7.37 7.42 ABG pCO2 94 H* D 81 H* D 73 H* ABG pO2 66 L 75 L 69 L ABG HCO3 47 H 47 H 47 H ABG O2 Saturation 91 95 94 ABG Base Excess 17 H 18 H 19 H VBG pH VBG pCO2 VBG pO2 VBG Base Excess 11/06/24 11/08/24 11/08/24 16:00 11:03 15:25 ABG pH 7.52 H D 7.32 L D ABG pCO2 61 H D 79 H* D ABG pO2 189 H D 82 L D ABG HCO3 49 H 41 H ABG O2 Saturation 99 H 96 ABG Base Excess 23 H 12 H VBG pH 7.36 VBG pCO2 73 H VBG pO2 31 VBG Base Excess 13 H Quality Measures Quality Measures VTE prophylaxis Advance care planning discussed with:: patient Assessment & Plan Assessment Current Active Medications: Generic Name Dose Route Start Last Admin Trade Name Freq PRN Reason Stop Dose Admin Acetaminophen 1,000 mg 11/07/24 17:47 11/12/24 12:58 Acetaminophen 500 Mg Tablet PO 12/01/24 17:41 1,000 mg Q6H PRN Administration Pain 1-3 or Fever >100 Amiodarone HCl 200 mg 11/07/24 09:00 11/13/24 08:47 Amiodarone Hcl 200 Mg Tablet PO 12/07/24 08:59 200 mg BID ESPERANZA Administration Apixaban 5 mg 11/01/24 21:00 11/13/24 08:46 Apixaban 2.5 Mg Tablet PO 12/01/24 20:59 5 mg BID ESPERANZA Administration Aspirin 81 mg 11/03/24 09:00 11/13/24 08:46 Aspirin Ec 81 Mg Tabec PO 12/03/24 08:59 81 mg QDAY ESPERANZA Administration Atorvastatin Calcium 40 mg 11/02/24 09:00 11/13/24 08:47 Atorvastatin Calcium 20 Mg Tablet PO 12/02/24 08:59 40 mg QDAY ESPERANZA Administration Budesonide 0.5 mg 11/03/24 19:00 11/13/24 07:22 Budesonide Rt 0.5 Mg/2 Ml Nebu INH 12/03/24 18:59 0.5 mg BIDRT ESPERANZA Administration Buspirone HCl 5 mg 11/08/24 14:00 11/13/24 08:47 Buspirone Hcl 5 Mg Tablet PO 12/08/24 13:59 5 mg BID ESPERANZA Administration Dextrose 25 ml 11/03/24 16:28 Dextrose 50%-Water Inj 50 Ml Syringe IV 12/03/24 16:27 Q15MIN PRN BG 50-70 responsive npo pt Diltiazem HCl 360 mg 11/08/24 09:00 11/13/24 08:47 Diltiazem Cd 120 Mg Capcr PO 12/08/24 08:59 360 mg QDAY ESPERANZA Administration Furosemide 40 mg 11/12/24 10:15 11/12/24 12:46 Furosemide Inj 10 Mg/Ml Vial 2 Ml IVP 12/12/24 10:14 40 mg QDAY ESPERANZA Administration Glucagon 1 mg 11/03/24 16:28 Glucagon Inj 1 Mg Vial IM Q15MIN PRN BG <70, and no IV access Guaifenesin/Dextromethorphan 1 each 11/03/24 10:45 11/13/24 10:42 Guaifenesin/Dm Tablet PO 12/03/24 10:44 1 each BID ESPERANZA Administration Amiodarone HCl/Dextrose 360 mg in 200 mls @ 16.667 mls/hr 11/13/24 06:00 11/13/24 09:46 Nexterone Ivpb IV 11/14/24 05:59 16.667 mls/hr .Q12H ESPERANZA Administration Insulin Human Lispro 0 unit 11/03/24 17:00 11/13/24 11:57 Insulin Lispro (Admelog) 1 Unit/0.01 Ml Unit SC 12/03/24 16:59 Not Given AC ESPERANZA Protocol Ipratropium [place] 0.5 mg 11/06/24 15:00 11/13/24 10:44 Ipratropium Rt 0.5 Mg/ 2.5 Ml Nebu INH 12/06/24 14:59 0.5 mg Q4HRRT ESPERANZA Administration Protocol Levalbuterol HCl 0.63 mg 11/03/24 09:49 Levalbuterol Rt 0.63 Mg/3 Ml Nebu INH 12/03/24 09:48 Q6HR PRN WHEEZING Levalbuterol HCl 0.63 mg 11/03/24 11:00 11/13/24 10:43 Levalbuterol Rt 0.63 Mg/3 Ml Nebu INH 12/03/24 10:59 0.63 mg Q4HRRT ESPERANZA Administration Protocol Lorazepam 2 mg 11/08/24 13:56 Lorazepam 2 Mg/Ml Vial IVP X1 PRN Breakthrough Agitation,CIWA>20 Losartan Potassium 25 mg 11/10/24 13:15 11/13/24 08:46 Losartan Potassium 25 Mg Tablet PO 12/10/24 13:14 25 mg QDAY ESPERANZA Administration Methylprednisolone Sodium Succinate 60 mg 11/13/24 21:00 Methylprednisolone Sod Succ 40 Mg Vial IV 11/20/24 20:59 Q12HR ESPERANZA Nicotine 21 mg 11/02/24 14:00 11/13/24 08:48 Nicotine Patch 21 Mg/24 Hr Patch.Td24 TOP 12/02/24 13:59 21 mg QDAY ESPERANZA Administration Ondansetron HCl 4 mg 11/01/24 17:42 Ondansetron Inj 2 Mg/Ml Inj 2 Ml IV 12/01/24 17:41 Q6H PRN NAUSEA OR VOMITING Protocol Pantoprazole Sodium 40 mg 11/11/24 09:00 11/13/24 08:47 Pantoprazole 40 Mg Tablet PO 12/11/24 08:59 40 mg QDAY ESPERANZA Administration Promethazine HCl/Dextromethorphan 5 ml 11/07/24 09:44 11/11/24 23:08 Promethazine/Dm Syrup 5 Ml Dose PO 12/07/24 09:43 5 ml Q4HR PRN Administration COUGH Protocol Ropinirole HCl 0.25 mg 11/02/24 09:00 11/13/24 08:47 Ropinirole Hcl 0.25 Mg Tablet PO 12/02/24 08:59 0.25 mg QDAY ESPERANZA Administration Sodium Chloride 3 ml 11/01/24 10:06 11/01/24 14:22 Sodium Chloride Rt [place] 0.9% 3 Ml Nebu INH 12/01/24 10:05 3 ml PRN PRN Administration SOLN Sodium Chloride 1 spray 11/12/24 08:27 Saline Nasal 45 Ml Btl NASAL 12/12/24 08:26 PRN PRN CONGESTION Vitamin B Complex/Vit C/Folic Acid 1 tab 11/08/24 09:00 11/13/24 08:47 Vit B12/Vit C/Fa (Nephrovite) Tablet PO 12/08/24 08:59 1 tab QDAY ESPERANZA Administration Plan Summary: The patient is 69 years old female with past medical history of CAD s/p CABG more than 20 years ago, hypertension, hyperlipidemia, hepatocellular disease, restless legs syndrome, history of polysubstance abuse (alcohol, marijuana, tobacco use, methamphetamine use) presented to the ED complaining of worsening shortness of breath and cough and was admitted for COPD treatment and A-flutter management. #Acute hypoxic respiratory failure secondary to #COPD exacerbation. #Bibasilar pneumonia. #Bilateral pleural effusions #Hx of COPD, on 2L. #Pulmonary embolism ruled out The patient has a history of COPD and has prior admissions for the same. At home, she reports being on 2L of O2 which she only uses occasionally. She still smokes about a pack a year. Generalized wheezing on physical exam. CXR showed bibasilar pneumonia. 11/13/2024-patient was more tolerant of BiPAP and more consistent overnight. At bedside today, she is saturating 86% on 6 days of oxygen. Left lung field is clear, however right has some expiratory wheezes and rhonchi. Will increase tramadol to 60 mg twice daily Plan: -Ensure BIPAP at night -IV Solu-Medrol 60 mg twice daily -Continue titrating oxygen, saturation goal of 88-92% -Continue levalbuterol and ipratropium -Incentive Spirometry -Encourage to ambulate more -Mucinex and Prometh/DM added for cough #[id number] #Hx of A-fib. Likely 2/2 acute hypoxic respiratory failure and COPD exacerbation. At home, she is on diltiazem for 60 mg, digoxin 0.125 mg and Eliquis 5 mg twice daily. CHADVASC- 4 HASBLED- 1 On admission, she was in A-flutter with RVR, HR in the 140s to 150s. She was started on diltiazem drip yesterday as well as digoxin and Eliquis. EKG done this morning showed a flutter with a heart rate of 75 beats per minutes. Following up with cardiology for further recommendations/possible cardioversion. 11/13/2024-heart rates in between 80-90. Will continue amiodarone, diltiazem and digoxin. Maintain electrolytes. Plan: -Continue Amiodarone, digoxin and Diltiazem -Continue Eliquis -Monitor and replete magnesium and potassium. Keep between 2 and 5 accordingly. -Follow up cardiology recommendations. #Alcohol withdrawal-resolved #Hx of polysubstance abuse. -remote hx of Marijuana, alcohol, methamphetamine, tobacco use. Plan: -CIWA protocol #Hyperkalemia- resolved Potassium today- 4.0 Plan: -Continue to monitor electrolytes #Hx of CAD s/p CABG (more than 20 years ago). #Hx of hyperlipidemia. -Echocardiogram showed EF 45-50% with diastolic dysfunction present but not able to grade due to A-flutter Per nephro rec, will continue on Lasix 20mg every other day 11/12/2024-increasing patient's Lasix dose to 40 mg daily Plan: - On home aspirin and atorvastatin. -Lasix 40 mg daily #Hx of hypertension. BP 164/103 on admission. Plan: -Losartan 25mg daily #Hypoosmolar hyponatremia-resolved -Na 130, osm 261, glucose 112 on admission. Sodium today- 135. Urine sodium <10, Urine CL 21.4 Plan: -Continue monitoring CMP -Nephrology consulted, appreciate recommendations #Hx of restless legs syndrome. -resumed home ropinirole. #Hx of hepatocellular disease. -Follow-up outpatient. FEN: Cardiac diet. DVT prophylaxis: Eliquis Dispo: Telemetry for acute hypoxic respiratory failure 2/2 COPD exacerbation. Code status: FULL CODE. Case was discussed with attending physician, Dr Albert Blount MD PGY-1 Disclaimer: This note was dictated by speech recognition. Minor errors in warping machine operator may be present due to voice recognition software.
[2024-11-13] MEDS: ACETAMINOPHEN 500 MG TABLET 1000 MG PO (16:19)
[2024-11-13] MEDS: DiphenhydrAMINE INJ 50 MG/ML VIAL 25 MG IVP (20:57)
--- NOTE | 2024-11-13 23:55 | ESPR_ITS ---
Documentation for date of: 11/13/24 Subjective Subjective Interval history: Patient seen and examined at the bedside. Patient is doing better and she used her BiPAP as directed last night. Continues to be in atrial fibrillation on telemetry Heart rate is well-controlled between 90-110 bpm Recommend to continue amiodarone 200 mg twice daily and Cardizem CD 360 mg once daily. Electrolytes replaced and potassium greater than 4 and magnesium greater than 2.4 No need of digoxin at the present point of time. Chest x-ray was repeated and it did show vascular congestion but appeared slightly better than before. Agree with IV Lasix 40 mg for now and patient's bicarbonate is 37, received 1 dose of acetazolamide 500 mg orally x 1. Will reevaluate the labs and plan to restart Lasix or acetazolamide again Discussed with the patient that she has to use at least 10 to 12 hours of BiPAP every night at the present settings. Continue aggressive treatment of COPD and should be on an good COPD outpatient regimen at the time of discharge. Patient should have an BiPAP machine arranged as outpatient at the time of discharge. Exam Vital Signs Temp Pulse Resp BP Pulse Ox O2 Del Method O2 Flow Rate 96.8 F 94 28 H 156/113 H 99 BiPAP 2 11/13/24 23:51 11/13/24 23:59 11/13/24 23:59 11/13/24 23:51 11/13/24 23:59 11/13/24 23:51 11/13/24 19:26 FiO2 50 11/13/24 23:59 Narrative Exam General: Alert and oriented x3. In no acute distress. Eyes: Pupils are equal and reactive to light bilaterally. HEENT: Atraumatic, normocephalic. No JVD noted. Mucosa moist. Cardiovascular: Normal S1 and S2. Normal rate and regular rhythm. No murmurs appreciated. No peripheral pitting edema noted. Respiratory: No respiratory distress. bilateral air entry+. minimal wheezing with no crackles heard. Abdomen: Soft, nontender, nondistended. Skin: No rash. Warm to touch. Musculoskeletal: No gross injuries. Able to move all 4 extremities. Neuro: Alert and oriented x3. No focal neuro deficits. Psych: Normal affect and mood Objective Labs 11/13/24 05:30 11/13/24 05:30 Labs: Laboratory Results - last 24 hr 11/13/24 05:30 WBC 17.0 H RBC 3.92 L Hgb 10.1 L Hct 32.5 L MCV 83 MCH 25.8 MCHC 31.1 RDW Std Deviation 54.2 H Plt Count 268 Neut % (Auto) 84 H Lymph % (Auto) 9 L [place] % (Auto) 6 Eos % (Auto) 0 Baso % (Auto) 0 Neut # (Auto) 14.3 H Lymph # (Auto) 1.5 [place] # (Auto) 0.9 H Eos # (Auto) 0.1 Baso # (Auto) 0.0 Immature Gran # (Auto) 0.20 H Absolute Nucleated RBC 0.00 Immature Gran % 1 H Nucleated RBC % 0 Sodium 137 Potassium 4.2 D Chloride 95 L Carbon Dioxide 38.6 H Anion Gap 3 L BUN 22 Creatinine 0.9 Estim Creat Clear Calc 56.2 L eGFR > 60 BUN/Creatinine Ratio 24 H Glucose 98 Calculated Osmolality 277 Calcium 8.9 Corrected Calcium 9.3 Phosphorus 3.5 Magnesium 2.9 H Albumin 3.5 ABG Interpretation ABG results: 11/01/24 11/04/24 11/05/24 19:07 23:05 03:10 ABG pH 7.17 L* 7.33 L D ABG pCO2 98 H* 77 H* D ABG pO2 92 58 L* D ABG HCO3 36 H 40 H ABG O2 Saturation 97 90 L ABG Base Excess 5 H 12 H VBG pH 7.41 VBG pCO2 54 VBG pO2 77 H VBG Base Excess 8 H 11/05/24 11/06/24 11/06/24 17:00 01:10 08:45 ABG pH 7.31 L 7.37 7.42 ABG pCO2 94 H* D 81 H* D 73 H* ABG pO2 66 L 75 L 69 L ABG HCO3 47 H 47 H 47 H ABG O2 Saturation 91 95 94 ABG Base Excess 17 H 18 H 19 H VBG pH VBG pCO2 VBG pO2 VBG Base Excess 11/06/24 11/08/24 11/08/24 16:00 11:03 15:25 ABG pH 7.52 H D 7.32 L D ABG pCO2 61 H D 79 H* D ABG pO2 189 H D 82 L D ABG HCO3 49 H 41 H ABG O2 Saturation 99 H 96 ABG Base Excess 23 H 12 H VBG pH 7.36 VBG pCO2 73 H VBG pO2 31 VBG Base Excess 13 H Assessment & Plan A&P Narrative A 69-year-old female with a past medical of CAD s/p CABG more than 20 years ago with unknown grafts is operative report unavailable, paroxysmal atrial fibrillation/flutter anticoagulation, rate controlled, history of moderate to severe COPD, active smoker still more than half a pack a day, increased 30 pack years smoking history, essential hypertension, hyperlipidemia, morbid obesity, history of alcohol, marijuana and tobacco abuse along with history of methamphetamine abuse previously many years ago, questionable liver disease secondary to alcohol and drug abuse, nephrolithiasis presented to the emergency department for further evaluation of shortness of breath and cough. Patient well-known to me from previous admission in October 2023 as well as she follows up with me in the clinic. Patient was initially diagnosed with paroxysmal atrial flutter/fibrillation with RVR in 10/2023 when she had COPD exacerbation along with an active COVID infection. Patient was followed up as outpatient and was placed on diltiazem ER to 60 mg once daily as well as digoxin 125 mcg once daily and Eliquis for anticoagulation. Heart rate was well-controlled but continued to be in normal sinus rhythm at that point of time. Patient continues to be smoking and she has at least moderate to severe COPD based on her previous presentations. Cardiology was consulted today for further management of the possible atrial flutter/fibrillation with RVR 1. Paroxysmal atrial flutter with RVR with 2:1 block and less likely SVT 2. Acute on chronic severe COPD exacerbation with unclear trigger - possible pneumonia - improved with BIPAP. 3. CAD s/p CABG more than 20 years ago with unknown grafts as operative report is unavailable 4. Acute on chronic hypoxic respiratory failure and rule out pneumonia 5. HFpEF or diastolic CHF 6. Essential hypertension 7. Hyperlipidemia 8. Morbid obesity 9. History of remote alcohol, marijuana and methamphetamine 10. Active smoker with more than [id number] smoking history 11. Questionable liver disease with given her history of alcohol abuse 12. Mild anemia Patient presented with severe COPD exacerbation unclear trigger and could be possible pneumonia and patient started on IV antibiotics per the primary team which we recommend to continue and do further workup for the sepsis. Patient should also receive Solu-Medrol 125 mg IV x 1 and aggressive treatment of the COPD exacerbation with the nebulizations but avoid albuterol and give patient levalbuterol along with Atrovent nebulizations. Patient will need long-term steroid inhaler along with other COPD regimen. Primary team is following the patient. Regarding tachycardia patient appears to be in paroxysmal atrial flutter with RVR at least 1 block and less likely SVT. Patient apparently did receive adenosine 12 mg IV x 1 in the ED but did not convert also patient received Cardizem 25 mg IV x 1 and Cardizem drip at 10 mg/h. Unfortunately we are unable to obtain the ECG rhythm when the patient did receive diagnosing and it would help with the diagnosis. At home doses of medication was Cardizem CD 360 mg once daily and digoxin 125 mcg once daily with which her heart rate was well- controlled and also was not Eliquis for anticoagulation. -Patient in the atrial flutter with RVR mostly secondary to the COPD exacerbation but as noted above unclear etiology for the COPD exacerbation possible pneumonia. -Recommend to continue Eliquis for anticoagulation -Patient apparently takes her medications as prescribed daily including the digoxin as well as the diltiazem CD and the last dose was yesterday. -Please started on Cardizem drip at 15 mg/h and was changed to Cardizem 360 mg once daily along with digoxin 125 mcg daily and patient's nuclear rate for better control of 75 bpm with atrial flutter and 40s to 1 block. -She did receive some additional doses of diltiazem 20 mg IV on 11/03/2023 for brief episodes of atrial flutter with RVR. -Patient could not receive a ZEE with cardioversion as patient respiratory status continued to decline and still had significant wheezing and increasing oxygen requirements from her significant COPD exacerbation with possible underlying pneumonia. 11/13/2024 Patient is doing better and she used her BiPAP as directed last night. Continues to be in atrial fibrillation on telemetry Heart rate is well-controlled between 90-110 bpm Recommend to continue amiodarone 200 mg twice daily and Cardizem CD 360 mg once daily. Electrolytes replaced and potassium greater than 4 and magnesium greater than 2.4 No need of digoxin at the present point of time. Chest x-ray was repeated and it did show vascular congestion but appeared slightly better than before. Agree with IV Lasix 40 mg for now and patient's bicarbonate is 37, received 1 dose of acetazolamide 500 mg orally x 1. Will reevaluate the labs and plan to restart Lasix or acetazolamide again Discussed with the patient that she has to use at least 10 to 12 hours of BiPAP every night at the present settings. Continue aggressive treatment of COPD and should be on an good COPD outpatient regimen at the time of discharge. Patient should have an BiPAP machine arranged as outpatient at the time of discharge. Discussed with the patient that she has to use at least 10 to 12 hours of BiPAP every night at the present settings. Continue aggressive treatment of COPD and should be on an good COPD outpatient regimen at the time of discharge. Patient should have an BiPAP machine arranged as outpatient at the time of discharge. History of CAD s/p CABG with unknown grafts-please try to obtain the report from her previous hospitalization where the CABG was performed Continue aspirin and statin and no beta-maverick given the severe COPD exacerbation. Recommend aggressive control of CAD with aspirin, high intensity statin. No blockers for rate control because of the severe COPD. Patient does have diastolic dysfunction on the previous echo and chest x-ray shows moderate vascular congestion as per the report. Does not appear to be in overt heart failure but appears to be mildly fluid overloaded. She is not on any kind of Lasix previously at home. Recommend to check BMP tomorrow morning. Okay to give 1 dose of Lasix 40 mg IV x 1. Strict input output, daily weights and 2 g sodium diet. Management of rest of the medical conditions as per primary team and other consultants. Thank you for the consult and allowing me to participate in the care of the patient. Cardiology will continue to follow. Rex Gaines M.D. Interventional Cardiology Time Spent With Patient Time: Total time spent is greater than 50% in coordination of care (as documented) at patient's floor/unit and/or counseling patient:
[2024-11-14] VITALS (12 sets, daily range): BP systolic 125–158; BP diastolic 77–95; PULSE 83–122; RESP 18–30; TEMP 36.1–36.9; O2SAT 89–100; BMI 31.8
[2024-11-14] MEDS: IPRATROPIUM RT 0.5 MG/ 2.5 ML NEBU INH ×3 (02:02→15:00)
[2024-11-14] MEDS: LEVALBUTEROL RT 0.63 MG/3 ML NEBU INH ×3 (02:02→15:01)
[2024-11-14] MEDS: HYDROcodone/APAP 5/325 TABLET 1 TAB PO (04:26)
[2024-11-14 05:55] LABS: Basophils % (Auto) 0 % (0-2.5); Eosinophils % (Auto) 0 % (0-10); Hematocrit 33.3 % (36.0-46.0); Hemoglobin 10.2 g/dL (12.0-16.0); Immature Granulocytes % (Auto) 1 % (0-0); Immature Granulocytes Auto 0.12 Thou/mm3 (0.00-0.00); Lymphocytes # (Auto) 0.3 Thou/mm3 (1.0-4.8); Lymphocytes % (Auto) 2 % (10-50); Mean Corpuscular HGB Conc 30.6 g/dl (31.0-37.0); Mean Corpuscular Hemoglobin 25.6 pg (25.0-35.0); Mean Corpuscular Volume 84 fL (80-100); Monocytes # (Auto) 0.1 Thou/mm3 (0.0-0.8); Monocytes % (Auto) 1 % (0-12); Neutrophils # (Auto) 13.2 Thou/mm3 (1.8-7.7); Neutrophils % (Auto) 97 % (37-80); Nucleated Red Blood Cell % 0 /100 WBC (0); Platelet Count 310 Thou/mm3 (140-440); RDW Standard Deviation 55.6 fL (36.4-46.3); Red Blood Count 3.99 Miln/mm3 (4.00-5.20); White Blood Count 13.7 Thou/mm3 (3.6-11.0)
[2024-11-14 06:26] LABS: Alanine Aminotransferase 83 U/L (10-49); Albumin, Serum 3.9 gm/dL (3.4-4.8); Alkaline Phosphatase 117 U/L (46-116); Anion Gap 7 (7-16); Aspartate Amino Transferase 54 U/L (0-34); BUN/Creatinine Ratio 19 Ratio (12-20); Bilirubin,Total 0.3 mg/dL (0.3-1.2); Blood Urea Nitrogen 21 mg/dL (9-23); Calcium 9.3 mg/dL (8.3-10.6); Calcium (Corrected) 9.4 mg/dL (8.5-10.1); Carbon Dioxide 31.5 mMol/L (20.0-31.0); Chloride 97 mMol/L (98-107); Creatinine (Component) 1.1 mg/dL (0.6-1.3); Estimated Creatinine Clearance 46.4 mL/min (>60); Glucose 207 mg/dL (74-106); Osmolality,Calculated 279 (275-295); Phosphorous 4.7 mg/dL (2.4-5.1); Potassium 4.3 mMol/L (3.4-5.1); Sodium 135 mMol/L (136-145); Total Protein 5.9 gm/dL (5.7-8.2); eGFR 55 See Note
[2024-11-14] MEDS: BUDESONIDE RT 0.5 MG/2 ML NEBU INH (07:26)
[2024-11-14] MEDS: INSULIN LISPRO (AdmeLOG) 1 UNIT/0.01 ML UNIT SC (07:49)
[2024-11-14] MEDS: NICOTINE PATCH 21 MG/24 HR PATCH.TD24 TOP (08:51)
[2024-11-14] MEDS: PANTOPRAZOLE 40 MG TABLET PO (08:51)
[2024-11-14] MEDS: ATORVASTATIN CALCIUM 20 MG TABLET 40 MG PO (08:51)
[2024-11-14] MEDS: BusPIRone HCL 5 MG TABLET PO (08:53)
[2024-11-14] MEDS: ASPIRIN EC 81 MG TABEC PO (08:53)
[2024-11-14] MEDS: LOSARTAN POTASSIUM 25 MG TABLET PO (08:53)
[2024-11-14] MEDS: AMIODARONE HCL 200 MG TABLET PO (08:53)
[2024-11-14] MEDS: APIXABAN 2.5 MG TABLET 5 MG PO (08:54)
[2024-11-14] MEDS: DILTIAZEM CD 120 MG CAPCR 360 MG PO (08:54)
[2024-11-14] MEDS: VIT B12/Vit C/FA (Nephrovite) TABLET 1 TAB PO (08:54)
[2024-11-14] MEDS: rOPINIRole HCL 0.25 MG TABLET PO (08:54)
[2024-11-14] MEDS: guaiFENesin/DM TABLET 1 EACH PO (08:54)
--- NOTE | 2024-11-14 09:28 | ESPR_ITS ---
Documentation for date of: 11/14/24 Subjective Subjective Interval history: Patient is a 69-year-old female with significant past medical history of COPD on home oxygen, CAD s/p CABG 20 years ago, tension, hyperlipidemia, hepatocellular disease, restless leg syndrome, history of polysubstance abuse including alcohol, marijuana, tobacco use and amphetamine use presented to ED with chief complaint of worsening of SOB. She denies any fever or chills, chest pain sore throat, phlegm production. She was admitted 1 year ago with similar symptoms and was found to have COPD exacerbation. During our evaluation, her vitals were significant for blood pressure 132/92, 130, RR 22, and saturating 90% on 3 L OxyMask. Labs are significant for white count 11.6, hemoglobin 10.5, with MCV 86. Chemistry panel was significant for sodium 122 worsening from 129 yesterday, potassium 6.3 worsened from 5.1 yesterday bicarb 32.3, creatinine 1.0 blood sugar 205. CXR revealing bibasilar pneumonia with EKG revealing atrial flutter. Nephrology consultation was done for further management of moderate hyponatremia and severe hyperkalemia. 11/14/2024 doing ok. Denies cp, sob. anxious to go home Review of Systems Review of Systems Narrative Review of Systems: + cough. sob better. No CP Exam Vital Signs Temp Pulse Resp BP Pulse Ox O2 Del Method O2 Flow Rate 36.9 C 96 20 125/77 94 L BiPAP 6 11/14/24 08:00 11/14/24 08:54 11/14/24 08:00 11/14/24 08:54 11/14/24 08:00 11/14/24 08:00 11/14/24 08:00 FiO2 50 11/14/24 08:00 Narrative Exam General: No acute distress, comfortably resting on her bed, A and O x 3 HEENT: Mildly dry mucous membranes, oropharynx clear Neck: Supple, No masses, No JVD CVS: S1S2 Regular rate and rhythm, No murmurs, rubs or gallops Lungs: Distant breath sounds, no crackles or rhonchi appreciated, saturating 93% on 3 L oxygen max Abd: Soft, NT/ND, +BS, no organomegaly Ext: No edema, warm and well perfused Skin: No rash Psych: Appropriate mood and affect Objective Labs 11/14/24 05:26 11/14/24 05:26 Labs: Laboratory Results - last 24 hr 11/14/24 05:26 WBC 13.7 H RBC 3.99 L Hgb 10.2 L Hct 33.3 L MCV 84 MCH 25.6 MCHC 30.6 L RDW Std Deviation 55.6 H Plt Count 310 D Neut % (Auto) 97 H Lymph % (Auto) 2 L [place] % (Auto) 1 Eos % (Auto) 0 Baso % (Auto) 0 Neut # (Auto) 13.2 H Lymph # (Auto) 0.3 L [place] # (Auto) 0.1 Eos # (Auto) 0.0 Baso # (Auto) 0.0 Immature Gran # (Auto) 0.12 H Absolute Nucleated RBC 0.00 Immature Gran % 1 H Nucleated RBC % 0 Sodium 135 L Potassium 4.3 Chloride 97 L Carbon Dioxide 31.5 H Anion Gap 7 BUN 21 Creatinine 1.1 Estim Creat Clear Calc 46.4 L eGFR 55 L BUN/Creatinine Ratio 19 Glucose 207 H D Calculated Osmolality 279 Calcium 9.3 Corrected Calcium 9.4 Phosphorus 4.7 Magnesium 2.0 Total Bilirubin 0.3 AST 54 H ALT 83 H Alkaline Phosphatase 117 H Total Protein 5.9 Albumin 3.9 Globulin 2.0 L Albumin/Globulin Ratio 2.0 ABG Interpretation ABG results: 11/01/24 11/04/24 11/05/24 19:07 23:05 03:10 ABG pH 7.17 L* 7.33 L D ABG pCO2 98 H* 77 H* D ABG pO2 92 58 L* D ABG HCO3 36 H 40 H ABG O2 Saturation 97 90 L ABG Base Excess 5 H 12 H VBG pH 7.41 VBG pCO2 54 VBG pO2 77 H VBG Base Excess 8 H 11/05/24 11/06/24 11/06/24 17:00 01:10 08:45 ABG pH 7.31 L 7.37 7.42 ABG pCO2 94 H* D 81 H* D 73 H* ABG pO2 66 L 75 L 69 L ABG HCO3 47 H 47 H 47 H ABG O2 Saturation 91 95 94 ABG Base Excess 17 H 18 H 19 H VBG pH VBG pCO2 VBG pO2 VBG Base Excess 11/06/24 11/08/24 11/08/24 16:00 11:03 15:25 ABG pH 7.52 H D 7.32 L D ABG pCO2 61 H D 79 H* D ABG pO2 189 H D 82 L D ABG HCO3 49 H 41 H ABG O2 Saturation 99 H 96 ABG Base Excess 23 H 12 H VBG pH 7.36 VBG pCO2 73 H VBG pO2 31 VBG Base Excess 13 H Assessment & Plan Additional Assessment & Plan Additional Plan: The patient is a 69-year-old female with significant past medical history of COPD on home oxygen, CAD s/p CABG 20 years ago, tension, hyperlipidemia, hepatocellular disease, restless leg syndrome, history of polysubstance abuse including alcohol, marijuana, tobacco use and amphetamine use presented to ED with chief complaint of worsening of SOB. She denies any fever or chills, chest pain sore throat, phlegm production was found to be on AHRF 2/2 COPD exacerbation. Nephrology consultation was done for further management of moderate hyponatremia and severe hyperkalemia. #Hyperkalemia, resolved Etiology currently unknown ?? partial adrenal insufficiency: Upon further chart review, always has borderline hyperkalemia and borderline hyponatremia DDx: Chronic kidney disease or chronic use of JANA inhibitors or ARB ruled out as the patient does not has CKD and has not been using JANA inhibitors/ARB Presented with potassium of 5.1 Increased up to 6.3 Potassium much better #Mild hypoosmolar hypovolemic hyponatremia Etiology currently unknown Stable at 133 -Treat the underlying cause of COPD exacerbation Sodium seems to be improving. #Primary respiratory acidosis fully compensated by metabolic alkalosis Metabolic alkalosis better after receiving 2 doses of Diamox -Continue to treat underlying COPD exacerbation #Hypertension -Continue with current medications as BP is currently stable -Monitor vitals #Acute hypoxic respiratory failure secondary to #COPD exacerbation. #Bibasilar pneumonia. #Hx of COPD, on 4L. #A-flutter. #Hx of A-fib. Dr. Elva Loredo on the case-on amiodarone drip #Hx of CAD s/p CABG (more then 20 years ago). #Hx of hyperlipidemia. #Hx of restless legs syndrome. #Hx of hepatocellular disease. #Hx of polysubstance abuse. Ok for dc
--- NOTE | 2024-11-14 11:20 | PC.NURSE ---
O2 sat at rest 84% on 4L o2.
--- NOTE | 2024-11-14 11:31 | PC.SS ---
SS met with pt in regards to possible DC today. Pt reports she is aligned with [facility] and has a concentrator that is not working. She contacted her son Kendrick via phone while SS was in room to inquire how many tanks she had at home. Per Kendrick he is unsure if they are full or not but some feel heavier then others. She has 3 small tanks and 3 large tanks. SS spoke to Billie and she stated pt is in between 4L and 5L. SS spoke to Bird at [facility] to inquire if pt O2 taks will last her enough time being on 5L. Bird requested for SS to submit new order for O2 showing pt is requiring higher amount and she can get started on getting her a high flow concentrator. SS spoke to Yojana to do O2 testing with pt at rest on 4L. If at 88% or lower pt will qualify. SS pending note to submit to [facility].
--- NOTE | 2024-11-14 12:39 | ESDS_ITS ---
Planned Discharge Date 11/14/24 DS: Providers Provider Date of admission: 11/01/24 17:42 Primary care physician: Scout Morris PA-C Admitting Provider: Gurdeep Price MD Attending Provider on Admission: Rodo Loya MD Consults: 11/01/24 17:49 Consult to Cardiology Stat Comment: Consulting Provider: Rex Gaines 11/03/24 10:23 Consult to Nephrology Routine Comment: Consulting Provider: Leonarda Cowart 11/05/24 17:30 Consult to Twitchell Operator Routine Comment: Consulting Provider: Maxine Dial 11/08/24 10:46 Referral Respiratory Therapy Stat Comment: titrate down oxymask/NC goal sats 88-92 11/08/24 10:50 Referral Physical Therapy Routine Comment: Physician Instructions: Attending Provider on DC: Gurdeep Price MD Discharging Provider: Key Blount MD DS: Diagnosis Problem List Completed Was Problem List Reviewed/Reconciled?: Yes Hospital Course Hospital Course Hospital course: The patient is a 69-year-old female with a past medical history of COPD on 2 L of oxygen, CAD status post CABG, hypertension, hyperlipidemia, restless leg syndrome and polysubstance use disorder who presented to the ED on 11/01/2024 with shortness of breath and cough. The patient had been having the symptoms for about 3 days prior to presentation, progressively worsened and caused her to present to the ED. Initially, she was hypoxic, hypertensive, tachycardic. Initial labs were significant for mild leukocytosis, anemia and hypoosmolar hyponatremia. EKG in the ED also showed atrial flutter. Chest x-ray showed bibasilar pneumonia. The patient was given breathing treatments, adenosine, diltiazem drip and was admitted for acute hypoxic respiratory failure secondary to COPD exacerbation, bibasilar pneumonia and possible new onset CHF. She was started on IV antibiotics for treatment of pneumonia, continuing on breathing treatments and steroids, amiodarone and diltiazem drip for A- fib/flutter with RVR and Eliquis. During the course of hospitalization, the patient's oxygen requirements continually increased. Chest x-ray showed bilateral pleural effusions but with insufficient fluid for drainage. Cardiology and nephrology were on board, echocardiogram was done which showed an EF of 45 to 50% and the patient was diuresed. Today, the patient is hemodynamically stable. She is still requiring oxygen about 2 to 4 L as well as BiPAP at night. She is cleared for discharge to go home on home oxygen and trilogy machine as well as long-acting beta agonist/inhaled corticosteroids/muscarinic antagonist. Patient also received a trilogy machine which she will use at night. She is recommended to follow-up with her PCP as well as maintenance man and cane flume feeding machine operator. The importance of stop smoking has been emphasized to the patient. #Acute hypoxic respiratory failure #COPD exacerbation #Bilateral pleural effusions #A-fib/flutter #Hypoosmolar hyponatremia-resolved #History of restless leg syndrome #History of polysubstance use #History of hypertension Discharge instructions: Follow up with your PCP within 1 week of discharge Follow up with cardiology within 2 weeks of discharge Stop digoxin Use all other medications as prescribed Follow this pattern for prednisone taper/use: Take 60mg daily for 7 days, then 50mg for 7 days, then 40mg for another 7 days, 30mg for the next 7 days, 20mg for the next 7 days and then 10mg for the last 7 days You can split prednisone dose with meals twice daily Ensure to use Trilogy machine at night Avoid smoking as much as possible Return to the ED if your symptoms worsen Case was discussed with Dr Marks PGY-2 and attending physician, Dr Albert Blount MD PGY-1 Disclaimer: This note was dictated by speech recognition. Minor errors in coffee supervisor may be present due to voice recognition software. Status at Discharge Overall status at discharge: patient is progressing back to baseline Time Spent with Patient Time attestation: Total time spent providing and/or coordinating discharge services: Time spent: Greater than 30 minutes Exam Vital Signs Temp Pulse Resp BP Pulse Ox O2 Del Method O2 Flow Rate 97.9 F 102 H 20 142/88 H 93 L BiPAP 5 11/14/24 12:00 11/14/24 12:00 11/14/24 12:00 11/14/24 12:00 11/14/24 12:00 11/14/24 12:00 11/14/24 12:00 FiO2 50 11/14/24 12:00 Narrative Exam GENERAL: AAOX3 NEURO: GILL BOX FIXER grossly intact, moves extremities x4. Intention tremors noted. HEENT: Moist mucosa. Eyes open, symmetrical, & clear CARDIO: No chest pain on palpation. Heart RRR, no obvious murmurs PULM: No noted coughing/dyspnea. Lungs clear to auscultation, no crackles or wheezing. Nasal cannula in situ, saturating 93% on 4 L. GI: Abdomen soft, nondistended, no pain on palpation. BSx4 URO/BUILDING SERVICES TECHNICIAN:: No further abnormalities noted. SKIN/MSK/EXT: No wounds/rashes/edema/amputations, no pain on palpation. Pedal p ulses present B/L Discharge Plan Plan Patient Disposition: HOME (Self Care) Patient condition on transfer: Stable Care Plan Goals: Follow up with your PCP within 1 week of discharge Follow up with cardiology within 2 weeks of discharge Follow up with cane flume feeding machine operator within 2 weeks Stop digoxin Use all other medications as prescribed Follow this pattern for prednisone taper/use: Take 60mg daily for 7 days, then 50mg for 7 days, then 40mg for another 7 days, 30mg for the next 7 days, 20mg for the next 7 days and then 10mg for the last 7 days You can split prednisone dose with meals twice daily Ensure to use Trilogy machine at night Avoid smoking as much as possible Return to the ED if your symptoms worsen Prescriptions/Referrals Prescriptions/Med Rec: New prednisone 10 mg tablet 10 mg PO QDAY Qty: 147 0RF Taper: Prednisone Taper 60 mg DAILY for 7 Days and 0 Hour 50 mg DAILY for 7 Days and 0 Hour 40 mg DAILY for 7 Days and 0 Hour 30 mg DAILY for 7 Days and 0 Hour 20 mg DAILY for 7 Days and 0 Hour 10 mg DAILY for 7 Days and 0 Hour Rx Instructions: Take 60mg daily for 7 days, then 50mg for 7 days, then 40mg for another 7 days, 30mg for the next 7 days, 20mg for the next 7 days and then 10mg for the last 7 days buspirone 5 mg Tablet 5 mg PO BID 30 Days Qty: 60 0RF amiodarone 200 mg Tablet 200 mg PO BID Qty: 30 0RF Trelegy Ellipta 200-62.5-25 mcg blister with device 2 inh inhalation QDAY Qty: 60 0RF pantoprazole [Protonix] 40 mg tablet,delayed release (DR/EC) 40 mg PO BID 30 Days Qty: 60 0RF diltiazem HCl 360 mg capsule,extended release 24hr 360 mg PO QDAY 30 Days Qty: 30 0RF furosemide [Lasix] 20 mg tablet 20 mg PO QDAY 30 Days Qty: 30 0RF Continued ropinirole 0.5 mg tablet 0.25 mg PO HS Patient Comments: TAKE ONE TABLET BY MOUTH 1-3 HOURS AT BEDTIME Eliquis 5 mg tablet 5 mg PO BID Qty: 60 0RF albuterol sulfate 90 mcg/actuation HFA aerosol inhaler 2 puff inhalation Q6H PRN (Reason: shortness of breath or wheezing) Qty: 8.5 0RF atorvastatin 40 mg tablet 40 mg PO HS Patient Comments: TAKE ONE TABLET BY MOUTH EVERY EVENING FOR CHOLESTEROL loratadine 10 mg tablet 10 mg PO .dailty Patient Comments: TAKE ONE TABLET BY MOUTH EVERY DAY NEEDED FOR ALLERGY aspirin [Adult Aspirin Regimen] 81 mg tablet,delayed release (DR/EC) 81 mg PO QDAY Discontinued omeprazole 20 mg Tablet,Delayed Release (Dr/Ec) 20 mg PO QDAY digoxin 125 mcg (0.125 mg) Tablet 0.125 mg PO QDAY Qty: 30 0RF diltiazem HCl 360 mg capsule,extended release 24hr 360 mg PO QAM Qty: 30 0RF magnesium oxide 400 mg (241.3 mg magnesium) Tablet 400 mg PO QDAY Qty: 30 0RF Referrals: Rex Gaines MD [Physician] - Leonarda Cowart MD [Physician] - Scout Morris PA-C [Primary Care Provider] - Patient/Caregiver Discharge Instructions Other Discharge Activity Instructions:: Follow up with your PCP within 1 week of discharge Follow up with cardiology within 2 weeks of discharge Follow up with cane flume feeding machine operator within 2 weeks Stop digoxin Use all other medications as prescribed Follow this pattern for prednisone taper/use: Take 60mg daily for 7 days, then 50mg for 7 days, then 40mg for another 7 days, 30mg for the next 7 days, 20mg for the next 7 days and then 10mg for the last 7 days You can split prednisone dose with meals twice daily Ensure to use Trilogy machine at night Avoid smoking as much as possible Return to the ED if your symptoms worsen Education Materials: Thoracentesis Dc, COPD: Chronic Coughing, AFL/Afib, Chronic Lung Disease Quit Smoking, Alcohol Withdrawal: What to Expect, Coping with Smoking Withdrawal, Discharge Instructions: COPD, Heart Disease Women, If Oxygen Is Prescribed, Eating Heart-Healthy Foods Print Language: Czech Stand Alone Forms: Ibeth Award Info., Patient Portal Info Letter Discharge Order Discharge Orders: Discharge (Routine); Ordered 11/14/24 Ordered By: Key Blount Quality Discharge Quality Measures VTE prophylaxis
--- NOTE | 2024-11-14 13:18 | PC.SS ---
Updated O2 referral to [facility], spoke to Bird-She dispatched truck driver supervisor to room with portable and concentrator. Pending delivery.
--- NOTE | 2024-11-14 14:40 | PC.SS ---
SS met pt at bedside, portable O2 delivered and was educated by tech. Convcentrator at home is also working and pt was educated on how to increase to 4Lpm. Pt ready and eager for DC. Per pt her son Kendrick is on his way.
[2024-11-16 07:03] LABS: Renin Activity, Plasma* 16.71 ng/mL/h (0.25-5.82)
[2024-11-16 07:05] LABS: Aldosterone* 16 ng/dL; Cortisol,total,LC/MS/MS* 2.6 mcg/dL
== END 2024-11-14 15:43 | disposition home or self-care (01) | DRG 190 ==
LOC: SERX 18:12 → SERHOLD 18:14 → S2NX 22:26
PROVIDERS: Internal Medicine; Student in an Organized Health Care Education/Training Program; Admitting Provider Internal Medicine; Emergency Provider Emergency Medicine; PCP Physician Assistant; Visit Provider Student in an Organized Health Care Education/Training Program
DX: J44.1 Chronic obstructive pulmonary disease with (acute) exacerbation (principal); J18.9 Pneumonia, unspecified organism; J96.21 Acute and chronic respiratory failure with hypoxia; J96.22 Acute and chronic respiratory failure with hypercapnia; I48.92 Unspecified atrial flutter; E87.1 Hypo-osmolality and hyponatremia; I50.30 Unspecified diastolic (congestive) heart failure; E66.2 Morbid (severe) obesity with alveolar hypoventilation; F10.139 Alcohol abuse with withdrawal, unspecified; E87.4 Mixed disorder of acid-base balance; I48.19 Other persistent atrial fibrillation; D64.9 Anemia, unspecified; J44.0 Chronic obstructive pulmonary disease with (acute) lower respiratory infection; E78.5 Hyperlipidemia, unspecified; I25.10 Atherosclerotic heart disease of native coronary artery without angina pectoris; H54.7 Unspecified visual loss; F15.10 Other stimulant abuse, uncomplicated; G25.81 Restless legs syndrome; Z68.31 Body mass index [BMI] 31.0-31.9, adult; K76.9 Liver disease, unspecified; I11.0 Hypertensive heart disease with heart failure; F17.210 Nicotine dependence, cigarettes, uncomplicated; E86.1 Hypovolemia; Z86.16 Personal history of COVID-19; E87.5 Hyperkalemia; M85.80 Other specified disorders of bone density and structure, unspecified site; G47.00 Insomnia, unspecified; E86.0 Dehydration; Z95.1 Presence of aortocoronary bypass graft; Z79.899 Other long term (current) drug therapy; Z79.82 Long term (current) use of aspirin; Z99.81 Dependence on supplemental oxygen; Z79.01 Long term (current) use of anticoagulants
CPT/HCPCS: 36415; 36600; 71045; 71275; 76999; 80053; 80061; 80069; 80162; 82088; 82436; 82533; 82803; 82947; 83036; 83605; 83735; 84100; 84133; 84244; 84295; 84300; 84443; 85025; 85610; 85730; 86331; 86635; 87040; 87205; 87811; 93005; 93306; 94640; 94660; 94667; 96365; 96366; 96367; 96368; 96374; 96375; 97162; 99291; A4649; A9270; J0153; J0283; J0456; J0612; J0696; J1120; J1200; J1643; J1815; J1940; J1956; J2060; J2270; J2470; J2919; J3475; J3480; J3490; J7030; J7040; J7050; J7512; Q9967

== ENCOUNTER → 2024-11-30 | Outpatient (CLI) | payer MEDICARE, MEDICAID, SELFPAY ==
--- NOTE | 2024-11-30 | XR_ITS ---
Examination: Venous duplex lower extremity sonogram, bilateral. Date and time of exam: November 30, 2024 1412 hours INDICATIONS: Right leg and right arm swelling and pain this week Technique: Multiple sonographic images of the deep venous system have been obtained. B-mode/2-D grayscale imaging of vascular structures and Doppler spectral analysis (waveforms) and color performed Both legs are examined. Findings: Deep venous systems do not demonstrate abnormal echogenicity. All visualized deep veins exhibit compressibility. All visualized deep veins exhibit augmentation. Impression: Negative for deep vein thrombosis
--- NOTE | 2024-11-30 16:06 | XR_ITS ---
Examination: Venous duplex upper extremity sonogram, bilateral. Date and time of exam: November 30, 2024 at 1628 hours INDICATIONS: Right arm swelling and pain beginning one week ago Technique: Multiple sonographic images of the deep venous system have been obtained. B-mode/2-D grayscale imaging of vascular structures and Doppler spectral analysis (waveforms) and color performed Both legs are examined. Findings: Negative for acute deep vein thrombosis right and left arms There is occlusive thrombus in the superficial left cephalic vein IMPRESSION: Negative for acute deep vein thrombus There is occlusive thrombus in the superficial left cephalic vein
== END | disposition home or self-care (01) ==
PROVIDERS: PCP Physician Assistant; Referring Provider Internal Medicine Cardiovascular Disease; Visit Provider Internal Medicine Cardiovascular Disease
DX: R22.41 Localized swelling, mass and lump, right lower limb (principal); I82.812 Embolism and thrombosis of superficial veins of left lower extremity
CPT/HCPCS: 93970